=== PATIENT | female | born 1960 | race Caucasian/White ===

== ENCOUNTER → 2019-04-24 | Outpatient (CLI) | payer MEDICARE, SELFPAY ==
[2019-04-24 18:27] LABS: Amphetamine Urine VISTA NEGATIVE (<1000 ng/mL); Barbiturate Urine VISTA NEGATIVE (< 200 ng/mL); Benzodiazepine Urine VISTA NEGATIVE (< 200 ng/mL); Cocaine Urine VISTA NEGATIVE (< 300 ng/mL); Ecstacy Urine VISTA NEGATIVE (< 500 ng/mL); Methadone Urine VISTA NEGATIVE (< 300 ng/mL); PCP Urine VISTA NEGATIVE (< 25 ng/mL); THC Urine VISTA NEGATIVE (< 50 ng/mL); Vista UDS pH Range 5
== END | disposition home or self-care (01) ==
PROVIDERS: Family Provider Internal Medicine; PCP Internal Medicine; Referring Provider Anesthesiology Pain Medicine; Visit Provider Anesthesiology Pain Medicine
DX: F11.20 Opioid dependence, uncomplicated (principal)
CPT/HCPCS: 36415; 80307

== ENCOUNTER → 2020-01-09 | Outpatient (CLI) | payer MEDICARE, SELFPAY ==
--- NOTE | 2020-01-09 13:27 | MRI_ITS ---
STUDY: MRI LUMBAR SPINE WITHOUT CONTRAST REASON FOR EXAM: Female, 59 years old. back pain, bilat hip pain TECHNIQUE: Standardized fat and water weighted pulse sequences were obtained in the sagittal and axial planes. COMPARISON: 12/01/2016 FINDINGS: T12-L1: Normal endplates. Normal disc height, hydration and morphology. Normal bilateral facet joints. Normal central canal and bilateral lateral recesses. Normal bilateral intervertebral neural foramina. Normal lumbar lordosis. There is no substantial scoliosis. Normal conus medullaris that terminates at the L1/L2. L1-2: Normal endplates. Normal disc height, hydration and morphology. Normal bilateral facet joints. Normal central canal and bilateral lateral recesses. Normal bilateral intervertebral neural foramina. L2-3: Mild bilateral facet hypertrophy with fluid in the facet joints consistent with instability and mild ligament flavum hypertrophy. No change in the 2 mm retrolisthesis of L2 on L3 with a mild bilobed disc protrusion produces mild spinal stenosis with mild bilateral lateral recess stenosis and mild bilateral neural foraminal stenosis. L3-4: Mild bilateral facet hypertrophy with fluid in the facet joints consistent with instability and mild ligament flavum hypertrophy. No change in the 2 mm retrolisthesis of L3 on L4 with a mild broad disc protrusion which produces mild spinal stenosis with mild bilateral lateral recess stenosis and mild bilateral neural foraminal stenosis. Associated Modic type I endplate changes. L4-5: Moderate bilateral facet hypertrophy and ligamentum flavum hypertrophy. No change in the 2 mm of anterolisthesis of L4 and L5 with a moderate broad disc protrusion which produces moderate spinal stenosis with moderate bilateral lateral recess stenosis with abutment of the L5 nerve roots bilaterally and mild left neural foraminal stenosis and moderate right neural foraminal stenosis with abutment of the exiting right L4 nerve root laterally.. L5-S1: Moderate bilateral facet hypertrophy with fluid in the facet joints consistent with instability. Disc desiccation but no disc protrusion, spinal stenosis, or neural foraminal stenosis. Normal visualized sacral ala. Normal visualized paraspinous soft tissue structures. MRI/Spine Lumbar (Routine) IMPRESSION: No change from 12/01/2016. Electronically Signed: Zheng Jama MD at 15:42 EST Tel , Service support ,
== END | disposition home or self-care (01) ==
PROVIDERS: PCP Internal Medicine; Referring Provider Anesthesiology Pain Medicine; Visit Provider Anesthesiology Pain Medicine
DX: M54.9 Dorsalgia, unspecified (principal); M79.606 Pain in leg, unspecified
CPT/HCPCS: 72148

== ENCOUNTER → 2020-12-02 11:15 | Outpatient (CLI) | payer MEDICARE, SELFPAY ==
--- NOTE | 2020-12-02 11:21 | RAD_ITS ---
STUDY: X-RAY - CERVICAL SPINE REASON FOR EXAM: Female, 60 years old. pt c/o constant neck pain x 2 weeks, most pain near T7 and goes up neck, had an injection in 2011, pt states hands sometimes get cold with neck pain TECHNIQUE: 3 view(s) of the cervical spine were obtained. COMPARISON: None FINDINGS: Normal anterior atlantoaxial articulation. Normal odontoid process. Normal cervical lordosis. There is multi-level endplate spondylosis. There is multi-level degenerative disc disease with multilevel disc space narrowing. There is facet arthropathy. Possible facet ankylosis C3-4 level. The soft tissue structures are unremarkable. RAD/Cerv Spine 2 or 3 Views IMPRESSION: Multilevel degenerative disease C6. There is no acute displaced fracture or dislocation. Electronically Signed: Jennie Olsen MD at 2:59 EST , Service support ,
== END ==
PROVIDERS: PCP Internal Medicine; Referring Provider Anesthesiology Pain Medicine; Visit Provider Anesthesiology Pain Medicine
DX: M54.2 Cervicalgia (principal); M79.602 Pain in left arm
CPT/HCPCS: 72040

== ENCOUNTER → 2021-09-07 11:36 | Outpatient (CLI) | payer MEDICARE, SELFPAY ==
--- NOTE | 2021-09-07 11:40 | RAD_ITS ---
STUDY: X-RAY - PELVIS AND LEFT HIP REASON FOR EXAM: Female, 61 years old. HIP PAIN TECHNIQUE: 3 views of the pelvis and hip. COMPARISON: 11/03/2014. FINDINGS: No acute fracture, dislocation or osseous destruction. Mild joint space narrowing at the hips. Mild sacroiliac joint arthrosis. No significant soft tissue swelling. RAD/HIP, UNI W/ Pelvis 2-3 Views IMPRESSION: Left hip and pelvis intact with mild osteoarthrosis Electronically Signed: Francis Barr DO at 10:40 EDT Tel , Service support ,
== END ==
PROVIDERS: PCP Internal Medicine; Referring Provider Anesthesiology Pain Medicine; Visit Provider Anesthesiology Pain Medicine
DX: M25.552 Pain in left hip (principal)
CPT/HCPCS: 73502

== ENCOUNTER → 2022-04-21 | Outpatient (CLI) | payer MEDICARE, SELFPAY ==
--- NOTE | 2022-04-21 | IMM_PTH ---
PATIENT: YANCY DALEY LOC: [facility] U#:[id number] AGE/SX: 61/F ROOM: RE04/21/[address]: Dr. Akanksha Burks DO : 1960 BED: DIS: 04/21/2022 SPEC #: [id number] RECD: 04/26/22 13:52 STATUS: TIMO REQ #: [id number] ESTELLE: 04/21/22 00:[address]: Akanksha Burks DEPT: IMMUNOHISTOCHEMISTRY RECD BY: Lou Alston ENTERED: 04/26/22 13:54 SP TYPE: IMMUNO OTHR DR: Dr. Tyrell Vaughn MD [place]: [facility] [place] Procedures: SMA (add) CALPONIN-1 (add) CEA (add) CK20 (add) CK7 (add) CK8 (add) ELSI (add) MAMM (add) RI (add) Vimentin (add) Pankeratin (add) GATA3 (add) P40 (add) ER (initial) S-100 (add) PHYSICIAN & INSTITUTION [address] [address] SPECIMEN INFORMATION: Tissue Source: Condyloma Clinical Info: Condyloma Specimen Number: [id number] CPT code: 42076, 02042 x14 METHODOLOGY: Deparaffinized sections of prefer/formalin-fixed tissue or PAP/DQ stained slides are incubated with monoclonal/polyclonal antibodies/oligonucleotide probes. Localization is made via biotin free immunoperoxidase method. Appropriate controls are performed and reacted as expected. Results on target cell population are indicated in the following table: RESULTS: ANTIBODY / CLONE RESULT ER (6F11) positive RI (1E2) positive Mammaglobin (31A5) positive GATA3 (L50-823) positive AE1-3 (AE1/AE3/PCK26) positive CK7 (OV-TL12/30) positive CK8 (81uibkA22) positive CK20 (KS20.8) negative Vimentin (V9) negative Calponin-1 (SM276Z) positive Actin (1A4) positive P40 (BC28) positive CEA (11-7/TF-3HB-1) negative ELSI (E29) positive S-100 (4C4.9) negative These tests were developed and their performance characteristics determined by [facility]. They may not have been cleared or approved by the U.S. Food and Drug Administration. The FDA has determined that such clearance or approval is not necessary. The above immunohistochemical/dualISH markers are ordered and reviewed by the Pathologist. INTERPRETATION: Condyloma, biopsy: Consistent with hidradenoma papilliferum. AM:karan 04/28/2022
--- NOTE | 2022-04-21 11:00 | MISC_PTH ---
PATIENT: YANCY DALEY LOC: [facility] U#:[id number] AGE/SX: 61/F ROOM: RE04/21/[address]: Dr. Akanksha Burks DO : 1960 BED: DIS: 04/21/2022 SPEC #: [id number] RECD: 04/21/22 14:56 STATUS: TIMO REAldo #: [id number] ESTELLE: 04/21/22 11:[address]: Akanksha Burks DEPT: SURGICAL PATHOLOGY RECD BY: Esther Fuentes ENTERED: 04/22/22 09:09 SP TYPE: MISC DAVID DR: Dr. Tyrell Vaughn MD Tissues: TISSUE SURGICALLY REMOVED Procedures: Surgery Specimen Level IV HEADER OPERATION: Condyloma removal PRE-OP DIAGNOSIS: 078.11 TISSUE SUBMITTED: Condyloma MICROSCOPIC DIAGNOSIS Condyloma, biopsy: Consistent with hidradenoma papilliferum. AM/am 04/28/22 COMMENT Immunohistochemistry ([id number]) supports the above diagnosis. MICROSCOPIC DESCRIPTION Slides are reviewed. GROSS DESCRIPTION Received in fixative is one container labeled with the patient's name and designated condyloma biopsy. The specimen consists of a piece of marroquin-brown skin measuring 0.4 x 0.4 x 0.3 cm. The specimen is totally submitted in one cassette. / SJ:karan 04/22/2022 TC:5 [facility]: [id number]
== END | disposition home or self-care (01) ==
LOC: LABSPEC 13:13
PROVIDERS: PCP Internal Medicine; Visit Provider Student in an Organized Health Care Education/Training Program
DX: D28.0 Benign neoplasm of vulva (principal)
CPT/HCPCS: 88305; 88341; 88342

== ENCOUNTER → 2022-07-04 | Outpatient (CLI) | payer MEDICARE, SELFPAY ==
[2022-07-04 12:34] LABS: Amphetamine Urine VISTA NEGATIVE (<1000 ng/mL); Barbiturate Urine VISTA NEGATIVE (< 200 ng/mL); Benzodiazepine Urine VISTA NEGATIVE (< 200 ng/mL); Cocaine Urine VISTA NEGATIVE (< 300 ng/mL); Ecstacy Urine VISTA NEGATIVE (< 500 ng/mL); Methadone Urine VISTA NEGATIVE (< 300 ng/mL); PCP Urine VISTA NEGATIVE (< 25 ng/mL); THC Urine VISTA NEGATIVE (< 50 ng/mL); Vista UDS pH Range 6
== END | disposition home or self-care (01) ==
LOC: LAB 11:28
PROVIDERS: PCP Internal Medicine; Referring Provider Anesthesiology Pain Medicine; Visit Provider Anesthesiology Pain Medicine
DX: F11.20 Opioid dependence, uncomplicated (principal)
CPT/HCPCS: 80307

== ENCOUNTER → 2024-03-13 | Outpatient (CLI) | payer MEDICARE, SELFPAY ==
--- NOTE | 2024-03-13 08:13 | MRI_ITS ---
HISTORY: Meningioma removed 12/2023, headaches. TECHNIQUE: Multiplanar and multisequence MR images of the brain were obtained before and after the intravenous administration of 17 cc Paola scan. 659 images. COMPARISON: 01/03/2024, 01/02/2024. FINDINGS: BRAIN PARENCHYMA: Near complete resolution of right frontotemporoparietal vasogenic edema. Small peripheral wedge-shaped zone of restricted diffusion, heterogeneous T2 FLAIR signal, and mild enhancement in the right parietal temporal postoperative bed. Mild enhancement appears petechial on the thin section images. Mild adjacent cortical and subcortical edema. No acute intracranial hemorrhage identified with decreased susceptibility artifact related to postoperative hemorrhage. Mild right dural thickening and susceptibility artifact in the overlying scalp, compatible with chronic postoperative change. CSF SPACES: Cerebral ventricles, cortical sulci, and other extra-axial CSF spaces within normal limits in size for age. No significant midline shift or other mass effect. VASCULAR SYSTEM: Major intracranial flow voids are maintained. PARANASAL SINUSES AND MASTOID AIR CELLS: Small left maxillary sinus mucous retention cyst. ORBITS: Symmetric contents. MRI/Brain W/WO Contrast IMPRESSION: Near complete resolution of right cerebral vasogenic edema with interval resolution of midline shift. Small zone of restricted diffusion with mild enhancement in the right temporoparietal postoperative bed which may represent postoperative change, residual/recurrent tumor, or infarction. Recommend follow-up. Electronically Signed: Modesta Cm MD at 11:31 EDT ,
[2024-03-13 08:41] LABS: CREATININE FINGERSTICK 1.4 mg/dL (0.55-1.02)
== END | disposition home or self-care (01) ==
PROVIDERS: PCP Internal Medicine
DX: D32.9 Benign neoplasm of meninges, unspecified (principal)
CPT/HCPCS: 70553; A9575

== ENCOUNTER → 2024-04-23 | Outpatient (CLI) | payer MEDICARE, SELFPAY ==
--- NOTE | 2024-04-23 10:04 | VDLE_ITS ---
Reason For Study: Left leg DVT RIGHT LEFT CFV is compressible, spontaneous, phasic, GSV is normal. competent and demonstrates normal CFV is compressible, spontaneous, phasic, augmentation. competent, and demonstrates normal Procedure augmentation. This is a venous duplex using B-mode, color FV is compressible, spontaneous, phasic, flow and spectral Doppler. competent and demonstrates normal Exam performed in department. augmentation. A preliminary report was called and/or faxed POP V is compressible, spontaneous, phasic, to Dr. Vaughn. competent and demonstrates normal augmentation. T/P Trunk is compressible. PTV is compressible. LT PerV is compressible. VL/Venous Duplex US, Unilateral Interpretation Summary Deep veins of the left lower extremity are patent and compressible segmentally. There is no evidence of left lower extremity deep vein thrombosis. The left great saphenous vein blair ears patent and compressible segmentally. Ordering Physician: Tyrell Vaughn Referring Physician: Tyrell Vaughn Performed By: Alfreda Erickson RVT
== END | disposition home or self-care (01) ==
PROVIDERS: PCP Internal Medicine; Referring Provider Internal Medicine; Visit Provider Internal Medicine
DX: I82.432 Acute embolism and thrombosis of left popliteal vein (principal)
CPT/HCPCS: 93971

== ENCOUNTER → 2025-03-24 | Outpatient (CLI) | payer MEDICARE, SELFPAY ==
--- NOTE | 2025-03-24 10:35 | RAD_ITS ---
PROCEDURE: LUMBAR SPINE 2 OR 3 VIEWS 03/24/2025 REASON FOR EXAM: RADICULOPATHY IN THE LUMBAR REGION TECHNIQUE: 3 view(s) of the lumbar spine FINDINGS: Vertebrae: No acute fracture. Discs: Disc space narrowing and osteophyte formation consistent with degenerative disc disease. Alignment: 5 mm of anterolisthesis of L5 on S1. Other: Facet hypertrophy in the lower lumbar spine. RAD/Lumbar Spine 2 or 3 Views IMPRESSION: Degenerative disc disease with 5 mm of anterolisthesis of L5 on S1. Reading Location: [id number]
== END | disposition home or self-care (01) ==
LOC: RAD 10:28
PROVIDERS: PCP Internal Medicine; Referring Provider Anesthesiology Pain Medicine; Visit Provider Anesthesiology Pain Medicine
DX: M54.16 Radiculopathy, lumbar region (principal)
CPT/HCPCS: 72100

== ENCOUNTER → 2025-06-16 | Outpatient (CLI) | payer MEDICARE, SELFPAY ==
--- NOTE | 2025-06-16 09:50 | RAD_ITS ---
EXAM: XR Thoracic Spine, 2 Views CLINICAL INDICATION: RADICULOPATHY, THORACIC REGION TECHNIQUE: Frontal and lateral views of the thoracic spine. COMPARISON: No relevant prior studies available. FINDINGS: VERTEBRAE: Degenerative disc disease and facet arthropathy throughout the thoracic spine. No acute fracture. Normal alignment. DISC SPACES: See above. SOFT TISSUES: Unremarkable. RAD/Thoracic Spine 2 Views IMPRESSION: Degenerative changes thoracic spine as described. Reading Location: [facility]
--- OUTSIDE RECORDS SUMMARY | 2025-06-16 19:33 | XMS RPT_ITS | CCD ---
Author Organization [facility] Care Team Providers Care Employment Recruiter Name Role Phone LATOUF, BUTROS Primary Care Unavailable , NIDIA Referring Unavailable TAMMY OLVERA Attending Unavailable TAMMY OLVERA Admitting Unavailable Johana HUERTA, Geremias Primary Care Provider [phone] JOHANA HUERTA, DR ARCHULETA Primary Care Physician Maddy Rounding Nurse, Audi Unavailable Nidia Henderson S Unavailable Unavailable CEFERINO AHUJA Attending Adams VAUGHN MD, DR ARCHULETA Primary Care Unavailable CEFERINO AHUJA Attending Unavaillaron VAUGHN MD, DR ARCHULETA Primary Care Unavailable HOSPITALIST, JONG Consulting Unavailable KIERSTEN HUERTA, CHIQUITA Diaz Admitting Unavailable KIERSTEN HUERTA, CHIQUITA Diaz Attending Unavailable JOHANA HUERTA, DR ARCHULETA Primary Care Unavailable YARED HUERTA, ADRI Consulting Unavaillaron BECKER MD, CELESTE Mullins Consulting Unavailable JONNY PUGH DO Consulting Unavailable CEFERINO AHUJA Consulting Unavaillaron BERMAN MD, HECTOR Consulting Unavailable NAVJOT HUERTA, DR MARIANO Consulting Unavailable PAOLO HUERTA, MARI Consulting Unavailkerry ISLAS MD, AFRICA Weinberg Consulting Unavailable CEFERINO AHUJA Attending Unavaillaron VAUGHN MD, DR ARCHULETA Primary Care Unavailable JOSEFA NIDIA Attending Unavailable LATOUF, BUTROS Referring Unavailable LATOUF, BUTROS Primary Care Unavailable LATOUF, BUTROS Primary Care Unavailable LATOUF, BUTROS Primary Care Unavailable LATOUF, BUTROS Primary Care Unavailable SHYAM RIVEROANDA Attending Unavailable LATOUF, BUTROS Primary Care Unavailable Latouf, Butros Primary Care Unavailable Francis Lora Attending Unavailable Latouf, Butros Referring Unavailable Latouf, Butros Primary Care Unavailable Juancarlos Gamez Referring Unavailable Basalemily, Ayman Attending Unavailable Latouf, Butros Primary Care Unavailable Latouf, Butros Referring Unavailable Latouf, Geremias Attending Unavailable LATOUF, GEREMIAS HUERTA Primary Care Unavailable LATOUF, GEREMIAS HUERTA Consulting Unavailable LATOUF, GEREMIAS HUERTA Attending Unavailable LATOUF, GEREMIAS HUERTA Admitting Unavailable PROVIDER, UNKNOWN Consulting Unavailable PROVIDER, UNKNOWN Consulting Unavailable PROVIDER, UNKNOWN Consulting Unavailable NAM, ROSENDO K Referring Unavailable NAM, ROSEDNO K Consulting Unavailable EVER, SRIDHAR E Primary Care Unavailable EVER, SRIDHAR E Attending Unavailable EVER, SRIDHAR E Admitting Unavailable PROVIDER, UNKNOWN Consulting Unavailable LATOUF, GEREMIAS HUERTA Primary Care Unavailable LATOUF, GEREMIAS HUERTA Consulting Unavailable LATOUF, GEREMIAS HUERTA Attending Unavailable LATOUF, GEREMIAS HUERTA Admitting Unavailable PROVIDER, UNKNOWN Consulting Unavailable PROVIDER, UNKNOWN Consulting Unavailable PROVIDER, UNKNOWN Consulting Unavailable LATOUF, GEREMAIS HUERTA Admitting Unavailable LATOUF, GEREMIAS HUERTA Primary Care Unavailable LATOUF, GEREMIAS HUERTA Consulting Unavailable LATOUF, GEREMIAS HUERTA Attending Unavailable PROVIDER, UNKNOWN Consulting Unavailable PROVIDER, UNKNOWN Consulting Unavailable PROVIDER, UNKNOWN Consulting Unavailable LATOUF, GEREMIAS HUERTA Admitting Unavailable LATOUF, GEREMIAS HUERTA Primary Care Unavailable LATOUF, GEREMIAS HUERTA Consulting Unavailable LATOUF, GEREMIAS HUERTA Attending Unavailable PROVIDER, UNKNOWN Consulting Unavailable PROVIDER, UNKNOWN Consulting Unavailable PROVIDER, UNKNOWN Consulting Unavailable LATOUF, GEREMIAS HUERTA Primary Care Unavailable LATOUF, GEREMIAS HUERTA Attending Unavailable LATOUF, GEREMIAS HUERTA Consulting Unavailable LATOUF, GEREMIAS HUERTA Admitting Unavailable PROVIDER, UNKNOWN Consulting Unavailable PROVIDER, UNKNOWN Consulting Unavailable PROVIDER, UNKNOWN Consulting Unavailable MAULIK CAI MD Primary Care Unavailable MAULIK CAI MD Attending Unavailable MAULIK CAI MD Admitting Unavailable LATOUF, GEREMIAS HUERTA Primary Care Unavailable LATOUF, GEREMIAS HUERTA Consulting Unavailable LATOUF, GEREMIAS HUERTA Attending Unavailable LATOUF, GEREMIAS HUERTA Admitting Unavailable PROVIDER, UNKNOWN Consulting Unavailable PROVIDER, UNKNOWN Consulting Unavailable PROVIDER, UNKNOWN Consulting Unavailable Allergies Allergy Classification Reported Allergen(s) Allergy Type Date of Onset Reaction(s) Facility (3 sources) Albuterol; Translations: [ALBUTEROL SULFATE] Drug Allergy 08-30-20 Intolerance [facility] Other [place] Repository (7 sources) Codeine; Translations: [CODEINE] Drug Allergy 12-31-19 16 Other: See Comments [facility] Repository (3 sources) Hmg-Coa Reductase Inhibitors (Statins); Translations: [HEIPCHZ-EPU-BCP REDUCTASE INHIBITORS] Propensity to adverse reactions to drug (disorder) 08-16-20 23 Swelling [facility] Repository (7 sources) Hydroxychloroquine; Translations: [HYDROXYCHLOROQUINE] Drug Allergy 12-31-19 16 Rash [facility] Repository (7 sources) Metoprolol; Translations: [METOPROLOL] Drug Allergy 12-31-19 16 Cough [facility] Repository (8 sources) Minocycline; Translations: [MINOCYCLINE] Drug Allergy 12-31-19 16 GI Upset, Eruption of skin (disorder) [facility] Repository (3 sources) Sulfonamides (Antibiotic); Translations: [SULFA (SULFONAMIDE ANTIBIOTICS)] Propensity to adverse reactions to drug (disorder) 12-31-19 16 Rash [facility] Repository (8 sources) Tetracycline; Translations: [TETRACYCLINE] Drug Allergy 12-31-19 16 GI Upset [facility] Repository (3 sources) RED YEAST RICE; Translations: [RED YEAST RICE] Propensity to adverse reactions to drug (disorder) 08-16-20 23 Vomiting [facility] Repository (3 sources) TETANUS AND DIPHTHERIA TOXOIDS, ADSORBED, ADULT; Translations: [TETANUS AND DIPHTHERIA TOXOIDS, ADSORBED, ADULT] Propensity to adverse reactions to drug (disorder) 12-31-19 Other: See Comments [facility] Repository (4 sources) Lovastatin; Translations: [lovastatin] Drug Allergy muscle cramps [facility] (4 sources) Pravastatin; Translations: [pravastatin] Drug Allergy Pain (finding) [facility] (4 sources) rosuvastatin; Translations: [rosuvastatin] Drug Allergy pain [facility] (4 sources) Sulfonamide; Translations: [sulfa drugs] Drug allergy [facility] (4 sources) tetanus toxoid vaccine, inactivated; Translations: [tetanus toxoid] Drug Allergy [facility] (1 source) Codeine Drug Allergy [facility] Repository (1 source) Hydroxychloroquine Drug Allergy [facility] Repository (1 source) Lovastatin Drug Allergy [facility] Repository (1 source) Pravastatin Drug Allergy [facility] Repository (1 source) rosuvastatin Drug Allergy [facility] Repository (1 source) Sulfonamides (Antibiotic) Drug allergy (disorder) [facility] Repository (1 source) tetanus toxoid vaccine, inactivated Drug Allergy [facility] Repository (1 source) METOPROLOL SUCC ER Drug allergy (disorder) [facility] Repository (1 source) RED YEAST RICE + CO-Q10 Drug allergy (disorder) [facility] Repository Medications Current Medications Medication Drug Class(es) Dates Sig (Normalized) Sig (Original) acetaminophen 325 mg oral capsule (4 sources) Start: 01-08-2024 take 1 capsule by mouth every four hours as needed for pain Tylenol 325 mg oral capsule Dose : 650 mg =, Oral, q4h, PRN as needed for pain, 0 Refill(s) Start Date: 01/08/24 Status: Ordered amLODIPine 10 mg oral tablet (5 sources) Dihydropyridine Calcium Channel Bharati Start: 01-09-2021 Norvasc 10 mg oral tablet Dose : 10 mg = 1 tab(s), Oral, qDay, 0 Refill(s) Start Date: 01/09/21 Status: Ordered Comment on above: Take by mouth once d aily. 10mg daily apixaban 5 mg oral tablet (2 sources) Factor Xa Inhibitor Start: 02-13-2024 Eliquis Starter Pack for Treatment of DVT and PE 5 mg oral tablet TAKE DIRECTED ON PACKAGE Start Date: 02/13/24 Status: Ordered busPIRone hydrochloride 5 mg oral tablet (1 source) Start: 02-13-2024 take 1 tablet by mouth twice daily busPIRone 5 mg oral tablet TAKE 1 TABLET BY MOUTH TWICE DAILY Start Date: 02/13/24 Status: Ordered carvedilol 12.5 mg oral tablet (5 sources) alpha-Adrenergic Bharati, beta-Adrenergic Bharati Start: 01-12-2021 Coreg 12.5 mg oral tablet Dose : 12.5 mg = 1 tab(s), Oral, BIDM, # 180 tab(s), 3 Refill(s), Pharmacy: [facility]/pharmacy #[id number], 149.9, cm, 01/09/21 5:02:00 EST, Height, kg, 01/09/21 5:02:00 EST, Dosing Weight Start Date: 01/12/21 Status: Ordered Comment on above: Take 12.5 mg by mout h twice daily with meals. cephalexin 500 mg oral capsule (1 source) Cephalosporin Antibacterial Start: 04-09-2024 End: 04-19-2024 cephalexin 500 mg oral capsule Dose : 500 mg = 1 cap(s), Oral, QID, X 10 day(s), # 40 cap(s), 0 Refill(s), 04/19/24 10:19:00 AM EDT, Pharmacy: [id number], 144.8, cm, 04/09/24 10:02:00 EDT, Height, 86.7, kg, 04/09/24 10:02:00 EDT, Dosing Weight Start Date: 04/09/24 Stop Date: 04/19/24 Status: Ordered cyclobenzaprine hydrochloride 10 mg oral tablet (5 sources) Muscle Relaxant Start: 01-08-2024 cyclobenzaprine 10 mg oral tablet Dose : 10 mg = 1 tab(s), Oral, BID, PRN Muscle spasm, 0 Refill(s) Start Date: 01/08/24 Status: Ordered take 1 tablet by mouth once brian y cyclobenzaprine (FLEXERIL) 10 mg tablet Take 10 mg by mouth once daily. 0 Active Comment on above: Take 10 mg by mouth once daily. dexamethasone 1 mg oral tablet (4 sources) Corticosteroid Start: dexAMETHasone 1 mg oral tablet See Instructions, 2mg (2 tabs) PO TID x 2 days 2mg (2 tabs) PO BID x 2 days 1mg PO BID x 2 days 1mg PO daily x 2 days 1mg PO QOD x 2 doses Then stop., # 28 tab(s), 0 Refill(s), Pharmacy: [id number], 144.8, cm, 01/05/24 19:12:00 EST, Height, kg, 01/05/24 19:12:00 EST, Dosing Weight Start Date: 01/08/24 Status: Ordered 1 ml evolocumab 140 mg/ml auto-injector (5 sources) PCSK9 Inhibitor Start: 023 inject 140 mg by subcutaneous injection every other week Repathkerry SureClick 140 mg/mL subcutaneous solution See Instructions, INJECT 140 MG UNDER THE SKIN ONCE EVERY 2 WEEKS, # 6 mL, 3 Refill(s), [id number], 149.9, cm, 04/03/23 13:53:00 EDT, Height, kg, 04/03/23 13:53:00 EDT, Dosing Weight Start Date: 09/18/23 Status: Ordered Comment on above: ADMINISTER 1 ML UNDE R THE SKIN EVERY 2 WEEKS ezetimibe 10 mg oral tablet (4 sources) Dietary Cholesterol Absorption Inhibitor Start: Zetia 10 mg oral tablet Dose : 10 mg = 1 tab(s), Oral, qDay, # 90 tab(s), 3 Refill(s), Pharmacy: [facility], 149.9, cm, 10/06/22 13:17:00 EST, Height, kg, 10/06/22 13:17:00 EST, Dosing Weight Start Date: 02/01/23 Status: Ordered folic acid 1 mg oral tablet (5 sources) Start: folic acid 1 mg oral tablet Dose : 2 mg = 2 tab(s), Oral, qDay, 0 Refill(s) Start Date: 01/09/21 Status: Ordered Comment on above: Take 1 mg by mouth t wice daily. lactulose 667 mg/ml oral solution (5 sources) Osmotic Laxative Start: take 1 dose by mouth twice daily lactulose 10 g/15 mL oral syrup Dose : 10 gram(s) = 15 mL, Oral, BID, # 480 mL, 0 Refill(s) Start Date: 10/06/22 Status: Ordered take 20 g by mouth twice daily l actulose (DUPHALAC, CONSTULOSE) 10 g/15 mL soln Take 20 g by mouth twice daily. 0 Active Comment on above: Take 20 g by mouth t wice daily. levETIRAcetam 500 mg oral tablet (4 sources) Start: 01-08-2024 levETIRAcetam 500 mg oral tablet Dose : 500 mg = 1 tab(s), Oral, q12h, # 60 tab(s), 0 Refill(s), Pharmacy: [id number], 144.8, cm, 01/05/24 19:12:00 EST, Height, kg, 01/05/24 19:12:00 EST, Dosing Weight Start Date: 01/08/24 Status: Ordered lisinopril 20 mg oral tablet (5 sources) Angiotensin Converting Enzyme Inhibitor Start: 01-09-2021 lisinopril 20 mg oral tablet Dose : 20 mg = 1 tab(s), Oral, BID, 0 Refill(s) Start Date: 01/09/21 Status: Ordered Comment on above: Take 20 mg by mouth once daily. nitroglycerin 0.4 mg sublingual tablet (5 sources) Nitrate Vasodilator Start: 01-12-2021 Nitrostat 0.4 mg sublingual tablet Dose : 0.4 mg = 1 tab(s), Sublingual, q5min, PRN Chest pain, # 100 tab(s), 3 Refill(s), [id number], 149.9, cm, 01/09/21 5:02:00 EST, Height, kg, 01/09/21 5:02:00 EST, Dosing Weight Start Date: 01/12/21 Status: Ordered nitroglycerin mg blingual (NITROQUICK) 0.4 mg SL tablet Dissolve 0.4 mg under the tongue every 5 minutes as needed for chest pain. 0 Active Comment on above: Dissolve 0.4 mg unde r the tongue every 5 minutes as needed for chest pain. omeprazole 20 mg delayed release oral capsule (6 sources) Proton Pump Inhibitor Start: 04-11-2018 omeprazole 20 mg oral delayed release capsule Dose : 20 mg = 1 cap(s), Oral, qDayAC, 0 Refill(s) Start Date: 01/09/21 Status: Ordered take 1 capsule by mouth once aleks ly omeprazole (PRILOSEC) 20 mg capsule Take 20 mg by mouth once daily. 0 Active Comment on above: Take 20 mg by mouth once daily. Take 1 capsule by [facility] twice daily. POLYETHYLENE GLYCOL 3350 (4 sources) Osmotic Laxative Start: 01-08-2024 polyethylene glycol 3350 Oral, qDay, 0 Refill(s) Start Date: 01/08/24 Status: Ordered Completed/Discontinued Medications Medication Drug Class(es) Dates Sig (Normalized) Sig (Original) acetaminophen 325 mg / HYDROcodone bitartrate 5 mg oral tablet (1 source) Opioid Agonist take 1 tablet by mouth every twelve hours as needed HYDROcodone-acetam inophen (NORCO) 5-325 mg per tablet Take 1 tablet by mouth twice daily as needed. 0 Active Comment on above: Take 1 tablet by khurarm th twice daily as needed. ASCORBIC ACID/ZINC (ZINC WITH VITAMIN C ORAL) (1 source) ASCORBIC ACID/ZI NC (ZINC WITH VITAMIN C ORAL) Take by mouth once daily. 0 Active Comment on above: Take by mouth once d aily. aspirin 81 mg delayed release oral tablet (1 source) Platelet Aggregation Inhibitor, Nonsteroidal Anti-inflammatory Drug take 1 tablet by mouth once daily aspirin, enteric coated (ASPIRIN, ENTERIC COATED) 81 mg EC tablet Take 81 mg by mouth once daily. 0 Active Comment on above: Take 81 mg by mouth once daily. Budesonide / formoterol (1 source) Corticosteroid, beta2-Adrenergic Agonist budesonide-formote rol (SYMBICORT) 160-4.5 mcg/actuation inhaler Inhale 2 Puffs as instructed as needed. 0 Active Comment on above: Inhale 2 Puffs as in structed as needed. ciprofloxacin 500 mg oral tablet (1 source) Quinolone Antimicrobial take 1 tablet by mouth twice daily for urinary tract infection ciprofloxacin HCl (CIPRO) 500 mg tablet Take 500 mg by mouth twice daily. On hand if needed for cystitis/UTI 0 Active Comment on above: Take 500 mg by mouth twice daily. On hand if needed for cystitis/UTI diazePAM 5 mg oral tablet (4 sources) Benzodiazepine Start: 01-16-2024 diazePAM 5 mg oral tablet Dose : 5 mg = 1 tab(s), Oral, q6h, PRN as needed for anxiety, 0 Refill(s), 86.7 Start Date: 01/16/24 Status: Ordered Start: 01-08-2024 End: 01-13-2024 Valium 5 mg oral tablet Dose : 5 mg = 1 tab(s), Oral, TID, PRN Anxiety, X 5 day(s), # 15 tab(s), 0 Refill(s), 01/13/24 1:58:00 PM EST, Pharmacy: [facility], Anxiety, 144.8, cm, 01/05/24 19:12:00 EST, Height, 86.7, kg, 01/05/24 19:12:00 EST, Dosing Weight Start Date: 01/08/24 Stop Date: 01/13/24 Status: Ordered ezetimibe / Simvastatin (1 source) HMG-CoA Reductase Inhibitor, Dietary Cholesterol Absorption Inhibitor take 10 mg by mouth once daily EZETIMIBE-SIMVASTATIN ORAL Take 10 mg by mouth once daily. 0 Active Comment on above: Take 10 mg by mouth once daily. meloxicam 15 mg oral tablet (1 source) Nonsteroidal Anti-inflammatory Drug take 1 tablet by mouth once daily meloxicam (MOBIC) 15 mg tablet Take 15 mg by mouth once daily. 0 Active Comment on above: Take 15 mg by mouth once daily. methotrexate 2.5 mg oral tablet (1 source) Folate Analog Metabolic Inhibitor methotrexate 2.5 mg tablet Take by mouth one time only. Seven tabs once a week 0 Active Comment on above: Take by mouth one ti me only. Seven tabs once a week omega-3 DHA-EPA (FISH OIL) 1,200 (144-216) mg capsule (1 source) take 1 capsule by mouth once daily at breakfast omega-3 DHA-EPA (FISH OIL) 1,200 (144-216) mg capsule Take 1 capsule by mouth daily with breakfast. 0 Active Comment on above: Take 1 capsule by mo ut daily with breakfast. omega-3 fatty [id number]-neo-[id number] 300 mg cap (1 source) omega-3 fatty nitzj-ynl-lhe 300 mg cap Take by mouth once daily. 0 Active Comment on above: Take by mouth once d aily. phenazopyridine hydrochloride 200 mg oral tablet (1 source) take 1 tablet by mouth every eight hours as needed phenazopyridine (PYRIDIUM, GERIDIUM) 200 mg tablet Take 200 mg by mouth three times daily as needed. 0 Active Comment on above: Take 200 mg by mouth three times daily as needed. Polyethylene Glycols (1 source) POLYETHYLENE GLY COL 3350 (MIRALAX ORAL) Take by mouth as needed. 0 Active Comment on above: Take by mouth as nee ded. predniSONE 5 mg oral tablet (1 source) take 1 tablet by mouth once daily predniSONE (DELTASONE) 5 mg tablet Take 5 mg by mouth once daily. One tab for 3-5 days for polyarthropathy flare ups 0 Active Comment on above: Take 5 mg by mouth o nce daily. One tab for 3-5 days for polyarthropathy flare ups ticagrelor 60 mg oral tablet (1 source) take 1 tablet by mouth twice daily ticagrelor (BRILINTA) 60 mg tablet Take 60 mg by mouth twice daily. 0 Active Comment on above: Take 60 mg by mouth twice daily. Problems Active Problems Problem Classification Problem Date Documented Da te Episodic/Chronic Acute myocardial infarction (4 sources) Myocardial infarction 01-25-2021 Chronic Anxiety disorders (1 source) Anxiety disorder; Translations: [Anxiety disorder, unspecified] Chronic Coronary atherosclerosis and other heart disease (5 sources) Coronary atherosclerosis; Translations: [Atherosclerotic heart disease of [place] coronary artery without angina pectoris] Chronic Disorders of lipid metabolism (7 sources) Hyperlipidemia; Translations: [Hyperlipidemia, unspecified] Onset: 05-29-2024 Chronic Epilepsy; convulsions (1 source) Seizure; Translations: [Unspecified convulsions] Episodic Esophageal disorders (3 sources) Conner's esophagus; Translations: [Conner's esophagus without dysplasia] Onset: 09-28-2023 09-28-2023 Chronic Essential hypertension (9 sources) Essential hypertension; Translations: [Essential (primary) hypertension] Onset: 02-17-2025 Chronic Nutritional deficiencies (2 sources) Vitamin D deficiency, unspecified; Translations: [Vitamin D deficiency] Onset: 05-29-2024 Chronic Other aftercare (3 sources) 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; Translations: [Other fdc (current) drug therapy] Onset: 03-12-2024 Episodic Other and unspecified benign neoplasm (1 source) Tubular adenoma of colon; Translations: [Benign neoplasm of colon, unspecified] 09-28-2023 Episodic Other endocrine disorders (1 source) Hyperparathyroidism , unspecified; Translations: [Hyperparathyroidis m, unspecified] Onset: 02-27-2025 Chronic Other gastrointestinal disorders (1 source) Personal history of other diseases of the digestive system; Translations: [History of Conner's esophagus] Onset: 09-07-2023 Episodic Other gastrointestinal disorders (1 source) Constipation, unspecified; Translations: [Constipation, unspecified constipation type] Onset: 09-07-2023 Episodic Other gastrointestinal disorders (1 source) History of Conner's esophagus; Translations: [Personal history of other diseases of the digestive system] Onset: 09-07-2023 09-07-2023 Episodic Other gastrointestinal disorders (1 source) Constipation; Translations: [Constipation, unspecified] Onset: 09-07-2023 09-07-2023 Episodic Other liver diseases (1 source) Disease of liver; Translations: [Liver disease, unspecified] Chronic Other lower respiratory disease (4 sources) Dyspnea on exertion 04-07-2022 Episodic Other nervous system disorders (1 source) Disorder of brain; Translations: [Disorder of brain, unspecified] Chronic Other nervous system disorders (1 source) Cerebral edema; Translations: [Cerebral edema] Chronic Other nervous system disorders (2 sources) Disorder of brain, unspecified; Translations: [Disorder of brain, unspecified] Onset: 12-29-2023 Chronic Other non-epithelial cancer of skin (1 source) Basal cell carcinoma of lower extremity; Translations: [Basal cell carcinoma of skin of right lower limb, including hip] Episodic Other nutritional; endocrine; and metabolic disorders (2 sources) Hypercalcemia; Translations: [Hypercalcemia] Onset: 05-29-2024 Chronic Residual codes; unclassified (4 sources) Increased body mass index 01-25-2021 Episodic Rheumatoid arthritis and related disease (7 sources) Rheumatoid arthritis; Translations: [Rheumatoid arthritis, unspecified] Onset: 05-27-2024 Chronic Spondylosis; intervertebral disc disorders; other back problems (2 sources) Spinal stenosis of lumbar region; Translations: [Spinal stenosis, lumbar region without neurogenic claudication] Onset: 03-31-2025 Episodic Unclassified (2 sources) Blood clot (morphologic abnormality) 02-13-2024 Comment on above: left leg Past or Other Problems Problem Classification Problem Date Documented Da te Episodic/Chronic Diabetes mellitus without complication (2 sources) Hyperglycemia, unspecified; Translations: [Hyperglycemia] Onset: 05-29-2024 Episodic Nutritional deficiencies (2 sources) Deficiency of other specified B group vitamins; Translations: [Vitamin B12 deficiency (non anemic)] Onset: 05-29-2024 Episodic Other and unspecified benign neoplasm (1 source) Benign neoplasm of colon, unspecified; Translations: [Tubular adenoma of colon] Onset: 09-28-2023 Episodic Other gastrointestinal disorders (1 source) Heartburn; Translations: [Heartburn] Onset: 03-23-2018 Episodic Other gastrointestinal disorders (1 source) Heartburn; Translations: [Heartburn] Onset: 03-23-2018 03-23-2018 Episodic Other screening for suspected conditions (not mental disorders or infectious disease) (2 sources) Encounter for screening for malignant neoplasm of colon; Translations: [Patient encounter status] Onset: 03-23-2018 03-23-2018 Episodic Phlebitis; thrombophlebitis and thromboembolism (1 source) Acute embolism and thrombosis of left popliteal vein; Translations: [Acute embolism and thrombosis of left popliteal vein] Onset: 04-30-2024 Episodic Results Test Name Value Interpretation Reference Range Facility ED MED ADMINISTRATION DETAIL on 06-07-2025 ED MED ADMINISTRATION DETAIL [employer] [facility] Medication Administration Record [address] [place] [address] [id number] 06/03/2025 Patient: TAMMY GUPTA Sex: Female : 1960 Age: 64y MEASUREMENTS: Wt: 86.2 kg, Ht/Jeremias: 58.0 in, BMI: 39.71 ALLERGIES: Plaquenil, Sulfa (Sulfonamide Antibiotics), codeine, lovastatin, metoprolol, minocycline, pravastatin, red yeast rice, rosuvastatin, tetanus and diphtheria toxoids, tetracycline Medication Ordered Medication Administration Date/Time IV NS 0.9 % 1000 10:06/03 IV NS 0.9 % 1000 mL started in bag#1 1000 mL at Started mL at 500 mL/hr 500 mL/hr via Site# 1. - 10:13 Rick Uriarte R.N. 10:10 06/03/2025 (NOW x1) Rick Uriarte R.N. 13:06 06/03 Medication Discontinued: bag #1 completed. Total Stopped amount infused: 1000 mL. IV patency established. IV site checked: 13:06 06/03/2025 no pain, redness, or swelling. IV flushed thoroughly post-medication Mari Kiser R.N. administration. - 13:11 Mari Kiser R.N. Scanned HYDROmorphone 10:11 06/03 HYDROmorphone (Dilaudid) IVP 0.5 mg given via Given (Dilaudid) IVP 0.5 Site# 1. Allergies verified and confirmed 5 rights. IV patency 10:11 06/03/2025 mg (NOW x1, HIGH established. IV site checked: no pain, redness, or swelling. IV Rick Uriarte R.N. ALERT flushed thoroughly pre-medication administration. Information Scanned MEDICATION) reviewed with patient. Medication Wastage: 0.5 mg wasted. - 10:12 Rick Uriarte R.N. Zofran IVP 4 mg 10:10 06/03 Zofran IVP 4 mg given via Site# 1. Allergies verified Given (NOW x1) and confirmed 5 rights. IV patency established. IV site checked: no 10:10 06/03/2025 pain, redness, or swelling. IV flushed thoroughly pre-medication Rick Uriarte R.N. administration. Information reviewed with patient including reason Scanned for taking this medication. - 10:13 Rick Uriarte R.N. 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 Allergies verified and confirmed 5 rights. IV patency 13:17 06/03/2025 mg (NOW x1, HIGH established. IV site checked: no pain, redness, or swelling. IV Mari Kiser R.N. ALERT flushed thoroughly pre-medication administration. Information Scanned MEDICATION) reviewed with patient and spouse including reason for taking this medication, signs of allergic reaction, precautions and sedative warning. Verbalizes understanding. (left abdominal pain 5/10). Medication Wastage: 0.5 mg wasted. - 13:21 Mari Kiser R.N. 2 of 2 Normal [facility] ED NURSES CLINICAL NOTEon ED NURSES CLINICAL NOTE Nurse Narrative Nurse Clinical Narrative [address] [place] [address] [id number] 06/03/2025 09:40:00 Patient: TAMMY GUPTA Sex: Female : 1960 Age: 64y Disposition: Discharge to Home Disposition Decision Time: 14:13 06/03/2025 Departure Time: 14:21 06/03/2025 TRIAGE Arrived by private vehicle. Historian: (patient). Accompanied by family. Primary physician (Dr. oMnae). Triage time: 09:43 06/03/2025. Acuity: LEVEL 3. Chief Complaint: ABDOMINAL PAIN, NAUSEA and VOMITING. This started last night. The patient has had fever, nausea and vomiting. SEPSIS SCREEN: NEGATIVE. SIRS criteria negative: heart rate greater than 90. No possible sources of infection. -- 09:47 06/03/25 WINSTON Uriarte R.N. 09:48 06/03/25. BP: 177/104 MAP: 128. HR: 99. RR: 18. O2 saturation: 96% Temperature: 98 F. Pain level now 09/05. -- 09:48 06/03/25 WINSTON Uriarte R.N. Measurements: 09:47 06/03/25 Wt: 86.2 kg, Ht/Jeremias: 58.0 in, BMI: 39.71 -- 09:47 06/03/25 WINSTON Uriarte R.N. Medications: Repatha SureClick 140 mg/mL subcutaneous pen injector: 1 pen injector once every two weeks. -- 09:59 06/03/25 WINSTON Uriarte R.N. omeprazole 20 mg capsule,delayed release: 1 capsule once a day. -- 09:59 06/03/25 WINSTON Uriarte R.N. meloxicam 7.5 mg tablet: 1 tablet once a day as needed. -- 09:59 06/03/25 WINSTON Uriarte R.N. 1 of 5 Nurse Narrative ezetimibe 10 mg tablet: 1 tablet once a day. -- 09:59 06/03/25 WINSTON Uriarte R.N. cyclobenzaprine 10 mg tablet: 1 tablet once a day. -- 09:59 06/03/25 WINSTON Uriarte R.N. carvedilol 12.5 mg tablet: 1 tablet twice a day. -- 09:59 06/03/25 WINSTON Uriarte R.N. alprazolam 0.25 mg tablet: 1 tablet twice a day as needed. -- 09:59 06/03/25 WINSTON Uriarte R.N. lactulose 10 gram/15 mL oral solution: 15 ml twice a day as needed. -- 09:59 06/03/25 WINSTON Uriarte R.N. aspirin 81 mg tablet,delayed release: 1 tablet once a day. -- 09:59 06/03/25 WINSTON Uriarte R.N. methotrexate sodium 2.5 mg tablet: 6 tablet once a week. -- 09:06/03/25 WINSTON Uriarte R.N. lisinopril 20 mg tablet: 1 tablet twice a day. -- 09:06/03/25 WINSTON Uriarte R.N. amlodipine 10 mg tablet: 1 tablet once a day. -- 09:06/03/25 WINSTON Uriarte R.N. hydrocodone 5 mg-acetaminophen 325 mg tablet: TAKE 1 TABLET BY MOUTH TWICE A DAY NEEDED FOR 28 DAYS -- 09:06/03/25 WINSTON Uriarte R.N. folic acid 1 mg tablet: TAKE 2 TABLETS BY MOUTH ONCE DAILY -- 09:06/03/25 WINSTON Uriarte R.N. 09:43 06/03/25. Preferred Pharmacy: ([facility]). -- 09:47 06/03/25 WINSTON Uriarte R.N. Allergies: codeine -- 09:49 06/03/25 WINSTON Uriarte R.N. Sulfa (Sulfonamide Antibiotics) -- 09:49 06/03/25 WINSTON Uriarte R.N. metoprolol -- 09:49 06/03/25 WINSTON Uriarte R.N. tetracycline -- 09:49 06/03/25 WINSTON Uriarte R.N. minocycline -- 09:49 06/03/25 WINSTON Uriarte R.N. Plaquenil -- 09:49 06/03/25 WINSTON Uriarte R.N. tetanus and diphtheria toxoids -- 09:49 06/03/25 WINSTON Uriarte R.N. rosuvastatin -- 09:50 06/03/25 WINSTON Uriarte R.N. pravastatin -- 09:50 06/03/25 WINTSON Uriarte R.N. lovastatin -- 09:50 06/03/25 WINSTON Uriarte R.N. red yeast rice -- 09:50 06/03/25 WINSTON Uriarte R.N. Problems: Hypertension -- 09:44 06/03/25 WINSTON Uriarte R.N. Myocardial Infarction -- 09:44 06/03/25 WINSTON Uriarte R.N. melanoma -- 09:44 06/03/25 WINSTON Uriarte R.N. Cancer -- 09:44 06/03/25 WINSTON Uriarte R.N. Surgeries: 2 of 5 Nurse Narrative Hysterectomy -- 09:45 06/03/25 WINSTON Uriarte R.N. Placement of stent in coronary artery -- 09:45 06/03/25 WINSTON Uriarte R.N. brain tumor removal -- 09:45 06/03/25 WINSTON Uriarte R.N. History 09:43 06/03/25. SOCIAL HX: Former smoker, end date 2019. Occasional alcohol use. Drug use: marijuana. The patient has not traveled outside the [place] Infectious disease exposure: No infectious disease exposure. ABUSE ASSESSMENT: The patient answered yes to the question(s) Do you feel safe in your home? and no to the question(s) Are you afraid to go home?. SELF HARM ASSESSMENT: Self harm assessment was performed. The patient answered no to the question(s) Have you recently felt down, depressed, or hopeless? and Do you have thoughts of harming or killing yourself?. FALL RISK ASSESSMENT: Fall risk assessment completed. Risk factors identified include severe pain. -- 09:47 06/03/25 WINSTON Uriarte R.N. Interventions 09:43 06/03/25. Advanced care plan discussed with patient. Patient does not have advanced directive. (full code). -- 09:47 06/03/25 WINSTON Uriarte R.N. PHYSICAL ASSESSMENT 10:29 06/03/25. Ambulatory to room. GENERAL / NEURO / PSYCH: Alert. Oriented X 4. Appears in pain. HEENT: Mucous membranes are pink. RESPIRATORY: Respirations not labored. Breath sounds within normal limits. CVS: (more content not included)... Normal [facility] ED ORDER SHEET (CPOE ONLY)on 06-07-2025 ED ORDER SHEET (CPOE ONLY) Order Sheet Order Sheet [place] [address] [place] [address] [id number] 06/03/2025 Patient: TAMMY GUPTA Sex: Female : 1960 Age: 64y MEASUREMENTS: Wt: 86.2 kg, Ht/Jeremias: 58.0 in, BMI: 39.71 ALLERGIES: Plaquenil, Sulfa (Sulfonamide Antibiotics), codeine, lovastatin, metoprolol, minocycline, pravastatin, red yeast rice, rosuvastatin, tetanus and diphtheria toxoids, tetracycline MEDICATION/IV/DRIP/FLUID ORDERS Order Description Priority Entered Acknowledged Completed IV NS 0.9 %1000 mL at 500 09:59 06/03/2025 10:00 10:13 mL/hr (NOW x1) Sridhar Blandon, 06/03/2025 06/03/2025 Rick Nichols R.N. R.NTray HYDROmorphone (Dilaudid) 09:59 06/03/2025 10:00 10:12 IVP0.5 mg (NOW x1, HIGH Sridhar Blandon, 06/03/2025 06/03/2025 ALERT MEDICATION) Rick Nichols R.N. R.N. Reason for ordering with alerts: Benefits outweigh risks --09:59 06/03/2025 Sridhar Blandon D.O. Zofran IVP4 mg (NOW x1) 09:59 06/03/2025 10:00 10:13 Sridhar Blandon, 06/03/2025 06/03/2025 Rick Nichols R.N. R.NTray HYDROmorphone (Dilaudid) 13:14 06/03/2025 13:21 IVP0.5 mg (NOW x1, HIGH Sridhar Blandon, 06/03/2025 1 of 3 Order Sheet ALERT MEDICATION) Humaira Kiser R.N. Reason for ordering with alerts: Benefits outweigh risks --13:14 06/03/2025 Sridhar Blandon D.O. LAB ORDERS Order Description Priority Entered Acknowledged Collected Completed CBC w Diff Stat Stat 09:59 06/03/2025 10:00 06/03/2025 10:13 06/03/2025 Rick Mccormack R.N. Kobe Miller, R.N. D.O. CMP Stat Stat 09:59 06/03/2025 10:00 06/03/2025 10:13 06/03/2025 Rick Mccormack R.N. Kobe Miller, R.N. D.OTray Lipase Stat Stat 09:59 06/03/2025 10:00 06/03/2025 10:13 06/03/2025 Rick Mccormack R.N. Kobe Miller, R.N. D.O. Urinalysis Stat Stat 09:59 06/03/2025 10:00 06/03/2025 10:13 06/03/2025 Rick Mccormack R.N. Kobe Miller, R.N. D.O. DIAGNOSTIC STUDY ORDERS Order Description Priority Entered Acknowledged Completed CT ABD/PEL w Cont Stat Stat 11:56 06/03/2025 11:57 12:41 Sridhar Blandon 06/03/2025 06/03/2025 Mari Nichols R.N. R.N. Order Comments: 11:56 06/03/2025: Status: Not . Sridhar Blandon D.O. Reason for Study: Abdominal Pain 2 of 3 Order Sheet STAFF ORDERS Order Description Priority Entered Acknowledged Collected Completed IV Saline Lock 09:59 06/03/2025 10:00 06/03/2025 10:13 06/03/2025 Rick Mccormack R.N. Kobe Miller, R.N. D.O. [Electronically signed by Sridhar Blandon D.O. (06/07/2025 02:49 EDT)] 3 of 3 Normal [facility] ED PHYSICIAN CLINICAL REPORT on 06-07-2025 ED PHYSICIAN CLINICAL REPORT Narrative Physician Clinical Narrative [address] [address] [id number] 06/03/2025 09:40:00 Patient: TAMMY GUPTA Sex: Female : 1960 Age: 64y Disposition: Discharge to Home Disposition Decision Time: 14:13 06/03/2025 Departure Time: 14:21 06/03/2025 Measurements Wt: 86.2 kg, Ht/Jeremias: 58.0 in, BMI: 39.71 Initial Vital Sign Measured Time BP MAP HR RR O2Sat ETCO2 Temp Pain GCS RTS 09:48 06/03/2025 177/104 128 99 18 96% 98.0 F 10 Time Seen: 09:48 06/03/2025. Arrived- By private vehicle. Historian- patient. Independent historian- family. HISTORY OF PRESENT ILLNESS Chief Complaint: FLANK PAIN. It is described as pain, sharp and stabbing and it is described as located in the left lower quadrant. This started last night patient came in complaining of left flank pain. Started last night sometimes 10/10 she can palpate where it hurts and she presents to the emergency department denies any nausea vomiting diarrhea. She has had a hysterectomy. She has also had coronary artery disease hypertension she has had a meningioma she also had a DVT in the past she is not on anticoagulation. She has had 2 cardiac stents. Social she is a nonsmoker occasionally drinks alcohol. and is still present. REVIEW OF SYSTEMS NEUROLOGICAL: No headache. CONSTITUTIONAL: No fever or chills. : No difficulty with urination. GI: No constipation. Status: Not . 1 of 13 Narrative PAST HISTORY See nurses notes. Cancer Hypertension melanoma Myocardial Infarction Surgeries: brain tumor removal Hysterectomy Placement of stent in coronary artery Medications: alprazolam 0.25 mg tablet: 1 tablet twice a day as needed. amlodipine 10 mg tablet: 1 tablet once a day. aspirin 81 mg tablet,delayed release: 1 tablet once a day. carvedilol 12.5 mg tablet: 1 tablet twice a day. cyclobenzaprine 10 mg tablet: 1 tablet once a day. ezetimibe 10 mg tablet: 1 tablet once a day. folic acid 1 mg tablet: TAKE 2 TABLETS BY MOUTH ONCE DAILY hydrocodone 5 mg-acetaminophen 325 mg tablet: TAKE 1 TABLET BY MOUTH TWICE A DAY NEEDED FOR 28 DAYS lactulose 10 gram/15 mL oral solution: 15 ml twice a day as needed. lisinopril 20 mg tablet: 1 tablet twice a day. meloxicam 7.5 mg tablet: 1 tablet once a day as needed. methotrexate sodium 2.5 mg tablet: 6 tablet once a week. omeprazole 20 mg capsule,delayed release: 1 capsule once a day. Repatha SureClick 140 mg/mL subcutaneous pen injector: 1 pen injector once every two weeks. Allergies: codeine lovastatin metoprolol minocycline Plaquenil pravastatin 2 of 13 Narrative red yeast rice rosuvastatin Sulfa (Sulfonamide Antibiotics) tetanus and diphtheria toxoids tetracycline SOCIAL HISTORY Former smoker. Occasional alcohol use. Drug use: marijuana. ADDITIONAL NOTES The nursing notes have been reviewed. PHYSICAL EXAM Appearance: Alert. Oriented X3. No acute distress. Eyes: Pupils equal, round and reactive to light. Eyes normal inspection. ENT: Ears normal. Nose normal. Neck: Normal inspection. Neck supple. CVS: Normal heart rate and rhythm. Heart sounds normal. Respiratory: No respiratory distress. Breath sounds normal. Abdomen: Soft. Moderate tenderness in the left lower quadrant. Back: Normal inspection. Skin: Skin warm and dry. Normal skin color. Normal skin turgor. Extremities: Extremities exhibit normal ROM. No lower extremity edema. Neuro: Oriented X 3. No motor deficit. LABS, X-RAYS, AND EKG Laboratory Tests: CBC + DIFF Final ESTELLE: 06/03/2025 09:55:00 EDT MsgRcvd: 06/03/2025 10:22 EDT Lab Test Result Reference Status Received Comments 3 of 13 Narrative Lab Test Result Reference Status Received Comments 06/03/2025 10:22 CBC-COMPLETE CBC + DIFF Final EDT BLOOD COUNT 06/03/2025 10:22 WBC 7.3 x 10/UL 4.5 - 10.8 Final EDT 06/03/2025 10:22 RBC 5.19 x 10/UL 4.10 - 5.30 Final EDT 06/03/2025 10:22 HEMOGLOBIN 15.0 g/dl 12.0 - 16.0 Final EDT 06/03/2025 10:22 HEMATOCRIT 44.9 % 34.0 - 46.0 Final EDT 06/03/2025 10:22 MCV 87 fl 80 - 99 Final EDT 06/03/2025 10:22 MCH 29 pg 27 - 33 Final EDT 06/03/2025 10:22 MCHC 34 X10 3 32 - 36 Final EDT 06/03/2025 10:22 RDW/CV 14.7 % 12.0 - 15.6 Final EDT 06/03/2025 10:22 PLATELET 277 x10/UL 150 - 450 Final EDT 06/03/2025 10:22 AUTOMATED MPV 8.4 fl 6.6 - 10.5 Final EDT DIFFERENTIAL 06/03/2025 10:22 NEUT % 70.7 % 46.0 - 76.0 Final EDT 06/03/2025 10:22 LYMPH % 21.7 % 20.0 - 45.0 Final EDT 4 of 13 Narrative Lab Test Result Reference Status Received Comments 06/03/2025 10:22 MONOS % 5.4 % 0.0 - 10.0 Final EDT 06/03/2025 10:22 EO % 1.8 % 0.0 - 7.0 Final EDT 06/03/2025 10:22 BASO % 0.3 % 0.0 - 2.0 Final (more content not included)... Normal [facility] ED [facility] 06-07-2025 ED [place] [address] [place] [address] [id number] 06/03/2025 Patient: TAMMY GUPTA Sex: Female : 1960 Age: 64y Facility Professional Category Item Description Code Code Quantity Fee Total Drugs Normal Saline 692259 1 $0.00 $0.00 1000cc (957134) Nurse/E/M EMERGENCY 868501 1 $0.00 $0.00 DEPT VISIT HIGH SEVERITYFUNCJ (77036-49) Nurse/IV/IM/Infusions Hydration 388727 3 $0.00 $0.00 additional hour (77779) Nurse/IV/IM/Infusions IVP additional 920111 1 $0.00 $0.00 push (33897) Nurse/IV/IM/Infusions IVP initial (72266) 105602 1 $0.00 $0.00 Nurse/IV/IM/Infusions IVP same med 952537 1 $0.00 $0.00 (31 min apart) (24050) Grand $0.00 Total Providers 1 of 2 [facility] Sridhar Blandon D.O. Chief Complaint FLANK PAIN. Principal Diagnosis Acute left upper quadrant abdominal pain. (epiploic appendagitis). ICD-10 Codes R10.12: Left upper quadrant pain 2 of 2 Normal [facility] ED VISIT SUMMARYon ED VISIT SUMMARY Visit Overview Visit Overview [facility] [address] [place] [address] [id number] 06/03/2025 Patient: TAMMY GUPTA Sex: Female : 1960 Age: 64y 06/07/2025 02:49 AM EDT ED Arrival:09:40 06/03/2025 EDT Status:not Recent Travel:no Language:eng Adv Directive:No Isolation Status: Ethnicity:N Fall Risk:risk Infectious Disease Exposure:no Measurements:4'10 / 147.3 Self-Harm Status:risk Sepsis Screen:negative cm 190.0 lb / 86.2 kg Chief Complaint:ABDOMINAL PAIN, NAUSEA, VOMITING, and (Dr. Monae) ALLERGIES codeine lovastatin metoprolol minocycline Plaquenil pravastatin red yeast rice rosuvastatin Sulfa (Sulfonamide Antibiotics) 1 of 4 Visit Overview tetanus and diphtheria toxoids tetracycline HOME MEDICATIONS alprazolam 0.25 mg tablet: 1 tablet twice a day as needed. amlodipine 10 mg tablet: 1 tablet once a day. aspirin 81 mg tablet,delayed release: 1 tablet once a day. carvedilol 12.5 mg tablet: 1 tablet twice a day. cyclobenzaprine 10 mg tablet: 1 tablet once a day. ezetimibe 10 mg tablet: 1 tablet once a day. folic acid 1 mg tablet: TAKE 2 TABLETS BY MOUTH ONCE DAILY hydrocodone 5 mg-acetaminophen 325 mg tablet: TAKE 1 TABLET BY MOUTH TWICE A DAY NEEDED FOR 28 DAYS lactulose 10 gram/15 mL oral solution: 15 ml twice a day as needed. lisinopril 20 mg tablet: 1 tablet twice a day. meloxicam 7.5 mg tablet: 1 tablet once a day as needed. methotrexate sodium 2.5 mg tablet: 6 tablet once a week. omeprazole 20 mg capsule,delayed release: 1 capsule once a day. Repatha SureClick 140 mg/mL subcutaneous pen injector: 1 pen injector once every two weeks. PAST MEDICAL HISTORY / PROBLEMS Cancer Hypertension melanoma Myocardial Infarction See nurses notes PAST SURGICAL HISTORY brain tumor removal Hysterectomy Placement of stent in coronary artery SOCIAL HISTORY Smoking status: No Alcohol use: Yes 2 of 4 Visit Overview Drug use: Yes ED COURSE MEDICATIONS GIVEN IN EMERGENCY DEPARTMENT 10:10 06/03/25 IV NS 0.9 % 1000 mL 500 mL/hr 10:10 06/03/25 Zofran IVP 4 mg 10:11 06/03/25 HYDROmorphone (Dilaudid) IVP 0.5 mg 13:17 06/03/25 HYDROmorphone (Dilaudid) IVP 0.5 mg IV SITE INFORMATION INTAKE OUTPUT REASSESMENT (most recent) 10:29 06/03/25. Ambulatory to room. GENERAL / NEURO / PSYCH: Alert. Oriented X 4. Appears in pain. HEENT: Mucous membranes are pink. RESPIRATORY: Respirations not labored. Breath sounds within normal limits. CVS: Normal sinus rhythm noted. Capillary refill less than 2 seconds. GI / : The patient has had nausea. Abdominal tenderness in the left lower quadrant. Bowel sounds within normal limits. SKIN: Skin is warm and dry. VITAL SIGNS First Vitals Last Vitals Temp 09:48 06/03/25 98.0 F Temp 14:12 06/03/25 BP 09:48 06/03/25 177/104 BP 14:12 06/03/25 HR 09:48 06/03/25 99 HR 14:12 06/03/25 90 RR 09:48 06/03/25 18 RR 14:12 06/03/25 O2 Sat 09:48 06/03/25 96% O2 Sat 14:12 06/03/25 92% Pain 09:48 06/03/25 10 Pain 14:12 06/03/25 ETCO2 09:48 06/03/25 ETCO2 14:12 06/03/25 GCS 09:48 06/03/25 GCS 14:12 06/03/25 RTS 09:48 06/03/25 RTS 14:12 06/03/25 PROCEDURES NURSING INTERVENTIONS 3 of 4 Visit Overview LABS / STUDIES LABS / STUDIES ORDERED CBC w Diff CMP CT ABD/PEL w Cont Lipase Urinalysis CLINICAL IMPRESSION ACUTE LEFT UPPER QUADRANT ABDOMINAL PAIN 4 of 4 Normal [facility] ED VITALS FLOW SHEETon 06-07 ED VITALS FLOW SHEET Vitals Vital Sign Flow Sheet [facility] [address] [place] [address] [id number] 06/03/2025 [id number] Sex[facility] Female : 1960 Age: 64y Measurements Wt: 86.2 kg, Ht/Jeremias: 58.0 in, BMI: 39.71 Measured Time BP MAP HR RR O2Sat ETCO2 Temp Pain GCS RTS 14:12 06/03/2025 90 92% 14:07 06/03/2025 90 95% 14:02 06/03/2025 92 92% 13:57 06/03/2025 87 91% 13:52 06/03/2025 86 91% 13:47 06/03/2025 85 92% 13:42 06/03/2025 88 91% 13:37 06/03/2025 86 92% 13:35 06/03/2025 151/85 107 85 13:32 06/03/2025 87 91% 13:29 06/03/2025 183/115 136 87 13:27 06/03/2025 87 91% 13:22 06/03/2025 92 94% 13:17 06/03/2025 90 96% 13:13 06/03/2025 145/80 114 91 1 of 3 Vitals Measured Time BP MAP HR RR O2Sat ETCO2 Temp Pain GCS RTS 13:12 06/03/2025 95 94% 13:07 06/03/2025 88 93% 13:02 06/03/2025 90 96% 12:52 06/03/2025 86 98% 12:27 06/03/2025 157/98 122 80 12:27 06/03/2025 80 98% 12:22 06/03/2025 84 97% 12:17 06/03/2025 81 97% 12:12 06/03/2025 152/95 114 81 12:12 06/03/2025 79 94% 12:07 06/03/2025 82 97% 12:02 06/03/2025 85 96% 11:52 06/03/2025 81 94% 11:47 06/03/2025 79 92% 11:42 06/03/2025 144/84 95 79 11:42 06/03/2025 77 92% 11:37 06/03/2025 82 91% 11:32 06/03/2025 81 93% 11:27 06/03/2025 139/91 104 79 11:27 06/03/2025 78 94% 11:22 06/03/2025 78 93% 11:17 06/03/2025 79 93% 11:12 06/03/2025 132/81 109 77 11:12 06/03/2025 79 93% 11:07 06/03/2025 81 92% 2 of 3 Vitals Measured Time BP MAP HR RR O2Sat ETCO2 Temp Pain GCS RTS 11:02 06/03/2025 79 95% 10:57 06/03/2025 149/87 107 82 10:57 06/03/2025 82 92% 10:52 06/03/2025 83 95% 10:47 06/03/2025 82 92% 10:42 06/03/2025 134/81 104 82 10:42 06/03/2025 82 90% 10:37 06/03/2025 83 89% 10:32 06/03/2025 88 90% 09:48 06/03/2025 177/104 128 99 18 96% 98.0 F 10 3 of 3 Normal [facility] CBC + DIFFon 06-03-2025 Baso # 0.02 x10EE3/UL Normal 0.00 - 0.10 [facility] Comment on above: Performed By: #### 2 [id number] ####[facility],[address] [place] [address] Basophils/100 WBC (Bld) 0.3 % Normal 0.0 - 2.0 [facility] Comment on above: Performed By: #### 2 [id number] ####[facility],[address] [place] [address] CBC + DIFF Normal [facility] Comment on above: Result Comment: CBC- COMPLETE BLOOD COUNT Performed By: #### 2 [id number] ####[facility],[address] [place] [address] EO # 0.13 x10EE3/UL Normal 0.00 - 0.50 [facility] Comment on above: Performed By: #### 2 97236 ####[facility],[address] [place], [place] [id number] Eosinophils/100 WBC (Bld) 1.8 % Normal 0.0 - 7.0 [facility] Comment on above: Performed By: #### 2 96962 ####[facility],[address] [place] [address] Erythrocyte distribution width (RBC) [Ratio] 14.7 % Normal 12.0 - 15.6 [facility] Comment on above: Performed By: #### 2 00790 ####[facility],[address] [place] [address] Hematocrit (Bld) [Volume fraction] 44.9 % Normal 34.0 - 46.0 [facility] Comment on above: Performed By: #### 2 [id number] ####[facility],[address] [place] [address] Hemoglobin (Bld) [Mass/Vol] 15.0 g/dL Normal 12.0 - 16.0 [facility] Comment on above: Performed By: #### 2 55150 ####[facility],[address] [place], [place] [id number] Lymph # 1.59 x10EE3/UL Normal 0.80 - 2.80 [facility] Comment on above: Performed By: #### 2 50410 ####[facility],[address] [place], [place] [id number] Lymphocytes/100 WBC (Bld) 21.7 % Normal 20.0 - 45.0 [facility] Comment on above: Performed By: #### 2 76283 ####[facility],[address] [place], [place] [id number] MANUAL DIFF N/A Normal [facility] Comment on above: Performed By: #### 2 03414 ####[facility],[address] [place], [place] [id number] MCH (RBC) [Entitic mass] 29 pg Normal 27 - 33 [facility] Comment on above: Performed By: #### 2 46687 ####[place] [address] MCHC 34 X10 3 Normal 32 - 36 [facility] Comment on above: Performed By: #### 2 19727 ####[facility],[address] [place] [address] MCV (RBC) [Entitic vol] 87 fL Normal 80 - 99 [facility] Comment on above: Performed By: #### 2 77961 ####[place] [address] [place] # 0.40 x10EE3/UL Normal 0.20 - 1.00 [facility] Comment on above: Performed By: #### 2 70726 ####[place] [address] MONOS % 5.4 % Normal 0.0 - 10.0 [facility] Comment on above: Performed By: #### 2 86280 ####[place] [address] Morphology Allen (Bld) [Interp] N/A Normal [facility] Comment on above: Performed By: #### 2 51153 ####[place] [address] Neut # 5.17 x10EE3/UL Normal 1.50 - 7.10 [facility] Comment on above: Performed By: #### 2 50810 ####[place] [address] Neutrophils/100 WBC (Bld) 70.7 % Normal 46.0 - 76.0 [facility] Comment on above: Performed By: #### 2 78745 ####[place] [address] PLATELET 277 x10EE3/UL Normal 150 - 450 [facility] Comment on above: Performed By: #### 2 50987 ####[facility],[address] [place] [address] Platelet mean volume (Bld) [Entitic vol] 8.4 fL Normal 6.6 - 10.5 [facility] Comment on above: Result Comment: AUTO MATED DIFFERENTIAL Performed By: #### 2 54773 ####[facility],[address] [place] [address] RBC 5.19 x 10EE6/UL Normal 4.10 - 5.30 [facility] Comment on above: Performed By: #### 2 77141 ####[facility],[address] [place] [address] WBC 7.3 x 10EE3/UL Normal 4.5 - 10.8 [facility] Comment on above: Performed By: #### 2 80422 ####[facility],[address] [place] [address] 41181 CMP with eGFRon 06-03-2025 AGE 64 years Normal [facility] Comment on above: Performed By: #### 2 94354 ####[facility],[address] [place] [address] 81076 Albumin [Mass/Vol] 3.9 g/dL Normal 3.4 - 5.0 [facility] Comment on above: Performed By: #### 2 88301 ####[facility],[address] [place] [address] 01900 Albumin/Globulin [Mass ratio] 1.1 {ratio} Normal 0.9 - 1.6 [facility] Comment on above: Performed By: #### 2 87839 ####[facility],[address] [place] [address] 46077 ALK PHOS 162 U/L High 46 - 116 [facility] Comment on above: Performed By: #### 2 51048 ####[facility],[address] [place] [address] 48584 ALT [Catalytic activity/Vol] 34 U/L Normal 16 - 63 [facility] Comment on above: Performed By: #### 2 55322 ####[facility],[address] [place] [address] 30796 Anion gap [Moles/Vol] 12 mmol/L Normal 10 - 20 [facility] Comment on above: Performed By: #### 2 35101 ####[facility],[address] [place] [address] 13372 AST [Catalytic activity/Vol] 18 U/L Normal 13 - 39 [facility] Comment on above: Performed By: #### 2 82513 ####[facility],[address] [place] [address] 44649 B/C RATIO 20 ratio Normal 0 - 30 [facility] Comment on above: Performed By: #### 2 39376 ####[facility],[address] [place] [address] 35034 Bilirubin [Mass/Vol] 0.5 mg/dL Normal 0.2 - 1.0 [facility] Comment on above: Performed By: #### 2 51228 ####[facility],[address] [place] [address] 32380 Calcium [Mass/Vol] 9.6 mg/dL Normal 8.5 - 10.1 [facility] Comment on above: Performed By: #### 2 69917 ####[facility],[address] [place] [address] 55332 Chloride [Moles/Vol] 103 mmol/L Normal 98 - 107 [facility] Comment on above: Performed By: #### 2 99662 ####[facility],[address] [place] [address] 31208 CMP with eGFR Normal [facility] Comment on above: Result Comment: COMP REHENSIVE METABOLIC PANEL Performed By: #### 2 81391 ####[facility],[address] [place], [place] [id number] CO2 [Moles/Vol] 27.4 mmol/L Normal 21.0 - 32.0 [facility] Comment on above: Performed By: #### 2 08291 ####[facility],[address] [place], [place] [address] Creatinine [Mass/Vol] 0.75 mg/dL Normal 0.55 - 1.02 [facility] Comment on above: Performed By: #### 2 22205 ####[facility],[address] [place] [address] GFR/1.73 sq M.predicted among non-blacks MDRD (S/P/Bld) [Vol rate/Area] mL/min/{1.73_m2} Normal 60 - 999 [facility] Comment on above: Performed By: #### 2 79636 ####[facility],[address] [place] [address] Result Comment: ACCO RDING TO THE NATIONAL KIDNEY DISEASE EDUCATION PROGRAM(NKDE), A NORMAL eGFR IS A VALUE GREATER THAN OR EQUAL TO 60 ML/MIN/1.73 SQ METERS. CHRONIC KIDNEY DISEASE: <60mL/MIN/1.73 SQ METERS KIDNEY FAILURE: <15mL/MIN/1.73 SQ METERS THIS TEST SHOULD ONLY BE USED FOR PATIENTS 18 YEARS OF AGE AND OLDER. Globulin (S) [Mass/Vol] 3.7 g/dL Normal 1.5 - 3.8 [facility] Comment on above: Performed By: #### 2 61835 ####[facility],[address] [place] [address] 87970 Glucose [Mass/Vol] 109 mg/dL High 74 - 106 [facility] Comment on above: Performed By: #### 2 88969 ####[facility],[address] [place] [address] 81873 Potassium [Moles/Vol] 3.9 mmol/L Normal 3.5 - 5.1 [facility] Comment on above: Performed By: #### 2 21630 ####[facility],[address] [place] [address] 71379 Protein [Mass/Vol] 7.6 g/dL Normal 6.4 - 8.2 [facility] Comment on above: Performed By: #### 2 75768 ####[facility],[address] [place] [address] 25704 Sodium [Moles/Vol] 138 mmol/L Normal 136 - 145 [facility] Comment on above: Performed By: #### 2 08634 ####[facility],[address] [place] [address] 88725 Urea nitrogen [Mass/Vol] 15 mg/dL Normal 7 - 18 [facility] Comment on above: Performed By: #### 2 87140 ####[facility],[address] [place] [address] ABDOMEN/PELVIS [facility] 2024 CT ABDOMEN/PELVIS [place] [address] Patient: TAMMY GUPTA Phone#: : 1960 Age: 64 Gender: F Pt. Type: ER Account: [id number] Location: [facility] Ordering: SRIDHAR BLANDON Exam Date: 06/03/2025/12:35 Family Phys: ROSENDO CAMARILLO Charge Code: [id number] Physician: [place] Order #: [id number] Dose#: 27.20 PROCEDURE: CT ABDOMEN/PELVIS WITH CONTRAST COMPARISON: None. INDICATIONS: Left Side Abdomen and Flank Pain. TECHNIQUE: After obtaining the patient's consent, CT images were created with non-ionic intravenous contrast material. All CT scans at this facility use dose modulation, iterative reconstruction, and/or weight based dosing when appropriate to reduce radiation dose to as low as reasonably achievable. IV CONTRAST: Omnipaque 350,80ml TOTAL DOSE: 27.20 CTDIvol(mGy) FINDINGS: LIVER: Normal. No enlargement, atrophy, abnormal density, or significant focal lesion. BILIARY: Normal. No visible dilatation or calcification. PANCREAS: Normal. No lesion, fluid collection, ductal dilatation, or atrophy. SPLEEN: Normal. No enlargement or focal lesion. KIDNEYS: 12 millimeter left renal cortical cyst is present. No mass, obstruction, or calcification. ADRENALS: Normal. No mass or enlargement. AORTA/VASCULAR: Normal. No aneurysm or dissection. RETROPERITONEUM: Normal. No mass or adenopathy. BOWEL/MESENTERY: Moderate stool retention. There is an oblong focus diminished attenuation with surrounding fat stranding in the lateral left mid abdomen consistent with epiploic appendagitis. Involved focus is 3.9 x 2.8 x 1.2 centimeters. There is underfilling versus mucosal thickening of the descending colon. Sigmoid diverticula are present. ABDOMINAL WALL: Normal. No mass or hernia. URINARY BLADDER: Normal. No visible focal wall thickening, lesion, or calculus. PELVIC NODES: Normal. No adenopathy. PELVIC ORGANS: Normal. No visible mass. Pelvic organs appropriate for patient age. Continued Report - Page 2 of 2 Patient: TAMMY GUPTA Phone#: : 1960 Age: 64 Gender: F Pt. Type: ER Account: [id number] Location: 052 Ordering: SRIDHAR BLANDON Exam Date: 06/03/2025/12:35 Family Phys: ROSENDO CAMARILLO Charge Code: 890695 Physician: [place] Order #: [id number] Dose#: 27.20 BONES: Normal. No bony lesion or fracture. LUNG BASES: Coronary artery calcification is present. OTHER: Negative. CONCLUSION: 1. Findings consistent with epiploic appendagitis at the lateral left mid abdomen. 2. Diverticulosis. Dictated by: Josie Betancur MD on 06/03/2025 at 13:57 Approved by: Josie Betancur MD on 06/03/2025 at 14:00 Normal [facility] LIPASEon 06-03-2025 Lipase [Catalytic activity/Vol] 35.0 U/L Normal 15.0 - 78.0 [facility] Comment on above: Result Comment: *PLE ASE NOTE THAT RANGES FOR LIPASE HAVE CHANGED OF 11/24/23 DUE TO AN ASSAY UPDATE BY THE INTERNET MARKETER.THE NEW ASSAY RANGE IS 6-250 U/L, WITH A REFERENCE RANGE OF 16-77 U/L. Performed By: #### 2 47595 ####[facility],[address] [place] [address] 60495 URINALYSISon 06-03-2025 Amorphous NONE Normal [facility] Comment on above: Performed By: #### 2 24256 ####[facility],[address] [place] [address] 51453 Bacteria NONE Normal [facility] Comment on above: Performed By: #### 2 12464 ####[facility],[address] [place] [address] 10338 Bilirubin Ql (U) Negative Normal NORMAL: NEGATIVE [facility] Comment on above: Performed By: #### 2 85726 ####[facility],[address] [place], [place] [address] Casts NONE Normal [facility] Comment on above: Performed By: #### 2 49732 ####[facility],[address] [place], [place] [address] Clarity (U) CLEAR Normal NORMAL: CLEAR [facility] Comment on above: Performed By: #### 2 88921 ####[facility],[address] [place], [place] [address] Color (U) p.yel Normal NORMAL: YELLOW [facility] Comment on above: Performed By: #### 2 47174 ####[facility],[address] [place] [address] 01985 Crystals LM Nom (Urine sed) NONE Normal [facility] Comment on above: Performed By: #### 2 11136 ####[facility],[address] [place] [address] 96080 Epi Cells OCC Normal [facility] Comment on above: Performed By: #### 2 01605 ####[facility],[address] [place] [address] 10514 Glucose Ql (U) NORM Normal NORMAL: NORMAL [facility] Comment on above: Performed By: #### 2 65695 ####[facility],[address] [place] [address] 40716 Hemoglobin Ql (U) 10 Abnormal NORMAL: NEGATIVE [facility] Comment on above: Performed By: #### 2 57191 ####[facility],[address] [place] [address] 55587 Ketone Negative Normal NORMAL: NEGATIVE [facility] Comment on above: Performed By: #### 2 54525 ####[facility],[address] [place] [address] 61478 Leukocytes Negative Normal NORMAL: NEGATIVE [facility] Comment on above: Performed By: #### 2 70922 ####[facility],[address] [place] [address] 14694 Mucous NONE Normal [facility] Comment on above: Performed By: #### 2 36668 ####[facility],[address] [place] [address] 04066 Nitrite Ql (U) Negative Normal NORMAL: NEGATIVE [facility] Comment on above: Performed By: #### 2 29388 ####[facility],[address] [place] [address] 05365 pH (U) 6.5 [pH] Normal NORMAL: 5.0-8.0 [facility] Comment on above: Performed By: #### 2 55740 ####[facility],[address] [place] [address] 06103 Protein Ql (U) Negative Normal NORMAL: NEGATIVE [facility] Comment on above: Performed By: #### 2 82267 ####[facility],[address] [place] [address] 13798 Rbc NONE Normal 0-3/hpf [facility] Comment on above: Performed By: #### 2 62480 ####[facility],[address] [place] [address] 45633 Sp [place] 1.015 Normal NORMAL: 1.010-1.03 0 [facility] Comment on above: Performed By: #### 2 76134 ####[facility],[address] [place] [address] Specimen Type R Normal [facility] Comment on above: Performed By: #### 2 95841 ####[facility],[address] [place], [place] [address] Urinalysis dipstick W Reflex Microscopic panel (U) SEE BELOW Normal [facility] Comment on above: Result Comment: MICR OSCOPIC Performed By: #### 2 16814 ####[facility],[address] [place], [place] [address] Urobilinog NORM Normal NORMAL: NORMAL [facility] Comment on above: Performed By: #### 2 95439 ####[facility],[address] [place], [place] [address] Wbc NONE Normal 0-5/hpf [facility] Comment on above: Performed By: #### 2 91243 ####[facility],[address] [place] [address] Yeast NONE Normal [facility] Comment on above: Performed By: #### 2 16130 ####[facility],[address] [place], [place] [address] 3D MAMM BILAT SCREENon 05-01 3D MAMM BILAT SCREEN [place] [address] Patient: TAMMY GUPTA Phone#: : 1960 Age: 64 Gender: F Pt. Type: Out Account: [id number] Location: [facility] Ordering: GEREMIAS VAUGHN Exam Date: 05/01/2025/13:36 Family Phys: Charge Code: [id number] Physician: [place] Order #: [id number] Dose#: PROCEDURE: BILATERAL SCREENING BREAST TOMOSYNTHESIS MAMMOGRAM WITH CAD COMPARISON: [facility], 3D BILAT SCREEN, 08/11/2021, 11:11. [facility], , 3D BILAT SCREEN, 02/07/2023, 12:56. INDICATIONS: Screening mammogram BREAST COMPOSITION: The breasts are almost entirely fatty FINDINGS: DIAGNOSTIC CATEGORY 1--NEGATIVE: RIGHT BREAST: No significant suspicious finding. No significant change has occurred. LEFT BREAST: No significant suspicious finding. No significant change has occurred. RECOMMENDATIONS: ROUTINE MAMMOGRAM AND CLINICAL EVALUATION IN 12 MONTHS. PLEASE NOTE: A NORMAL MAMMOGRAM DOES NOT EXCLUDE THE POSSIBILITY OF BREAST CANCER. A CLINICALLY SUSPICIOUS PALPABLE LUMP SHOULD BE BIOPSIED. THIS FACILITY UTILIZES A REMINDER SYSTEM TO ENSURE THAT ALL PATIENTS RECEIVE REMINDER LETTERS FOR APPOINTMENTS. THIS INCLUDES REMINDERS FOR ROUTINE MAMMOGRAMS, DIAGNOSITC MAMMOGRAMS, OR OTHER BREAST IMAGING INTERVENTIONS WHEN APPROPRIATE. THIS PATIENT WILL BE PLACED IN THE APPROPRIATE REMINDER SYSTEM. Dictated by: Darlene Mendez MD on 05/01/2025 at 18:15 Approved by: Darlene Mendez MD on 05/01/2025 at 18:24 Normal [facility] Lumbar Spine 2 or 3 Viewson 03-24-2025 Lumbar Spine 2 or 3 Views [facility] [address] [place] [address] [id number] Lumbar Spine 2 or 3 Views MR#: [id number] Acct: [id number] Name: TAMMY GUPTA Rep #: [id number] : 1960 F 64 From: Zheng Jama MD PCP: Dr. Geremias Vaughn MD Status: REG CLI Study: Lumbar Spine 2 or 3 Views Date of Exam: Exam# [id number] Ordering Dr: Juancarlos Gamez MD PROCEDURE: LUMBAR SPINE 2 OR 3 VIEWS 03/24/2025 REASON FOR EXAM: RADICULOPATHY IN THE LUMBAR REGION TECHNIQUE: 3 view(s) of the lumbar spine FINDINGS: Vertebrae: No acute fracture. Discs: Disc space narrowing and osteophyte formation consistent with degenerative disc disease. Alignment: 5 mm of anterolisthesis of L5 on S1. Other: Facet hypertrophy in the lower lumbar spine. RAD/Lumbar Spine 2 or 3 Views IMPRESSION: Degenerative disc disease with 5 mm of anterolisthesis of L5 on S1. Reading Location: [id number] CC: Dr. Juancarlos Gamez MD; Dr. Geremias Vaughn MD Pathology Supervisor: Signed Normal [facility] CV VENOUS LEG LTon CV VENOUS LEG LT [place] [address] Patient: TAMMY GUPTA Phone#: : 1960 Age: 64 Gender: F Pt. Type: Out Account: [id number] Location: 052 Ordering: GEREMIAS VAUGHN Exam Date: 07/30/2024/13:25 Family Phys: Charge Code: [id number] Physician: [place] Order #: [id number] Dose#: PROCEDURE: VENOUS DOPPLER LT LEG COMPARISON: [facility], , VENOUS DOPPLER LT LEG, 01/26/2024, 8:56. INDICATIONS: LEG PAIN TECHNIQUE: Color duplex Doppler ultrasound evaluation analysis was performed in the usual manner. CLASSIFICATION AND TREATMENT DIRECTOR: ANKUSH SAGE RVT RCS RISK FACTORS FOR VENOUS DISEASE: Previous DVT or SVT EXAMINATION: RIGHT +Present -Reduced o Absent LEFT SPONT PHASIC AUG REFLUX COMP SPONT PHASIC AUG REFLUX COM + + + o + CFV + + + o + SFJ + FV (prox) + + + o + FV (mid) + FV (dist) + POP V + + + o + T/P TRUNK + + + o + PTV + + + o + PERONEAL V + + + o + GSV + GASTROC SOLEAL V CLASSIFICATION AND TREATMENT DIRECTOR'S NOTES: FINDINGS: THROMBI: None visible. Interval resolution of the thrombus previously identified in the left popliteal, TP trunk, posterior tibial and peroneal veins Continued Report - Page 2 of 2 Patient: TAMMY GUPTA Phone#: : 1960 Age: 64 Gender: F Pt. Type: Out Account: [id number] Location: 052 Ordering: GEREMIAS VAUGHN Exam Date: 07/30/2024/13:25 Family Phys: Charge Code: [id number] Physician: [place] Order #: [id number] Dose#: COMPRESSIBILITY: Normal. OTHER: Negative. CONCLUSION: 1. No evidence of deep vein thrombus in the left lower extremity Dictated by: Darlene Mendez MD on 07/30/2024 at 16:04 Approved by: Darlene Mendez MD on 07/30/2024 at 16:07 Normal [facility] 25(OH)D3 SerPl-mCncon 2023 25-hydroxyvitamin D3 [Mass/Vol] 38.5 ng/mL Normal 31.0-80.0 [facility] Comment on above: Order Comment: Joann mejia Type: BLOOD SPECIMEN Ordering Facility: [facility] Address: [address] [place] [address] Performed By: #### 1 989-3 #### [facility] CLIA [id number] [address] [place] [address] [place] CBC W Auto Differential pane l (Bld)on 05-29-2024 Basophils (Bld) [#/Vol] 10*3/uL Normal <0.11 [facility] Comment on above: Order Comment: Jaonn mejia Type: BLOOD SPECIMEN Ordering Facility: [facility] Address: [address] [place] [address] Performed By: #### 5 7021-8 #### [facility] CLIA [id number] [address] [place] [address] [place] Basophils/100 WBC (Bld) 0.4 % Normal [facility] Comment on above: Order Comment: Joann mejia Type: BLOOD SPECIMEN Ordering Facility: [facility] Address: [address] [place] [address] Performed By: #### 5 7021-8 #### [facility] CLIA [id number] [address] [place] [address] [place] Differential cell count method Nom (Bld) Auto Normal [facility] Comment on above: Order Comment: Joann mejia Type: BLOOD SPECIMEN Ordering Facility: [facility] Address: [address] [place] [address] Performed By: #### 5 7021-8 #### [facility] CLIA [id number] [address] [place] [address] [place] Eosinophils (Bld) [#/Vol] 0.15 10*3/uL Normal <0.46 [facility] Comment on above: Order Comment: Speci men Type: BLOOD SPECIMEN Ordering Facility: [facility] Address: [address] [place] [address] Performed By: #### 5 7021-8 #### [facility] CLIA [id number] [address] [place] [address] [place] Eosinophils/100 WBC (Bld) 3.0 % Normal [facility] Comment on above: Order Comment: Speci men Type: BLOOD SPECIMEN Ordering Facility: [facility] Address: [address] [place] [address] Performed By: #### 5 7021-8 #### [facility] CLIA [id number] [address] [place] [address] [place] Erythrocyte distribution width (RBC) [Ratio] 16.9 % High 11.5-15.0 [facility] Comment on above: Order Comment: Speci men Type: BLOOD SPECIMEN Ordering Facility: [facility] Address: [address] [place] [address] Performed By: #### 5 7021-8 #### [facility] CLIA [id number] [address] [place] [address] [place] Hematocrit (Bld) [Volume fraction] 43.1 % Normal 36.0-46.0 [facility] Comment on above: Order Comment: Speci men Type: BLOOD SPECIMEN Ordering Facility: [facility] Address: [address] [place] [address] Performed By: #### 5 7021-8 #### [facility] CLIA [id number] [address] [place] [address] [place] Hemoglobin (Bld) [Mass/Vol] 14.1 g/dL Normal 11.5-15.5 [facility] Comment on above: Order Comment: Speci men Type: BLOOD SPECIMEN Ordering Facility: [facility] Address: [address] [place] [address] Performed By: #### 5 7021-8 #### [facility] CLIA [id number] [address] [place] [address] [place] Immature granulocytes (Bld) [#/Vol] 10*3/uL Normal <0.10 [facility] Comment on above: Order Comment: Speci men Type: BLOOD SPECIMEN Ordering Facility: [facility] Address: [address] [place] [address] Performed By: #### 5 7021-8 #### [facility] CLIA [id number] [address] [place] [address] [place] Immature granulocytes/100 WBC (Bld) 0.4 % Normal [facility] Comment on above: Order Comment: Speci men Type: BLOOD SPECIMEN Ordering Facility: [facility] Address: [address] [place] [address] Performed By: #### 5 7021-8 #### [facility] CLIA [id number] [address] [place] [address] [place] Lymphocytes (Bld) [#/Vol] 2.01 10*3/uL Normal 1.00-4.00 [facility] Comment on above: Order Comment: Speci men Type: BLOOD SPECIMEN Ordering Facility: [facility] Address: [address] [place] [address] Performed By: #### 5 7021-8 #### [facility] CLIA [id number] [address] [place] [address] [place] Lymphocytes/100 WBC (Bld) 40.3 % Normal [facility] Comment on above: Order Comment: Speci men Type: BLOOD SPECIMEN Ordering Facility: [facility] Address: [address] [place] [address] Performed By: #### 5 7021-8 #### [facility] CLIA [id number] [address] [place] MCH (RBC) [Entitic mass] 27.9 pg Normal 26.0-34.0 [facility] Comment on above: Order Comment: Speci men Type: BLOOD SPECIMEN Ordering Facility: [facility] Address: [address] [place] [address] Performed By: #### 5 7021-8 #### [facility] CLIA [id number] [address] [place] [address] [place] MCHC (RBC) [Mass/Vol] 32.7 g/dL Normal 30.5-36.0 [facility] Comment on above: Order Comment: Speci men Type: BLOOD SPECIMEN Ordering Facility: [facility] Address: [address] [place] [address] Performed By: #### 5 7021-8 #### [facility] CLIA [id number] [address] [place] [address] [place] MCV (RBC) [Entitic vol] 85.3 fL Normal 80.0-100.0 [facility] Comment on above: Order Comment: Speci men Type: BLOOD SPECIMEN Ordering Facility: [facility] Address: [address] [place] [address] Performed By: #### 5 7021-8 #### [facility] CLIA [id number] [address] [place] [address] [place] Monocytes (Bld) [#/Vol] 0.33 10*3/uL Normal <0.87 [facility] [facility] Comment on above: Order Comment: Speci men Type: BLOOD SPECIMEN Ordering Facility: [facility] Address: [address] [place] [address] Performed By: #### 5 7021-8 #### [facility] CLIA [id number] [address] [place] [address] [place] Monocytes/100 WBC (Bld) 6.6 % [facility] Comment on above: Order Comment: Speci men Type: BLOOD SPECIMEN Ordering Facility: [facility] Address: [address] [place] [address] Performed By: #### 5 7021-8 #### [facility] CLIA [id number] [address] [place] [address] [place] Neutrophils (Bld) [#/Vol] 2.46 10*3/uL Normal 1.45-7.50 [facility] Comment on above: Order Comment: Speci men Type: BLOOD SPECIMEN Ordering Facility: [facility] Address: [address] [place] [address] Performed By: #### 5 7021-8 #### [facility] CLIA [id number] [address] [place] [address] [place] Neutrophils/100 WBC (Bld) 49.3 % [facility] Comment on above: Order Comment: Speci men Type: BLOOD SPECIMEN Ordering Facility: [facility] Address: [address] [place] [address] Performed By: #### 5 7021-8 #### [facility] CLIA [id number] [address] [place] [address] [place] Nucleated RBC (Bld) [#/Vol] 10*3/uL Normal <0.01 [facility] Comment on above: Order Comment: Speci men Type: BLOOD SPECIMEN Ordering Facility: [facility] Address: [address] [place] [address] Performed By: #### 5 7021-8 #### [facility] CLIA [id number] [address] [place] [address] [place] Nucleated RBC/100 WBC (Bld) [Ratio] 0.0 /100 WBC [facility] Comment on above: Order Comment: Speci men Type: BLOOD SPECIMEN Ordering Facility: [facility] Address: [address] [place] [address] Performed By: #### 5 7021-8 #### [facility] CLIA [id number] [address] [place] [address] [place] Platelet mean volume (Bld) [Entitic vol] 10.4 fL Normal 9.0-12.7 [facility] Comment on above: Order Comment: Speci men Type: BLOOD SPECIMEN Ordering Facility: [facility] Address: [address] [place] [address] Performed By: #### 5 7021-8 #### [facility] CLIA [id number] [address] [place] [address] [place] Platelets (Bld) [#/Vol] 271 10*3/uL Normal 150-400 [facility] Comment on above: Order Comment: Speci men Type: BLOOD SPECIMEN Ordering Facility: [facility] Address: [address] [place] [address] Performed By: #### 5 7021-8 #### [facility] CLIA [id number] [address] [place] [address] [place] RBC (Bld) [#/Vol] 5.05 10*6/uL Normal 3.90-5.20 [facility] Comment on above: Order Comment: Speci men Type: BLOOD SPECIMEN Ordering Facility: [facility] Address: [address] [place] [address] Performed By: #### 5 7021-8 #### [facility] CLIA [id number] [address] [place] [address] [place] WBC (Bld) [#/Vol] 4.99 10*3/uL Normal 3.70-11.00 [facility] Comment on above: Order Comment: Speci men Type: BLOOD SPECIMEN Ordering Facility: [facility] Address: [address] [place] [address] Performed By: #### 5 7021-8 #### [facility] CLIA [id number] [address] [place], [place] [address] [place] Comprehensive metabolic 2000 panelon 05-29-2024 Albumin [Mass/Vol] 4.4 g/dL Normal 3.9-4.9 [facility] Comment on above: Order Comment: Speci men Type: BLOOD SPECIMEN Ordering Facility: [facility] Address: [address] [place] [address] Performed By: #### 5 7021-8 #### [facility] CLIA [id number] [address] [place] [address] [place] ALP [Catalytic activity/Vol] 143 U/L High 34-123 [facility] Comment on above: Order Comment: Speci men Type: BLOOD SPECIMEN Ordering Facility: [facility] Address: [address] [place] [address] Performed By: #### 5 7021-8 #### [facility] CLIA [id number] [address] [place] [address] [place] ALT [Catalytic activity/Vol] 24 U/L Normal 7-38 [facility] Comment on above: Order Comment: Speci men Type: BLOOD SPECIMEN Ordering Facility: [facility] Address: [address] [place] [address] Performed By: #### 5 7021-8 #### [facility] CLIA [id number] [address] [place] [address] [place] Anion gap [Moles/Vol] 14 mmol/L Normal 8-15 [facility] Comment on above: Order Comment: Speci men Type: BLOOD SPECIMEN Ordering Facility: [facility] Address: [address] [place] [address] Performed By: #### 5 7021-8 #### [facility] CLIA [id number] [address] [place] [id number] [place] AST [Catalytic activity/Vol] 23 U/L Normal 13-35 [facility] Comment on above: Order Comment: Speci men Type: BLOOD SPECIMEN Ordering Facility: [facility] Address: [address] [place] [address] Performed By: #### 5 7021-8 #### [facility] CLIA [id number] [address] [place] [address] [place] Bilirubin [Mass/Vol] 0.3 mg/dL Normal 0.2-1.3 [facility] Comment on above: Order Comment: Speci men Type: BLOOD SPECIMEN Ordering Facility: [facility] Address: [address] [place] [address] Performed By: #### 5 7021-8 #### [facility] CLIA [id number] [address] [place] [address] [place] Calcium [Mass/Vol] 10.3 mg/dL High 8.5-10.2 [facility] Comment on above: Order Comment: Speci men Type: BLOOD SPECIMEN Ordering Facility: [facility] Address: [address] [place] [address] Performed By: #### 5 7021-8 #### [facility] CLIA [id number] [address] [place] [address] [place] Chloride [Moles/Vol] 104 mmol/L Normal 98-107 [facility] Comment on above: Order Comment: Speci men Type: BLOOD SPECIMEN Ordering Facility: [facility] Address: [address] [place] [address] Performed By: #### 5 7021-8 #### [facility] CLIA [id number] [address] [place] [address] [place] CO2 [Moles/Vol] 21 mmol/L Low 22-30 [facility] Comment on above: Order Comment: Speci men Type: BLOOD SPECIMEN Ordering Facility: [facility] Address: [address] [place] [address] Performed By: #### 5 7021-8 #### [facility] CLIA [id number] [address] [place] [address] [place] Creatinine [Mass/Vol] 0.83 mg/dL Normal 0.58-0.96 [facility] Comment on above: Order Comment: Speci men Type: BLOOD SPECIMEN Ordering Facility: [facility] Address: [address] [place] [address] Performed By: #### 5 7021-8 #### [facility] CLIA [id number] [address] [place] [address] [place] Creatinine and Glomerular filtration rate.predicted panel (S/P/Bld) 79 mL/min/1.73m??? Normal >=60 [facility] Comment on above: Order Comment: Joann mejia Type: BLOOD SPECIMEN Ordering Facility: [facility] Address: [address] [place] [address] Result Comment: Nataliia mated Glomerular Filtration Rate (eGFR) is calculated using the 2020 CKD-EPI creatinine equation. This equation utilizes serum creatinine, sex, and age as parameters. The creatinine assay has traceable calibration to isotope dilution-mass spectrometry. Refer to KDIGO guidelines for clinical interpretation. In patients with unstable renal function, e.g. those with acute kidney injury, the eGFR may not accurately reflect actual GFR. Performed By: #### 5 7021-8 #### [facility] CLIA [id number] [address] [place] [address] [place] Glucose [Mass/Vol] 104 mg/dL High 74-99 [facility] Comment on above: Order Comment: Joann mejia Type: BLOOD SPECIMEN Ordering Facility: [facility] Address: [address] [place] [address] Result Comment: The [place] Diabetes Association (ADA) provides guidance for cutoff values for fasting glucose and random glucose. The ADA defines fasting as no caloric intake for at least 8 hours. Fasting plasma glucose results between 100 to 125 mg/dL indicate increased risk for diabetes (prediabetes). Fasting plasma glucose results greater than or equal to 126 mg/dL meet the criteria for diagnosis of diabetes. In the absence of unequivocal hyperglycemia, results should be confirmed by repeat testing. In a patient with classic symptoms of hyperglycemia or hyperglycemic crisis, random plasma glucose results greater than or equal to 200 mg/dL meet the criteria for diagnosis of diabetes. Reference: Standards of Medical Care in Diabetes 2016, [place] Diabetes Association. Diabetes Care. 2016.39(Suppl 1). Performed By: #### 5 7021-8 #### [facility] CLIA [id number] [address] [place] [address] [place] Potassium [Moles/Vol] 4.5 mmol/L Normal 3.7-5.1 [facility] Comment on above: Order Comment: Speci men Type: BLOOD SPECIMEN Ordering Facility: [facility] Address: [address] [place], [place] [address] Performed By: #### 5 7021-8 #### [facility] CLIA [id number] [address] [place] [address] [place] Protein [Mass/Vol] 6.9 g/dL Normal 6.3-8.0 [facility] Comment on above: Order Comment: Speci men Type: BLOOD SPECIMEN Ordering Facility: [facility] Address: [address] [place] [address] Performed By: #### 5 7021-8 #### [facility] CLIA [id number] [address] [place] [address] [place] Sodium [Moles/Vol] 139 mmol/L Normal 136-144 [facility] Comment on above: Order Comment: Speci men Type: BLOOD SPECIMEN Ordering Facility: [facility] Address: [address] [place], [place] [address] Performed By: #### 5 7021-8 #### [facility] CLIA [id number] [address] [place] [address] [place] Urea nitrogen [Mass/Vol] 13 mg/dL Normal 7-21 [facility] Comment on above: Order Comment: Speci men Type: BLOOD SPECIMEN Ordering Facility: [facility] Address: [address] [place] [address] Performed By: #### 5 7021-8 #### [facility] CLIA [id number] [address] [place], [place] [address] [place] [facility] Folate [Mass/Vol] ng/mL Normal >4.7 [facility] Comment on above: Order Comment: Joann mejia Type: BLOOD SPECIMEN Ordering Facility: [facility] Address: [address] [place] [address] Result Comment: A re sult of > 20 ng/mL is not necessarily indicative of a pathologic or treatable condition: it reflects a limitation of the test methodology. Assay reference range: 4.8 to 24.2 ng/mL. Suitable for detection of folate deficiency. Reference: Folate III (Folate III) [package insert V 1.0 Swedish]. [facility], [place], [place]: September 2015. Performed By: #### 5 7021-8 #### [facility] CLIA [id number] [address] [place] [address] [place] HbA1c (Bld)on 05-29-2024 Average glucose Estimated from glycated hemoglobin (Bld) [Mass/Vol] 123 mg/dL [facility] Comment on above: Order Comment: Joann mejia Type: BLOOD SPECIMEN Ordering Facility: [facility] Address: [address] [place] [address] Result Comment: eAG: (Estimated average glucose) is a calculated value from HgbA1c and is sales representative graphic art of the average blood glucose level in the last 2-3 month period. Performed By: #### 5 5454-3 #### [facility] CLIA [id number] [address] [place] [address] [place] HbA1c (Bld) [Mass fraction] 5.9 % High 4.3-5.6 [facility] Comment on above: Order Comment: Joann mejia Type: BLOOD SPECIMEN Ordering Facility: [facility] Address: [address] [place] [address] Result Comment: Amer [place] Diabetes Association guidelines indicate that patients with HgbA1c in the range 5.7-6.4% are at increased risk for development of diabetes, and intervention by lifestyle modification may be beneficial. HgbA1c greater or equal to 6.5% is considered diagnostic of diabetes. Performed By: #### 5 5454-3 #### [facility] CLIA [id number] [address] [place] [address] [place] Lipid 1996 panelon 4 Cholesterol [Mass/Vol] 116 mg/dL Normal <200 [facility] Comment on above: Order Comment: Joann mejia Type: BLOOD SPECIMEN Ordering Facility: [facility] Address: [address] [place] [address] Result Comment: <200 mg/dL, Desirable 200-239 mg/dL, Borderline high >239 mg/dL, High Performed By: #### 5 7021-8 #### [facility] CLIA [id number] [address] [place] [address] [place] Cholesterol in HDL [Mass/Vol] 51 mg/dL Normal >39 [facility] Comment on above: Order Comment: Joann mejia Type: BLOOD SPECIMEN Ordering Facility: [facility] Address: [address] [place] [address] Result Comment: 40-5 9 mg/dL, Acceptable >59 mg/dL, High: Negative risk factor for coronary heart disease <40 mg/dL, Low: Positive risk factor for coronary heart disease Performed By: #### 5 7021-8 #### [facility] CLIA [id number] [address] [place] [address] [place] Cholesterol in LDL [Mass/Vol] 34 mg/dL Normal <100 [facility] Comment on above: Order Comment: Joann mejia Type: BLOOD SPECIMEN Ordering Facility: [facility] Address: [address] [place] [address] Result Comment: <100 mg/dL, Optimal 100-129 mg/dL, Near optimal/above optimal 130-159 mg/dL, Borderline high 160-189 mg/dL, High >189 mg/dL, Very high Secondary prevention optimal LDL Cholesterol levels are recommended to be < 70 mg/dL Performed By: #### 5 7021-8 #### [facility] CLIA [id number] [address] [place] [address] [place] Cholesterol in LDL/Cholesterol in HDL [Mass ratio] 0.67 {ratio} Normal <2.54 [facility] Comment on above: Order Comment: Joann mejia Type: BLOOD SPECIMEN Ordering Facility: [facility] Address: [address] [place] [address] Result Comment: Robin cardenas: 1. National Cholesterol Education Program ATP III Guideline At-A-Glance Quick Desk Reference: National Heart, Lung, and Blood [place]. National Institutes of Health. 2001: NIH Publication No. 01-3305. 2. An International Atherosclerosis Society position paper: global recommendations for the management of dyslipidemia: executive summary, Atherosclerosis. 2014: 232(2):410-413. Performed By: #### 5 7021-8 #### [facility] CLIA [id number] [address] [place] [address] [place] Cholesterol in VLDL [Mass/Vol] 31 mg/dL High <30 [facility] Comment on above: Order Comment: Joann mejia Type: BLOOD SPECIMEN Ordering Facility: [facility] Address: [address] [place] [address] Performed By: #### 5 7021-8 #### [facility] CLIA [id number] [address] [place] [address] [place] Cholesterol non HDL [Mass/Vol] 65 mg/dL Normal <130 [facility] Comment on above: Order Comment: Joann mjeia Type: BLOOD SPECIMEN Ordering Facility: [facility] Address: [address] [place] [address] Result Comment: <130 mg/dL, Optimal 130-159 mg/dL, Near optimal/above optimal 160-189 mg/dL, Borderline high 190-219 mg/dL, High >219 mg/dL, Very high Secondary prevention optimal non HDL Cholesterol levels are recommended to be <100 mg/dL Performed By: #### 5 7021-8 #### [facility] CLIA [id number] [address] [place] [address] [place] Cholesterol.total/C holesterol in HDL [Mass ratio] 2.27 {ratio} Normal <5.10 [facility] Comment on above: Order Comment: Joann mejia Type: BLOOD SPECIMEN Ordering Facility: [facility] Address: [address] [place] [address] Performed By: #### 5 7021-8 #### [facility] CLIA [id number] [address] [place] [address] [place] FASTING TIME 12 hrs [facility] Comment on above: Order Comment: Speci men Type: BLOOD SPECIMEN Ordering Facility: [facility] Address: [address] [place] [address] Performed By: #### 5 7021-8 #### [facility] CLIA [id number] [address] [place] [address] [place] Triglyceride [Mass/Vol] 153 mg/dL High <150 [facility] Comment on above: Order Comment: Speci men Type: BLOOD SPECIMEN Ordering Facility: [facility] Address: [address] [place] [address] Result Comment: <150 mg/dL, Normal 150-199 mg/dL, Borderline high 200-499 mg/dL, High >499 mg/dL, Very high Performed By: #### 5 7021-8 #### [facility] CLIA [id number] [address] [place] [address] [place] PTH-Intact SerPl-mCncon 07-0 Parathyrin.intact [Mass/Vol] 66 pg/mL High 15-65 [facility] Comment on above: Order Comment: Daniai men Type: BLOOD SPECIMEN Ordering Facility: [facility] Address: [address] [place] [address] Performed By: #### 5 7021-8 #### [facility] IA [id number] [address] [place] [address] [place] TSH SerPl-aCncon 05-29-2024 TSH Qn 2.690 m[IU]/L Normal 0.270-4.20 0 [facility] Comment on above: Order Comment: Daniai men Type: BLOOD SPECIMEN Ordering Facility: [facility] Address: [address] [place] [address] Performed By: #### 5 7021-8 #### [facility] CLIA [id number] [address] [place] [address] [place] Vit B12 [facility] 024 Cobalamin (Vitamin B12) [Mass/Vol] 523 pg/mL Normal 232-1245 [facility] Comment on above: Order Comment: Speci men Type: BLOOD SPECIMEN Ordering Facility: [facility] Address: [address] [place] [address] Performed By: #### 5 7021-8 #### [facility] CLIA [id number] [address] [place] [address] [place] CBC W Auto Differential pane l (Bld)on 05-27-2024 Basophils (Bld) [#/Vol] 10*3/uL Normal <0.11 [facility] Comment on above: Order Comment: Speci men Type: BLOOD SPECIMEN Ordering Facility: [facility] Address: [address] [place] [address] Performed By: #### 5 7021-8 #### [facility] CLIA [id number] [address] [place] [address] [place] Basophils/100 WBC (Bld) 0.4 % [facility] Comment on above: Order Comment: Speci men Type: BLOOD SPECIMEN Ordering Facility: [facility] Address: [address] [place] [address] Performed By: #### 5 7021-8 #### [facility] CLIA [id number] [address] [place] [address] [place] Differential cell count method Nom (Bld) Auto [facility] Comment on above: Order Comment: Speci men Type: BLOOD SPECIMEN Ordering Facility: [facility] Address: [address] [place] [address] Performed By: #### 5 7021-8 #### [facility] CLIA [id number] [address] [place] [address] [place] Eosinophils (Bld) [#/Vol] 0.10 10*3/uL Normal <0.46 [facility] Comment on above: Order Comment: Speci men Type: BLOOD SPECIMEN Ordering Facility: [facility] Address: [address] [place] [address] Performed By: #### 5 7021-8 #### [facility] CLIA [id number] [address] [place] [address] [place] Eosinophils/100 WBC (Bld) 2.2 % [facility] Comment on above: Order Comment: Speci men Type: BLOOD SPECIMEN Ordering Facility: [facility] Address: [address] [place] [address] Performed By: #### 5 7021-8 #### [facility] CLIA [id number] [address] [place] [address] [place] Erythrocyte distribution width (RBC) [Ratio] 17.1 % High 11.5-15.0 [facility] Comment on above: Order Comment: Speci men Type: BLOOD SPECIMEN Ordering Facility: [facility] Address: [address] [place] [address] Performed By: #### 5 7021-8 #### [facility] CLIA [id number] [address] [place] [address] [place] Hematocrit (Bld) [Volume fraction] 43.9 % Normal 36.0-46.0 [facility] Comment on above: Order Comment: Speci men Type: BLOOD SPECIMEN Ordering Facility: [facility] Address: [address] [place] [address] Performed By: #### 5 7021-8 #### [facility] CLIA [id number] [address] [place] [address] [place] Hemoglobin (Bld) [Mass/Vol] 13.8 g/dL Normal 11.5-15.5 [facility] Comment on above: Order Comment: Speci men Type: BLOOD SPECIMEN Ordering Facility: [facility] Address: [address] [place] [address] Performed By: #### 5 7021-8 #### [facility] CLIA [id number] [address] [place] [address] [place] Immature granulocytes (Bld) [#/Vol] 10*3/uL Normal <0.10 [facility] Comment on above: Order Comment: Speci men Type: BLOOD SPECIMEN Ordering Facility: [facility] Address: [address] [place] [address] Performed By: #### 5 7021-8 #### [facility] CLIA [id number] [address] [place] [address] [place] Immature granulocytes/100 WBC (Bld) 0.2 % [facility] Comment on above: Order Comment: Speci men Type: BLOOD SPECIMEN Ordering Facility: [facility] Address: [address] [place] [address] Performed By: #### 5 7021-8 #### [facility] CLIA [id number] [address] [place] [address] [place] Lymphocytes (Bld) [#/Vol] 1.81 10*3/uL Normal 1.00-4.00 [facility] Comment on above: Order Comment: Speci men Type: BLOOD SPECIMEN Ordering Facility: [facility] Address: [address] [place] [address] Performed By: #### 5 7021-8 #### [facility] CLIA [id number] [address] [place] [address] [place] Lymphocytes/100 WBC (Bld) 39.6 % [facility] Comment on above: Order Comment: Speci men Type: BLOOD SPECIMEN Ordering Facility: [facility] Address: [address] [place] [address] Performed By: #### 5 7021-8 #### [facility] CLIA [id number] [address] [place] [address] [place] MCH (RBC) [Entitic mass] 27.0 pg Normal 26.0-34.0 [facility] Comment on above: Order Comment: Speci men Type: BLOOD SPECIMEN Ordering Facility: [facility] Address: [address] [place] [address] Performed By: #### 5 7021-8 #### [facility] CLIA [id number] [address] [place] [address] [place] MCHC (RBC) [Mass/Vol] 31.4 g/dL Normal 30.5-36.0 [facility] Comment on above: Order Comment: Speci men Type: BLOOD SPECIMEN Ordering Facility: [facility] Address: [address] [place] [address] Performed By: #### 5 7021-8 #### [facility] CLIA [id number] [address] [place] [address] [place] [place] MCV (RBC) [Entitic vol] 85.7 fL Normal 80.0-100.0 [facility] Comment on above: Order Comment: Speci men Type: BLOOD SPECIMEN Ordering Facility: [facility] Address: [address] [place] [address] Performed By: #### 5 7021-8 #### [facility] CLIA [id number] [address] [place] [address] [place] Monocytes (Bld) [#/Vol] 0.27 10*3/uL Normal <0.87 [facility] Comment on above: Order Comment: Speci men Type: BLOOD SPECIMEN Ordering Facility: [facility] Address: [address] [place] [address] Performed By: #### 5 7021-8 #### [facility] CLIA [id number] [address] [place] [address] [place] Monocytes/100 WBC (Bld) 5.9 % [facility] Comment on above: Order Comment: Speci men Type: BLOOD SPECIMEN Ordering Facility: [facility] Address: [address] [place] [address] Performed By: #### 5 7021-8 #### [facility] CLIA [id number] [address] [place] [address] [place] Neutrophils (Bld) [#/Vol] 2.36 10*3/uL Normal 1.45-7.50 [facility] Comment on above: Order Comment: Speci men Type: BLOOD SPECIMEN Ordering Facility: [facility] Address: [address] [place] [address] Performed By: #### 5 7021-8 #### [facility] CLIA [id number] [address] [place] [address] [place] Neutrophils/100 WBC (Bld) 51.7 % [facility] Comment on above: Order Comment: Speci men Type: BLOOD SPECIMEN Ordering Facility: [facility] Address: [address] [place] [address] Performed By: #### 5 7021-8 #### [facility] CLIA [id number] [address] [place] [address] [place] Nucleated RBC (Bld) [#/Vol] 10*3/uL Normal <0.01 [facility] Comment on above: Order Comment: Speci men Type: BLOOD SPECIMEN Ordering Facility: [facility] Address: [address] [place] [address] Performed By: #### 5 7021-8 #### [facility] CLIA [id number] [address] [place] [address] [place] Nucleated RBC/100 WBC (Bld) [Ratio] 0.0 /100 WBC [facility] Comment on above: Order Comment: Speci men Type: BLOOD SPECIMEN Ordering Facility: [facility] Address: [address] [place] [address] Performed By: #### 5 7021-8 #### [facility] CLIA [id number] [address] [place] [address] [place] Platelet mean volume (Bld) [Entitic vol] 10.3 fL Normal 9.0-12.7 [facility] Comment on above: Order Comment: Speci men Type: BLOOD SPECIMEN Ordering Facility: [facility] Address: [address] [place] [address] Performed By: #### 5 7021-8 #### [facility] CLIA [id number] [address] [place] [address] [place] Platelets (Bld) [#/Vol] 266 10*3/uL Normal 150-400 [facility] Comment on above: Order Comment: Speci men Type: BLOOD SPECIMEN Ordering Facility: [facility] Address: [address] [place] [address] Performed By: #### 5 7021-8 #### [facility] CLIA [id number] [address] [place] [address] [place] RBC (Bld) [#/Vol] 5.12 10*6/uL Normal 3.90-5.20 [facility] Comment on above: Order Comment: Speci men Type: BLOOD SPECIMEN Ordering Facility: [facility] Address: [address] [place] [address] Performed By: #### 5 7021-8 #### [facility] CLIA [id number] [address] [place], [place] [address] [place] WBC (Bld) [#/Vol] 4.57 10*3/uL Normal 3.70-11.00 [facility] Comment on above: Order Comment: Speci men Type: BLOOD SPECIMEN Ordering Facility: [facility] Address: [address] [place] [address] Performed By: #### 5 7021-8 #### [facility] CLIA [id number] [address] [place] [address] [place] Venous Duplex US, Unilateral on 04-23-2024 Venous Duplex US, Unilateral [facility] [address] [place] [address] Venous Duplex US, Unilateral 04/23/24 1016 MR#: [id number] Acct: [id number] Name: TAMMY GUPTA Rep #: [id number] : 1960 63 From: Francis Lora MD Attending Dr: Dr. Geremias Vaughn MD Status: REG CLI Ordering Dr: Geremias Vaughn MD Date: 04/23/24 Location: CVS Sex: F C Admitted: Reason For Study: Left leg DVT RIGHT LEFT CFV is compressible, spontaneous, phasic, GSV is normal. competent and demonstrates normal CFV is compressible, spontaneous, phasic, augmentation. competent, and demonstrates normal Procedure augmentation. This is a venous duplex using B-mode, color FV is compressible, spontaneous, phasic, flow and spectral Doppler. competent and demonstrates normal Exam performed in department. augmentation. A preliminary report was called and/or faxed POP V is compressible, spontaneous, phasic, to Dr. Vaughn. competent and demonstrates normal augmentation. T/P Trunk is compressible. PTV is compressible. LT PerV is compressible. VL/Venous Duplex US, Unilateral Interpretation Summary Deep veins of the left lower extremity are patent and compressible segmentally. There is no evidence of left lower extremity deep vein thrombosis. The left great saphenous vein appears patent and compressible segmentally. Ordering Physician: Geremias Vaughn Referring Physician: Geremias Vaughn Performed By: Alfreda Erickson RVT 04/23/241911 Date Francis Lora MD CC: Dr. Geremias Vaughn MD Date Dictated: 04/23/24 1016 Date Transcribed: 04/23/241911 Pathology Supervisor: Signed Normal [facility] Basophil percentageon 2023 Creatinine [Mass/Vol] 1.4 mg/dL 0.55-1.02 [facility] Laboratory - Chemistry and C hemistry - challengeon 03-13-2024 GFR/1.73 sq M.predicted among non-blacks MDRD (S/P/Bld) [Vol rate/Area] 41.0000 mL/min/{1.73_m2} >60 [facility] CBC W Auto Differential pane l (Bld)on 03-12-2024 Basophils (Bld) [#/Vol] 0.05 10*3/uL Normal <0.11 [facility] Comment on above: Order Comment: Joann mejia Type: BLOOD SPECIMEN Ordering Facility: [facility] Address: [address] [place] [address] Performed By: #### 5 7021-8 #### [facility] CLIA [id number] [address] [place] [address] [place] Basophils/100 WBC (Bld) 1.0 % [facility] Comment on above: Order Comment: Joann mejia Type: BLOOD SPECIMEN Ordering Facility: [facility] Address: [address] [place] [address] Performed By: #### 5 7021-8 #### [facility] CLIA [id number] [address] [place] [address] [place] Differential cell count method Nom (Bld) Auto Normal [facility] Comment on above: Order Comment: Daniai men Type: BLOOD SPECIMEN Ordering Facility: [facility] Address: [address] [place] [address] Performed By: #### 5 7021-8 #### [facility] CLIA [id number] [address] [place] [address] [place] Eosinophils (Bld) [#/Vol] 0.31 10*3/uL Normal <0.46 [facility] Comment on above: Order Comment: Speci men Type: BLOOD SPECIMEN Ordering Facility: [facility] Address: [address] [place] [address] Performed By: #### 5 7021-8 #### [facility] CLIA [id number] [address] [place] [address] [place] Eosinophils/100 WBC (Bld) 6.5 % [facility] Comment on above: Order Comment: Speci men Type: BLOOD SPECIMEN Ordering Facility: [facility] Address: [address] [place] [address] Performed By: #### 5 7021-8 #### [facility] CLIA [id number] [address] [place] [address] [place] Erythrocyte distribution width (RBC) [Ratio] 14.3 % Normal 11.5-15.0 [facility] Comment on above: Order Comment: Speci men Type: BLOOD SPECIMEN Ordering Facility: [facility] Address: [address] [place] [address] Performed By: #### 5 7021-8 #### [facility] CLIA [id number] [address] [place] [address] [place] Hematocrit (Bld) [Volume fraction] 43.2 % Normal 36.0-46.0 [facility] Comment on above: Order Comment: Speci men Type: BLOOD SPECIMEN Ordering Facility: [facility] Address: [address] [place] [address] Performed By: #### 5 7021-8 #### [facility] CLIA [id number] [address] [place] [address] [place] Hemoglobin (Bld) [Mass/Vol] 13.4 g/dL Normal 11.5-15.5 [facility] Comment on above: Order Comment: Speci men Type: BLOOD SPECIMEN Ordering Facility: [facility] Address: [address] [place] [address] Performed By: #### 5 7021-8 #### [facility] CLIA [id number] [address] [place] [address] [place] Immature granulocytes (Bld) [#/Vol] 10*3/uL Normal <0.10 [facility] Comment on above: Order Comment: Speci men Type: BLOOD SPECIMEN Ordering Facility: [facility] Address: [address] [place] [address] Performed By: #### 5 7021-8 #### [facility] CLIA [id number] [address] [place] [address] [place] Immature granulocytes/100 WBC (Bld) 0.2 % [facility] Comment on above: Order Comment: Speci men Type: BLOOD SPECIMEN Ordering Facility: [facility] Address: [address] [place] [address] Performed By: #### 5 7021-8 #### [facility] CLIA [id number] [address] [place] [address] [place] Lymphocytes (Bld) [#/Vol] 1.97 10*3/uL Normal 1.00-4.00 [facility] Comment on above: Order Comment: Speci men Type: BLOOD SPECIMEN Ordering Facility: [facility] Address: [address] [place] [address] Performed By: #### 5 7021-8 #### [facility] CLIA [id number] [address] [place] [address] [place] Lymphocytes/100 WBC (Bld) 41.1 % [facility] Comment on above: Order Comment: Speci men Type: BLOOD SPECIMEN Ordering Facility: [facility] Address: [address] [place] [address] Performed By: #### 5 7021-8 #### [facility] CLIA [id number] [address] [place] [address] [place] MCH (RBC) [Entitic mass] 27.5 pg Normal 26.0-34.0 [facility] Comment on above: Order Comment: Speci men Type: BLOOD SPECIMEN Ordering Facility: [facility] Address: [address] [place] [address] Performed By: #### 5 7021-8 #### [facility] CLIA [id number] [address] [place] [address] [place] MCHC (RBC) [Mass/Vol] 31.0 g/dL Normal 30.5-36.0 [facility] Comment on above: Order Comment: Speci men Type: BLOOD SPECIMEN Ordering Facility: [facility] Address: [address] [place] [address] Performed By: #### 5 7021-8 #### [facility] CLIA [id number] [address] [place] [address] [place] MCV (RBC) [Entitic vol] 88.5 fL Normal 80.0-100.0 [facility] Comment on above: Order Comment: Speci men Type: BLOOD SPECIMEN Ordering Facility: [facility] Address: [address] [place] [address] Performed By: #### 5 7021-8 #### [facility] CLIA [id number] [address] [place] [address] [place] Monocytes (Bld) [#/Vol] 0.44 10*3/uL Normal <0.87 [facility] Comment on above: Order Comment: Speci men Type: BLOOD SPECIMEN Ordering Facility: [facility] Address: [address] [place] [address] Performed By: #### 5 7021-8 #### [facility] CLIA [id number] [address] [place] [address] [place] Monocytes/100 WBC (Bld) 9.2 % [facility] Comment on above: Order Comment: Speci men Type: BLOOD SPECIMEN Ordering Facility: [facility] Address: [address] [place] [address] Performed By: #### 5 7021-8 #### [facility] CLIA [id number] [address] [place] [address] [place] Neutrophils (Bld) [#/Vol] 2.01 10*3/uL Normal 1.45-7.50 [facility] Comment on above: Order Comment: Speci men Type: BLOOD SPECIMEN Ordering Facility: [facility] Address: [address] [place] [address] Performed By: #### 5 7021-8 #### [facility] CLIA [id number] [address] [place] [address] [place] Neutrophils/100 WBC (Bld) 42.0 % [facility] Comment on above: Order Comment: Speci men Type: BLOOD SPECIMEN Ordering Facility: [facility] Address: [address] [place] [address] Performed By: #### 5 7021-8 #### [facility] CLIA [id number] [address] [place] [address] [place] Nucleated RBC (Bld) [#/Vol] 10*3/uL Normal <0.01 [facility] Comment on above: Order Comment: Speci men Type: BLOOD SPECIMEN Ordering Facility: [facility] Address: [address] [place] [address] Performed By: #### 5 7021-8 #### [facility] CLIA [id number] [address] [place] [address] [place] Nucleated RBC/100 WBC (Bld) [Ratio] 0.0 /100 WBC [facility] Comment on above: Order Comment: Speci men Type: BLOOD SPECIMEN Ordering Facility: [facility] Address: [address] [place] [address] Performed By: #### 5 7021-8 #### [facility] CLIA [id number] [address] [place] [address] [place] Platelet mean volume (Bld) [Entitic vol] 10.6 fL Normal 9.0-12.7 [facility] Comment on above: Order Comment: Speci men Type: BLOOD SPECIMEN Ordering Facility: [facility] Address: [address] [place] [address] Performed By: #### 5 7021-8 #### [facility] CLIA [id number] [address] [place] [address] [place] Platelets (Bld) [#/Vol] 303 10*3/uL Normal 150-400 [facility] Comment on above: Order Comment: Speci men Type: BLOOD SPECIMEN Ordering Facility: [facility] Address: [address] [place] [address] Performed By: #### 5 7021-8 #### [facility] CLIA [id number] [address] [place] [address] [place] RBC (Bld) [#/Vol] 4.88 10*6/uL Normal 3.90-5.20 [facility] Comment on above: Order Comment: Speci men Type: BLOOD SPECIMEN Ordering Facility: [facility] Address: [address] [place] [address] Performed By: #### 5 7021-8 #### [facility] CLIA [id number] [address] [place] [address] [place] WBC (Bld) [#/Vol] 4.79 10*3/uL Normal 3.70-11.00 [facility] Comment on above: Order Comment: Speci men Type: BLOOD SPECIMEN Ordering Facility: [facility] Address: [address] [place] [address] Performed By: #### 5 7021-8 #### [facility] CLIA [id number] [address] [place], [place] [address] [place] [facility] [place] Comprehensive metabolic 2000 panelon 03-12-2024 Albumin [Mass/Vol] 4.2 g/dL Normal 3.9-4.9 [facility] Comment on above: Order Comment: Speci men Type: BLOOD SPECIMEN Ordering Facility: [facility] Address: [address] [place] [address] Performed By: #### 2 4323-8 #### [facility] CLIA [id number] [address] [place] [address] [place] ALP [Catalytic activity/Vol] 126 U/L High 34-123 [facility] Comment on above: Order Comment: Speci men Type: BLOOD SPECIMEN Ordering Facility: [facility] Address: [address] [place] [address] Performed By: #### 2 4323-8 #### [facility] CLIA [id number] [address] [place] [address] [place] ALT [Catalytic activity/Vol] 25 U/L Normal 7-38 [facility] Comment on above: Order Comment: Speci men Type: BLOOD SPECIMEN Ordering Facility: [facility] Address: [address] [place] [address] Performed By: #### 2 4323-8 #### [facility] CLIA [id number] [address] [place] [address] [place] Anion gap [Moles/Vol] 13 mmol/L Normal 9-18 [facility] Comment on above: Order Comment: Speci men Type: BLOOD SPECIMEN Ordering Facility: [facility] Address: [address] [place] [address] Performed By: #### 2 4323-8 #### [facility] CLIA [id number] [address] [place] [address] [place] AST [Catalytic activity/Vol] 26 U/L Normal 13-35 [facility] Comment on above: Order Comment: Speci men Type: BLOOD SPECIMEN Ordering Facility: [facility] Address: [address] [place] [address] Performed By: #### 2 4323-8 #### [facility] CLIA [id number] [address] [place] [address] [place] Bilirubin [Mass/Vol] 0.4 mg/dL Normal 0.2-1.3 [facility] Comment on above: Order Comment: Speci men Type: BLOOD SPECIMEN Ordering Facility: [facility] Address: [address] [place] [address] Performed By: #### 2 4323-8 #### [facility] CLIA [id number] [address] [place] [address] [place] Calcium [Mass/Vol] 10.1 mg/dL Normal 8.5-10.2 [facility] Comment on above: Order Comment: Speci men Type: BLOOD SPECIMEN Ordering Facility: [facility] Address: [address] [place] [address] Performed By: #### 2 4323-8 #### [facility] CLIA [id number] [address] [place] [address] [place] Chloride [Moles/Vol] 104 mmol/L Normal 97-105 [facility] Comment on above: Order Comment: Speci men Type: BLOOD SPECIMEN Ordering Facility: [facility] Address: [address] [place] [address] Performed By: #### 2 4323-8 #### [facility] CLIA [id number] [address] [place] [address] [place] CO2 [Moles/Vol] 22 mmol/L Normal 22-30 [facility] Comment on above: Order Comment: Speci men Type: BLOOD SPECIMEN Ordering Facility: [facility] Address: [address] [place] [address] Performed By: #### 2 4323-8 #### [facility] CLIA [id number] [address] [place] [address] [place] Creatinine [Mass/Vol] 0.82 mg/dL Normal 0.58-0.96 [facility] Comment on above: Order Comment: Speci men Type: BLOOD SPECIMEN Ordering Facility: [facility] Address: [address] [place] [address] Performed By: #### 2 4323-8 #### [facility] CLIA [id number] [address] [place] [address] [place] Creatinine and Glomerular filtration rate.predicted panel (S/P/Bld) 80 mL/min/1.73m??? Normal >=60 [facility] Comment on above: Order Comment: Joann mejia Type: BLOOD SPECIMEN Ordering Facility: [facility] Address: [address] [place] [address] Result Comment: Nataliia mated Glomerular Filtration Rate (eGFR) is calculated using the 2020 CKD-EPI creatinine equation. This equation utilizes serum creatinine, sex, and age as parameters. The creatinine assay has traceable calibration to isotope dilution-mass spectrometry. Refer to KDIGO guidelines for clinical interpretation. In patients with unstable renal function, e.g. those with acute kidney injury, the eGFR may not accurately reflect actual GFR. Performed By: #### 2 4323-8 #### [facility] CLIA [id number] [facility] [place] [address] [place] Glucose [Mass/Vol] 80 mg/dL Normal 74-99 [facility] Comment on above: Order Comment: Joann mejia Type: BLOOD SPECIMEN Ordering Facility: [facility] Address: [address] [place] [address] Result Comment: The [place] [employer] (ADA) provides guidance for cutoff values for fasting glucose and random glucose. The ADA defines fasting as no caloric intake for at least 8 hours. Fasting plasma glucose results between 100 to 125 mg/dL indicate increased risk for diabetes (prediabetes). Fasting plasma glucose results greater than or equal to 126 mg/dL meet the criteria for diagnosis of diabetes. In the absence of unequivocal hyperglycemia, results should be confirmed by repeat testing. In a patient with classic symptoms of hyperglycemia or hyperglycemic crisis, random plasma glucose results greater than or equal to 200 mg/dL meet the criteria for diagnosis of diabetes. Reference: Standards of Medical Care in Diabetes 2016, [place] [employer]. Diabetes Care. 2016.39(Suppl 1). Performed By: #### 2 4323-8 #### [facility] CLIA [id number] [address] [place] [id number] [place] Potassium [Moles/Vol] 4.6 mmol/L Normal 3.7-5.1 [facility] Comment on above: Order Comment: Speci men Type: BLOOD SPECIMEN Ordering Facility: [facility] Address: [address] [place] [address] Performed By: #### 2 4323-8 #### [facility] CLIA [id number] [address] [place] [address] [place] Protein [Mass/Vol] 7.1 g/dL Normal 6.3-8.0 [facility] Comment on above: Order Comment: Speci men Type: BLOOD SPECIMEN Ordering Facility: [facility] Address: [address] [place] [address] Performed By: #### 2 4323-8 #### [facility] CLIA [id number] [address] [place] [address] [place] Sodium [Moles/Vol] 139 mmol/L Normal 136-144 [facility] Comment on above: Order Comment: Speci men Type: BLOOD SPECIMEN Ordering Facility: [facility] Address: [address] [place] [address] Performed By: #### 2 4323-8 #### [facility] CLIA [id number] [address] [place] [address] [place] Urea nitrogen [Mass/Vol] 16 mg/dL Normal 7-21 [facility] Comment on above: Order Comment: Speci men Type: BLOOD SPECIMEN Ordering Facility: [facility] Address: [address] [place] [address] Performed By: #### 2 4323-8 #### [facility] CLIA [id number] [address] [place] [address] [place] Final Surgical Pathology Rep [facility] 01-11-2024 Final Surgical Pathology Report . 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 Focally, slight nuclear enlargement and prominent nucleoli are present. There is no evidence of sheeting type growth pattern, necrosis or high cellularity. Mitotic count is less than 1 per 10 high-power iglesias. In the sections examined, there is no evidence of brain invasion. Immunostains were performed. ELSI shows patchy positivity. The lesion is negative for GFAP, SOX10, S100 and keratin AE1/AE3. CD34 highlights tumor vasculature. Ki-67 shows a very low proliferation index. Overall, the features support WHO grade 1 meningioma. Intradepartmental consultation: Dr. Jose, who concurs. CLINICAL INFORMATION: BRAIN TUMOR Procedure: RIGHT CRANIOTOMY FOR RESECTION OF TUMOR Preoperative diagnosis: BRAIN TUMOR Postoperative diagnosis: BRAIN TUMOR SPECIMEN: A RIGHT FRONTAL MASS GROSS DESCRIPTION: All parts labelled with patient name and [id number] Received in formalin labelled right frontal mass Is a unoriented 13 g right frontal mass measuring 3 x 2.6 x 3 cm. A portion of the mass is adherent to a white cauterized portion of dura overall measuring 4.2 x 3.8 by less than 0.1 to 0.2 cm. Blue ink is applied to the adherent portion of dura at the base of the mass. The outer surface of the mass is inked black. Cassette summary: A1 -A9-entire right frontal mass in sequential order, A10 -remaining dura strips TS-10 MONICA Mason Dictated by JEFF FELICIANO MICROSCOPIC DESCRIPTION: The microscopic examination is performed, except in the case of Gross Only. Electronically Signed by Pathology Report verified by [facility] TOY CERVANTES Sign out Date: 01/11/2024 11:24 Performing Lab: [facility], [address] [place] [address] Pathology Dept Disclaimer If ancillary studies were utilized, the following Laboratory Developed Test (LDT) disclaimer will apply: Pathology Reports Accession: Collected Date/Time: Received Date/Time: Pathologist: [id number] 01/03/2024 12:21 EST 01/04/2024 08:13 TOY ARNDT MD Disclaimer Under CLIA requirements, [facility] is qualified to perform high complexity testing. For all ancillary stains, positive and negative controls stain appropriately. Performance characteristics of immunohistochemical and chromogenic in-situ hybridization tests have been determined by [facility]. These tests are used for clinical purposes, They should not be regarded as investigational or for research. Normal [facility] [place] .Auto Diffon 01-08-2024 Basophil, Absolute 0.0 10 3/mcL Normal 0.0-0.3 [facility] [place] Comment on above: Performed By: #### C BC, ADIFF, PRO, FIB, ANEU #### [address] [address] Basophils/100 WBC (Bld) 0.1 % Normal 0.0-2.5 [facility] [place] Comment on above: Performed By: #### C BC, ADIFF, PRO, FIB, ANEU #### [address] [address] Eosinophil, Absolute 0.0 10 3/mcL Normal 0.0-0.7 [facility] [place] Comment on above: Performed By: #### C BC, ADIFF, PRO, FIB, ANEU #### [address] [address] Eosinophils/100 WBC (Bld) 0.1 % Normal 0.0-6.0 [facility] [place] Comment on above: Performed By: #### C BC, ADIFF, PRO, FIB, ANEU #### [address] [address] Lymphocyte, Absolute 0.8 10 3/mcL Low 0.9-4.3 [facility] [place] Comment on above: Performed By: #### C BC, ADIFF, PRO, FIB, ANEU #### [address] [address] Lymphocytes/100 WBC (Bld) 8.6 % Low 20.0-40.0 [facility] [place] Comment on above: Performed By: #### C BC, ADIFF, PRO, FIB, ANEU #### [address] [address] Monocyte, Absolute 0.4 10 3/mcL Normal 0.1-1.4 [facility] [place] Comment on above: Performed By: #### C BC, ADIFF, PRO, FIB, ANEU #### [address] [address] Monocytes/100 WBC (Bld) 4.3 % Normal 2.0-13.0 [facility] [place] Comment on above: Performed By: #### C BC, ADIFF, PRO, FIB, ANEU #### [address] [address] Neutrophils/100 WBC (Bld) 86.9 % High 50.0-75.0 [facility] [place] Comment on above: Performed By: #### C BC, ADIFF, PRO, FIB, ANEU #### [address] [address] .GFRon 01-08-2024 GFR >60 Normal [facility] [place] Comment on above: Result Comment: GFR Population mean for , Non- Americans Ages 20-29 = 116 mL/min/1.73 sq.m. Ages 30-39 = 107 mL/min/1.73 sq.m. Ages 40-49 = 99 mL/min/1.73 sq.m. Ages 50-59 = 93 mL/min/1.73 sq.m. Ages 60-69 = 85 mL/min/1.73 sq.m. Ages 70+ = 75 mL/min/1.73 sq.m. Chronic Kidney Disease: Less than 60 mL/min/1.73 square meters End Stage Renal Disease: Less than 15 mL/min/1.73 square meters Performed By: #### C BC, ADIFF, PRO, FIB, ANEU #### [address] [address] GFR Non- >60 Normal [facility] [place] Comment on above: Result Comment: GFR Population mean for , Non- Americans Ages 20-29 = 116 mL/min/1.73 sq.m. Ages 30-39 = 107 mL/min/1.73 sq.m. Ages 40-49 = 99 mL/min/1.73 sq.m. Ages 50-59 = 93 mL/min/1.73 sq.m. Ages 60-69 = 85 mL/min/1.73 sq.m. Ages 70+ = 75 mL/min/1.73 sq.m. Chronic Kidney Disease: Less than 60 mL/min/1.73 square meters End Stage Renal Disease: Less than 15 mL/min/1.73 square meters Performed By: #### C BC, ADIFF, PRO, FIB, ANEU #### [address] [address] .NEUABSon 01-08-2024 Neutrophil, Absolute 8.0 10 3/mcL Normal 2.3-8.1 [facility] [place] Comment on above: Performed By: #### C BC, ADIFF, PRO, FIB, ANEU #### [address] [address] BMPon 01-08-2024 BUN/Creatinine Ratio 36.6 ratio High 10.0-22.0 [facility] [place] Comment on above: Performed By: #### C BC, ADIFF, PRO, FIB, ANEU #### [address] [address] Calcium [Mass/Vol] 9.4 mg/dL Normal 8.7-10.4 [facility] [place] Comment on above: Performed By: #### C BC, ADIFF, PRO, FIB, ANEU #### [address] [address] Chloride [Moles/Vol] 106 mmol/L Normal 98-110 [facility] [place] Comment on above: Performed By: #### C BC, ADIFF, PRO, FIB, ANEU #### [address] [address] CO2 [Moles/Vol] 26 mmol/L Normal 22-32 [facility] [place] Comment on above: Performed By: #### C BC, ADIFF, PRO, FIB, ANEU #### [address] [address] Creatinine [Mass/Vol] 0.71 mg/dL Normal 0.50-1.20 [facility] [place] Comment on above: Performed By: #### C BC, ADIFF, PRO, FIB, ANEU #### [place] [id number] Electrolyte Balance 8.0 mEq/L Normal 4.0-15.0 [facility] ([place] Comment on above: Performed By: #### C BC, ADIFF, PRO, FIB, ANEU #### [place] [phone] Glucose [Mass/Vol] 118 mg/dL High 82-115 [facility] [place] Comment on above: Performed By: #### C BC, ADIFF, PRO, FIB, ANEU #### [place] [phone] Potassium [Moles/Vol] 4.5 mmol/L Normal 3.5-5.0 [facility] [place] Comment on above: Result Comment: Spec imen slightly hemolyzed. Performed By: #### C BC, ADIFF, PRO, FIB, ANEU #### [place] [address] Sodium [Moles/Vol] 140 mmol/L Normal 136-145 [facility] [place] Comment on above: Performed By: #### C BC, ADIFF, PRO, FIB, ANEU #### [place] [address] Urea nitrogen [Mass/Vol] 26.0 mg/dL High 8.0-22.0 [facility] [place] Comment on above: Performed By: #### C BC, ADIFF, PRO, FIB, ANEU #### [place] [id number] CBCon 01-08-2024 Erythrocyte distribution width (RBC) [Ratio] 15.5 % Normal 11.5-15.5 [facility] [place] Comment on above: Performed By: #### C BC, ADIFF, PRO, FIB, ANEU #### [place] [phone] Hematocrit (Bld) [Volume fraction] 40.5 % Normal 34.0-46.0 [facility] [place] Comment on above: Performed By: #### C BC, ADIFF, PRO, FIB, ANEU #### [place] [address] Hgb 13.3 G/dL Normal 12.0-16.0 [facility] [place] Comment on above: Performed By: #### C BC, ADIFF, PRO, FIB, ANEU #### [place] [address] MCH (RBC) [Entitic mass] 29.8 pg Normal 27.0-33.0 [facility] [place] Comment on above: Performed By: #### C BC, ADIFF, PRO, FIB, ANEU #### [place] [address] MCHC 32.8 G/dL Normal 32.0-36.0 [facility] [place] Comment on above: Performed By: #### C BC, ADIFF, PRO, FIB, ANEU #### [place] [address] MCV (RBC) [Entitic vol] 90.7 fL Normal 80.0-99.0 [facility] [place] Comment on above: Performed By: #### C BC, ADIFF, PRO, FIB, ANEU #### [place] [address] Platelet 199 10 3/mcL Normal 150-450 [facility] [place] Comment on above: Performed By: #### C BC, ADIFF, PRO, FIB, ANEU #### [place] [address] Platelet mean volume (Bld) [Entitic vol] 8.4 fL Normal 6.6-10.5 [facility] [place] Comment on above: Performed By: #### C BC, ADIFF, PRO, FIB, ANEU #### [place] [address] RBC 4.46 10 6/mcL Normal 4.10-5.30 [facility] [place] Comment on above: Performed By: #### C BC, ADIFF, PRO, FIB, ANEU #### [place] [address] WBC 9.1 10 3/mcL Normal 4.5-10.8 [facility] [place] Comment on above: Performed By: #### C BC, ADIFF, PRO, FIB, ANEU #### [facility] [address] [place] [id number] LABORATORYOrdered By: SYSTEM SYSTEM on 01-08-2024 Basophils (Bld) [#/Vol] 0.0 103/mcL Normal 0.0 - 0.3 10^3/mcL Workflow SS Basophils/100 WBC (Bld) 0.1 % Normal 0.0 - 2.5 % AH Workflow SS Calcium [Mass/Vol] 9.4 mg/dL Normal 8.7 - 10. 4 mg/dL ADM SS Chloride [Moles/Vol] 106 mmol/L Normal 98 - 110 mEq/L ADM SS CO2 [Moles/Vol] 26 mmol/L Normal 22 - 32 mEq/L ADM SS Creatinine [Mass/Vol] 0.71 mg/dL Normal 0.50 - 1.20 mg/dL ADM SS Electrolyte Balance 8.0 mEq/L Normal 4.0 - 15 .0 mEq/L ADM SS Eosinophils (Bld) [#/Vol] 0.0 103/mcL Normal 0.0 - 0.7 10^3/mcL AH Workflow SS Eosinophils/100 WBC (Bld) 0.1 % Normal 0.0 - 6.0 % AH Workflow SS Erythrocyte distribution width (RBC) [Ratio] 15.5 % Normal 11.5 - 15.5 % AH Workflow SS GFR/1.73 sq M.predicted among blacks MDRD (S/P/Bld) [Vol rate/Area] ml/min/1.73sqm Invalid Interpretation Code Chemistry S Comment on above: Interpretive Data: GFR Population mean for , Non- Americans Ages 20-29 = 116 mL/min/1.73 sq.m. Ages 30-39 = 107 mL/min/1.73 sq.m. Ages 40-49 = 99 mL/min/1.73 sq.m. Ages 50-59 = 93 mL/min/1.73 sq.m. Ages 60-69 = 85 mL/min/1.73 sq.m. Ages 70+ = 75 mL/min/1.73 sq.m. Chronic Kidney Disease: Less than 60 mL/min/1.73 square meters End Stage Renal Disease: Less than 15 mL/min/1.73 square meters GFR/1.73 sq M.predicted among non-blacks MDRD (S/P/Bld) [Vol rate/Area] ml/min/1.73sqm Invalid Interpretation Code Chemistry S Comment on above: Interpretive Data: GFR Population mean for , Non- Americans Ages 20-29 = 116 mL/min/1.73 sq.m. Ages 30-39 = 107 mL/min/1.73 sq.m. Ages 40-49 = 99 mL/min/1.73 sq.m. Ages 50-59 = 93 mL/min/1.73 sq.m. Ages 60-69 = 85 mL/min/1.73 sq.m. Ages 70+ = 75 mL/min/1.73 sq.m. Chronic Kidney Disease: Less than 60 mL/min/1.73 square meters End Stage Renal Disease: Less than 15 mL/min/1.73 square meters Glucose [Mass/Vol] 118 mg/dL High 82 - 115 mg/dL ADM SS Hematocrit (Bld) [Volume fraction] 40.5 % Normal 34.0 - 46.0 % AH Workflow SS Hemoglobin (Bld) [Mass/Vol] 13.3 G/dL Normal 12.0 - 16.0 G/dL AH Workflow SS Lymphocytes (Bld) [#/Vol] 0.8 103/mcL Low 0.9 - 4.3 10^3/mcL AH Workflow SS Lymphocytes/100 WBC (Bld) 8.6 % Low 20.0 - 40.0 % AH Workflow SS Magnesium [Mass/Vol] 2.3 mg/dL Normal 1.6 - 2.4 mg/dL ADM SS MCH (RBC) [Entitic mass] 29.8 pg Normal 27.0 - 33.0 pg AH Workflow SS MCHC 32.8 G/dL Normal 32.0 - 36.0 G/dL AH Workflow SS MCV (RBC) [Entitic vol] 90.7 fL Normal 80.0 - 99.0 fL Workflow SS Monocytes (Bld) [#/Vol] 0.4 103/mcL Normal 0.1 - 1.4 10^3/mcL Workflow SS Monocytes/100 WBC (Bld) 4.3 % Normal 2.0 - 13.0 % AH Workflow SS Neutrophils (Bld) [#/Vol] 8.0 103/mcL Normal 2.3 - 8.1 10^3/mcL AH Workflow SS Neutrophils/100 WBC (Bld) 86.9 % High 50.0 - 75.0 % AH Workflow SS Platelet mean volume (Bld) [Entitic vol] 8.4 fL Normal 6.6 - 10.5 fL AH Workflow SS Platelets (Bld) [#/Vol] 199 103/mcL Normal 150 - 450 10^3/mcL AH Workflow SS Potassium [Moles/Vol] 4.5 mmol/L Normal 3.5 - 5.0 mEq/L AH ADM SS Comment on above: Result Comment: Spec imen slightly hemolyzed. RBC (Bld) [#/Vol] 4.46 106/mcL Normal 4.10 - 5.30 10^6/mcL AH Workflow SS Sodium [Moles/Vol] 140 mmol/L Normal 136 - 145 mEq/L ADM SS Urea nitrogen [Mass/Vol] 26.0 mg/dL High 8.0 - 22.0 mg/dL ADM SS Urea nitrogen/Creatinine [Mass ratio] 36.6 ratio High 10.0 - 22.0 ratio ADM SS WBC (Bld) [#/Vol] 9.1 103/mcL Normal 4.5 - 10.8 10^3/mcL Workflow SS MGon 01-08-2024 Magnesium [Mass/Vol] 2.3 mg/dL Normal 1.6-2.4 [facility] [place] Comment on above: Performed By: #### C BC, ADIFF, PRO, FIB, ANEU #### [place] [address] MRI LIVERon 01-08-2024 MRI LIVER ORIGINAL EXAMINATION: MRI OF THE ABDOMEN LIMITED WITH CONTRAST, 01/05/2024 6:54 pm TECHNIQUE: Multiplanar multisequence MRI of the abdomen limited was performed with the administration of intravenous contrast. COMPARISON: Prior CT abdomen pelvis dated 01/01/2024. HISTORY: ORDERING SYSTEM PROVIDED HISTORY: Reason for Exam: evaluate liver lesion hx melanoma FINDINGS: Limited evaluation of the lung bases demonstrates no pleural or pericardial effusion. On chemical shift images there is no evidence of abnormal signal dropout. There is no evidence of restricted diffusion on diffusion-weighted images. The liver is nonenlarged. There is redemonstration of a lesion within the left hepatic lobe measuring 2.0 x 1.1 cm. This lesion demonstrates faint T2 hyperintensity and demonstrates delayed peripheral enhancement with incomplete filling most consistent with a hemangioma. No intrahepatic or extrahepatic biliary ductal dilatation is seen. The gallbladder is normal in appearance. The bilateral adrenal glands, spleen, and pancreas are normal in appearance. The kidneys enhance symmetrically bilaterally. There is a benign 1.0 cm left renal cyst noted. There is no hydronephrosis. The visualized gastrointestinal tract is nonobstructed. No free intra-fluid is seen. No pathologically enlarged lymphadenopathy is appreciated. The bony structures demonstrate degenerative change. No acute fracture or aggressive osseous lesion is appreciated. IMPRESSION: Left hepatic lobe lesion measuring 2.0 x 1.1 cm is most consistent with a hemangioma. Given incomplete enhancement on this exam consider ultrasound in 6-12 months to demonstrate stability out of an abundance of caution. Interpreted by: Ebony Guzman MD Preliminary Report By: Ebony Guzman MD Electronically signed By Ebony Guzman MD Dictated Date: 01/08/2024 8:48:25 AM Prelim Date: 01/08/2024 8:54:59 AM Sign Date: 01/08/2024 8:54:59 AM Ordering Provider: MODESTO Cason [facility] [place] .Auto Diffon 01-06-2024 Basophil, Absolute 0.0 10 3/mcL Normal 0.0-0.3 [facility] [place] Comment on above: Performed By: #### C KENJI CLOUDIFF, PRO, FIB, ANEU #### [address] [address] Basophils/100 WBC (Bld) 0.3 % Normal 0.0-2.5 [facility] [place] Comment on above: Performed By: #### C BC ADIFF, PRO, FIB, ANEU #### [address] [address] Eosinophil, Absolute 0.0 10 3/mcL Normal 0.0-0.7 [facility] [place] Comment on above: Performed By: #### C BC ADIFF, PRO, FIB, ANEU #### [address] [address] Eosinophils/100 WBC (Bld) 0.1 % Normal 0.0-6.0 [facility] [place] Comment on above: Performed By: #### C BC, ADIFF, PRO, FIB, ANEU #### [address] [address] Lymphocyte, Absolute 1.0 10 3/mcL Normal 0.9-4.3 [facility] [place] Comment on above: Performed By: #### C BC, ADIFF, PRO, FIB, ANEU #### [address] [address] Lymphocytes/100 WBC (Bld) 9.2 % Low 20.0-40.0 [facility] ([place]) Comment on above: Performed By: #### C BC, ADIFF, PRO, FIB, ANEU #### [address] [address] Monocyte, Absolute 0.3 10 3/mcL Normal 0.1-1.4 [facility] ([place]) Comment on above: Performed By: #### C BC, ADIFF, PRO, FIB, ANEU #### [address] [address] Monocytes/100 WBC (Bld) 3.1 % Normal 2.0-13.0 [facility] ([place] Comment on above: Performed By: #### C BC, ADIFF, PRO, FIB, ANEU #### [address] [address] Neutrophils/100 WBC (Bld) 87.3 % High 50.0-75.0 [facility] ([place] Comment on above: Performed By: #### C BC, ADIFF, PRO, FIB, ANEU #### [address] [address] .GFRon 01-06-2024 GFR >60 Normal [facility] ([place] Comment on above: Result Comment: GFR Population mean for , Non- Americans Ages 20-29 = 116 mL/min/1.73 sq.m. Ages 30-39 = 107 mL/min/1.73 sq.m. Ages 40-49 = 99 mL/min/1.73 sq.m. Ages 50-59 = 93 mL/min/1.73 sq.m. Ages 60-69 = 85 mL/min/1.73 sq.m. Ages 70+ = 75 mL/min/1.73 sq.m. Chronic Kidney Disease: Less than 60 mL/min/1.73 square meters End Stage Renal Disease: Less than 15 mL/min/1.73 square meters Performed By: #### C BC, ADIFF, PRO, FIB, ANEU #### [address] [address] GFR Non- >60 Normal [facility] [place] Comment on above: Result Comment: GFR Population mean for , Non- Americans Ages 20-29 = 116 mL/min/1.73 sq.m. Ages 30-39 = 107 mL/min/1.73 sq.m. Ages 40-49 = 99 mL/min/1.73 sq.m. Ages 50-59 = 93 mL/min/1.73 sq.m. Ages 60-69 = 85 mL/min/1.73 sq.m. Ages 70+ = 75 mL/min/1.73 sq.m. Chronic Kidney Disease: Less than 60 mL/min/1.73 square meters End Stage Renal Disease: Less than 15 mL/min/1.73 square meters Performed By: #### C BC, ADIFF, PRO, FIB, ANEU #### [address] [address] .NEUABSon 01-06-2024 Neutrophil, Absolute 9.1 10 3/mcL High 2.3-8.1 [facility] [place] Comment on above: Performed By: #### C BC, ADIFF, PRO, FIB, ANEU #### [address] [address] BMPon 01-06-2024 BUN/Creatinine Ratio 34.5 ratio High 10.0-22.0 [facility] [place] Comment on above: Performed By: #### C BC, ADIFF, PRO, FIB, ANEU #### [address] [address] Calcium [Mass/Vol] 9.2 mg/dL Normal 8.7-10.4 [facility] [place] Comment on above: Performed By: #### C BC, ADIFF, PRO, FIB, ANEU #### [address] [address] Chloride [Moles/Vol] 107 mmol/L Normal 98-110 [facility] [place] Comment on above: Performed By: #### C BC, ADIFF, PRO, FIB, ANEU #### [address] [address] CO2 [Moles/Vol] 22 mmol/L Normal 22-32 [facility] [place] Comment on above: Performed By: #### C BC, ADIFF, PRO, FIB, ANEU #### [address] [address] Creatinine [Mass/Vol] 0.58 mg/dL Normal 0.50-1.20 [facility] [place] Comment on above: Performed By: #### C BC, ADIFF, PRO, FIB, ANEU #### [address] [address] Electrolyte Balance 10.0 mEq/L Normal 4.0-15.0 [facility] ([place] Comment on above: Performed By: #### C BC, ADIFF, PRO, FIB, ANEU #### [address] [address] Glucose [Mass/Vol] 130 mg/dL High 82-115 [facility] [place] Comment on above: Performed By: #### C BC, ADIFF, PRO, FIB, ANEU #### [address] [address] Potassium [Moles/Vol] 4.8 mmol/L Normal 3.5-5.0 [facility] [place] Comment on above: Performed By: #### C BC, ADIFF, PRO, FIB, ANEU #### [address] [address] Sodium [Moles/Vol] 139 mmol/L Normal 136-145 [facility] [place] Comment on above: Performed By: #### C BC, ADIFF, PRO, FIB, ANEU #### [place] [address] Urea nitrogen [Mass/Vol] 20.0 mg/dL Normal 8.0-22.0 [facility] [place] Comment on above: Performed By: #### C BC, ADIFF, PRO, FIB, ANEU #### [place] [address] CBCon 01-06-2024 Erythrocyte distribution width (RBC) [Ratio] 15.0 % Normal 11.5-15.5 [facility] [place] Comment on above: Performed By: #### C BC, ADIFF, PRO, FIB, ANEU #### [place] [address] Hematocrit (Bld) [Volume fraction] 43.5 % Normal 34.0-46.0 [facility] [place] Comment on above: Performed By: #### C BC, ADIFF, PRO, FIB, ANEU #### [place] [address] Hgb 14.5 G/dL Normal 12.0-16.0 [facility] [place] Comment on above: Performed By: #### C BC, ADIFF, PRO, FIB, ANEU #### [place] [address] MCH (RBC) [Entitic mass] 30.0 pg Normal 27.0-33.0 [facility] [place] Comment on above: Performed By: #### C BC, ADIFF, PRO, FIB, ANEU #### [place] [address] MCHC 33.2 G/dL Normal 32.0-36.0 [facility] [place] Comment on above: Performed By: #### C BC, ADIFF, PRO, FIB, ANEU #### [place] [address] MCV (RBC) [Entitic vol] 90.3 fL Normal 80.0-99.0 [facility] [place] Comment on above: Performed By: #### C BC, ADIFF, PRO, FIB, ANEU #### [place] [id number] [place] [address] Platelet 189 10 3/mcL Normal 150-450 [facility] [place] Comment on above: Performed By: #### C BC, ADIFF, PRO, FIB, ANEU #### [facility] [address] [place] [address] Platelet mean volume (Bld) [Entitic vol] 8.2 fL Normal 6.6-10.5 [facility] [place] Comment on above: Performed By: #### C BC, ADIFF, PRO, FIB, ANEU #### [address] [address] RBC 4.82 10 6/mcL Normal 4.10-5.30 [facility] [place] Comment on above: Performed By: #### C BC, ADIFF, PRO, FIB, ANEU #### [address] [address] WBC 10.4 10 3/mcL Normal 4.5-10.8 [facility] [place] Comment on above: Performed By: #### C BC, ADIFF, PRO, FIB, ANEU #### [address] [address] LABORATORYOrdered By: Toño Warren on 01-06-2024 Blood Glucose Testing Reason Routine (01/06/24 4:46 PM) [facility] Work Phone: Glucose [Mass/Vol] 86 mg/dL Normal 82 - 115 mg/dL [facility] Work Phone: LABORATORYOrdered By: Marifer Davies on 01-06-2024 Blood Glucose Testing Reason Routine (01/06/24 11:34 AM) [facility] Work Phone: Glucose [Mass/Vol] 101 mg/dL Normal 82 - 115 mg/dL [facility] Work Phone: LABORATORYOrdered By: Nick Chino on 01-06-2024 Blood Glucose Testing Reason Routine (01/06/24 7:53 AM) [facility] Work Phone: Glucose [Mass/Vol] 121 mg/dL High 82 - 115 mg/dL [facility] Work Phone: LABORATORYOrdered By: SYSTEM SYSTEM on 01-06-2024 Basophils (Bld) [#/Vol] 0.0 103/mcL Normal 0.0 - 0.3 10^3/mcL AH Workflow SS Basophils/100 WBC (Bld) 0.3 % Normal 0.0 - 2.5 % AH Workflow SS Calcium [Mass/Vol] 9.2 mg/dL Normal 8.7 - 10. 4 mg/dL AH ADM SS Chloride [Moles/Vol] 107 mmol/L Normal 98 - 110 mEq/L ADM SS CO2 [Moles/Vol] 22 mmol/L Normal 22 - 32 mEq/L AH ADM SS Creatinine [Mass/Vol] 0.58 mg/dL Normal 0.50 - 1.20 mg/dL AH ADM SS Electrolyte Balance 10.0 mEq/L Normal 4.0 - 15 .0 mEq/L AH ADM SS Eosinophils (Bld) [#/Vol] 0.0 103/mcL Normal 0.0 - 0.7 10^3/mcL AH Workflow SS Eosinophils/100 WBC (Bld) 0.1 % Normal 0.0 - 6.0 % AH Workflow SS Erythrocyte distribution width (RBC) [Ratio] 15.0 % Normal 11.5 - 15.5 % AH Workflow SS GFR/1.73 sq M.predicted among blacks MDRD (S/P/Bld) [Vol rate/Area] ml/min/1.73sqm Invalid Interpretation Code AH ADM SS Comment on above: Interpretive Data: GFR Population mean for , Non- Americans Ages 20-29 = 116 mL/min/1.73 sq.m. Ages 30-39 = 107 mL/min/1.73 sq.m. Ages 40-49 = 99 mL/min/1.73 sq.m. Ages 50-59 = 93 mL/min/1.73 sq.m. Ages 60-69 = 85 mL/min/1.73 sq.m. Ages 70+ = 75 mL/min/1.73 sq.m. Chronic Kidney Disease: Less than 60 mL/min/1.73 square meters End Stage Renal Disease: Less than 15 mL/min/1.73 square meters GFR/1.73 sq M.predicted among non-blacks MDRD (S/P/Bld) [Vol rate/Area] ml/min/1.73sqm Invalid Interpretation Code AH ADM SS Comment on above: Interpretive Data: GFR Population mean for , Non- Americans Ages 20-29 = 116 mL/min/1.73 sq.m. Ages 30-39 = 107 mL/min/1.73 sq.m. Ages 40-49 = 99 mL/min/1.73 sq.m. Ages 50-59 = 93 mL/min/1.73 sq.m. Ages 60-69 = 85 mL/min/1.73 sq.m. Ages 70+ = 75 mL/min/1.73 sq.m. Chronic Kidney Disease: Less than 60 mL/min/1.73 square meters End Stage Renal Disease: Less than 15 mL/min/1.73 square meters Glucose [Mass/Vol] 130 mg/dL High 82 - 115 mg/dL ADM SS Hematocrit (Bld) [Volume fraction] 43.5 % Normal 34.0 - 46.0 % AH Workflow SS Hemoglobin (Bld) [Mass/Vol] 14.5 G/dL Normal 12.0 - 16.0 G/dL AH Workflow SS Lymphocytes (Bld) [#/Vol] 1.0 103/mcL Normal 0.9 - 4.3 10^3/mcL AH Workflow SS Lymphocytes/100 WBC (Bld) 9.2 % Low 20.0 - 40.0 % AH Workflow SS MCH (RBC) [Entitic mass] 30.0 pg Normal 27.0 - 33.0 pg AH Workflow SS MCHC 33.2 G/dL Normal 32.0 - 36.0 G/dL AH Workflow SS MCV (RBC) [Entitic vol] 90.3 fL Normal 80.0 - 99.0 fL AH Workflow SS Monocytes (Bld) [#/Vol] 0.3 103/mcL Normal 0.1 - 1.4 10^3/mcL AH Workflow SS Monocytes/100 WBC (Bld) 3.1 % Normal 2.0 - 13.0 % AH Workflow SS Neutrophils (Bld) [#/Vol] 9.1 103/mcL High 2.3 - 8.1 10^3/mcL AH Workflow SS Neutrophils/100 WBC (Bld) 87.3 % High 50.0 - 75.0 % AH Workflow SS Platelet mean volume (Bld) [Entitic vol] 8.2 fL Normal 6.6 - 10.5 fL AH Workflow SS Platelets (Bld) [#/Vol] 189 103/mcL Normal 150 - 450 10^3/mcL AH Workflow SS Potassium [Moles/Vol] 4.8 mmol/L Normal 3.5 - 5.0 mEq/L ADM SS RBC (Bld) [#/Vol] 4.82 106/mcL Normal 4.10 - 5.30 10^6/mcL AH Workflow SS Sodium [Moles/Vol] 139 mmol/L Normal 136 - 145 mEq/L ADM SS Urea nitrogen [Mass/Vol] 20.0 mg/dL Normal 8.0 - 22.0 mg/dL ADM SS Urea nitrogen/Creatinine [Mass ratio] 34.5 ratio High 10.0 - 22.0 ratio AH ADM SS WBC (Bld) [#/Vol] 10.4 103/mcL Normal 4.5 - 10.8 10^3/mcL Workflow SS .Auto Diffon 01-05-2024 Basophil, Absolute 0.0 10 3/mcL Normal 0.0-0.3 [facility] ([place]) Comment on above: Performed By: #### C BC, ADIFF, PRO, FIB, ANEU #### [address] [address] Basophils/100 WBC (Bld) 0.0 % Normal 0.0-2.5 [facility] ([place]) Comment on above: Performed By: #### C BC, ADIFF, PRO, FIB, ANEU #### [address] [address] Eosinophil, Absolute 0.0 10 3/mcL Normal 0.0-0.7 [facility] ([place]) Comment on above: Performed By: #### C BC, ADIFF, PRO, FIB, ANEU #### [address] [address] Eosinophils/100 WBC (Bld) 0.0 % Normal 0.0-6.0 [facility] ([place]) Comment on above: Performed By: #### C BC, ADIFF, PRO, FIB, ANEU #### [address] [address] Lymphocyte, Absolute 0.6 10 3/mcL Low 0.9-4.3 [facility] ([place] Comment on above: Performed By: #### C BC, ADIFF, PRO, FIB, ANEU #### [address] [address] Lymphocytes/100 WBC (Bld) 7.9 % Low 20.0-40.0 [facility] ([place]) Comment on above: Performed By: #### C BC, ADIFF, PRO, FIB, ANEU #### [address] [address] Monocyte, Absolute 0.3 10 3/mcL Normal 0.1-1.4 [facility] ([place] Comment on above: Performed By: #### C BC, ADIFF, PRO, FIB, ANEU #### [address] [address] Monocytes/100 WBC (Bld) 3.4 % Normal 2.0-13.0 [facility] ([place] Comment on above: Performed By: #### C BC, ADIFF, PRO, FIB, ANEU #### [address] [address] Neutrophils/100 WBC (Bld) 88.7 % High 50.0-75.0 [facility] ([place] Comment on above: Performed By: #### C BC, ADIFF, PRO, FIB, ANEU #### [address] [address] .GFRon 01-05-2024 GFR >60 Normal [facility] ([place] Comment on above: Result Comment: GFR Population mean for , Non- Americans Ages 20-29 = 116 mL/min/1.73 sq.m. Ages 30-39 = 107 mL/min/1.73 sq.m. Ages 40-49 = 99 mL/min/1.73 sq.m. Ages 50-59 = 93 mL/min/1.73 sq.m. Ages 60-69 = 85 mL/min/1.73 sq.m. Ages 70+ = 75 mL/min/1.73 sq.m. Chronic Kidney Disease: Less than 60 mL/min/1.73 square meters End Stage Renal Disease: Less than 15 mL/min/1.73 square meters Performed By: #### C BC, ADIFF, PRO, FIB, ANEU #### [address] [address] GFR Non- >60 Normal [facility] ([place] Comment on above: Result Comment: GFR Population mean for , Non- Americans Ages 20-29 = 116 mL/min/1.73 sq.m. Ages 30-39 = 107 mL/min/1.73 sq.m. Ages 40-49 = 99 mL/min/1.73 sq.m. Ages 50-59 = 93 mL/min/1.73 sq.m. Ages 60-69 = 85 mL/min/1.73 sq.m. Ages 70+ = 75 mL/min/1.73 sq.m. Chronic Kidney Disease: Less than 60 mL/min/1.73 square meters End Stage Renal Disease: Less than 15 mL/min/1.73 square meters Performed By: #### C BC, ADIFF, PRO, FIB, ANEU #### [address] [address] .NEUABSon 01-05-2024 Neutrophil, Absolute 7.1 10 3/mcL Normal 2.3-8.1 [facility] ([place] Comment on above: Performed By: #### C BC, ADIFF, PRO, FIB, ANEU #### [address] [address] BMPon 01-05-2024 Calcium [Mass/Vol] 8.5 mg/dL Low 8.7-10.4 [facility] ([place] Comment on above: Performed By: #### C BC, ADIFF, PRO, FIB, ANEU #### [address] [address] BUN/Creatinine Ratio 32.8 ratio High 10.0-22.0 [facility] ([place] Comment on above: Performed By: #### C BC, ADIFF, PRO, FIB, ANEU #### [place] [address] Chloride [Moles/Vol] 109 mmol/L Normal 98-110 [facility] ([place] Comment on above: Performed By: #### C BC, ADIFF, PRO, FIB, ANEU #### [address] [address] CO2 [Moles/Vol] 25 mmol/L Normal 22-32 [facility] ([place] Comment on above: Performed By: #### C BC, ADIFF, PRO, FIB, ANEU #### [place] [id number] Creatinine [Mass/Vol] 0.58 mg/dL Normal 0.50-1.20 [facility] ([place] Comment on above: Performed By: #### C BC, ADIFF, PRO, FIB, ANEU #### [place] [address] Electrolyte Balance 8.0 mEq/L Normal 4.0-15.0 [facility] ([place]) Comment on above: Performed By: #### C BC, ADIFF, PRO, FIB, ANEU #### [place] [address] Glucose [Mass/Vol] 127 mg/dL High 82-115 [facility] ([place] Comment on above: Performed By: #### C BC, ADIFF, PRO, FIB, ANEU #### [place] [id number] Potassium [Moles/Vol] 4.3 mmol/L Normal 3.5-5.0 [facility] ([place] Comment on above: Result Comment: Spec imen slightly hemolyzed. Performed By: #### C BC, ADIFF, PRO, FIB, ANEU #### [place] [id number] Sodium [Moles/Vol] 142 mmol/L Normal 136-145 [facility] ([place] Comment on above: Performed By: #### C BC, ADIFF, PRO, FIB, ANEU #### [place] [phone] Urea nitrogen [Mass/Vol] 19.0 mg/dL Normal 8.0-22.0 [facility] ([place] Comment on above: Performed By: #### C BC, ADIFF, PRO, FIB, ANEU #### [place] [address] CBCon 01-05-2024 Erythrocyte distribution width (RBC) [Ratio] 15.1 % Normal 11.5-15.5 [facility] ([place] Comment on above: Performed By: #### C BC, ADIFF, PRO, FIB, ANEU #### [place] [address] Hematocrit (Bld) [Volume fraction] 39.8 % Normal 34.0-46.0 [facility] ([place] Comment on above: Performed By: #### C BC, ADIFF, PRO, FIB, ANEU #### [place] [address] Hgb 13.2 G/dL Normal 12.0-16.0 [facility] ([place] Comment on above: Performed By: #### C BC, ADIFF, PRO, FIB, ANEU #### [place] [address] MCH (RBC) [Entitic mass] 29.7 pg Normal 27.0-33.0 [facility] ([place] Comment on above: Performed By: #### C BC, ADIFF, PRO, FIB, ANEU #### [place] [address] MCHC 33.3 G/dL Normal 32.0-36.0 [facility] ([place] Comment on above: Performed By: #### C BC, ADIFF, PRO, FIB, ANEU #### [place] [address] MCV (RBC) [Entitic vol] 89.3 fL Normal 80.0-99.0 [facility] ([place] Comment on above: Performed By: #### C BC, ADIFF, PRO, FIB, ANEU #### [place] [address] Platelet 195 10 3/mcL Normal 150-450 [facility] ([place] Comment on above: Performed By: #### C BC, ADIFF, PRO, FIB, ANEU #### [facility] [address] [place], [place] [address] Platelet mean volume (Bld) [Entitic vol] 8.2 fL Normal 6.6-10.5 [facility] ([place] Comment on above: Performed By: #### C BC, ADIFF, PRO, FIB, ANEU #### [place] [address] RBC 4.45 10 6/mcL Normal 4.10-5.30 [facility] ([place] Comment on above: Performed By: #### C BC, ADIFF, PRO, FIB, ANEU #### [place] [id number] WBC 8.1 10 3/mcL Normal 4.5-10.8 [facility] ([place] Comment on above: Performed By: #### C BC, ADIFF, PRO, FIB, ANEU #### [place] [phone] LABORATORYOrdered By: SYSTEM SYSTEM on 01-05-2024 Basophils (Bld) [#/Vol] 0.0 103/mcL Normal 0.0 - 0.3 10^3/mcL Workflow SS Basophils/100 WBC (Bld) 0.0 % Normal 0.0 - 2.5 % AH Workflow SS Calcium [Mass/Vol] 8.5 mg/dL Low 8.7 - 10. 4 mg/dL ADM SS Chloride [Moles/Vol] 109 mmol/L Normal 98 - 110 mEq/L ADM SS CO2 [Moles/Vol] 25 mmol/L Normal 22 - 32 mEq/L ADM SS Creatinine [Mass/Vol] 0.58 mg/dL Normal 0.50 - 1.20 mg/dL ADM SS Electrolyte Balance 8.0 mEq/L Normal 4.0 - 15 .0 mEq/L ADM SS Eosinophils (Bld) [#/Vol] 0.0 103/mcL Normal 0.0 - 0.7 10^3/mcL AH Workflow SS Eosinophils/100 WBC (Bld) 0.0 % Normal 0.0 - 6.0 % AH Workflow SS Erythrocyte distribution width (RBC) [Ratio] 15.1 % Normal 11.5 - 15.5 % AH Workflow SS GFR/1.73 sq M.predicted among blacks MDRD (S/P/Bld) [Vol rate/Area] ml/min/1.73sqm Invalid Interpretation Code [facility] Comment on above: Interpretive Data: GFR Population mean for , Non- Americans Ages 20-29 = 116 mL/min/1.73 sq.m. Ages 30-39 = 107 mL/min/1.73 sq.m. Ages 40-49 = 99 mL/min/1.73 sq.m. Ages 50-59 = 93 mL/min/1.73 sq.m. Ages 60-69 = 85 mL/min/1.73 sq.m. Ages 70+ = 75 mL/min/1.73 sq.m. Chronic Kidney Disease: Less than 60 mL/min/1.73 square meters End Stage Renal Disease: Less than 15 mL/min/1.73 square meters GFR/1.73 sq M.predicted among non-blacks MDRD (S/P/Bld) [Vol rate/Area] ml/min/1.73sqm Invalid Interpretation Code [facility] Comment on above: Interpretive Data: GFR Population mean for , Non- Americans Ages 20-29 = 116 mL/min/1.73 sq.m. Ages 30-39 = 107 mL/min/1.73 sq.m. Ages 40-49 = 99 mL/min/1.73 sq.m. Ages 50-59 = 93 mL/min/1.73 sq.m. Ages 60-69 = 85 mL/min/1.73 sq.m. Ages 70+ = 75 mL/min/1.73 sq.m. Chronic Kidney Disease: Less than 60 mL/min/1.73 square meters End Stage Renal Disease: Less than 15 mL/min/1.73 square meters Glucose [Mass/Vol] 127 mg/dL High 82 - 115 mg/dL ADM SS Hematocrit (Bld) [Volume fraction] 39.8 % Normal 34.0 - 46.0 % Workflow SS Hemoglobin (Bld) [Mass/Vol] 13.2 G/dL Normal 12.0 - 16.0 G/dL AH Workflow SS Lymphocytes (Bld) [#/Vol] 0.6 103/mcL Low 0.9 - 4.3 10^3/mcL Workflow SS Lymphocytes/100 WBC (Bld) 7.9 % Low 20.0 - 40.0 % Workflow SS MCH (RBC) [Entitic mass] 29.7 pg Normal 27.0 - 33.0 pg AH Workflow SS MCHC 33.3 G/dL Normal 32.0 - 36.0 G/dL AH Workflow SS MCV (RBC) [Entitic vol] 89.3 fL Normal 80.0 - 99.0 fL AH Workflow SS Monocytes (Bld) [#/Vol] 0.3 103/mcL Normal 0.1 - 1.4 10^3/mcL AH Workflow SS Monocytes/100 WBC (Bld) 3.4 % Normal 2.0 - 13.0 % AH Workflow SS Neutrophils (Bld) [#/Vol] 7.1 103/mcL Normal 2.3 - 8.1 10^3/mcL AH Workflow SS Neutrophils/100 WBC (Bld) 88.7 % High 50.0 - 75.0 % AH Workflow SS Platelet mean volume (Bld) [Entitic vol] 8.2 fL Normal 6.6 - 10.5 fL AH Workflow SS Platelets (Bld) [#/Vol] 195 103/mcL Normal 150 - 450 10^3/mcL AH Workflow SS Potassium [Moles/Vol] 4.3 mmol/L Normal 3.5 - 5.0 mEq/L AH ADM SS Comment on above: Result Comment: Spec imen slightly hemolyzed. RBC (Bld) [#/Vol] 4.45 106/mcL Normal 4.10 - 5.30 10^6/mcL AH Workflow SS Sodium [Moles/Vol] 142 mmol/L Normal 136 - 145 mEq/L AH ADM SS Urea nitrogen [Mass/Vol] 19.0 mg/dL Normal 8.0 - 22.0 mg/dL AH ADM SS Urea nitrogen/Creatinine [Mass ratio] 32.8 ratio High 10.0 - 22.0 ratio AH ADM SS WBC (Bld) [#/Vol] 8.1 103/mcL Normal 4.5 - 10.8 10^3/mcL AH Workflow SS .Auto Diffon 01-04-2024 Basophil, Absolute 0.0 10 3/mcL Normal 0.0-0.3 [facility] ([place]) Comment on above: Performed By: #### C BC, ADIFF, PRO, FIB, ANEU #### [address] [address] Basophils/100 WBC (Bld) 0.2 % Normal 0.0-2.5 [facility] ([place] Comment on above: Performed By: #### C BC, ADIFF, PRO, FIB, ANEU #### [address] [address] Eosinophil, Absolute 0.0 10 3/mcL Normal 0.0-0.7 [facility] ([place] Comment on above: Performed By: #### C BC, ADIFF, PRO, FIB, ANEU #### [address] [address] Eosinophils/100 WBC (Bld) 0.0 % Normal 0.0-6.0 [facility] ([place] Comment on above: Performed By: #### C BC, ADIFF, PRO, FIB, ANEU #### [address] [address] Lymphocyte, Absolute 0.8 10 3/mcL Low 0.9-4.3 [facility] ([place] Comment on above: Performed By: #### C BC, ADIFF, PRO, FIB, ANEU #### [address] [address] Lymphocytes/100 WBC (Bld) 7.6 % Low 20.0-40.0 [facility] ([place] Comment on above: Performed By: #### C BC, ADIFF, PRO, FIB, ANEU #### [address] [address] Monocyte, Absolute 0.5 10 3/mcL Normal 0.1-1.4 [facility] ([place] Comment on above: Performed By: #### C BC, ADIFF, PRO, FIB, ANEU #### [address] [address] Monocytes/100 WBC (Bld) 4.2 % Normal 2.0-13.0 [facility] ([place] Comment on above: Performed By: #### C BC, ADIFF, PRO, FIB, ANEU #### [address] [address] Neutrophils/100 WBC (Bld) 88.0 % High 50.0-75.0 [facility] ([place] Comment on above: Performed By: #### C BC, ADIFF, PRO, FIB, ANEU #### [address] [address] .GFRon 01-04-2024 GFR >60 Normal [facility] ([place] Comment on above: Result Comment: GFR Population mean for , Non- Americans Ages 20-29 = 116 mL/min/1.73 sq.m. Ages 30-39 = 107 mL/min/1.73 sq.m. Ages 40-49 = 99 mL/min/1.73 sq.m. Ages 50-59 = 93 mL/min/1.73 sq.m. Ages 60-69 = 85 mL/min/1.73 sq.m. Ages 70+ = 75 mL/min/1.73 sq.m. Chronic Kidney Disease: Less than 60 mL/min/1.73 square meters End Stage Renal Disease: Less than 15 mL/min/1.73 square meters Performed By: #### C BC, ADIFF, PRO, FIB, ANEU #### [place] [address] GFR Non- >60 Normal [facility] ([place] Comment on above: Result Comment: GFR Population mean for , Non- Americans Ages 20-29 = 116 mL/min/1.73 sq.m. Ages 30-39 = 107 mL/min/1.73 sq.m. Ages 40-49 = 99 mL/min/1.73 sq.m. Ages 50-59 = 93 mL/min/1.73 sq.m. Ages 60-69 = 85 mL/min/1.73 sq.m. Ages 70+ = 75 mL/min/1.73 sq.m. Chronic Kidney Disease: Less than 60 mL/min/1.73 square meters End Stage Renal Disease: Less than 15 mL/min/1.73 square meters Performed By: #### C BC, ADIFF, PRO, FIB, ANEU #### [place] [address] .NEUABSon 01-04-2024 Neutrophil, Absolute 9.3 10 3/mcL High 2.3-8.1 [facility] ([place] Comment on above: Performed By: #### C BC, ADIFF, PRO, FIB, ANEU #### [address] [address] BMPon 01-04-2024 BUN/Creatinine Ratio 24.1 ratio High 10.0-22.0 [facility] ([place] Comment on above: Performed By: #### C BC, ADIFF, PRO, FIB, ANEU #### [place] [id number] Calcium [Mass/Vol] 9.0 mg/dL Normal 8.7-10.4 [facility] ([place] Comment on above: Performed By: #### C BC, ADIFF, PRO, FIB, ANEU #### [place] [address] Chloride [Moles/Vol] 110 mmol/L Normal 98-110 [facility] ([place] Comment on above: Performed By: #### C BC, ADIFF, PRO, FIB, ANEU #### [place] [address] CO2 [Moles/Vol] 21 mmol/L Low 22-32 [facility] ([place] Comment on above: Performed By: #### C BC, ADIFF, PRO, FIB, ANEU #### [place] [address] Creatinine [Mass/Vol] 0.58 mg/dL Normal 0.50-1.20 [facility] ([place] Comment on above: Performed By: #### C BC, ADIFF, PRO, FIB, ANEU #### [place] [address] Electrolyte Balance 7.0 mEq/L Normal 4.0-15.0 [facility] ([place]) Comment on above: Performed By: #### C BC, ADIFF, PRO, FIB, ANEU #### [place] [address] Glucose [Mass/Vol] 117 mg/dL High 82-115 [facility] ([place] Comment on above: Performed By: #### C BC, ADIFF, PRO, FIB, ANEU #### [facility] [address] [place], [place] [address] Potassium [Moles/Vol] 4.3 mmol/L Normal 3.5-5.0 [facility] ([place] Comment on above: Result Comment: Spec imen slightly hemolyzed. Results may be falsely elevated.-Specimen hemolyzed. Results may be falsely elevated. Performed By: #### C BC, ADIFF, PRO, FIB, ANEU #### [address] [address] Sodium [Moles/Vol] 138 mmol/L Normal 136-145 [facility] ([place] Comment on above: Performed By: #### C BC, ADIFF, PRO, FIB, ANEU #### [place] [id number] Urea nitrogen [Mass/Vol] 14.0 mg/dL Normal 8.0-22.0 [facility] ([place] Comment on above: Result Comment: Spec imen hemolyzed. Results may be falsely elevated. Performed By: #### C BC, ADIFF, PRO, FIB, ANEU #### [address] [address] CBCon 01-04-2024 Erythrocyte distribution width (RBC) [Ratio] 15.5 % Normal 11.5-15.5 [facility] ([place] Comment on above: Performed By: #### C BC, ADIFF, PRO, FIB, ANEU #### [address] [address] Hematocrit (Bld) [Volume fraction] 41.8 % Normal 34.0-46.0 [facility] ([place] Comment on above: Performed By: #### C BC, ADIFF, PRO, FIB, ANEU #### [address] [address] Hgb 13.7 G/dL Normal 12.0-16.0 [facility] ([place] Comment on above: Performed By: #### C BC, ADIFF, PRO, FIB, ANEU #### [address] [address] MCH (RBC) [Entitic mass] 29.5 pg Normal 27.0-33.0 [facility] ([place] Comment on above: Performed By: #### C BC, ADIFF, PRO, FIB, ANEU #### [place] [address] MCHC 32.8 G/dL Normal 32.0-36.0 [facility] ([place] Comment on above: Performed By: #### C BC, ADIFF, PRO, FIB, ANEU #### [place] [address] MCV (RBC) [Entitic vol] 90.0 fL Normal 80.0-99.0 [facility] ([place] Comment on above: Performed By: #### C BC, ADIFF, PRO, FIB, ANEU #### [place] [address] Platelet 233 10 3/mcL Normal 150-450 [facility] ([place] Comment on above: Performed By: #### C BC, ADIFF, PRO, FIB, ANEU #### [place] [address] Platelet mean volume (Bld) [Entitic vol] 8.5 fL Normal 6.6-10.5 [facility] ([place] Comment on above: Performed By: #### C BC, ADIFF, PRO, FIB, ANEU #### [place] [address] RBC 4.64 10 6/mcL Normal 4.10-5.30 [facility] ([place] Comment on above: Performed By: #### C BC, ADIFF, PRO, FIB, ANEU #### [place] [address] WBC 10.6 10 3/mcL Normal 4.5-10.8 [facility] ([place] Comment on above: Performed By: #### C BC, ADIFF, PRO, FIB, ANEU #### [place] [address] LABORATORYOrdered By: SYSTEM SYSTEM on 01-04-2024 Magnesium [Mass/Vol] 2.4 mg/dL Normal 1.6 - 2.4 mg/dL AH ADM SS Phosphate [Mass/Vol] 4.1 mg/dL Normal 2.4 - 5.1 mg/dL AH ADM SS Comment on above: Interpretive Data: * *Note - New Reference Range in effect 20 MGon 01-04-2024 Magnesium [Mass/Vol] 2.4 mg/dL Normal 1.6-2.4 [facility] ([place] Comment on above: Performed By: #### C BC, ADIFF, PRO, FIB, ANEU #### [facility] [address] [place] [address] MRI BRAIN W/ + W/O CONTRASTo n 01-04-2024 MRI BRAIN W/ + W/O CONTRAST ORIGINAL EXAMINATION: MRI OF THE BRAIN WITHOUT AND WITH CONTRAST 01/03/2024 9:08 pm TECHNIQUE: Multiplanar multisequence MRI of the head/brain was performed without and with the administration of intravenous contrast. COMPARISON: MRI of the brain on 01/02/2024. 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 No residual mass is detected. Small postoperative pneumocephalus near site of tumor resection and also anteriorly on the right is noted. No significant hemorrhage is present. There is no extra-axial fluid collection. There is no acute infarct. Vasogenic edema of the right cerebral hemisphere is similar to preoperative examination. This creates mild mass effect on the right lateral ventricle. 2-3 mm subfalcine shift of midline structures from right to left is unchanged. ORBITS: The visualized portion of the orbits demonstrate no acute abnormality. SINUSES: The visualized paranasal sinuses and mastoid air cells demonstrate no acute abnormality. BONES/SOFT TISSUES: Right craniotomy findings and mild soft tissue swelling in right side of the scalp is present. IMPRESSION: Interval resection of the dural based mass in the right frontoparietal region. Stable vasogenic edema in the right cerebral hemisphere. Stable 2-3 mm subfalcine shift of midline structures from right to left. Interpreted by: Rudi Moss MD Preliminary Report By: Rudi Moss MD Electronically signed By Rudi Moss MD Dictated Date: 01/04/2024 2:53:10 AM Prelim Date: 01/04/2024 3:01:03 AM Sign Date: 01/04/2024 3:01:03 AM Ordering Provider: DAMIAN JACKSON Normal [facility] ([place] PHOSon 01-04-2024 Phosphate [Mass/Vol] 4.1 mg/dL Normal 2.4-5.1 [facility] ([place] Comment on above: Result Comment: No te - New Reference Range in effect 20 Performed By: #### C BC, ADIFF, PRO, FIB, ANEU #### [address] [address] .Auto Diffon 01-03-2024 Basophil, Absolute 0.0 10 3/mcL Normal 0.0-0.3 [facility] ([place]) Comment on above: Performed By: #### C BC, ADIFF, PRO, FIB, ANEU #### [address] [address] Basophils/100 WBC (Bld) 0.1 % Normal 0.0-2.5 [facility] ([place] Comment on above: Performed By: #### C BC, ADIFF, PRO, FIB, ANEU #### [address] [address] Eosinophil, Absolute 0.0 10 3/mcL Normal 0.0-0.7 [facility] ([place] Comment on above: Performed By: #### C BC, ADIFF, PRO, FIB, ANEU #### [address] [address] Eosinophils/100 WBC (Bld) 0.0 % Normal 0.0-6.0 [facility] ([place] Comment on above: Performed By: #### C BC, ADIFF, PRO, FIB, ANEU #### [address] [address] Lymphocyte, Absolute 1.3 10 3/mcL Normal 0.9-4.3 [facility] ([place] Comment on above: Performed By: #### C BC, ADIFF, PRO, FIB, ANEU #### [address] [address] Lymphocytes/100 WBC (Bld) 11.2 % Low 20.0-40.0 [facility] ([place] Comment on above: Performed By: #### C BC, ADIFF, PRO, FIB, ANEU #### [address] [address] Monocyte, Absolute 0.4 10 3/mcL Normal 0.1-1.4 [facility] ([place] Comment on above: Performed By: #### C BC, ADIFF, PRO, FIB, ANEU #### [address] [address] Monocytes/100 WBC (Bld) 3.2 % Normal 2.0-13.0 [facility] ([place] Comment on above: Performed By: #### C BC, ADIFF, PRO, FIB, ANEU #### [address] [address] Neutrophils/100 WBC (Bld) 85.5 % High 50.0-75.0 [facility] ([place] Comment on above: Performed By: #### C BC, ADIFF, PRO, FIB, ANEU #### [address] [address] .GFRon 01-03-2024 GFR Non- >60 Normal [facility] ([place] Comment on above: Result Comment: GFR Population mean for , Non- Americans Ages 20-29 = 116 mL/min/1.73 sq.m. Ages 30-39 = 107 mL/min/1.73 sq.m. Ages 40-49 = 99 mL/min/1.73 sq.m. Ages 50-59 = 93 mL/min/1.73 sq.m. Ages 60-69 = 85 mL/min/1.73 sq.m. Ages 70+ = 75 mL/min/1.73 sq.m. Chronic Kidney Disease: Less than 60 mL/min/1.73 square meters End Stage Renal Disease: Less than 15 mL/min/1.73 square meters Performed By: #### C BC, ADIFF, PRO, FIB, ANEU #### [address] [address] GFR >60 Normal [facility] ([place] Comment on above: Result Comment: GFR Population mean for , Non- Americans Ages 20-29 = 116 mL/min/1.73 sq.m. Ages 30-39 = 107 mL/min/1.73 sq.m. Ages 40-49 = 99 mL/min/1.73 sq.m. Ages 50-59 = 93 mL/min/1.73 sq.m. Ages 60-69 = 85 mL/min/1.73 sq.m. Ages 70+ = 75 mL/min/1.73 sq.m. Chronic Kidney Disease: Less than 60 mL/min/1.73 square meters End Stage Renal Disease: Less than 15 mL/min/1.73 square meters Performed By: #### C BC, ADIFF, PRO, FIB, ANEU #### [address] [address] .NEUABSon 01-03-2024 Neutrophil, Absolute 10.2 10 3/mcL High 2.3-8.1 [facility] ([place] Comment on above: Performed By: #### C BC, ADIFF, PRO, FIB, ANEU #### [place] [address] BGon 01-03-2024 Barometric Pressure 714 mmHg Normal [facility] ([place]) Comment on above: Performed By: #### C BC, ADIFF, PRO, FIB, ANEU #### [place] [address] Base excess Calc (Bld) [Moles/Vol] -2.5000 mmol/L Normal [facility] ([place] Comment on above: Performed By: #### C BC, ADIFF, PRO, FIB, ANEU #### [place] [address] CO2 [Moles/Vol] 23.0 mmol/L Normal 22.0-30.0 [facility] ([place] Comment on above: Performed By: #### C BC, ADIFF, PRO, FIB, ANEU #### [place] [address] HCO3 (Bld) [Moles/Vol] 21.9 mmol/L Normal 21.0-29.0 [facility] ([place] Comment on above: Performed By: #### C BC, ADIFF, PRO, FIB, ANEU #### [address] [address] Oxygen (Bld) [Partial pressure] 105.3 mm[Hg] Normal 74.0-108.0 [facility] ([place] Comment on above: Performed By: #### C BC, ADIFF, PRO, FIB, ANEU #### [address] [address] Oxygen saturation in Blood 98.1 % High 92.0-96.0 [facility] ([place] Comment on above: Performed By: #### C BC, ADIFF, PRO, FIB, ANEU #### [address] [address] pCO2 36.9 mmHg Normal 32.0-46.0 [facility] ([place] Comment on above: Performed By: #### C BC, ADIFF, PRO, FIB, ANEU #### [address] [address] pH (Bld) 7.391 [pH] Normal 7.380-7.46 0 [facility] ([place] Comment on above: Performed By: #### C BC, ADIFF, PRO, FIB, ANEU #### [address] [address] Barometric Pressure 715 mmHg Normal [facility] ([place] Comment on above: Performed By: #### B G, HCTOR, GLUOR, CAOR, KOR, HGBOR, BGOH, NAOR #### [address] [address] Base excess Calc (Bld) [Moles/Vol] -1.2000 mmol/L Normal [facility] ([place] Comment on above: Performed By: #### B G, HCTOR, GLUOR, CAOR, KOR, HGBOR, BGOH, NAOR #### [address] [address] [address] CO2 [Moles/Vol] 23.9 mmol/L Normal 22.0-30.0 [facility] ([place] Comment on above: Performed By: #### B G, HCTOR, GLUOR, CAOR, KOR, HGBOR, BGOH, NAOR #### [address] [address] HCO3 (Bld) [Moles/Vol] 22.8 mmol/L Normal 21.0-29.0 [facility] [place] Comment on above: Performed By: #### B G, HCTOR, GLUOR, CAOR, KOR, HGBOR, BGOH, NAOR #### [address] [address] Oxygen (Bld) [Partial pressure] 141.0 mm[Hg] High 74.0-108.0 [facility] [place] Comment on above: Performed By: #### B G, HCTOR, GLUOR, CAOR, KOR, HGBOR, BGOH, NAOR #### [place] [address] Oxygen saturation in Blood 98.9 % High 92.0-96.0 [facility] [place] Comment on above: Performed By: #### B G, HCTOR, GLUOR, CAOR, KOR, HGBOR, BGOH, NAOR #### [place] [id number] pCO2 35.8 mmHg Normal 32.0-46.0 [facility] [place] Comment on above: Performed By: #### B G, HCTOR, GLUOR, CAOR, KOR, HGBOR, BGOH, NAOR #### [place] [id number] pH (Bld) 7.422 [pH] Normal 7.380-7.46 0 [facility] [place] Comment on above: Performed By: #### B G, HCTOR, GLUOR, CAOR, KOR, HGBOR, BGOH, NAOR #### [address] [address] BGOHon 01-03-2024 Patient Location OPEN HEART Normal [facility] [place] Comment on above: Performed By: #### C BC, ADIFF, PRO, FIB, ANEU #### [address] [address] BMPon 01-03-2024 BUN/Creatinine Ratio 23.1 ratio High 10.0-22.0 [facility] [place] Comment on above: Performed By: #### C BC, ADIFF, PRO, FIB, ANEU #### [place] [address] Calcium [Mass/Vol] 8.9 mg/dL Normal 8.7-10.4 [facility] ([place] Comment on above: Performed By: #### C BC, ADIFF, PRO, FIB, ANEU #### [place] [id number] Chloride [Moles/Vol] 109 mmol/L Normal 98-110 [facility] [place] Comment on above: Performed By: #### C BC, ADIFF, PRO, FIB, ANEU #### [place] [address] CO2 [Moles/Vol] 23 mmol/L Normal 22-32 [facility] [place] Comment on above: Performed By: #### C BC, ADIFF, PRO, FIB, ANEU #### [place] [address] Creatinine [Mass/Vol] 0.65 mg/dL Normal 0.50-1.20 [facility] [place] Comment on above: Performed By: #### C BC, ADIFF, PRO, FIB, ANEU #### [place] [address] Electrolyte Balance 7.0 mEq/L Normal 4.0-15.0 [facility] ([place]) Comment on above: Performed By: #### C BC, ADIFF, PRO, FIB, ANEU #### [place] [address] Glucose [Mass/Vol] 172 mg/dL High 82-115 [facility] [place] Comment on above: Performed By: #### C BC, ADIFF, PRO, FIB, ANEU #### [place] [id number] Potassium [Moles/Vol] 4.1 mmol/L Normal 3.5-5.0 [facility] [place] Comment on above: Result Comment: Spec imen slightly hemolyzed. Performed By: #### C BC, ADIFF, PRO, FIB, ANEU #### [facility] [address] [place], [place] [address] Sodium [Moles/Vol] 139 mmol/L Normal 136-145 [facility] [place] Comment on above: Performed By: #### C BC, ADIFF, PRO, FIB, ANEU #### [place] [address] Urea nitrogen [Mass/Vol] 15.0 mg/dL Normal 8.0-22.0 [facility] [place] Comment on above: Performed By: #### C BC, ADIFF, PRO, FIB, ANEU #### [place] [address] CAIONon 01-03-2024 Calcium Ionized 1.16 mmol/L Normal 1.12-1.32 [facility] [place] Comment on above: Performed By: #### C BC, ADIFF, PRO, FIB, ANEU #### [place] [address] CAORon 01-03-2024 Calcium Ionized OR 1.15 mmol/L Normal 1.12-1.32 [facility] ([place] Comment on above: Performed By: #### B G, HCTOR, GLUOR, CAOR, KOR, HGBOR, BGOH, NAOR #### [place] [address] CBCon 01-03-2024 Erythrocyte distribution width (RBC) [Ratio] 15.8 % High 11.5-15.5 [facility] [place] Comment on above: Performed By: #### C BC, ADIFF, PRO, FIB, ANEU #### [place] [address] Hematocrit (Bld) [Volume fraction] 42.0 % Normal 34.0-46.0 [facility] [place] Comment on above: Performed By: #### C BC, ADIFF, PRO, FIB, ANEU #### [place] [address] Hgb 13.8 G/dL Normal 12.0-16.0 [facility] [place] Comment on above: Performed By: #### C BC, ADIFF, PRO, FIB, ANEU #### [place] [address] MCH (RBC) [Entitic mass] 29.6 pg Normal 27.0-33.0 [facility] [place] Comment on above: Performed By: #### C BC, ADIFF, PRO, FIB, ANEU #### [place] [address] MCHC 33.0 G/dL Normal 32.0-36.0 [facility] [place] Comment on above: Performed By: #### C BC, ADIFF, PRO, FIB, ANEU #### [place] [address] MCV (RBC) [Entitic vol] 89.9 fL Normal 80.0-99.0 [facility] [place] Comment on above: Performed By: #### C BC, ADIFF, PRO, FIB, ANEU #### [place] [address] Platelet 294 10 3/mcL Normal 150-450 [facility] [place] Comment on above: Performed By: #### C BC, ADIFF, PRO, FIB, ANEU #### [place] [address] Platelet mean volume (Bld) [Entitic vol] 7.9 fL Normal 6.6-10.5 [facility] [place] Comment on above: Performed By: #### C BC, ADIFF, PRO, FIB, ANEU #### [place] [address] RBC 4.67 10 6/mcL Normal 4.10-5.30 [facility] [place] Comment on above: Performed By: #### C BC, ADIFF, PRO, FIB, ANEU #### [place] [address] WBC 11.9 10 3/mcL High 4.5-10.8 [facility] [place] Comment on above: Performed By: #### C BC, ADIFF, PRO, FIB, ANEU #### [place] [address] CKon 01-03-2024 CK [Catalytic activity/Vol] 96 U/L Normal 7-185 [facility] [place] Comment on above: Result Comment: Spec imen slightly hemolyzed. Performed By: #### C BC, ADIFF, PRO, FIB, ANEU #### [facility] [address] [place], [place] [id number] CT HEAD OR BRAIN W/O CONTRAS Ton 01-03-2024 CT HEAD OR BRAIN W/O CONTRAST ORIGINAL EXAMINATION: CT OF THE HEAD WITHOUT CONTRAST 01/03/2024 3:51 pm TECHNIQUE: CT of the head was performed without the administration of intravenous contrast. Automated exposure control, iterative reconstruction, and/or weight based adjustment of the mA/kV was utilized to reduce the radiation dose to as low as reasonably achievable. COMPARISON: MRI brain 01/02/2024 HISTORY: ORDERING SYSTEM PROVIDED HISTORY: Reason for Exam: per nurse f/u post sx craniotomy left sided weakness s/p crani FINDINGS: There is a right craniotomy with overlying surgical pierre and soft tissue swelling. A linear density projects in the soft tissues along the external aspect of the craniotomy flap. Pneumocephalus is present, presumably postoperative. There is subcortical hypodensity involving the right mcdaniel radiata and centrum semiovale corresponding to the areas of FLAIR hyperintensity on prior MRI, most likely representing edema. There is continued mass effect upon the right lateral ventricle and minimal [id number] midline shift, similar in appearance to the prior. There is sulcal effacement on the right which was also present previously. There is probably trace extra-axial hemorrhage on the right which could be postoperative. Atherosclerotic calcifications are present in the cavernous carotid arteries. Mucous retention cysts or polyps are seen in the left maxillary sinus. There is opacification of a right ethmoid air cell. Mastoid air cells appear clear. IMPRESSION: 1. Status post right craniotomy with pneumocephalus and trace extra-axial hemorrhage which could be postoperative. Continued mass effect upon the right lateral ventricle and minimal [id number] midline shift, similar in appearance to the prior. 2. Hypodensity in the right mcdaniel radiata and centrum semiovale corresponding to the areas of FLAIR hyperintensity on prior MRI, most likely representing edema. 3. Monitoring line or drain projecting in the superficial soft tissues overlying the craniotomy site. Interpreted by: Richard Canales MD Preliminary Report By: Richard Canales MD Electronically signed By Richard Canales MD Dictated Date: 01/03/2024 3:55:40 PM Prelim Date: 01/03/2024 4:05:04 PM Sign Date: 01/03/2024 4:05:04 PM Ordering Provider: DAMIAN Cason [facility] [place] GLUORon 01-03-2024 Glucose [Mass/Vol] 132 mg/dL High 82-115 [facility] [place] Comment on above: Performed By: #### C BC, ADIFF, PRO, FIB, ANEU #### [place] [address] HCTORon 01-03-2024 Hematocrit (Bld) [Volume fraction] 37.0 % Normal 37.0-47.0 [facility] [place] Comment on above: Performed By: #### B G, HCTOR, GLUOR, CAOR, KOR, HGBOR, BGOH, NAOR #### [place] [address] HGBORon 01-03-2024 Hemoglobin OR 12.5 G/dL Normal 12.0-16.0 [facility] [place] Comment on above: Performed By: #### B G, HCTOR, GLUOR, CAOR, KOR, HGBOR, BGOH, NAOR #### [place] [address] KORon 01-03-2024 Potassium [Moles/Vol] 3.5 mmol/L Normal 3.5-5.0 [facility]ly [facility]) Comment on above: Performed By: #### C BC, ADIFF, PRO, FIB, ANEU #### [place] [address] LABORATORYOrdered By: Aleksandar Oquendo on 01-03-2024 Blood Glucose Interventions Notify physician (01/03/24 11:56 PM) [facility] Work Phone: LABORATORYOrdered By: Nancy Espinoza on 01-03-2024 Calcium.ionized (Bld) [Mass/Vol] 1.16 mmol/L Normal 1.12 - 1.32 mmol/L AH Auto Chem SS Barometric Pressure 714 mm[Hg] Invalid Interpretation Code Auto Chem SS Base excess Calc (Bld) [Moles/Vol] -2.5000 mmol/L Invalid Interpretation Code Auto Chem SS CO2 (Bld) [Partial pressure] 36.9 mm[Hg] Normal 32.0 - 46.0 mm Hg AH Auto Chem SS CO2 [Moles/Vol] 23.0 mmol/L Normal 22.0 - 30.0 mmol/L AH Auto Chem SS HCO3 (Bld) [Moles/Vol] 21.9 mmol/L Normal 21.0 - 29.0 mmol/L AH Auto Chem SS Oxygen (Bld) [Partial pressure] 105.3 mm[Hg] Normal 74.0 - 108.0 mm Hg AH Auto Chem SS pH (Bld) 7.391 [pH] Normal 7.380 - 7.460 Auto Chem SS LABORATORYOrdered By: SYSTEM SYSTEM on 01-03-2024 CK [Catalytic activity/Vol] 96 U/L Normal 7 - 185 U/L ADM SS Comment on above: Result Comment: Spec imen slightly hemolyzed. Magnesium [Mass/Vol] 2.6 mg/dL High 1.6 - 2.4 mg/dL ADM SS Phosphate [Mass/Vol] 4.0 mg/dL Normal 2.4 - 5.1 mg/dL ADM SS Comment on above: Interpretive Data: * *Note - New Reference Range in effect 20 Troponin I.cardiac DL <= 0.01 ng/mL [Mass/Vol] ng/L Normal 0.00 - 34.00 ng/L ADM SS LABORATORYOrdered By: Berta Aaron on 01-03-2024 Barometric Pressure 715 mm[Hg] Invalid Interpretation Code Auto Chem SS Base excess Calc (Bld) [Moles/Vol] -1.2000 mmol/L Invalid Interpretation Code Auto Chem SS Calcium.ionized (Bld) [Mass/Vol] 1.15 mmol/L Normal 1.12 - 1.32 mmol/L AH Auto Chem SS CO2 (Bld) [Partial pressure] 35.8 mm[Hg] Normal 32.0 - 46.0 mm Hg Auto Chem SS CO2 [Moles/Vol] 23.9 mmol/L Normal 22.0 - 30.0 mmol/L Auto Chem SS Glucose [Mass/Vol] 132 mg/dL High 82 - 115 mg/dL AH Auto Chem SS HCO3 (Bld) [Moles/Vol] 22.8 mmol/L Normal 21.0 - 29.0 mmol/L AH Auto Chem SS Hematocrit (Bld) [Volume fraction] 37.0 % Normal 37.0 - 47.0 % AH Auto Chem SS Hemoglobin (Bld) [Mass/Vol] 12.5 G/dL Normal 12.0 - 16.0 G/dL AH Auto Chem SS Oxygen (Bld) [Partial pressure] 141.0 mm[Hg] High 74.0 - 108.0 mm Hg Auto Chem SS Patient Location OPEN HEART (01/03/24 9:25 AM) Normal Auto Chem SS pH (Bld) 7.422 [pH] Normal 7.380 - 7.460 AH Auto Chem SS Potassium [Moles/Vol] 3.5 mmol/L Normal 3.5 - 5.0 mEq/L AH Auto Chem SS Sodium [Moles/Vol] 139 mmol/L Normal 136 - 145 mEq/L Auto Chem SS LABORATORYOrdered By: Kimberly Brady on 01-03-2024 Magnesium [Mass/Vol] 2.0 mg/dL Normal 1.6 - 2.4 mg/dL ADM SS MGon 01-03-2024 Magnesium [Mass/Vol] 2.6 mg/dL High 1.6-2.4 [facility] [place] Comment on above: Performed By: #### C JERMAIN CLOUD PRO, FIB, ANEU #### [address] [address] MGORon 01-03-2024 Magnesium [Mass/Vol] 2.0 mg/dL Normal 1.6-2.4 [facility] [place] Comment on above: Performed By: #### C JERMAIN CLOUD PRO, FIB, ANEU #### [address] [address] MRI BRAIN W/ + W/O CONTRASTo n 01-03-2024 MRI BRAIN W/ + W/O CONTRAST ORIGINAL EXAMINATION: MRI OF THE BRAIN WITHOUT AND WITH CONTRAST 01/02/2024 7:40 pm TECHNIQUE: Multiplanar multisequence MRI of the head/brain was performed without and with the administration of intravenous contrast. COMPARISON: MR brain 12/29/2023. HISTORY: ORDERING SYSTEM PROVIDED HISTORY: Reason for Exam: Intraoperative Navigation. Recently diagnosed 3 cm intracranial mass. FINDINGS: The study is performed for intraoperative navigation. Only localizer sequence, thin section axial T2 weighted images and multiplanar postcontrast images including thin section sequences were acquired. Again seen is the large avidly enhancing extra-axial dural-based mass overlying the lateral aspect of the frontal parietal junction. It is stable in size since the prior examination measuring 3.1 x 2.9 x 3.0 cm (craniocaudal by transverse by AP dimension). Enhancing dural tails are again noted. There is local mass effect and surrounding confluent T2 signal compatible with vasogenic edema. There is effacement of right lateral ventricle and stable 3 mm leftward midline shift. No hydrocephalus. Basilar cisterns patent. No additional abnormal enhancement throughout. Mild sinus inflammatory disease. IMPRESSION: Redemonstration of 3.1 cm enhancing extra-axial mass overlying the right frontoparietal junction with mass effect, surrounding vasogenic edema, effacement of the right lateral ventricle and minimal leftward midline shift. Findings are stable since the examination performed 12/29/2023. Images for surgical planning. Interpreted by: Toan Shirley Preliminary Report By: Toan Shirley Electronically signed By Toan Shirley Dictated Date: 01/03/2024 7:47:08 AM Prelim Date: 01/03/2024 7:52:50 AM Sign Date: 01/03/2024 7:52:50 AM Ordering Provider: CEFERINO AHUJA Normal [facility] [place] NAORon 01-03-2024 Sodium [Moles/Vol] 139 mmol/L Normal 136-145 [facility] [place]) Comment on above: Performed By: #### C BC, ADIFF, PRO, FIB, ANEU #### [place] [address] PHOSon 01-03-2024 Phosphate [Mass/Vol] 4.0 mg/dL Normal 2.4-5.1 [facility] [place] Comment on above: Result Comment: No te - New Reference Range in effect 20 Performed By: #### C BC, ADIFF, PRO, FIB, ANEU #### [place] [address] TROPHSon 01-03-2024 Troponin I High Sensitivity <2.50 Normal 0.00-34.00 [facility] [place] Comment on above: Performed By: #### C BC, ADIFF, PRO, FIB, ANEU #### [place] [address] AFPSon 01-02-2024 AFP, Tumor Marker <2.2 Normal 0.0-8.5 [facility] ([place]) Comment on above: Result Comment: Angie ent results determined by assays using different manufacturers for methods may not be comparable. Performed By: #### C BC, ADIFF, PRO, FIB, ANEU #### [place] [address] CA19on 01-02-2024 CA 19-9 1.6 U/mL Normal 0.0-35.0 [facility] [place] Comment on above: Result Comment: Angie ent results determined by assays using different manufacturers for methods may not be comparable. Performed By: #### C BC, ADIFF, PRO, FIB, ANEU #### [place] [address] CEAon 01-02-2024 CEA 0.5 ng/mL Normal 0.0-3.0 [facility] [place] Comment on above: Result Comment: Angie ent results determined by assays using different manufacturers for methods may not be comparable. Performed By: #### C BC, ADIFF, PRO, FIB, ANEU #### [place] [address] [address] ABDOMEN/PELVIS W/CONTRAST on 01-02-2024 CT ABDOMEN/PELVIS W/CONTRAST ORIGINAL EXAMINATION: CT OF THE ABDOMEN AND PELVIS WITH CONTRAST; CT OF THE CHEST WITH CONTRAST 01/01/2024 8:10 pm TECHNIQUE: CT of the abdomen and pelvis was performed with the administration of intravenous contrast. Multiplanar reformatted images are provided for review. Automated exposure control, iterative reconstruction, and/or weight based adjustment of the mA/kV was utilized to reduce the radiation dose to as low as reasonably achievable.; CT of the chest was performed with the administration of intravenous contrast. Multiplanar reformatted images are provided for review. Automated exposure control, iterative reconstruction, and/or weight based adjustment of the mA/kV was utilized to reduce the radiation dose to as low as reasonably achievable. COMPARISON: None. HISTORY: ORDERING SYSTEM PROVIDED HISTORY: Reason for Exam: Brain mass, hx melanoma FINDINGS: Mediastinum: There is no mediastinal mass or lymph node enlargement. The heart size is normal. There is atherosclerotic coronary artery calcification and/or coronary stent present. No pericardial fluid is present. Thoracic aorta is nonaneurysmal. Lungs: There is no lung infiltrate. No mass or lung nodule is detected. There is no pleural fluid or pleural thickening. Abdominal organs: The liver is normal in size. In the left lobe of the liver there is an ill-defined hypodensity that measures 2.0 x 1.5 x 1.1 cm in diameter. No other hepatic lesion is present. There is no biliary ductal dilatation. The pancreas, spleen, adrenal glands, and kidneys show no sign of acute abnormality. Subcentimeter left renal cyst appears benign. GI/Bowel: There is no intestinal obstruction or inflammation. Diverticulosis of the colon is present without signs of diverticulitis. There is no abdominal mass or lymph node enlargement present. Pelvis: Urinary bladder is normal in size and appearance. Uterus has been removed. There is no pelvic mass, lymph node enlargement, or abnormal fluid collection. Peritoneum/Retroperitoneum: Abdominal aorta is moderately atherosclerotic and nonaneurysmal. There is no retroperitoneal lymph node enlargement. Bones/Soft Tissues: Degenerative disc disease is greatest at the L3-L4 level. There is no spinal fracture or subluxation. No acute or aggressive osseous lesion is detected. No soft tissue mass or lymphadenopathy is detected in the chest or abdominal wall. IMPRESSION: No acute cardiopulmonary abnormality. Indeterminate 2 cm hypodensity in left lobe of liver. Differential consideration includes metastasis, benign or malignant neoplasm of liver, or possibly a focal fatty infiltration of the liver. Further evaluation with MRI with and without IV contrast is recommended. Diverticulosis of the colon without signs of diverticulitis. Coronary artery calcification and/or stone stent. Interpreted by: Rudi Moss MD Preliminary Report By: Rudi Moss MD Electronically signed By Rudi Moss MD Dictated Date: 01/02/2024 12:28:13 AM Prelim Date: 01/02/2024 12:38:46 AM Sign Date: 01/02/2024 12:38:46 AM Ordering Provider: PARDEEP Cason [facility] [place] THORAX W/ CONTRASTon 02-0 CT THORAX W/ CONTRAST ORIGINAL EXAMINATION: CT OF THE ABDOMEN AND PELVIS WITH CONTRAST; CT OF THE CHEST WITH CONTRAST 01/01/2024 8:10 pm TECHNIQUE: CT of the abdomen and pelvis was performed with the administration of intravenous contrast. Multiplanar reformatted images are provided for review. Automated exposure control, iterative reconstruction, and/or weight based adjustment of the mA/kV was utilized to reduce the radiation dose to as low as reasonably achievable.; CT of the chest was performed with the administration of intravenous contrast. Multiplanar reformatted images are provided for review. Automated exposure control, iterative reconstruction, and/or weight based adjustment of the mA/kV was utilized to reduce the radiation dose to as low as reasonably achievable. COMPARISON: None. HISTORY: ORDERING SYSTEM PROVIDED HISTORY: Reason for Exam: Brain mass, hx melanoma FINDINGS: Mediastinum: There is no mediastinal mass or lymph node enlargement. The heart size is normal. There is atherosclerotic coronary artery calcification and/or coronary stent present. No pericardial fluid is present. Thoracic aorta is nonaneurysmal. Lungs: There is no lung infiltrate. No mass or lung nodule is detected. There is no pleural fluid or pleural thickening. Abdominal organs: The liver is normal in size. In the left lobe of the liver there is an ill-defined hypodensity that measures 2.0 x 1.5 x 1.1 cm in diameter. No other hepatic lesion is present. There is no biliary ductal dilatation. The pancreas, spleen, adrenal glands, and kidneys show no sign of acute abnormality. Subcentimeter left renal cyst appears benign. GI/Bowel: There is no intestinal obstruction or inflammation. Diverticulosis of the colon is present without signs of diverticulitis. There is no abdominal mass or lymph node enlargement present. Pelvis: Urinary bladder is normal in size and appearance. Uterus has been removed. There is no pelvic mass, lymph node enlargement, or abnormal fluid collection. Peritoneum/Retroperitoneum: Abdominal aorta is moderately atherosclerotic and nonaneurysmal. There is no retroperitoneal lymph node enlargement. Bones/Soft Tissues: Degenerative disc disease is greatest at the L3-L4 level. There is no spinal fracture or subluxation. No acute or aggressive osseous lesion is detected. No soft tissue mass or lymphadenopathy is detected in the chest or abdominal wall. IMPRESSION: No acute cardiopulmonary abnormality. Indeterminate 2 cm hypodensity in left lobe of liver. Differential consideration includes metastasis, benign or malignant neoplasm of liver, or possibly a focal fatty infiltration of the liver. Further evaluation with MRI with and without IV contrast is recommended. Diverticulosis of the colon without signs of diverticulitis. Coronary artery calcification and/or stone stent. Interpreted by: Rudi Moss MD Preliminary Report By: Rudi Moss MD Electronically signed By Rudi Moss MD Dictated Date: 01/02/2024 12:28:13 AM Prelim Date: 01/02/2024 12:38:46 AM Sign Date: 01/02/2024 12:38:46 AM Ordering Provider: PARDEEP URIARTE [facility]) LABORATORYOrdered By: SYSTEM SYSTEM on 01-02-2024 AFP [Mass/Vol] ng/mL Normal 0.0 - 8.5 ng/mL [facility] Comment on above: Interpretive Data: P atient results determined by assays using different manufacturers for methods may not be comparable. Cancer Ag 19-9 Qn 1.6 [arb'U]/mL Normal 0.0 - 35 .0 U/mL ADM Comment on above: Interpretive Data: P atient results determined by assays using different manufacturers for methods may not be comparable. Carcinoembryonic Ag [Mass/Vol] 0.5 ng/mL Normal 0.0 - 3.0 ng/mL [facility] Comment on above: Interpretive Data: P atient results determined by assays using different manufacturers for methods may not be comparable. .Auto Diffon 01-01-2024 Basophil, Absolute 0.0 10 3/mcL Normal 0.0-0.3 [facility] ([place]) Comment on above: Performed By: #### C BC, ADIFF, PRO, FIB, ANEU #### [address] [address] Basophils/100 WBC (Bld) 0.3 % Normal 0.0-2.5 [facility]) Comment on above: Performed By: #### C BC, ADIFF, PRO, FIB, ANEU #### [address] [address] Eosinophil, Absolute 0.0 10 3/mcL Normal 0.0-0.7 [facility] ([place] Comment on above: Performed By: #### C BC, ADIFF, PRO, FIB, ANEU #### [address] [address] Eosinophils/100 WBC (Bld) 0.0 % Normal 0.0-6.0 [facility] ([place]) Comment on above: Performed By: #### C BC, ADIFF, PRO, FIB, ANEU #### [address] [address] Lymphocyte, Absolute 1.0 10 3/mcL Normal 0.9-4.3 [facility] ([place]) Comment on above: Performed By: #### C BC, ADIFF, PRO, FIB, ANEU #### [address] [address] Lymphocytes/100 WBC (Bld) 9.1 % Low 20.0-40.0 [facility] ([place]) Comment on above: Performed By: #### C BC, ADIFF, PRO, FIB, ANEU #### [address] [address] Monocyte, Absolute 0.2 10 3/mcL Normal 0.1-1.4 [facility] ([place]) Comment on above: Performed By: #### C BC, ADIFF, PRO, FIB, ANEU #### [address] [address] Monocytes/100 WBC (Bld) 2.0 % Normal 2.0-13.0 [facility] ([place]) Comment on above: Performed By: #### C BC, ADIFF, PRO, FIB, ANEU #### [address] [address] Neutrophils/100 WBC (Bld) 88.6 % High 50.0-75.0 [facility] ([place]) Comment on above: Performed By: #### C BC, ADIFF, PRO, FIB, ANEU #### [address] [address] .NEUABSon 01-01-2024 Neutrophil, Absolute 9.8 10 3/mcL High 2.3-8.1 [facility] [place] Comment on above: Performed By: #### C BC, ADIFF, PRO, FIB, ANEU #### [place] [address] APTTon 01-01-2024 aPTT Coag (Bld) [Time] 25.3 s Normal 25.0-35.0 [facility] [place] Comment on above: Result Comment: For Heparin anticoagulation therapy, the recommended therapeutic range is: 54-77 seconds (APTT Correlation with Anti-Xa therapeutic range of 0.3-0.7 units/ml). PLEASE REFERENCE THE PHARMACY PROTOCOL FOR DOSING. Performed By: #### C BC, ADIFF, PRO, FIB, ANEU #### [place] [address] Heparin dose (APTT) Unknown Normal [facility] ([place]) Comment on above: Performed By: #### C BC, ADIFF, PRO, FIB, ANEU #### [place] [address] CBCon 01-01-2024 Erythrocyte distribution width (RBC) [Ratio] 15.4 % Normal 11.5-15.5 [facility] ([place]) Comment on above: Performed By: #### C BC, ADIFF, PRO, FIB, ANEU #### [place] [address] Hematocrit (Bld) [Volume fraction] 43.9 % Normal 34.0-46.0 [facility] ([place] Comment on above: Performed By: #### C BC, ADIFF, PRO, FIB, ANEU #### [place] [id number] Hgb 14.2 G/dL Normal 12.0-16.0 [facility] ([place] Comment on above: Performed By: #### C BC, ADIFF, PRO, FIB, ANEU #### [place] [address] MCH (RBC) [Entitic mass] 29.5 pg Normal 27.0-33.0 [facility] [place] Comment on above: Performed By: #### C BC, ADIFF, PRO, FIB, ANEU #### [place] [address] MCHC 32.4 G/dL Normal 32.0-36.0 [facility] [place] Comment on above: Performed By: #### C BC, ADIFF, PRO, FIB, ANEU #### [place] [address] MCV (RBC) [Entitic vol] 91.3 fL Normal 80.0-99.0 [facility] ([place] Comment on above: Performed By: #### C BC, ADIFF, PRO, FIB, ANEU #### [place] [address] Platelet 292 10 3/mcL Normal 150-450 [facility] ([place] Comment on above: Performed By: #### C BC, ADIFF, PRO, FIB, ANEU #### [place] [address] Platelet mean volume (Bld) [Entitic vol] 8.5 fL Normal 6.6-10.5 [facility] [place] Comment on above: Performed By: #### C BC, ADIFF, PRO, FIB, ANEU #### [place] [address] RBC 4.80 10 6/mcL Normal 4.10-5.30 [facility] ([place] Comment on above: Performed By: #### C BC, ADIFF, PRO, FIB, ANEU #### [place] [address] WBC 11.0 10 3/mcL High 4.5-10.8 [facility] ([place] Comment on above: Performed By: #### C BC, ADIFF, PRO, FIB, ANEU #### [place] [address] FIBon 01-01-2024 Fibrinogen 408 mg/dL Normal 250-560 [facility] ([place] Comment on above: Performed By: #### C BC, ADIFF, PRO, FIB, ANEU #### [place] [address] LABORATORYOrdered By: Jeremie Murphy on 01-01-2024 aPTT Coag (Bld) [Time] 25.3 s Normal 25.0 - 35.0 seconds [facility] Comment on above: Interpretive Data: F or Heparin anticoagulation therapy, the recommended therapeutic range is: 54-77 seconds (APTT Correlation with Anti-Xa therapeutic range of 0.3-0.7 units/ml). PLEASE REFERENCE THE PHARMACY PROTOCOL FOR DOSING. Fibrinogen 408 mg/dL Normal 250 - 560 mg/dL [facility] Heparin dose (APTT) Unknown (01/01/24 6:39 PM) Normal Coagulation S PT Coag (PPP) [Time] 10.5 s Normal 9.0 - 14.2 seconds [facility] Comment on above: Interpretive Data: E ffective 06/10/08, Protime results may be affected by some antibiotics (i.e. Ciprofloxacin, Azithromycin, Bactrim) which may potentiate the action of oral anticoagulants, with further increases in Protime/INR. PT International Ratio 0.9 ratio Invalid Interpretation Code [facility] Comment on above: Interpretive Data: Chasidy jacobsen [employer] (CHEST, 1991, 102:312S-25S) recommended therapeutic range for oral anticoagulant therapy is: LOW RISK: Prophylaxis of venous thrombosis INR: 2.0-3.0 Treatment of pulmonary embolism 2.0-3.0 Prevention of systemic embolism 2.0-3.0 HIGH RISK: Mechanical prosthetic valves 2.5-3.5 PROon 01-01-2024 INR Coag (PPP) [Relative time] 0.9 {INR} Normal [facility] ([place] Comment on above: Result Comment: [employer] (CHEST, 1991, 102:312S-25S) recommended therapeutic range for oral anticoagulant therapy is: LOW RISK: Prophylaxis of venous thrombosis INR: 2.0-3.0 Treatment of pulmonary embolism 2.0-3.0 Prevention of systemic embolism 2.0-3.0 HIGH RISK: Mechanical prosthetic valves 2.5-3.5 Performed By: #### C BC, ADIFF, PRO, FIB, ANEU #### [facility] [address] [place] [id number] PT Coag (PPP) [Time] 10.5 s Normal 9.0-14.2 [facility] ([place] Comment on above: Result Comment: Effe ctive 06/10/08, Protime results may be affected by some antibiotics (i.e. Ciprofloxacin, Azithromycin, Bactrim) which may potentiate the action of oral anticoagulants, with further increases in Protime/INR. Performed By: #### C BC, ADIFF, PRO, FIB, ANEU #### [place] [address] MRI BRAIN W/ + W/O CONTRASTo n 12-30-2023 MRI BRAIN W/ + W/O CONTRAST ORIGINAL EXAMINATION: MRI OF THE BRAIN WITHOUT AND WITH CONTRAST 12/29/2023 10:42 pm TECHNIQUE: Multiplanar multisequence MRI of the head/brain was performed without and with the administration of intravenous contrast. COMPARISON: None currently available.. HISTORY: ORDERING SYSTEM PROVIDED HISTORY: Reason for Exam: Right frontal edema-eval for brain mass FINDINGS: There is a large avidly enhancing extra-axial dural-based mass overlying the lateral aspect of the right frontal parietal junction. This measures 3.1 x 2.9 x 3.0 cm open (craniocaudal by transverse by AP dimension). This demonstrates thick enhancing dural tails. The lesion demonstrates T1 isointensity and minimally heterogeneous T2 hyperintensity. It has a slightly lobulated contour or. It demonstrates considerable mass effect on the subjacent brain parenchyma. There is a large nearly 8 cm region of confluent T2 prolongation underlying this compatible with vasogenic edema. There is effacement of the right lateral ventricle and 3 mm leftward midline shift. No hydrocephalus. Basilar cisterns patent. No acute infarct or hemorrhage. No additional abnormal parenchymal signal or enhancement. Mild sinus inflammatory disease. Mastoids clear. IMPRESSION: 3 cm avidly enhancing extra-axial dural-based mass overlying the lateral right frontal parietal junction. Meningioma is most likely. Definitive diagnosis would require tissue sampling. The lesion results in considerable underlying mass effect resulting in vasogenic edema, effacement of the right lateral ventricle and 3 mm leftward midline shift. Neurosurgical consultation is recommended. Interpreted by: Toan Shirley Preliminary Report By: Toan Shirley Electronically signed By Toan Shirley Dictated Date: 12/30/2023 7:02:07 PM Prelim Date: 12/30/2023 7:10:44 PM Sign Date: 12/30/2023 7:10:44 PM Ordering Provider: DAMIAN JACKSON Normal [facility] [place] .GFRon 12-29-2023 GFR Non- >60 Normal [facility] ([place] Comment on above: Result Comment: GFR Population mean for , Non- Americans Ages 20-29 = 116 mL/min/1.73 sq.m. Ages 30-39 = 107 mL/min/1.73 sq.m. Ages 40-49 = 99 mL/min/1.73 sq.m. Ages 50-59 = 93 mL/min/1.73 sq.m. Ages 60-69 = 85 mL/min/1.73 sq.m. Ages 70+ = 75 mL/min/1.73 sq.m. Chronic Kidney Disease: Less than 60 mL/min/1.73 square meters End Stage Renal Disease: Less than 15 mL/min/1.73 square meters Performed By: #### C BC, ADIFF, PRO, FIB, ANEU #### [place] [address] GFR >60 Normal [facility] ([place] Comment on above: Result Comment: GFR Population mean for , Non- Americans Ages 20-29 = 116 mL/min/1.73 sq.m. Ages 30-39 = 107 mL/min/1.73 sq.m. Ages 40-49 = 99 mL/min/1.73 sq.m. Ages 50-59 = 93 mL/min/1.73 sq.m. Ages 60-69 = 85 mL/min/1.73 sq.m. Ages 70+ = 75 mL/min/1.73 sq.m. Chronic Kidney Disease: Less than 60 mL/min/1.73 square meters End Stage Renal Disease: Less than 15 mL/min/1.73 square meters Performed By: #### C BC, ADIFF, PRO, FIB, ANEU #### [place] [id number] CMPon 12-29-2023 Albumin Level 3.8 G/dL Normal 3.2-4.8 [facility] ([place] Comment on above: Performed By: #### C BC, ADIFF, PRO, FIB, ANEU #### [place] [address] Albumin/Globulin [Mass ratio] 1.3 {ratio} Normal 0.9-1.6 [facility] ([place] Comment on above: Performed By: #### C BC, ADIFF, PRO, FIB, ANEU #### [place] [address] ALP [Catalytic activity/Vol] 120 U/L Normal 38-126 [facility] [place] Comment on above: Performed By: #### C BC, ADIFF, PRO, FIB, ANEU #### [place] [address] ALT [Catalytic activity/Vol] 23 U/L Normal 10-49 [facility] [place] Comment on above: Performed By: #### C BC, ADIFF, PRO, FIB, ANEU #### [place] [address] AST [Catalytic activity/Vol] 19 U/L Normal 8-34 [facility] [place] Comment on above: Performed By: #### C BC, ADIFF, PRO, FIB, ANEU #### [place] [address] Bili Total 0.30 mg/dL Normal 0.20-1.20 [facility] ([place] Comment on above: Result Comment: Use of this assay is not recommended for patients undergoing treatment with eltrombopag due to the potential for falsely elevated results. Performed By: #### C BC, ADIFF, PRO, FIB, ANEU #### [place] [address] BUN/Creatinine Ratio 23.4 ratio High 10.0-22.0 [facility] [place] Comment on above: Performed By: #### C BC, ADIFF, PRO, FIB, ANEU #### [place] [address] Calcium [Mass/Vol] 9.8 mg/dL Normal 8.7-10.4 [facility] ([place]) Comment on above: Performed By: #### C BC, ADIFF, PRO, FIB, ANEU #### [facility] [address] [place], [place] [address] Chloride [Moles/Vol] 114 mmol/L High 98-110 [facility] ([place] Comment on above: Performed By: #### C BC, ADIFF, PRO, FIB, ANEU #### [address] [address] CO2 [Moles/Vol] 20 mmol/L Low 22-32 [facility] ([place] Comment on above: Performed By: #### C BC, ADIFF, PRO, FIB, ANEU #### [address] [address] Creatinine [Mass/Vol] 0.64 mg/dL Normal 0.50-1.20 [facility] ([place] Comment on above: Performed By: #### C BC, ADIFF, PRO, FIB, ANEU #### [address] [address] Electrolyte Balance 6.0 mEq/L Normal 4.0-15.0 [facility] ([place]) Comment on above: Performed By: #### C BC, ADIFF, PRO, FIB, ANEU #### [address] [address] Globulin 2.9 G/dL Normal 1.5-3.8 [facility] ([place] Comment on above: Performed By: #### C BC, ADIFF, PRO, FIB, ANEU #### [address] [address] Glucose [Mass/Vol] 163 mg/dL High 82-115 [facility] ([place] Comment on above: Performed By: #### C BC, ADIFF, PRO, FIB, ANEU #### [address] [address] Potassium [Moles/Vol] 3.7 mmol/L Normal 3.5-5.0 [facility] ([place] Comment on above: Performed By: #### C BC, ADIFF, PRO, FIB, ANEU #### [address] [address] Sodium [Moles/Vol] 140 mmol/L Normal 136-145 [facility] ([place] Comment on above: Performed By: #### C BC, ADIFF, PRO, FIB, ANEU #### [address] [address] Total Protein 6.7 G/dL Normal 5.7-8.2 [facility] ([place] Comment on above: Result Comment: No te - New Reference Range in effect 20 Performed By: #### C BC, ADIFF, PRO, FIB, ANEU #### [address] [address] Urea nitrogen [Mass/Vol] 15.0 mg/dL Normal 8.0-22.0 [facility] ([place] Comment on above: Performed By: #### C BC, ADIFF, PRO, FIB, ANEU #### [address] [address] LABORATORYOrdered By: SYSTEM SYSTEM on 12-29-2023 Albumin BCP dye [Mass/Vol] 3.8 G/dL Normal 3.2 - 4.8 G/dL ADM SS Albumin/Globulin [Mass ratio] 1.3 {ratio} Normal 0.9 - 1.6 ratio AH ADM SS ALP [Catalytic activity/Vol] 120 U/L Normal 38 - 126 U/L AH ADM SS ALT No additional P-5'-P [Catalytic activity/Vol] 23 U/L Normal 10 - 49 U/L AH ADM SS AST [Catalytic activity/Vol] 19 U/L Normal 8 - 34 U/L AH ADM SS Bilirubin [Mass/Vol] 0.30 mg/dL Normal 0.20 - 1.20 mg/dL AH ADM SS Comment on above: Interpretive Data: U se of this assay is not recommended for patients undergoing treatment with eltrombopag due to the potential for falsely elevated results. Globulin 2.9 G/dL Normal 1.5 - 3.8 G/dL AH ADM SS Protein [Mass/Vol] 6.7 G/dL Normal 5.7 - 8.2 G/dL AH ADM SS Comment on above: Interpretive Data: * *Note - New Reference Range in effect 20 CNOVon 09-28-2023 CNOV Office Visit (GENS ) TAMMY GUPTA ([id number]) 1960 F Date Time Provider Department 09/28/23 10:00 AM NIDIA RIVERO During your visit today, we recorded the following information about you: Temperature Pulse Blood pressure Weight 97.5 degrees 91/minute 132/80 85.4 kg Nidia Rivero PA-C 10/08/2023 12:34 PM Signed FOLLOW UP VISIT - ENDOSCOPY NAME: Tammy Gupta CLINIC NO.: [id number] DATE OF SERVICE: 09/28/2023 : 1960 REFERRING PHYSICIAN: Geremias Vaughn MD Tammy is a patient I am following for Conner's esophagus as well as a history of lymphocytic colitis and chronic constipation. Dr. Olvera performed upper and lower endoscopy on 09/07/23. The patient was found to have no concerning findings on EGD. Colonoscopy showed a small polyp in the right colon which was removed. Pathology demonstrated: FINAL DIAGNOSIS A. Gastroesophageal junction, biopsy: - Fragments of squamous and gastric type glandular mucosa with mild chronic inflammation. See comment. B. Ascending colon, biopsy: - Tubular adenoma. Diagnosis Comment There is no evidence of intestinal metaplasia in the gastroesophageal junction biopsy. The patient notes no complaints since the procedure. VITALS: Blood pressure 132/80, pulse 91, temperature 36.4 ?C (97.5 ?F), weight 85.4 kg (188 lb 3.2 oz), SpO2 97 %. General: patient is alert, cooperative, pleasant and in no acute distress On examination, the abdomen is benign. Assessment IMPRESSION: Conner's esophagus without dysplasia, adenomatous colon polyp PLAN: The operative findings and pathology report were reviewed with the patient, and the patient has had the opportunity to ask questions and have questions answered. If the patient notes any problems or changes in bowel function, the patient should contact me immediately. Otherwise I recommend follow up upper and lower endoscopy in 5 years Patient verbalized understanding of all above and agreed with the plan Diagnoses: (D12.6) Tubular adenoma of colon (primary encounter diagnosis) I spent a total of 24 minutes on the date of the service which included preparing to see the patient, [id number] patient care, completing clinical documentation, obtaining and/or reviewing separately obtained history, counseling and educating the patient/family/caregiver, independently interpreting results (not separately reported), and communicating results to the patient/family/caregiver. 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 INSTRUCTIONS FOLLOWING A POLYP FOUND AT COLONOSCOPY You were found to have an adenomatous colon polyp. I recommend you undergo repeat endoscopy in 5 years. If you note bleeding, change in bowel habits, or other suspicious colon related symptoms before that time, those symptoms should be evaluated as necessary. If you have any difficulties or concerns, you should contact our office immediately. If you note any additional difficulties, questions, or concerns, you should contact our office immediately @ [phone] and ask to be transferred to the General Surgery department. Allergies As of Date: 09/28/2023 Noted Allergy Reaction ALBUTEROL SULFATE 08/30/2023 5 - Intolerance CODEINE 12/31/2015 14 - Other: See Comments Comments: Passes out METOPROLOL 12/31/2015 3 - Cough MINOCYCLINE 12/31/2015 8 - GI Upset PLAQUENIL (HYDROXYCHLOROQUINE) 12/31/2015 2 - Rash Comments: blisters RED YEAST RICE 08/16/2023 11 - Vomiting [id number] REDUCTASE INHIBIT*08/16/2023 7 - Swelling Comments: Rouvstatin AND pravastatin, lovastatin SULFA (SULFONAMIDE ANTIBIOTICS) 12/31/2015 2 - Rash TETANUS AND DIPHTHERIA TOXOIDS, A*12/31/2015 14 - Other: See Comments Comments: Swelling of arm TETRACYCLINE 12/31/2015 8 - GI Upset Date Reviewed: 09/28/2023 Reviewed by: Nidia Rivero PA-C - Fully Assessed Reason for Visit: Follow Up [171] Cmt: Review EGD and colonoscopy results. Primary Visit Diagnosis:Tubular adenoma of colon [D12.6] Other Visit Diagnosis:Conner's esophagus without dysplasia [K22.70] Prescriptions as of 10/08/2023 - REPATHA SURECLICK 140 mg/mL pen injector ADMINISTER 1 ML UNDER THE SKIN EVERY 2 WEEKS - carvedilol (COREG) 12.5 mg tablet Take 12.5 mg by mouth twice daily with meals. - EZETIMIBE-SIMVASTATIN ORAL Take 10 mg by mouth once daily. - ticagrelor (BRILINTA) 60 mg tablet Take 60 mg by mouth twice daily. - aspirin, enteric coated (ASPIRIN, ENTERIC COATED) 81 mg EC tablet Take 81 mg by mouth once daily. - nitroglycerin subl (more content not included)... [facility] ANES POSTPROC EVALon 023 ANES POSTPROC EVAL HNO ID: [id number] Author: Abby Valladares MD Service: Anesthesiology Author Type: Physician Type: Anesthesia Postprocedure Evaluation Filed: 09/07/2023 9:48 AM Note Text: POST ANESTHESIA EVALUATION NOTE : 1960 Procedure Summary Date: 09/07/23 Room / Location: SURGERY Anesthesia Start: 907 Anesthesia Stop: Procedures: EGD DIAGNOSTIC COLONOSCOPY DIAGNOSTIC Diagnosis: History of Conner's esophagus Constipation, unspecified constipation type History of Conner's esophagus Constipation, unspecified constipation type Scheduled Providers: Tammy Olvera MD; Abby Valladares MD; Alek Mckinley RN Responsible Provider: Abby Valladares MD Anesthesia Type: MAC ASA Status: 3 Anesthesia Type: MAC Last Vitals Vitals Value Taken Time BP 103/40 09/07/23946 Temp 97 09/07/23946 Pulse 78 09/07/23946 Resp 14 09/07/23946 SpO2 97% 09/07/23946 Post Anesthesia Patient Status Patient Evaluation: bedside. Anticipated Disposition: phase 2 then home. Neurological Status: aware and responsive. Pulmonary Status: breathing comfortably on room air Airway Control: returned to baseline unsupported. Cardiovascular Status: stable. Pain Management: clinically adequate Postoperative Hydration: acceptable. Intraoperative Events: no significant anesthesia events Post Operative Nausea/Vomiting Status: no significant post operative nausea or vomiting Recommendation: continue current plan of care. Anesthesia Observations No Documentation SIGNATURE: Abby Valladares MD PATIENT NAME: Tammy Gupta DATE: September 07, 2023 TIME: 9:47 AM CSN: [id number] Normal [facility] ANES PRE-OPon 09-07-2023 ANES PRE-OP HNO ID: [id number] Author: Abby Valladares MD Service: Anesthesiology Author Type: Physician Type: Anesthesia Preprocedure Evaluation Filed: 09/07/2023 8:58 AM Note Text: ANESTHESIOLOGY DAY OF SURGERY NOTE : 1960 Procedure Information Date/Time: 09/07/23 0900 Scheduled providers: Tammy Olvera MD; Abby Valladares MD; Alek Mckinley RN Procedures: EGD DIAGNOSTIC COLONOSCOPY DIAGNOSTIC Location: LD SURGERY Estimated body mass index is 38 kg/m? as calculated from the following: Height as of 08/16/23: 147.3 cm (4' 10). Weight as of 08/16/23: 82.5 kg (181 lb 12.8 oz). Most recent hematocrit and potassium results: Potassium 4.7 05/02/2022 Relevant Problems No relevant active problems I - PHYSICAL EVALUATION AIRWAY Patient intubated: No. Tracheostomy tube not present Mallampati: III. TM distance: >3 FB. Neck ROM: full ROM without neurological symptoms. Mouth opening: adequate. Short neck: yes. Thick neck: yes Spencer present: no Microretrognathia/Micronagth ia/Recessed Chin: No DENTAL Dental findings: missing tooth/teeth. Additional comments: Missing lower molars left and right. Additional exam findings: yes. CARDIOVASCULAR Normal cardiovascular observations. PULMONARY Normal pulmonary observations. II - ANESTHESIA PLAN ASA Score: 3 Anesthetic Plan: MAC The patient is not a current smoker. (quit 2020 43 padck year history) NPO Status: adequate Beta Bharati Monitoring Plan Monitoring plan: standard ASA. Post Procedure Analgesic Plan Postoperative analgesic plan: parenteral or oral opioids. Informed Consent Anesthetic risks, benefits, alternatives, personnel and consent discussed: yes. Patient / Responsible Democrat agrees to proceed: yes Patient / Surrogate agrees to blood products: Yes DNR status not reviewed with patient and/or family prior to surgery. Significant changes in the patient condition since the History and Physical, not otherwise documented in primary service progress note: no. Potential Anesthesia issues that may suggest increased risk of complications or contraindication to planned procedure: none. Pt. With hx. S/p SD and CAD s/p 2 stents and and currently no symptoms and no further testling Vitals Value Taken Time BP 114/65 09/07/23821 Pulse Resp 17 09/07/23821 Temp 36.2 ?C (97.2 ?F) 09/07/23821 SpO2 100 % 09/07/23821 Facility-Administered Medications as of 09/07/2023 Medication Dose Route Frequency - lactated ringers iv infusion 75 mL/hr INTRAVENOUS CONTINUOUS - lidocaine (PF) 10 mg/mL (1 %) 1-2 mg injection (XYLOCAINE) 0.1-0.2 mL INTRADERMAL PRN Outpatient Medications as of 09/07/2023 Medication Sig - AMLODIPINE BESYLATE (AMLODIPINE ORAL) Take by mouth once daily. 10mg daily - ASCORBIC ACID/ZINC (ZINC WITH VITAMIN C ORAL) Take by mouth once daily. - aspirin, enteric coated (ASPIRIN, ENTERIC COATED) 81 mg EC tablet Take 81 mg by mouth once daily. - budesonide-formoterol (SYMBICORT) 160-4.5 mcg/actuation inhaler Inhale 2 Puffs as instructed as needed. - carvedilol (COREG) 12.5 mg tablet Take 12.5 mg by mouth twice daily with meals. - ciprofloxacin HCl (CIPRO) 500 mg tablet Take 500 mg by mouth twice daily. On hand if needed for cystitis/UTI - cyclobenzaprine (FLEXERIL) 10 mg tablet Take 10 mg by mouth once daily. - EZETIMIBE-SIMVASTATIN ORAL Take 10 mg by mouth once daily. - folic acid 1 mg tablet Take 1 mg by mouth twice daily. - HYDROcodone-acetaminophen (NORCO) 5-325 mg per tablet Take 1 tablet by mouth twice daily as needed. - lactulose (DUPHALAC, CONSTULOSE) 10 g/15 mL soln Take 20 g by mouth twice daily. - lisinopril (ZESTRIL, PRINIVIL) 20 mg tablet Take 20 mg by mouth once daily. - meloxicam (MOBIC) 15 mg tablet Take 15 mg by mouth once daily. - methotrexate 2.5 mg tablet Take by mouth one time only. Seven tabs once a week - nitroglycerin sublingual (NITROQUICK) 0.4 mg SL tablet Dissolve 0.4 mg under the tongue every 5 minutes as needed for chest pain. - omega-3 DHA-EPA (FISH OIL) 1,200 (144-216) mg capsule Take 1 capsule by mouth daily with breakfast. - omega-3 fatty [id number] 300 mg cap Take by mouth once daily. - omeprazole (PRILOSEC) 20 mg capsule Take 20 mg by mouth once daily. - omeprazole (PRILOSEC) 20 mg capsule Take 1 capsule by mouth twice daily. - phenazopyridine (PYRIDIUM, GERIDIUM) 200 mg tablet Take 200 mg by mouth three times daily as needed. - POLYETHYLENE GLYCOL 3350 (MIRALAX ORAL) Take by mouth as needed. - predniSONE (DELTASONE) 5 mg tablet Take 5 mg by mouth once daily. 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 I have interviewed and examined the patient. I have reviewed the medical record and/or the pre-anesthesia evaluation, per (more content not included)... Normal [facility] BRIEF OP NOTon 09-07-2023 BRIEF OP NOT HNO ID: [id number] Author: Tammy Olvera MD Service: General Surgery Author Type: Physician Type: Brief Op Note Filed: 09/07/2023 9:44 AM Note Text: BRIEF OPERATIVE NOTE SURGERY DATE: 09/07/2023 Incision/Procedure Start Time: 9:15 cecal intubation time: 9:28 Incision Close/Procedure End Time: 9:37 Surgeon(s)/Proceduralist(s) and Visual And Stock Associate(s): dioni Procedures: EGD with bipsies of GE junction Colonoscopy with right colon polyp polypectomy Anesthesia: MAC Findings: right colon polyp < 1 cm sessile, hemorrhoids external and internal, minimally irregular GE junction, small hiatal hernia Estimated Blood Loss: minimal Specimens: right colon polyp, GE junction biopsies Complications: None Closure Technique: na Preop Diagnosis: history of Conner's, screening for colon cancer/constipation, last colonoscopy 2018 Postop Diagnosis: history of Conner's, hemorrhoids SIGNATURE: Tammy Olvera MD PATIENT NAME: Tammy Gupta DATE: September 07, 2023 TIME: 9:41 AM Acct: [id number] [facility] HISTORY PHYSICALon HISTORY PHYSICAL HNO ID: [id number] Author: Tammy Olvera MD Service: General Surgery Author Type: Physician Type: HANDP Filed: 09/07/2023 8:48 AM Note Text: HISTORY AND PHYSICAL Tammy Gupta 1960 REFERRING PHYSICIAN: Geremias Vaughn MD CHIEF COMPLAINT: Consult (Barretts esophagus/ lymphocytic colitis) HPI: The patient is a 63 year old female referred for endoscopy. Tammy notes chronic constipation. Patient denies any weight changes, blood in stools, or black tarry stools. Denies family history of colon issues. The patient NOTES a history of Conner's esophagus and is overdue for surveillance colonoscopy. Notes intermittent upper abdominal discomfort, worse with acidic foods. Tammy has undergone prior endoscopy, most recently in [address] Olvera in [place]. Findings included Conner's esophagus on upper endoscopy, and increased intraepithelial lymphocytes on random colon biopsies. Patient denies problems with sedation in the past. She is interested in trying a different bowel prep. PAST MEDICAL HISTORY PAST MEDICAL HISTORY Diagnosis Date Abnormal blood chemistry Allergic rhinitis Anxiety Conner's esophagus BCC (basal cell carcinoma) Rt eye Esophageal reflux Essential hypertension, benign Family history of diabetes mellitus Family history of high cholesterol Hemorrhoids Hypercalcemia Hyperlipidemia Impaired fasting glucose Interstitial cystitis Lumbar spinal stenosis Lymphocytic colitis Melanoma of thigh (HCC) left Polyarthritis of multiple sites Polycythemia Skin lesion of breast Uterine fibroid UTI (urinary tract infection) PAST SURGICAL HISTORY PAST SURGICAL HISTORY Procedure Laterality Date COLONOSCOPY FLX DX W/COLLJ SPEC WHEN PFRMD 04/03/2018 Colonoscopy ESOPHAGOGASTRODUODENOSCOPY TRANSORAL DIAGNOSTIC 04/03/2018 EGD HYSTERECTOMY HX abdominal/partial still has ovaries surgery done for fibroids LAPAROSCOPY DIAGNOSTIC CURRENT MEDICATIONS Current Outpatient Medications Medication Sig omeprazole (PRILOSEC) 20 mg capsule Take 1 capsule by mouth twice daily. lisinopril (ZESTRIL, PRINIVIL) 20 mg tablet Take 20 mg by mouth once daily. AMLODIPINE BESYLATE (AMLODIPINE ORAL) Take by mouth once daily. 10mg daily omeprazole (PRILOSEC) 20 mg capsule Take 20 mg by mouth once daily. budesonide-formoterol (SYMBICORT) 160-4.5 mcg/actuation inhaler Inhale 2 Puffs as instructed as needed. ciprofloxacin HCl (CIPRO) 500 mg tablet Take 500 mg by mouth twice daily. On hand if needed for cystitis/UTI phenazopyridine (PYRIDIUM, GERIDIUM) 200 mg tablet Take 200 mg by mouth three times daily as needed. meloxicam (MOBIC) 15 mg tablet Take 15 mg by mouth once daily. methotrexate 2.5 mg tablet Take by mouth one time only. Seven tabs once a week folic acid 1 mg tablet Take 1 mg by mouth twice daily. predniSONE (DELTASONE) 5 mg tablet Take 5 mg by mouth once daily. One tab for 3-5 days for polyarthropathy flare ups HYDROcodone-acetaminophen (NORCO) 5-325 mg per tablet Take 1 tablet by mouth twice daily as needed. cyclobenzaprine (FLEXERIL) 10 mg tablet Take 10 mg by mouth once daily. POLYETHYLENE GLYCOL 3350 (MIRALAX ORAL) Take by mouth as needed. ASCORBIC ACID/ZINC (ZINC WITH VITAMIN C ORAL) Take by mouth once daily. omega-3 fatty kwjmb-sdy-yjc 300 mg cap Take by mouth once daily. No current facility-administered medications for this visit. ALLERGIES: Codeine; Metoprolol; Minocycline; Plaquenil [Hydroxychloroquine]; Sulfa (Sulfonamide Antibiotics); Tetanus And Diphtheria Toxoids, Adsorbed, Adult; and Tetracycline PERSONAL HISTORY: SOCIAL HISTORY Social History Tobacco Use Smoking status: Every Day Packs/day: 2 Types: Cigarettes Smokeless tobacco: Never Tobacco comments: Smokes 1/2 pack per day. Smoked since age of 12 Substance Use Topics Alcohol use: No Drug use: No FAMILY HISTORY: FAMILY HISTORY FAMILY HISTORY Problem Relation Age of Onset Diabetes Mother Alcohol/Drug Father REVIEW OF SYMPTOMS: The review of systems data was entered by the nurse and reviewed by ca Nursing Notes: Silvia Rubalcava LPN 08/16/2023 11:01 AM Signed REVIEW OF SYSTEMS: General: The patient denies fatigue, denies weight loss, denies weight gain, NOTES feeling hot, and denies feelings of cold. Eyes: The patient denies glaucoma, NOTES eye injury/surgery, wears glasses or contacts. Ear/Nose/Throat: The patient NOTES allergies, NOTES hayfever, denies ear infections, and denies bloody noses. Cardiovascular: The patient denies chest pain, denies heart disease, NOTES high blood pressure,NOTES cardiac stent, NOTES prior heart attack, denies irregular heart beat, NOTES high cholesterol, denies poor circulation, denies heart failure, other cardiac issues, denies claudication, denies cold feet, denies peripheral arterial stent. Respiratory: The patient denies tuberculosis, denies pneumonia, denies frequent cough, denies pulmonary e (more content not included)... [facility] NURSING PROGon 09-07-2023 NURSING PROG HNO ID: [id number] Author: Alix Garcia, CAROL Service: Nursing Author Type: Registered Nurse Type: Nursing Progress Note Filed: 09/07/2023 10:24 AM Note Text: Patient abdomen softly distended with no complaints of discomfort throughout stay in post-op. No nausea or vomiting. Discharge instructions given and reviewed with patient and . Patient and verbalize understanding of instructions given. [facility] OPERATIVE NOon 09-07-2023 OPERATIVE NO HNO ID: [id number] Author: Tammy Olvera MD Service: General Surgery Author Type: Physician Type: Operative Report Filed: 09/07/2023 8:01 PM Note Text: [facility] - Operative Report - TAMMY Reyes : 1960 AGE: 63. SEX: F PATIENT TYPE: O [facility]: [facility] LOCATION: [facility] ATTENDING PHYSICIAN: Tammy Olvera MD CSN NUMBER: [id number] DATE OF SURGERY/PROCEDURE: 09/07/2023 INCISION/PROCEDURE START TIME: 9:15 AM INCISION CLOSE/PROCEDURE END TIME: 9:37 AM PREOPERATIVE DIAGNOSIS: History of Conner's, constipation. POSTOPERATIVE DIAGNOSIS: History of Conner's, right colon polyp and hemorrhoids. SURGEON: Tammy Olvera MD ENGINEER FISHING VESSEL: No Additional Staff SURGERY/PROCEDURE: Esophagogastroduodenoscopy with biopsies and colonoscopy with right colon polypectomy. ANESTHESIA: Monitored anesthesia care. INDICATIONS: Tammy Gupta is a 63-year-old female, who presents with constipation and she presents for evaluation of colonoscopy. She also has a history of Conner's and therefore presents for esophagogastroduodenoscopy. Her last colonoscopy was in 2018. The patient has been counseled for upper and lower endoscopy. She has been counseled of the risks of procedure including, but not limited to infection, bleeding, perforation of GI tract, inability to complete the procedure, etc. The patient understands and agrees to proceed. DESCRIPTION OF PROCEDURE: After informed consent was given, the patient was brought to the endoscopy suite. Appropriate time-out protocol was followed. The patient was given IV anesthesia by the anesthesia provider. The patient was placed in left lateral decubitus position. Bite block was placed. The upper endoscope was lubricated, carefully inserted in the patient's mouth, and advanced to the esophagus. It was then advanced into the stomach, past the pylorus, and then into the first and second portion of the duodenum. No masses, polyps, or lesions were noted in the duodenum. The endoscope was retracted back into the stomach. No masses, polyps, or lesions were noted in the stomach. The endoscope was retracted back into the esophagus. Mucosal biopsies of the GE junction were taken using cold grasper forceps. The remainder of the esophagus appeared normal. The endoscope was removed intact. Next procedure performed was the colonoscopy. The colonoscope was lubricated and carefully inserted in the patient's anus and advanced to the rectum. It was then advanced into the sigmoid colon, then the left colon, past splenic flexure into transverse colon, past hepatic flexure down to the right colon to the cecum. Cecum was identified by confluence of teniae coli, identification of ileocecal valve, appendiceal orifice, and external palpation. The colon cleansing preparation was adequate. At this level, the colonoscope was slowly retracted back and entire colonic mucosal surface was examined. There was a small less than 1 cm right colon polyp which was sessile, which was completely removed using cold grasper forceps. No active bleeding was noted after this was done. There was no evidence of any masses, polyps, lesions in the transverse colon. There was no evidence of any masses, polyps, or lesions noted in the left colon. There was no evidence of any masses, polyps, or lesions noted in the sigmoid colon. There was no evidence of any masses or polyps in the rectum. Retroflexed view in the rectum revealed hemorrhoidal changes, but no active inflammation or bleeding. The endoscope was removed intact. Digital examination of the anal canal revealed no palpable masses. The patient did have external hemorrhoids. The patient tolerated procedures well. She was brought to recovery room in stable condition. ESTIMATED BLOOD LOSS: Minimal. SPECIMENS: Right colon polyp and GE junction mucosal biopsies. COMPLICATIONS: None. Tammy Olvera MD [id number] /[id number] [facility] SURGICAL PATHOLOGYon 023 CASE REPORT [facility] Comment on above: Order Comment: Speci men Type: TISSUE SPECIMEN Ordering Facility: [facility] Address: [address] [place] [address] Result Comment: Surg ica Pathology Report Case: [id number] Authorizing Provider: Tammy Olvera MD Collected: 09/07/2023 09:19 AM Ordering Location: SURGERY Received: 09/08/2023 10:38 AM Pathologist: Francis Kelly MD Specimens: A) - ESOPHAGOGASTRIC JUNCTION BIOPSY B) - ASCENDING COLON POLYP Performed By: #### S #### [facility] CLIA [id number] [address] [place] [address] CLINICAL HISTORY [facility] Comment on above: Order Comment: Speci men Type: TISSUE SPECIMEN Ordering Facility: [facility] Address: [address] [place] [address] Result Comment: Hist ory of Conner's esophagus Constipation Performed By: #### S #### [facility] CLIA [id number] [address] [place] [address] DIAGNOSIS COMMENT There is no evidence of intestinal metaplasia in the gastroesophageal junction biopsy. [facility] Comment on above: Order Comment: Speci men Type: TISSUE SPECIMEN Ordering Facility: [facility] Address: [address] [place] [address] Performed By: #### S #### [facility] CLIA [id number] [address] [place] [address] FINAL DIAGNOSIS [facility] Comment on above: Order Comment: Speci men Type: TISSUE SPECIMEN Ordering Facility: [facility] Address: [address] [place] [address] Result Comment: A. G astroesophageal junction, biopsy: - Fragments of squamous and gastric type glandular mucosa with mild chronic inflammation. See comment. B. Ascending colon, biopsy: - Tubular adenoma. Performed By: #### S #### [facility] CLIA [id number] [address] [place] [address] FINAL PERFORMING LAB [facility] Comment on above: Order Comment: Speci men Type: TISSUE SPECIMEN Ordering Facility: [facility] Address: [address] [place] [address] Result Comment: Diag nostic interpretation performed at [facility], [address] [place] [address] CLIA# [id number] [employer] Specialist: Francis Kelly M.D. Performed By: #### S #### [facility] CLIA [id number] [address] [place] [address] GROSS DESCRIPTION [facility] Comment on above: Order Comment: Speci men Type: TISSUE SPECIMEN Ordering Facility: [facility] Address: [address] [place] [address] Result Comment: A. E SOPHAGOGASTRIC JUNCTION BIOPSY Received in formalin labeled esophagogastric junction biopsy are multiple pieces of marroquin, soft tissue aggregating to 0.4 x 0.2 x 0.2 cm. Totally submitted in one cassette. B. ASCENDING COLON POLYP Received in formalin labeled ascending colon polyp are two pieces of marroquin, soft tissue aggregating to 0.7 x 0.2 x 0.2 cm. Totally submitted in one cassette. Gross examination performed at [facility], [address] [place] [address] CLIA#[id number] [facility] September 08, 2023 2:05 PM Performed By: #### S #### [facility] CLIA [id number] [address] [place] [address] NURSING PROGon 09-01-2023 NURSING PROG HNO ID: [id number] Author: Alek Mckinley, RN Service: ? Author Type: Registered Nurse Type: Nursing Progress Note Filed: 09/01/2023 4:13 PM Note Text: Summary: Pre-op Anesthesia Approval Okay to proceed with procedure per Abby Valladares MD. I have reviewed pt's chart via phone call with Dr. Valladares. [facility] NURSING PROGon 08-30-2023 NURSING PROG HNO ID: [id number] Author: April Irving, CAROL Service: ? Author Type: Registered Nurse Type: Nursing Progress Note Filed: 08/30/2023 3:05 PM Note Text: Pre-Procedure Checklist Tammy Gupta [phone] (home) 1960 63 year old There is no height or weight on file to calculate BMI. Allergies: Albuterol Sulfate Intolerance Codeine Other: See Comments Comment:Passes out Metoprolol Cough Minocycline GI Upset Plaquenil [Hydroxyc* Rash Comment:blisters Red Yeast Rice Vomiting Gudsban-Lcs-Klz Red* Swelling Comment:Rouvstatin AND pravastatin, lovastatin Sulfa (Sulfonamide * Rash Tetanus And Diphthe* Other: See Comments Comment:Swelling of arm Tetracycline GI Upset Procedure: EGD/Colonoscopy Date of Procedure: 09-07-2023 Smoke: No Alcohol: No Street Drugs: No Diabetic: No Insulin: No Problems with Anesthesia (Self or Family?) No Railways Assistant: Dr. Adri Fierro Saw salesperson hosiery in the last 6 months? Yes- per patient, most recent visit went well. Recent EKG/Cardiac Testing: No Chest pain in the last 6 months (<6 months cardiac clearance needed): No History of: Heart Attack/Stroke/Blood Clot?: Heart attack December 2020- 2 stents placed ( LDA, RCA) Shortness of Breath: No Asthma: No Inhalers: No Any Outstanding Consults?: No If yes, list: none Additional Notes: Had recent elevated serum calcium. She was advised to discontinue her calcium tablets and have calcium rechecked at the beginning of the year. Per patient, she was advised to not hold Brilinta prior to procedure per Nidia Rivero. [facility] CNOVon 08-16-2023 CNOV Office Visit (GENSWS ) TAMMY GUPTA ([id number]) 1960 F Date Time Provider Department 08/16/23 11:00 AM NIDIA RIVERO During your visit today, we recorded the following information about you: Temperature Pulse Blood pressure Weight 98.5 degrees 92/minute 124/80 82.5 kg Height 1.473 m Nidia Rivero PA-C 08/16/2023 3:49 PM Signed HISTORY AND PHYSICAL Tammy Alonso 1960 REFERRING PHYSICIAN: Geremias Vaughn MD CHIEF COMPLAINT: Consult (Barretts esophagus/ lymphocytic colitis) HPI: The patient is a 63 year old female referred for endoscopy. Tammy notes chronic constipation. Patient denies any weight changes, blood in stools, or black tarry stools. Denies family history of colon issues. The patient NOTES a history of Conner's esophagus and is overdue for surveillance colonoscopy. Notes intermittent upper abdominal discomfort, worse with acidic foods. Tammy has undergone prior endoscopy, most recently in [address] Olvera in [place]. Findings included Conner's esophagus on upper endoscopy, and increased intraepithelial lymphocytes on random colon biopsies. Patient denies problems with sedation in the past. She is interested in trying a different bowel prep. PAST MEDICAL HISTORY Diagnosis Date Abnormal blood chemistry Allergic rhinitis Anxiety Conner's esophagus BCC (basal cell carcinoma) Rt eye Esophageal reflux Essential hypertension, benign Family history of diabetes mellitus Family history of high cholesterol Hemorrhoids Hypercalcemia Hyperlipidemia Impaired fasting glucose Interstitial cystitis Lumbar spinal stenosis Lymphocytic colitis Melanoma of thigh (HCC) left Polyarthritis of multiple sites Polycythemia Skin lesion of breast Uterine fibroid UTI (urinary tract infection) PAST SURGICAL HISTORY Procedure Laterality Date COLONOSCOPY FLX DX W/COLLJ SPEC WHEN PFRMD 04/03/2018 Colonoscopy ESOPHAGOGASTRODUODENOSCOPY TRANSORAL DIAGNOSTIC 04/03/2018 EGD HYSTERECTOMY HX abdominal/partial still has ovaries surgery done for fibroids LAPAROSCOPY DIAGNOSTIC Current Outpatient Medications Medication Sig omeprazole (PRILOSEC) 20 mg capsule Take 1 capsule by mouth twice daily. lisinopril (ZESTRIL, PRINIVIL) 20 mg tablet Take 20 mg by mouth once daily. AMLODIPINE BESYLATE (AMLODIPINE ORAL) Take by mouth once daily. 10mg daily omeprazole (PRILOSEC) 20 mg capsule Take 20 mg by mouth once daily. budesonide-formoterol (SYMBICORT) 160-4.5 mcg/actuation inhaler Inhale 2 Puffs as instructed as needed. ciprofloxacin HCl (CIPRO) 500 mg tablet Take 500 mg by mouth twice daily. On hand if needed for cystitis/UTI phenazopyridine (PYRIDIUM, GERIDIUM) 200 mg tablet Take 200 mg by mouth three times daily as needed. meloxicam (MOBIC) 15 mg tablet Take 15 mg by mouth once daily. methotrexate 2.5 mg tablet Take by mouth one time only. Seven tabs once a week folic acid 1 mg tablet Take 1 mg by mouth twice daily. predniSONE (DELTASONE) 5 mg tablet Take 5 mg by mouth once daily. One tab for 3-5 days for polyarthropathy flare ups HYDROcodone-acetaminophen (NORCO) 5-325 mg per tablet Take 1 tablet by mouth twice daily as needed. cyclobenzaprine (FLEXERIL) 10 mg tablet Take 10 mg by mouth once daily. POLYETHYLENE GLYCOL 3350 (MIRALAX ORAL) Take by mouth as needed. ASCORBIC ACID/ZINC (ZINC WITH VITAMIN C ORAL) Take by mouth once daily. omega-3 fatty aumai-lac-dvk 300 mg cap Take by mouth once daily. No current facility-administered medications for this visit. ALLERGIES: Codeine; Metoprolol; Minocycline; Plaquenil [Hydroxychloroquine]; Sulfa (Sulfonamide Antibiotics); Tetanus And Diphtheria Toxoids, Adsorbed, Adult; and Tetracycline PERSONAL HISTORY: Social History Tobacco Use Smoking status: Every Day Packs/day: 2 Types: Cigarettes Smokeless tobacco: Never Tobacco comments: Smokes 1/2 pack per day. Smoked since age of 12 Substance Use Topics Alcohol use: No Drug use: No FAMILY HISTORY: FAMILY HISTORY Problem Relation Age of Onset Diabetes Mother Alcohol/Drug Father REVIEW OF SYMPTOMS: The review of systems data was entered by the nurse and reviewed by ca Nursing Notes: Silvia Rubalcava LPN 08/16/2023 11:01 AM Signed REVIEW OF SYSTEMS: General: The patient denies fatigue, denies weight loss, denies weight gain, NOTES feeling hot, and denies feelings of cold. Eyes: The patient denies glaucoma, NOTES eye injury/surgery, wears glasses or contacts. Ear/Nose/Throat: The patient NOTES allergies, NOTES hayfever, denies ear infections, and denies bloody noses. Cardiovascular: The patient denies chest pain, denies heart disease, NOTES high blood pressure,NOTES cardiac stent, NOTES prior heart attack, denies irregular heart beat, NOTES high cholesterol, denies poor circulation, denies heart failure, other cardiac issues, denies timothy (more content not included)... [facility] Calcium.ionized [Moles/Vol]o n 08-09-2023 Calcium.ionized (Bld) [Mass/Vol] 1.36 mmol/L High 1.08-1.30 [facility] Comment on above: Order Comment: Joann mejia Type: BLOOD SPECIMEN Ordering Facility: [facility] Address: [facility] [place] [address] Performed By: #### 1 [id number] #### [facility] CLIA [id number] [address] [place] [address] [place] Calcium.ionized adjusted to pH 7.4 (Bld) [Moles/Vol] 1.31 mmol/L High 1.08-1.30 [facility] Comment on above: Order Comment: Joann mejia Type: BLOOD SPECIMEN Ordering Facility: [facility] Address: [address] [place] [address] Performed By: #### 1 [id number] #### [facility] CLIA [id number] [address] [place] [address] [place] [facility] - Drug toxicology on 07-04-2022 Amphetamines Ql (U) Negative <1000 ng/mL [facility] Work Phone: [phone] Benzodiazepines Ql (U) Negative < 200 ng/mL [facility] Work Phone: [phone] Cannabinoids Screen Ql (U) Negative < 50 ng/mL [facility] Work Phone: [phone] Cocaine Ql (U) Negative < 300 ng/mL [facility] Work Phone: [phone] Opiates Ql (U) Negative < 300 ng/mL [facility] Work Phone: [phone] No Panel Informationon 07-04 MDMA (Ecstasy) Screen Negative < 500 ng/mL [facility] Work Phone: [phone] Miscellaneous Test See comment [facility] Work Phone: Comment on above: [phone] 6+OXYCODONE-B UND (ng/mL) DRUG RESULT SCREEN CUTOFF____ Amphetamines,Urine Negative ng/mL 1000 Amphetamine test includes Amphetamine and Methamphetamine.Barbiturates Negative ng/mL 200Benzodiazepines Negative ng/mL 200Cannabinoid Negative ng/mL 20Cocaine (Metab) Negative ng/mL 300Opiates Negative ng/mL 300 Opiates test includes Codeine, Morphine, Hydromorphone, Hydrocodone. Oxycodone/Oxymorphone,Urine Negative ng/mL 300 Test includes Oxydodone and Oxymorphone. ___ TESTING PERFORMED AT [facility]. ORIGINAL REPORT ON FILE IN LAB CONTAINS ADDITIONAL TEST SITE INFORMATION. ___ Urine Barbiturates Screen Negative < 200 ng/mL [facility] Work Phone: Urine Drug Screen Comment [facility] Work Phone: Comment on above: CONFIRMATORY TESTING FOR ALL POSITIVE URINE DRUG SCREENRESULTS WILL ONLY BE SENT OUT UPON PHYSICIAN ORDER. VISTA Urine Drug Screen methods provide only preliminaryanalytical test results. A more specific alternate chemicalmethod must be used in order to obtain a confirmedanalytical result. Gas chromatography/mass spectrometery(GC/MS) is the preferred confirmatory method. Clinicalconsideration and professional judgement should be appliedto any drug of abuse test result, particularly whenpreliminary positive results are used. URINE TCA TESTING MUST BE ORDERED SEPARATELY. USE TESTMNEMONIC: [facility] Urine Methadone Screen Negative < 300 ng/mL [facility] Work Phone: Urine phencyclidine (PCP) de tectionon 07-04-2022 Phencyclidine Ql (U) Negative < 25 ng/mL [facility] Work Phone: Vital Signs Date Time Vital Sign Value Performing Clinician Faci lity 01-08-2024 10:22-0500 Blood Pressure Location CHIQUITA BURCH MD [facility] 01-08-2024 10:22-0500 Blood Pressure Method CHIQUITA BURCH MD [facility] 01-08-2024 10:22-0500 Body temperature 98.06 [degF] CHIQUITA BURCH MD [facility] 01-08-2024 10:22-0500 Diastolic Blood Pressure Non-Invasive 81 mm[Hg] CHIQUITA BURCH MD [facility] 01-08-2024 10:22-0500 Heart rate 72 /min CHIQUITA BURCH MD [facility] 01-08-2024 10:22-0500 Mean blood pressure 97 mm[Hg] CHIQUITA BURCH MD [address] [place] [address] 01-08-2024 10:22-0500 Reason For Taking VItal Signs CHIQUITA BURCH MD [address] [place] [address] 01-08-2024 10:22-0500 Respiratory rate 16 /min CHIQUITA BURCH MD [address] [place] [address] 01-08-2024 10:22-0500 Systolic Blood Pressure Non-Invasive 127 mm[Hg] CHIQUITA BURCH MD [address] [place] [address] 01-08-2024 06:46-0500 Blood Pressure Location CHIQUITA BURCH MD [address] [place] [address] 01-08-2024 06:46-0500 Blood Pressure Method CHIQUITA BURCH MD [address] [place] [address] 01-08-2024 06:46-0500 Body temperature 98.06 [degF] CHIQUITA BURCH MD [address] [place] [address] 01-08-2024 06:46-0500 Diastolic Blood Pressure Non-Invasive 86 mm[Hg] CHIQUITA BURCH MD [address] [place] [address] 01-08-2024 06:46-0500 Heart rate 74 /min CHIQUITA BURCH MD [address] [place] [address] 01-08-2024 06:46-0500 Reason For Taking VItal Signs CHIQUITA BURCH MD [address] [place] [address] 01-08-2024 06:46-0500 Respiratory rate 17 /min CHIQUITA BURCH MD [address] [place] [address] 01-08-2024 06:46-0500 Systolic Blood Pressure Non-Invasive 150 mm[Hg] CHIQUITA BURCH MD [address] [place] [address] 01-08-2024 02:35-0500 Blood Pressure Location CHIQUITA BURCH MD [address] [place] [address] 01-08-2024 02:35-0500 Blood Pressure Method CHIQUITA BURCH MD [address] [place] [address] 01-08-2024 02:35-0500 Body temperature 97.88 [degF] CHIQUITA BURCH MD [address] [place] [address] 01-08-2024 02:35-0500 Diastolic Blood Pressure Non-Invasive 84 mm[Hg] CHIQUITA BURCH MD [address] [place] [address] 01-08-2024 02:35-0500 Heart rate 78 /min CHIQUITA BURCH MD [address] [place] [address] 01-08-2024 02:35-0500 Reason For Taking VItal Signs CHIQUITA BURCH MD [address] [place] [address] 01-08-2024 02:35-0500 Respiratory rate 16 /min CHIQUITA BURCH MD [address] [place] [address] 01-08-2024 02:35-0500 Systolic Blood Pressure Non-Invasive 125 mm[Hg] CHIQUITA BURCH MD [address] [place] [address] 01-07-2024 14:38-0500 Blood Pressure Cuff Size CHIQUITA BURCH MD [address] [place] [address] 01-06-2024 18:45-0500 Blood Pressure Cuff Size CHIQUITA BURCH MD [address] [place] [address] 01-06-2024 16:01-0500 Blood Pressure Cuff Size CHIQUITA BURCH MD [address] [place] [address] 01-06-2024 10:50-0500 Mean blood pressure 102 mm[Hg] CHIQUITA BURCH MD [address] [place] [address] 01-06-2024 06:25-0500 Mean blood pressure 101 mm[Hg] CHIQUITA BURCH MD [address] [place] [address] 01-05-2024 19:12-0500 Body height 144.8 cm CHIQUITA BURCH MD [address] [place] [address] 01-05-2024 19:12-0500 Body weight 86.7 kg CHIQUITA BURCH MD [address] [place] [address] 01-05-2024 19:12-0500 Body weight 41.35 kg/m2 CHIQUITA BURCH MD [address] [place] [address] 01-05-2024 16:00-0500 Heart rate 66 /min CHIQUITA BURCH MD [address] [place] [address] 01-05-2024 12:00-0500 Heart rate 81 /min CHIQUITA BURCH MD [address] [place] [address] 01-05-2024 09:46-0500 Heart rate 105 /min CHIQUITA BURCH MD [address] [place] [address] 01-05-2024 06:03-0500 Diastolic blood pressure 64 mm[Hg] CHIQUITA BURCH MD [address] [place] [address] 01-05-2024 06:03-0500 Mean blood pressure 87 mm[Hg] CHIQUITA BURCH MD [address] [place] [address] 01-05-2024 06:03-0500 Systolic blood pressure 123 mm[Hg] CHIQUITA BURCH MD [address] [place] [address] 01-05-2024 03:44-0500 Diastolic blood pressure 81 mm[Hg] CHIQUITA BURCH MD [address] [place] [address] 01-05-2024 03:44-0500 Mean blood pressure 103 mm[Hg] CHIQUITA BURCH MD [address] [place] [address] 01-05-2024 03:44-0500 Systolic blood pressure 130 mm[Hg] CHIQUITA BURCH MD [address] [place] [address] 01-05-2024 02:21-0500 Diastolic blood pressure 67 mm[Hg] CHIQUITA BURCH MD [address] [place] [address] 01-05-2024 02:21-0500 Mean blood pressure 90 mm[Hg] CHIQUITA BURCH MD [address] [place] [address] 01-05-2024 02:21-0500 Systolic blood pressure 124 mm[Hg] CHIQUITA BURCH MD [address] [place] [address] 01-03-2024 17:07-0500 Body height 144.8 cm CHIQUITA BURCH MD [address] [place] [address] 01-03-2024 17:07-0500 Body weight 86.7 kg CHIQUITA BURCH MD [address] [place] [address] 01-03-2024 17:07-0500 Body weight 41.35 kg/m2 CHIQUITA BURCH MD [address] [place] [address] 01-03-2024 14:56-0500 SaO2% (BldA) [Mass fraction] 98.1 % CHIQUITA BURCH MD [facility] 01-03-2024 14:05-0500 Respiratory Rate - Anes 17 br/min CHIQUITA BURCH MD [address] [place] [address] 01-03-2024 14:00-0500 Respiratory Rate - Anes 19 br/min CHIQUITA BURCH MD [address] [place] [address] 01-03-2024 13:55-0500 Respiratory Rate - Anes 25 br/min CHIQUITA BURCH MD [address] [place] [address] 01-03-2024 13:45-0500 Body temperature 95.54 [degF] CHIQUITA BURCH MD [address] [place] [address] 01-03-2024 13:20-0500 Body temperature 95.36 [degF] CHIQUITA BURCH MD [address] [place] [address] 01-03-2024 13:10-0500 Body temperature 95.36 [degF] CHIQUITA BURCH MD [address] [place] [address] 01-03-2024 09:25-0500 SaO2% (BldA) [Mass fraction] 98.9 % CHIQUITA BURCH MD [facility] 01-02-2024 23:11-0500 Heart rate 66 /min CHIQUITA BURCH MD [address] [place] [address] 01-02-2024 19:32-0500 Body temperature 97.34 [degF] CHIQUITA BURCH MD [facility] 01-01-2024 23:08-0500 Heart rate 76 /min CHIQUITA BURCH MD [facility] 01-01-2024 15:28-0500 Body temperature 97.52 [degF] CHIQUITA BURCH MD [facility] 12-31-2023 22:52-0500 Heart rate 76 /min CHIQUITA BURCH MD [facility] 09-28-2023 09:50-0400 Body temperature 97.5 [degF] Nidia Josefa PA-C Work Phone: [facility] 09-28-2023 09:50-0400 Body weight 85.37 kg Nidia La Verne PA-C Work Phone: [facility] 09-28-2023 09:50-0400 Diastolic blood pressure 80 mm[Hg] Nidia Josefa PA-C Work Phone: [facility] 09-28-2023 09:50-0400 Heart rate 91 /min Nidia La Verne PA-C Work Phone: [facility] 09-28-2023 09:50-0400 SaO2% (BldA) [Mass fraction] 97 % Nidia La Verne PA-C Work Phone: [facility] 09-28-2023 09:50-0400 Systolic blood pressure 132 mm[Hg] Nidia Josefa PA-C Work Phone: [facility] Encounters Encounter Date Encounter Type Care Provider Facility Start: 06-03-2025 End: 06-03-2025 Emergency department patient visit ROSENDO CAMARILLO [facility] Start: 05-01-2025 End: 05-01-2025 ambulatory GEREMIAS VAUGHN [facility] Start: 03-24-2025 End: 03-24-2025 ambulatory Geremias Vaughn Facility:[facility] Start: 02-27-2025 ambulatory GEREMIAS VAUGHN [facility] Start: 02-21-2025 End: 02-21-2025 [facility] Start: 02-17-2025 End: 02-17-2025 [facility] Start: 08-27-2024 End: 08-27-2024 ambulatory MAULIK CAI [facility] Start: 07-30-2024 End: 07-30-2024 [facility] Start: 05-29-2024 End: 05-29-2024 ambulatory BUTROS LATOUF Facility:[facility] Start: 05-27-2024 End: 05-27-2024 ambulatory BUTROS LATOUF Facility:[facility] Start: 04-23-2024 ambulatory Butros Latouf Facility: [facility] Start: 04-23-2024 End: 04-23-2024 ambulatory Butros Latouf Facility:[facility] Start: 04-09-2024 End: 04-10-2024 ambulatory CEFERINO AHUJA Facility:A Start: 04-09-2024 End: 04-09-2024 Patient encounter procedure CEFERINO AHUJA MD [facility] Start: 03-13-2024 End: 03-13-2024 ambulatory [facility] Work Phone: Start: 03-13-2024 End: 03-13-2024 Patient encounter procedure [facility] Work Phone: Start: 03-12-2024 End: 03-12-2024 ambulatory BUTROS LATOUF Facility:[facility] Start: 02-13-2024 End: 02-14-2024 ambulatory CEFERINO AHUJA Facility:A Start: 02-13-2024 End: 02-13-2024 Patient encounter procedure CEFERINO AHUJA MD [facility] Start: 01-16-2024 End: 01-17-2024 ambulatory CEFERINO AHUJA Facility:A Start: 01-16-2024 End: 01-16-2024 Patient encounter procedure CEFERINO AHUJA MD [facility] Start: 12-29-2023 End: 01-08-2024 Evaluation and management of inpatient [facility] Facility:A Start: 12-29-2023 End: 01-08-2024 Evaluation and management of inpatient CHIQUITA BURCH MD [facility] Start: 09-28-2023 End: 09-28-2023 Patient encounter procedure Nidia Rivero PA-C Work Phone: General Surgery Comment on above: Tubular adenoma of c olon (Primary Dx); Conner's esophagus without dysplasia Start: 09-28-2023 End: 09-28-2023 ambulatory NIDIA RIVERO Facility:[facility] Start: 09-07-2023 End: 09-07-2023 ambulatory BUTROS LATOUF Facility:[facility] Start: 08-16-2023 End: 08-16-2023 ambulatory NIDIA RIVERO Facility:[facility] Start: 07-04-2022 End: 07-04-2022 Patient encounter procedure [facility] Start: 04-21-2022 End: 04-21-2022 Patient encounter procedure [facility], Specimen Procedures Date Procedure Procedure Detail Performing Clinician Start: 06-03-2025 Urinalysis BUTROS LAT OUF Comment on above: Result Comment: URIN ALYSIS Performed By: #### [id number] ####[facility],[address] [place] [address] Start: 03-13-2024 MRI of brain with contrast Start: 01-03-2024 Craniotomy CEFERINO SILVA MD Comment on above: craniotomy with rese ction of tumor Start: 11-27-2019 Arterial stent (phys ical object) CHIQUITA BURCH MD Start: 04-03-2018 Colonoscopy Nidia Liana chua PA-C Work Phone: Start: 11-27-2017 Malignant melanoma, no ICD-O subtype (morphologic abnormality) CHIQUITA BURCH MD Comment on above: left leg Start: 11-27-2014 Basal cell carcinoma (morphologic abnormality) CHIQUITA BURCH MD Comment on above: right eye Start: 11-27-2005 Osteophyte of bone (disorder) CHIQUITA BURCH MD Start: 11-27-1999 Degeneration of intervertebral disc (disorder) CHIQUITA BURCH MD Plan of Treatment Date Care Activity Detail Author Start: 05-02-2025 Diabetes Screening Diabetes Screenin g [facility] Start: 11-12-2023 Covid-19 Vaccine () Covid-19 Vaccine () [facility] Start: 04-03-2023 Colonoscopy Colonoscopy [facility] Start: 04-03-2023 Colorectal Cancer Screening Colorectal Cancer Screening [facility] Start: 11-27-2022 Depression Assessment Depression Ass essment [facility] Start: 2020 RSV Vaccine (1 - 1-d ose 60+ series) RSV Vaccine (1 - 1-dose 60+ series) [facility] Start: 2005 Cologuard (FIT-DNA) Cologuard (FIT-D NA) [facility] Start: [address] Colonography [facility] Start: 2005 Fecal Occult Blood Fecal Occult Bloo d [facility] Start: 2005 Lipid 1996 panel - S wilda or Plasma Lipid Screening [facility] Start: 2005 Sigmoidoscopy Sigmoidoscopy [facility] Start: 2000 Mammography Mammogram Screening [facility] Start: 1990 HPV Testing HPV Testing [facility] Start: 1981 Pap Testing Pap Testing [facility] Start: 1979 Shingrix Vaccine (1 of 2) Shingrix V accine (1 of 2) [facility] Start: 1979 Urine microalbumin profile DTa P,Tdap,Td Vaccine (1 - Tdap) [facility] Start: 1978 Hepatitis C Screening Hepatitis C Sc abilio [facility] Start: 1978 HIV Screening HIV Screening [facility] Start: 1966 Pneumococcal vaccination Pneum ococcal Vaccine (1 - PCV) [facility] Immunizations Immunization Date Immunization Notes Care Provider Fa cility 11-27-2019 influenza virus vacc ine, unspecified formulation CHIQUITA BURCH MD [facility] Payers Date Payer Category Payer Medicare [id number] 2024 Medicare [id number] 2024 Self-pay [id number] 2023 Medicare [id number] 2022 Medicare HUMANA MEDICARE HUMANA GOLD PLUS [id number] 2022-[facility] [phone] [place] [id number] O [id number] 2015 Medicare [id number] 1960 Unknown [id number] 1960 Unknown [id number] 1960 Unknown [id number] 1960 Unknown [id number] 1960 Unknown [id number] 1960 Unknown [id number] 1960 Unknown [id number] 1960 Unknown [id number] 1960 Unknown [id number] 1960 Unknown [id number] 1960 Unknown [id number] 1960 Unknown [id number] Unknown [id number] Unknown [id number] Unknown [id number] Social History Date Type Detail Facility Tobacco smoking stat [facility] Unknown if ever smoked [facility] Work Phone: Start: 1960 Sex Assigned At Female A [facility] Start: 01-25-2021 End: 08-16-2023 Tobacco smoking status NHIS Ex-smoker [facility] End: 08-27-2021 History of tobacco use Current smoker [facility] End: 08-27-2021 History of tobacco use Cigarette Smoker [facility] Start: 08-16-2023 End: 09-28-2023 Cigarettes smoked current (pack per day) - Reported 2 [facility] Start: 08-16-2023 Tobacco use and exposure Smokeless tobacco non-user [facility] Start: 09-28-2023 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 Smoked since age of 12 [facility] Start: 1960 Sex Assigned At Not on file C [facility] Medical Equipment Procedure Code Equipment Code Equipment Origin al Text Equipment Identifier Dates Craniotomy Stereotactic Unknown 01/03/24 Unknown Unknown FDA Start: 01-03-2024 Craniotomy Stereotactic Unknown 01/03/24 Unknown Unknown FDA Start: 01-03-2024 Craniotomy Stereotactic Unknown 01/03/24 Unknown Unknown FDA Start: 01-03-2024 Craniotomy Stereotactic Unknown 01/03/24 Unknown Unknown FDA Start: 01-03-2024 Craniotomy Stereotactic Unknown 01/03/24 Unknown Unknown FDA Start: 01-03-2024 Craniotomy Stereotactic Unknown 01/03/24 Unknown Unknown FDA Start: 01-03-2024 Craniotomy Stereotactic Unknown 01/03/24 Unknown Unknown FDA Start: 01-03-2024 Craniotomy Stereotactic Unknown 01/03/24 Unknown Unknown FDA Start: 01-03-2024 Craniotomy Stereotactic Unknown 01/03/24 Unknown Unknown FDA Start: 01-03-2024 Craniotomy Stereotactic Unknown 01/03/24 Unknown Unknown FDA Start: 01-03-2024 Craniotomy Stereotactic Unknown 01/03/24 Unknown Unknown FDA Start: 01-03-2024 Craniotomy Stereotactic Unknown 01/03/24 Unknown Unknown FDA Start: 01-03-2024 Craniotomy Stereotactic Unknown 01/03/24 Unknown Unknown FDA Start: 01-03-2024 Craniotomy Stereotactic Unknown 01/03/24 Unknown Unknown FDA Start: 01-03-2024 Craniotomy Stereotactic Unknown 01/03/24 Unknown Unknown FDA Start: 01-03-2024 Craniotomy Stereotactic Unknown 01/03/24 Unknown Unknown FDA Start: 01-03-2024 Functional Status Date Assessment Result Facility 01-08-2024 Functional Status Room check performed [facility] 01-08-2024 Functional Status [facility] 01-08-2024 Functional Status Ambulation in [facility] 01-08-2024 Functional Status Valid Hoberg Slip N/A [facility] 01-07-2024 Functional Status [facility] 01-07-2024 Functional Status [facility] 01-06-2024 Functional Status bilateral knee high rem nash/off [facility] 01-06-2024 Functional Status [facility] 01-06-2024 Functional Status [facility] 01-06-2024 Functional Status 4 [facility] 01-06-2024 Functional Status [facility] 01-05-2024 Functional Status bariatric bed [facility] 01-05-2024 Functional Status [facility] 01-05-2024 Functional Status Done [facility] 01-05-2024 Functional Status [facility] 01-05-2024 Functional Status [facility] 01-05-2024 Functional Status [facility] 01-04-2024 Functional Status [facility] 01-04-2024 Functional Status Skin Care Prev entative Intervention(s) heel(s)s elevated [facility] 01-04-2024 [facility] Status [facility] 01-03-2024 [facility] 01-03[facility] Functional Status Patient Identi fied Identification band, Verbal [facility] 01-02-2024 Functional Status [facility] 01-01-2024 Functional Status Multilevel home [facility] 12-31-2023 Functional Status [facility] 12-31-2023 Functional Status [facility] 12-31-2023 Functional Status [facility] 12-30-2023 [facility] Status [facility] Mental Status Date Assessment Result Facility 01-08-2024 Mental Status Orientation Oriented x 4 [facility] 01-08-2024 [facility] 01-07-[facility] Mental Status Oriented x 4 [facility] 01-06-2024 Mental Status [facility] Clinical Notes 04-05-2023 to 01-08-2024 Note Date & Type Note Facility 01-08-2024 Hospital Discharge instructions Patient Education 01/08/2024 14:32:31 Managing Anxiety, Adult Managing Anxiety, Adult After being diagnosed with an anxiety disorder, you may be relieved to know why you have felt or behaved a certain way. You may also feel overwhelmed about the treatment ahead and what it will mean for your life. With care and support, you can manage this condition and recover from it. How to manage lifestyle changes Managing stress and anxiety Stress is your body's reaction to life changes and events, both good and bad. Most stress will last just a few hours, but stress can be ongoing and can lead to more than just stress. Although stress can play a major role in anxiety, it is not the same as anxiety. Stress is usually caused by something external, such as a deadline, test, or competition. Stress normally passes after the triggering event has ended. Anxiety is caused by something internal, such as imagining a terrible outcome or worrying that something will go wrong that will devastate you. Anxiety often does not go away even after the triggering event is over, and it can become long-term (chronic) worry. It is important to understand the differences between stress and anxiety and to manage your stress effectively so that it does not lead to an anxious response. Talk with your health care provider or a counselor to learn more about reducing anxiety and stress. He or she may suggest tension reduction techniques, such as: Music therapy. This can include creating or listening to music that you enjoy and that inspires you. Mindfulness-based meditation. This involves being aware of your normal breaths while not trying to control your breathing. It can be done while sitting or walking. Centering prayer. This involves focusing on a word, phrase, or sacred image that means something to you and brings you peace. Deep breathing. To do this, expand your stomach and inhale slowly through your nose. Hold your breath for 3 5 seconds. Then exhale slowly, letting your stomach muscles relax. Self-talk. This involves identifying thought patterns that lead to anxiety reactions and changing those patterns. Muscle relaxation. This involves tensing muscles and then relaxing them. Choose a tension reduction technique that suits your lifestyle and personality. These techniques take time and practice. Set aside 5 15 minutes a day to do them. Therapists can offer counseling and training in these techniques. The training to help with anxiety may be covered by some insurance plans. Other things you can do to manage stress and anxiety include: Keeping a stress/anxiety diary. This can help you learn what triggers your reaction and then learn ways to manage your response. Thinking about how you react to certain situations. You may not be able to control everything, but you can control your response. Making time for activities that help you relax and not feeling guilty about spending your time in this way. Visual imagery and yoga can help you stay calm and relax. Medicines Medicines can help ease symptoms. Medicines for anxiety include: Anti-anxiety drugs. Antidepressants. Medicines are often used as a primary treatment for anxiety disorder. Medicines will be prescribed by a health care provider. When used together, medicines, psychotherapy, and tension reduction techniques may be the most effective treatment. Relationships Relationships can play a big part in helping you recover. Try to spend more time connecting with trusted friends and family members. Consider going to couples counseling, taking family education classes, or going to family therapy. Therapy can help you and others better understand your condition. How to recognize changes in your anxiety Everyone responds differently to treatment for anxiety. Recovery from anxiety happens when symptoms decrease and stop interfering with your daily activities at home or work. This may mean that you will start to: Have better concentration and focus. Worry will interfere less in your daily thinking. Sleep better. Be less irritable. Have more energy. Have improved memory. It is important to recognize when your condition is getting worse. Contact your health care provider if your symptoms interfere with home or work and you feel like your condition is not improving. Follow these instructions at home: Activity Exercise. Most adults should do the following: ?Exercise for at least 150 minutes each week. The exercise should increase your heart rate and make you sweat (moderate-intensity exercise). ?Strengthening exercises at least twice a week. Get the right amount and quality of sleep. Most adults need 7 9 hours of sleep each night. Lifestyle Eat a healthy diet that includes plenty of vegetables, fruits, whole grains, low-fat dairy products, and lean protein. Do not eat a lot of foods that are high in solid fats, added sugars, or salt. Make choices that simplify your life. Do not use any products that contain nicotine or tobacco, such as cigarettes, e-cigarettes, and chewing tobacco. If you need help quitting, ask your health care provider. Avoid caffeine, alcohol, and certain jxhg-ify-dnptysb cold medicines. These may make you feel worse. Ask your pharmacist which medicines to avoid. General instructions Take qszn-xhm-epbcneb and prescription medicines only as told by your health care provider. Keep all follow-up visits as told by your health care provider. This is important. Where to find support You can get help and support from these sources: Self-help groups. Online and community organizations. A trusted spiritual leader. Couples counseling. Family education classes. Family therapy. Where to find more information You may find that joining a support group helps you deal with your anxiety. The following sources can help you locate counselors or support groups near you: Mental Health [place]: www.mentalhealth[place].net Anxiety and Depression Association of [place] (ADAA): www.adaa.org National [place] [employer]ness (AURA): [email or web address] Contact a health care provider if you: Have a hard time staying focused or finishing daily tasks. Spend many hours a day feeling worried about everyday life. Become exhausted by worry. Start to have headaches, feel tense, or have nausea. Urinate more than normal. Have diarrhea. Get help right away if you have: A racing heart and shortness of breath. Thoughts of hurting yourself or others. If you ever feel like you may hurt yourself or others, or have thoughts about taking your own life, get help right away. You can go to your nearest emergency department or call: Your local emergency services (911 in the [place] A suicide crisis helpline, such as the National Suicide Prevention Lifeline at . This is open 24 hours a day. Summary Taking steps to learn and use tension reduction techniques can help calm you and help prevent triggering an anxiety reaction. When used together, medicines, psychotherapy, and tension reduction techniques may be the most effective treatment. Family, friends, and partners can play a big part in helping you recover from an anxiety disorder. This information is not intended to replace advice given to you by your health care provider. Make sure you discuss any questions you have with your health care provider. Document Released: 11/07/2017 Document Revised: 04/14/2020 Document Reviewed: 04/14/2020 [employer] Patient Education 2020 [email or web address] Follow Up Care 12/29/2023 13:19:41 With:CEFERINO AHUJA MD, Neurosurgery Address: [address] [place] [phone] When:01/16/2024 10:00:00 With:GEREMIAS VAUGHN MD, Internal Medicine Address: [address] [place] [address] [address] [place] [address]- When:1-2 days Comments:Please call the office to schedule a follow-up appointment [facility] 01-08-2024 Oncology Progress note Date of Service 01/08/2024 Chief Complaint Brain and liver lesion Subjective Today patient is resting in bed, family at bedside. No new complaints, patient eager for discharge Lab Results Test Name Test Result Date/TimeWBC 9.1 10^3/mcL 01/08/2024 03:52 EST Hgb 13.3 G/dL 01/08/2024 03:52 EST Platelet 199 10^3/mcL 01/08/2024 03:52 EST Objective Vitals and Measurements T: 36.7 C (Oral) TMIN: 36.4 C (Oral) TMAX: 36.9 C (Oral) HR: 72 RR: 16 BP: 127/81 SpO2: 96% 14 system review is negative except as charted in the HPI Intake and Output 7AM Yesterday to 7AM Today Intake and Output (Last 24 hours) Intake Oral Intake 2240.00 Output Stool Count 1.00 Urine Count 9.00 Emesis Count 0.00 Total Summary Total Intake 2240.00 Total Output 0.00 Fluid Balance 2240.00 Physical Exam General Appearance: no acute distress Neurological: A&Ox3 follows commands Psychiatric: appropriate mood and affect Weight Dosing Weight: 86.7 kg (01/05/24) Dosing Weight: 86.7 kg (01/03/24) Medications Medications (25) Active Scheduled: (9) amLODIPine 10 mg tablet 10 mg 1 tab(s), Oral, qDay carvedilol 12.5 mg tablet 12.5 mg 1 tab(s), Oral, BIDM dexamethasone 2 mg tablet 2 mg 1 tab(s), Oral, TID ezetimibe 10 mg tablet 10 mg 1 tab(s), Oral, qDay lactulose 20 g/30 mL UD cup 10 gram(s) 15 mL, Oral, BID levETIRAcetam 500 mg tablet 500 mg 1 tab(s), Oral, q12h lisinopril 20 mg tablet 20 mg 1 tab(s), Oral, BID pantoprazole 40 mg EC tablet 40 mg 1 tab(s), Oral, qDayAC polyethylene glycol 3350 - UD packet 17 gram(s) 15 mL, Oral, qDay Continuous: (1) NS (0.9% nacl) 1,000 mL 1,000 mL, Intravenous, 50 mL/hr PRN: (15) acetaminophen 325 mg Tablet 650 mg 2 tab(s), Oral, q4h acetaminophen-HYDROcodone 325-5 mg tablet 1 tab(s), Oral, q4h Al hydrox/Mg hydrox/simethicone 200-200-20 mg/5 mL Susp UD 30 mL, Oral, q2h cyclobenzaprine 10 mg Tablet 10 mg 1 tab(s), Oral, BID dextrose 50% Solution Disp syringe 50 mL 25 g 50 mL, IV Push, AsDirected dextrose 50% Solution Disp syringe 50 mL 12.5 gram(s) 25 mL, IV Push, AsDirected diazepam 5 mg tablet 5 mg 1 tab(s), Oral, QID docusate sodium 100 mg Capsule 100 mg 1 cap(s), Oral, BID hydralazine 20 mg/mL (1mL) vial 10 mg 0.5 mL, IV Push, q2h insulin regular human recombinant 100 units/mL (3 mL) Soln sliding scale insulin, Subcutaneous, q4h magnesium hydroxide 8% Suspension 30 mL UD 30 mL, Oral, qHS melatonin 5 mg tablet 5 mg 1 tab(s), Oral, qHS ondansetron 2 mg/ 1 mL 2 mL INJ 4 mg 2 mL, IV Push, q4h polyethylene glycol 3350 - UD packet 17 gram(s) 15 mL, Oral, qDay prochlorperazine 10 mg/2 mL vial 10 mg 2 mL, IV Push, q6hr Lab Results 01/08 03:52 WBC: 9.1 Hgb: 13.3 Hct: 40.5 Platelet: 199 Neutrophil %: 86.9 H Glucose Level: 118 H Sodium Level: 140 Potassium Level: 4.5 BUN: 26.0 H Creatinine Lvl (s): 0.71 Imaging Results and Diagnostics (01/05/2024 18:54 EST MRI Liver) IMPRESSION: Left hepatic lobe lesion measuring 2.0 x 1.1 cm is most consistent with a hemangioma. Given incomplete enhancement on this exam consider ultrasound in 6-12 months to demonstrate stability out of an abundance of caution. [1] EKG No qualifying data available. Assessment/Plan Anxiety Brain mass, MRI brain showed 3 cm right frontal lobe mass, neurosurgery following, patient on Decadron and Keppra, underwent craniotomy with resection of mass on 01/03, pathology pending Liver lesion, CT abdomen/pelvis showed 2 cm hypodensity in the left lobe of the liver, MRI was done and showed left hepatic lobe lesion measuring 2 x 1.1 cm consistent with hemangioma, recommended ultrasound in 6 to 12 months, AFP, CA 19-9 and CEA wnl Patient can follow-up in the cancer center with Dr. Black in 1 to 2 weeks to go over pathology from craniotomy Case discussed with Dr. Elizabeth Time Spent 25 minutes spent on patient encounter [1] MRI Liver; EBONY GUZMAN MD 01/05/2024 18:54 EST Digitally Signed by MANDI RODRIGUEZ on 01/08/2024 04:34 PM [facility] 01-08-2024 Discharge summary Date of Service 01/08/2024 Discharge Diagnosis Disorder of brain, unspecified (G93.9 - ICD-10-CM) Cerebral edema (G93.6 - ICD-10-CM) Essential (primary) hypertension (I10 - ICD-10-CM) Hyperlipidemia, unspecified (E78.5 - ICD-10-CM) Spinal stenosis, lumbar region without neurogenic claudication (M48.061 - ICD-10-CM) Atherosclerotic heart disease of [place] coronary artery without angina pectoris (I25.10 - ICD-10-CM) Basal cell carcinoma of skin of right lower limb, including hip (C44.712 - ICD-10-CM) Rheumatoid arthritis, unspecified (M06.9 - ICD-10-CM) Unspecified convulsions (R56.9 - ICD-10-CM) Conner's esophagus without dysplasia (K22.70 - ICD-10-CM) Anxiety (F41.9 - ICD-10-CM) Ordered: Valium 5 mg oral tablet; Dose : 5 mg = 1 tab(s), Oral, TID, PRN Anxiety, X 5 day(s), # 15 tab(s), 0 Refill(s), 01/13/24 13:58:00 EST, Pharmacy: [id number], Anxiety, 144.8, cm, 01/05/24 19:12:00 EST, Height, 86.7, kg, 01/05/24 19:12:00 EST, Dosing Weight Right frontal lobe brain mass with surrounding vasogenic edema S/P craniotomy for resection of right frontal lobe mass. Additional Orders: Ordered: Discharge,01/08/24 14:30:00 EST, Discharged to: Home Ordered: Tylenol 325 mg oral capsule,Dose : 650 mg =, Oral, q4h, PRN as needed for pain, 0 Refill(s) Ordered: cyclobenzaprine 10 mg oral tablet,Dose : 10 mg = 1 tab(s), Oral, BID, PRN Muscle spasm, 0 Refill(s) Ordered: dexAMETHasone 1 mg oral tablet,See Instructions, 2mg (2 tabs) PO TID x 2 days 2mg (2 tabs) PO BID x 2 [id number] PO BID x 2 [id number] PO daily x 2 [id number] PO QOD x 2 dosesThen stop., # 28 tab(s), 0 Refill(s), Pharmacy: [facility], 144.8, cm, 01/05/24 19:12:00 EST, H... Ordered: levETIRAcetam 500 mg oral tablet,Dose : 500 mg = 1 tab(s), Oral, q12h, # 60 tab(s), 0 Refill(s), Pharmacy: [facility], 144.8, cm, 01/05/24 19:12:00 EST, Height, kg, 01/05/24 19:12:00 EST, Dosing Weight Ordered: polyethylene glycol 3350,Oral, qDay, 0 Refill(s) End of Orders Hospital Course This is a 63-year-old female who presented to the emergency department at [facility] after she had an episode of slurred speech and facial droop. She stated it was her second episode she has had in the last couple of weeks. She states the episodes lasted for about an hour. Her family noticed a left facial droop and then she had difficulty speaking. She states she noticed the facial droop in the mirror. She also states she has had headaches for the last couple of weeks, which she normally does not have. In addition, she states she has been off balance at times. She denies any decreased appetite or weight loss. She denies vision changes. She had a CT of the head at [facility] which demonstrated right frontal lobe edema. Due to these findings, she was transferred to [facility] for evaluation by neurosurgery. MRI of the brain was obtained, which demonstrated a 3 cm enhancing extra axial dural based mass overlying the lateral right frontal parietal junction. The mass caused mass effect and vasogenic edema with 3 mm of leftward midline shift. She was loaded with dexamethasone 10mg x 1 dose and then started on dexamethasone 4 mg every 6 hours and Keppra [address] chest/abd/pelvis demonstrated 2 cm left lobe liver mass. MRI liver was obtained and demonstrated hemangioma. On 01/03/24 underwent craniotomy for resection of a right frontal mass. She was little slow to wake up postoperatively, so a stat CT was obtained postop. CT demonstrated no acute hemorrhage, and expected postop changes. Post-op MRI obtained-Dr. Ahuja has reviewed-demonstrates the expected post-op changes. She has done well post-operatively. Transferred to [facility]. PT/OT recommended [facility] for additional therapy. Subgaleal drain removed on 01/05/24. On exam this morning, she is sitting up in the chair, dressed, and states she feels ready to be discharged home. She has no acute deficits noted. She is able to move all 4 extremities without difficulty. No lateralizing weakness is noted. She follows commands. She has had a very slight left facial droop since admission. This is no worse. Her speech is clear. She has been up and ambulating with supervision. Her head dressing is dry and intact. Her incision was evaluated, and is well-approximated with no erythema or drainage noted. She is been voiding without difficulty. She is tolerating a diet with no nausea or vomiting. She was started on a steroid taper postoperatively, and will continue on the taper for 9 more days. It was discussed in detail with her, the directions regarding the steroid taper, as well as continuing the Keppra until cleared by Dr. Ahuja to stop. He was also discussed thoroughly, the incision care instructions. She was instructed to cleanse her head and incision using the pads of her fingers and baby shampoo daily. Her dressing is also to be changed at least daily. Was discussed that should be changed more often if she is sweating, or if there is any drainage noted. She is instructed to notify the office if she has any redness, drainage, or if she develops a fever. Overall, she is doing very well and feels ready for discharge. She has good family support to assist her at home. Her discharge instructions and restrictions are provided for her as well as her follow-up appointment. Allergies Metoprolol Succinate ER Plaquenil Tetanus Toxoid codeine sulfate lovastatin (muscle cramps) minocycline (Rash) pravastatin (Pain) rosuvastatin (pain) sulfa drug tetracycline Procedures RIGHT CRANIOTOMY FOR RESECTION OF TUMOR Consults Consult to Physician - Ordered -- 12/29/23 16:37:00 EST, JONG AGUIAR (For Consultation Assignment Only NO other Orders), Routine, med management Consult to Physician - Ordered -- 01/01/24 16:09:00 YARED BHARDWAJ CLAUDINE MD, Routine, Cardiac clearance for OR, Needs brain mass resection (OR tentatively 01/02/24) Consult to Physician - Ordered -- 01/02/24 9:37:00 STEFANIA BHARDWAJ AULTMAN (For Consultation Assignment Only NO other Orders), Routine, Liver mass Consult to Physician - Ordered -- 01/02/24 10:53:00 BENTON, MARI CHEN MD, Routine, brain mass and liver lesion. hx melanoma Consult to Physician - Ordered -- 01/06/24 11:48:00 STEFANIA BHARDWAJ AULTMAN (For Consultation Assignment Only NO other Orders), Routine, Re-consult- Follow medically on stepdown unit; liver mass. Clearance for discharge Consult to Physician - Ordered -- 01/07/24 18:15:00 PAOLO BHARDWAJ ADARSH MD, Routine, liver lesion Imaging Results and Diagnostics MRI Liver Result Date: January 05, 2024 Verified By: EBONY GUZMAN MD CLINICAL STATEMENT: IMPRESSION: Left hepatic lobe lesion measuring 2.0 x 1.1 cm is most consistent with ahemangioma. Given incomplete enhancement on this exam consider ultrasound in6-12 months to demonstrate stability out of an abundance of caution. MRI Brain w/ + w/o Contrast Result Date: January 03, 2024 Verified By: RUDI MOSS MD CLINICAL STATEMENT: IMPRESSION: Interval resection of the dural based mass in the right frontoparietal region. Stable vasogenic edema in the right cerebral hemisphere. Stable 2-3 mm subfalcine shift of midline structures from right to left. CT Head or Brain w/o Contrast Result Date: January 03, 2024 Verified By: RICHARD CANALES MD CLINICAL STATEMENT: IMPRESSION: 1. Status post right craniotomy with pneumocephalus and trace extra-axialhemorrhage which could be postoperative. Continued mass effect upon the rightlateral ventricle and minimal [id number] midline shift, similar inappearance to the prior.2. Hypodensity in the right mcdaniel radiata and centrum semiovalecorresponding to the areas of FLAIR hyperintensity on prior MRI, most likelyrepresenting edema.3. Monitoring line or drain projecting in the superficial soft tissuesoverlying the craniotomy site. MRI Brain w/ + w/o Contrast Result Date: January 02, 2024 Verified By: Contributor_system [employer] CLINICAL STATEMENT: IMPRESSION: Redemonstration of 3.1 cm enhancing extra-axial mass overlying the rightfrontoparietal junction with mass effect, surrounding vasogenic edema,effacement of the right lateral ventricle and minimal leftward midline shift.Findings are stable since the examination performed 12/29/2023. Images forsurgical planning. CT Thorax w/ Contrast Result Date: January 01, 2024 Verified By: RUDI MOSS MD CLINICAL STATEMENT: IMPRESSION: No acute cardiopulmonary abnormality. Indeterminate 2 cm hypodensity in left lobe of liver. Differentialconsideration includes metastasis, benign or malignant neoplasm of liver, orpossibly a focal fatty infiltration of the liver. Further evaluation withMRI with and without IV contrast is recommended. Diverticulosis of the colon without signs of diverticulitis. Coronary artery calcification and/or stone stent. CT Abdomen/Pelvis w/Contrast Result Date: January 01, 2024 Verified By: RUDI MOSS MD CLINICAL STATEMENT: IMPRESSION: No acute cardiopulmonary abnormality. Indeterminate 2 cm hypodensity in left lobe of liver. Differentialconsideration includes metastasis, benign or malignant neoplasm of liver, orpossibly a focal fatty infiltration of the liver. Further evaluation withMRI with and without IV contrast is recommended. Diverticulosis of the colon without signs of diverticulitis. Coronary artery calcification and/or stone stent. MRI Brain w/ + w/o Contrast Result Date: December 29, 2023 Verified By: Contributor_JERSON kyle CLINICAL STATEMENT: IMPRESSION: 3 cm avidly enhancing extra-axial dural-based mass overlying the lateralright frontal parietal junction. Meningioma is most likely. Definitivediagnosis would require tissue sampling. The lesion results in considerableunderlying mass effect resulting in vasogenic edema, effacement of the rightlateral ventricle and 3 mm leftward midline shift. Neurosurgicalconsultation is recommended. Objective Vitals and Measurements T: 36.7 C (Oral) TMIN: 36.4 C (Oral) TMAX: 36.9 C (Oral) HR: 72 RR: 16 BP: 127/81 SpO2: 96% Weight Dosing Weight: 86.7 kg (01/05/24) Dosing Weight: 86.7 kg (01/03/24) Code Status Code Status - Ordered -- 12/29/23 16:38:00 EST, Full Code, Constant Order Admission Date 12/29/2023 Discharge Date 01/08/2024 Patient Instructions No aspirin, aspirin products, NSAIDS. Shampoo hair at least daily, including incision. Use baby shampoo or Aveeno; gently cleanse incision with finger pads, then apply clean gauze headwrap. Change gauze dressing over incision daily. Must remain covered until further instruction is given at post-op visit. Avoid any strenuous activity; nothing more strenuous than making a sandwich. No heavy house or yard work. No driving until seen by Dr. Ahuja's at follow up visit. Please call Dr. Ahuja's office with any questions or concerns prior to scheduled visit. If your surgical incision sites become red, swollen, painful, open and/or there is drainage around site or if you develop a fever/chills- Contact neurosurgery office immediately. Medications New Prescription acetaminophen (Tylenol 325 mg oral capsule)650 Milligram by mouth every 4 hours as needed as needed for pain. cyclobenzaprine (cyclobenzaprine 10 mg oral tablet)1 tab(s) by mouth two (2) times a day as needed Muscle spasm. dexAMETHasone (dexAMETHasone 1 mg oral tablet)2mg (2 tabs) PO TID x 2 days 2mg (2 tabs) PO BID x 2 days 1mg PO BID x 2 days 1mg PO daily x 2 days 1mg PO QOD x 2 doses Then stop.. Refills: 0. diazePAM (Valium 5 mg oral tablet)1 tab(s) by mouth three (3) times a day as needed Anxiety for 5 Days. Refills: 0. levETIRAcetam (levETIRAcetam 500 mg oral tablet)1 tab(s) by mouth every 12 hours. Refills: 0. polyethylene glycol 3350by mouth once a day. Changed evolocumab (Repatha SureClick 140 mg/mL subcutaneous solution)INJECT 140 MG UNDER THE SKIN ONCE EVERY 2 WEEKS. Refills: 3. Unchanged amLODIPine (Norvasc 10 mg oral tablet)1 tab(s) by mouth once a day. carvedilol (Coreg 12.5 mg oral tablet)1 tab(s) by mouth twice daily with meals. Refills: 3. ezetimibe (Zetia 10 mg oral tablet)1 tab(s) by mouth once a day. Refills: 3. folic acid (folic acid 1 mg oral tablet)2 tab(s) by mouth once a day. lactulose (lactulose 10 g/15 mL oral syrup)15 Milliliter by mouth two (2) times a day. lisinopril (lisinopril 20 mg oral tablet)1 tab(s) by mouth two (2) times a day. nitroGLYcerin (Nitrostat 0.4 mg sublingual tablet)1 tab(s) under the tongue every 5 minutes as needed Chest pain. Refills: 3. omeprazole (omeprazole 20 mg oral delayed release capsule)1 cap by mouth once a day before a meal. Discontinued aspirin (Ecotrin Adult Low Strength 81 mg oral delayed release tablet)1 tab(s) by mouth once a day with a meal. Refills: 3. methotrexate (methotrexate 2.5 mg oral tablet)6 tab(s) by mouth every Monday. Follow Up Follow Up with CEFERINO AHUJA MD, Neurosurgery When 01/16/2024 10:00 AM EST Where: [address] [phone] [phone] Follow Up with GEREMIAS VAUGHN MD, Internal Medicine When Within 1-2 days Why: Please call the office to schedule a follow-up appointment Where: [address] [facility] [address] [place], [place] [id number]- Follow Up Appointments See above Follow Up Labs/Studies Discharge Labs No Follow-up Labs Discharge Studies No Follow-up Studies Discharge Diet Resume home diet Discharge Activity No qualifying data available. Condition on Discharge Stable Readmission Risk/Palliative Score No qualifying data available. Discharge Disposition Home Information Provided To Patient Time Spent 15 min Digitally Signed by DAMIAN JACKSON on 01/08/2024 03:34 PM Digitally Signed by CEFERINO AHUJA MD on 01/08/2024 04:36 PM [facility] 01-08-2024 Note Discharge Instructions Thank you for allowing [facility] to assist you with your healthcare needs. The following is important discharge information regarding your hospital visit. Your Care Team GEREMIAS VAUGHN MD Your Diagnosis Anxiety What to do next Instructions From Your Doctor No aspirin, aspirin products, NSAIDS. Shampoo hair at least daily, including incision. Use baby shampoo or Aveeno; gently cleanse incision with finger pads, then apply clean gauze headwrap. Change gauze dressing over incision daily. Must remain covered until further instruction is given at post-op visit. Avoid any strenuous activity; nothing more strenuous than making a sandwich. No heavy house or yard work. No driving until seen by Dr. Ahuja's at follow up visit. Please call Dr. Ahuja's office with any questions or concerns prior to scheduled visit. If your surgical incision sites become red, swollen, painful, open and/or there is drainage around site or if you develop a fever/chills- Contact neurosurgery office immediately. Scheduled Follow-Up Appointments Appointment Type When With Where Contact InformationNS Post Op 01/16/2024 10:00 AM EST CEFERINO AHUJA MD Neurosurgery [address] [phone] Follow Up Appointments Follow Up with CEFERINO AHUJA MD, Neurosurgery When 01/16/2024 10:00 AM EST Where: [address] [phone] [phone] Follow Up with GEREMIAS VAUGHN MD, Internal Medicine When Within 1-2 days Why: Please call the office to schedule a follow-up appointment Where: [address] [place] [address]- The Following Activity and Diet Have Been Ordered for You No qualifying data available. No qualifying data available. The Following Equipment Has Been Ordered for You No qualifying data available. The Following Treatments Have Been Ordered for You Discharge Labs No qualifying data available. Discharge Radiology No qualifying data available. Other Therapies No qualifying data available. Post Acute Orders No qualifying data available. Someone Will Contact You Regarding These Home Health Referrals No home referrals have been ordered for you. No one will call you. Allergies Metoprolol Succinate ER Plaquenil Tetanus Toxoid codeine sulfate lovastatin (muscle cramps) minocycline (Rash) pravastatin (Pain) rosuvastatin (pain) sulfa drug tetracycline Medications Please ask your primary doctor or pharmacist before taking any other medication not listed, including over the counter drugs, herbal medications, vitamins and or supplements as they may interact with your home medications. What How Much When Why Instructions Last Dose New acetaminophen (Tylenol 325 mg oral capsule) 650 Milligram by mouth Every 4 hours as needed for as needed for pain New cyclobenzaprine (cyclobenzaprine 10 mg oral tablet) 1 tab(s) by mouth Two (2) times a day as needed for Muscle spasm New dexAMETHasone (dexAMETHasone 1 mg oral tablet) See instructions 2mg (2 tabs) PO TID x 2 days 2mg (2 tabs) PO BID x 2 days 1mg PO BID x 2 days 1mg PO daily x 2 days 1mg PO QOD x 2 doses Then stop. Pickup at [facility] New diazePAM (Valium 5 mg oral tablet) 1 tab(s) by mouth Three (3) times a day as needed for Anxiety Anxiety Duration: [address] [facility] New levETIRAcetam (levETIRAcetam 500 mg oral tablet) 1 tab(s) by mouth Every [address] [facility] New polyethylene glycol 3350 by mouth Once a day Changed evolocumab (Repatha SureClick 140 mg/ mL subcutaneous solution) See instructions INJECT 140 MG UNDER THE SKIN ONCE EVERY 2 WEEKS Unchanged amLODIPine (Norvasc 10 mg oral tablet) 1 tab(s) by mouth Once a day Unchanged carvedilol (Coreg 12.5 mg oral tablet) 1 tab(s) by mouth Twice daily with meals Unchanged ezetimibe (Zetia 10 mg oral tablet) 1 tab(s) by mouth Once a day Unchanged folic acid (folic acid 1 mg oral tablet) 2 tab(s) by mouth Once a day Unchanged lactulose (lactulose 10 g/ 15 mL oral syrup) 15 Milliliter by mouth Two (2) times a day Unchanged lisinopril (lisinopril 20 mg oral tablet) 1 tab(s) by mouth Two (2) times a day Unchanged nitroGLYcerin (Nitrostat 0.4 mg sublingual tablet) 1 tab(s) under the tongue Every 5 minutes as needed for Chest pain Unchanged omeprazole (omeprazole 20 mg oral delayed release capsule) 1 cap by mouth Once a day before a meal Pharmacy Information [facility]: [address] [place], [place] [id number] [phone] What How Much When Comments Stop Taking aspirin (Ecotrin Adult Low Strength 81 mg oral delayed release tablet) 1 tab(s) by mouth Once a day with a meal Stop Taking methotrexate (methotrexate 2.5 mg oral tablet) 6 tab(s) by mouth Every Monday Please take this list to your next doctor s visit. Bring all medications you take, including over the counter medications, herbals and other supplements with you to your doctor s visit. Patients and families are reminded to discard old lists and to update any records with all medication providers or retail pharmacies. Education Materials Managing Anxiety, Adult After being diagnosed with an anxiety disorder, you may be relieved to know why you have felt or behaved a certain way. You may also feel overwhelmed about the treatment ahead and what it will mean for your life. With care and support, you can manage this condition and recover from it. How to manage lifestyle changes Managing stress and anxiety Stress is your body's reaction to life changes and events, both good and bad. Most stress will last just a few hours, but stress can be ongoing and can lead to more than just stress. Although stress can play a major role in anxiety, it is not the same as anxiety. Stress is usually caused by something external, such as a deadline, test, or competition. Stress normally passes after the triggering event has ended. Anxiety is caused by something internal, such as imagining a terrible outcome or worrying that something will go wrong that will devastate you. Anxiety often does not go away even after the triggering event is over, and it can become long-term (chronic) worry. It is important to understand the differences between stress and anxiety and to manage your stress effectively so that it does not lead to an anxious response. Talk with your health care provider or a counselor to learn more about reducing anxiety and stress. He or she may suggest tension reduction techniques, such as: Music therapy. This can include creating or listening to music that you enjoy and that inspires you. Mindfulness-based meditation. This involves being aware of your normal breaths while not trying to control your breathing. It can be done while sitting or walking. Centering prayer. This involves focusing on a word, phrase, or sacred image that means something to you and brings you peace. Deep breathing. To do this, expand your stomach and inhale slowly through your nose. Hold your breath for 3 5 seconds. Then exhale slowly, letting your stomach muscles relax. Self-talk. This involves identifying thought patterns that lead to anxiety reactions and changing those patterns. Muscle relaxation. This involves tensing muscles and then relaxing them. Choose a tension reduction technique that suits your lifestyle and personality. These techniques take time and practice. Set aside 5 15 minutes a day to do them. Therapists can offer counseling and training in these techniques. The training to help with anxiety may be covered by some insurance plans. Other things you can do to manage stress and anxiety include: Keeping a stress/anxiety diary. This can help you learn what triggers your reaction and then learn ways to manage your response. Thinking about how you react to certain situations. You may not be able to control everything, but you can control your response. Making time for activities that help you relax and not feeling guilty about spending your time in this way. Visual imagery and yoga can help you stay calm and relax. Medicines Medicines can help ease symptoms. Medicines for anxiety include: Anti-anxiety drugs. Antidepressants. Medicines are often used as a primary treatment for anxiety disorder. Medicines will be prescribed by a health care provider. When used together, medicines, psychotherapy, and tension reduction techniques may be the most effective treatment. Relationships Relationships can play a big part in helping you recover. Try to spend more time connecting with trusted friends and family members. Consider going to couples counseling, taking family education classes, or going to family therapy. Therapy can help you and others better understand your condition. How to recognize changes in your anxiety Everyone responds differently to treatment for anxiety. Recovery from anxiety happens when symptoms decrease and stop interfering with your daily activities at home or work. This may mean that you will start to: Have better concentration and focus. Worry will interfere less in your daily thinking. Sleep better. Be less irritable. Have more energy. Have improved memory. It is important to recognize when your condition is getting worse. Contact your health care provider if your symptoms interfere with home or work and you feel like your condition is not improving. Follow these instructions at home: Activity Exercise. Most adults should do the following: ? Exercise for at least 150 minutes each week. The exercise should increase your heart rate and make you sweat (moderate-intensity exercise). ? Strengthening exercises at least twice a week. Get the right amount and quality of sleep. Most adults need 7 9 hours of sleep each night. Lifestyle Eat a healthy diet that includes plenty of vegetables, fruits, whole grains, low-fat dairy products, and lean protein. Do not eat a lot of foods that are high in solid fats, added sugars, or salt. Make choices that simplify your life. Do not use any products that contain nicotine or tobacco, such as cigarettes, e-cigarettes, and chewing tobacco. If you need help quitting, ask your health care provider. Avoid caffeine, alcohol, and certain nkit-qws-qvxtgox cold medicines. These may make you feel worse. Ask your pharmacist which medicines to avoid. General instructions Take uthi-bqx-puvjjks and prescription medicines only as told by your health care provider. Keep all follow-up visits as told by your health care provider. This is important. Where to find support You can get help and support from these sources: Self-help groups. Online and community organizations. A trusted spiritual leader. Couples counseling. Family education classes. Family therapy. Where to find more information You may find that joining a support group helps you deal with your anxiety. The following sources can help you locate counselors or support groups near you: Mental Health [place]: www.mentalhealthamerica.net Anxiety and Depression Association of [place] (ADAA): www.adaa.org National [place] on Mental Illness (AURA): www.aura.org Contact a health care provider if you: Have a hard time staying focused or finishing daily tasks. Spend many hours a day feeling worried about everyday life. Become exhausted by worry. Start to have headaches, feel tense, or have nausea. Urinate more than normal. Have diarrhea. Get help right away if you have: A racing heart and shortness of breath. Thoughts of hurting yourself or others. If you ever feel like you may hurt yourself or others, or have thoughts about taking your own life, get help right away. You can go to your nearest emergency department or call: Your local emergency services (911 in the [place] A suicide crisis helpline, such as the National Suicide Prevention Lifeline at . This is open 24 hours a day. Summary Taking steps to learn and use tension reduction techniques can help calm you and help prevent triggering an anxiety reaction. When used together, medicines, psychotherapy, and tension reduction techniques may be the most effective treatment. Family, friends, and partners can play a big part in helping you recover from an anxiety disorder. This information is not intended to replace advice given to you by your health care provider. Make sure you discuss any questions you have with your health care provider. Document Released: 11/07/2017 Document Revised: 04/14/2020 Document Reviewed: 04/14/2020 [email or web address] Patient Education 2020 [employer] Additional Information VACCINATE! IT SAVES LIVES! Members of the community who have not yet received the COVID-19 vaccine and would like to receive it can visit one of [facility] vaccine clinics. There are many vaccine clinic locations within the [facility]. For locations and available times, please visit [email or web address] It is important to note that some COVID mobile vaccine clinics are held outdoors and may be canceled in rainy or stormy conditions. To learn more about pediatric vaccinations (ages 5-11), we invite you to visit the [employer] [facility] webpage. [email or web address]/pages/[email or web address] 948-Xtqgb-Prkxnqynnwg-Frequently-Asked -Questions.html To learn more about the COVID-19 vaccine, we invite you to visit the CDC website for a list of frequently asked questions.https://www.cdc.gov/coronavi ashvin/2019-ncov/vaccines/faq.html [facility] [employer] Patient Portal Access Instructions: Stay connected with your healthcare team and access your personal medical information anytime with the [employer] Patient Portal. Please follow the directions below to create your [employer] account: 1.Access the email account you provided upon registration to the hospital/physician office.2.Look for an invitation email from [facility].3.Open the email and access the invitation link: Accept Invitation to [facility].4.Fill in the required iglesias to create your account. To access your account, visit [email or web address]. Click the blue button labeled Access Patient Portal and then log in with the username and password that you created in the steps above. You will be able to view your test results, lab results, a summary of your visits, upcoming appointments and more. There is also a convenient messaging option where you can send secure messages to your provider. In addition, you will have the ability to download any documents or summaries to your computer and/or send the information securely to a physician. Remember that your healthcare information is confidential, so carefully consider who you will allow to register on the [employer] Patient Portal for access to your information. You can also access the [facility] [employer] Patient Portal on the [employer] blair. Simply click on Patient Portal and then log into your account. If you would like to receive a full copy of your medical records, please contact the [facility] Medical Records Department by calling [phone], Monday through Monday between 8 a.m. and 4:30 p.m. HOW TO SAFELY DISPOSE OF PRESCRIPTION MEDICATIONS Please use one of the following methods to safely dispose of your unused medications. 1.Use a drug disposal kit: the drug disposal pouch allows you to safely discard your old and unused drugs. Ask your nurse to give you one when you are discharged.2.Visit a local take-back location: Many local pharmacies and police departments have programs that collect old and unwanted prescription drugs. Call your local pharmacy or go to http://[email or web address].EZbuildingEHS/0I5Ec7v to find one close to you.3.Make use of household items: Use cat litter or old coffee grounds to dispose medications if other options are not available. Mix your drugs with these household products, seal them in an airtight container and throw it into the garbage. Call [facility]: [phone] to be sure your drugs can be disposed of in this way. Some medicines may require a different approach.4.Never flush your medications down the toilet. IF YOU HAVE BEEN PRESCRIBED AN OPIOID FOR PAIN If you have been prescribed an opioid (such as hydrocodone, oxycodone or morphine), it is critical to understand the possible side effects and risks of opioid pain medications. Even when taken as directed, opioids can have several side effects including: Tolerance, meaning you might need to take more of a medication for the same pain relief. Nausea, vomiting and/or constipation. Sleepiness, dizziness, dry mouth, confusion, depression or itching. Physical dependence, meaning you have withdrawal symptoms when a medication is stopped, can develop within a few days. KNOW YOUR RESPONSIBILITIES It is important to know exactly how much and how often to take the opioid pain medications you are prescribed. Never take opioids in higher amounts or more often than prescribed. Do not combine opioids with alcohol or other drugs that cause drowsiness, such as benzodiazepines, also known as benzos, including diazepam and alprazolam, muscle relaxants or sleep aids. Never sell or share prescription opioids. This is illegal. Store opioids in a secure place and out of reach of others (including children, family, friends and visitors). The last page of this document has been signed and retained as a CHART COPY. Signatures Patient Education Materials Managing Anxiety, Adult Medication Leaflets My discharge plan and instructions have been reviewed and explained to me and IALONSO LINDA D understand my current condition and have read and understand these discharge instructions. I have received a written copy of the plan/instructions. If I have questions, I am aware that I should contact my doctor. 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 Patient currently denies chest pain, dyspnea, nausea, vomiting, diarrhea, headache and dizziness. Plan of care was discussed with patient, niece/POA at bedside and nursing staff. Objective Vitals and Measurements T: 36.7 C (Oral) TMIN: 36.4 C (Oral) TMAX: 36.9 C (Oral) HR: 74 RR: 17 BP: 150/86 SpO2: 94% Intake and Output 7AM Yesterday to 7AM Today Intake and Output (Last 24 hours) Intake Oral Intake 2640.00 Output Stool Count 1.00 Urine Count 9.00 Emesis Count 0.00 Total Summary Total Intake 2640.00 Total Output 0.00 Fluid Balance 2640.00 Physical Exam General: Alert, NAD, head dressing C/D/I heart: RRR, S1/S2. No murmurs. Lungs: CTA B/L, unlabored Abdomen: Soft, nontender, nondistended, + bowel sounds Extremities: +2 pitting edema, +2 dorsalis pedis pulses bilaterally. Weight Dosing Weight: 86.7 kg (01/05/24) Dosing Weight: 86.7 kg (01/03/24) Medications Medications (25) Active Scheduled: (9) amLODIPine 10 mg tablet 10 mg 1 tab(s), Oral, qDay carvedilol 12.5 mg tablet 12.5 mg 1 tab(s), Oral, BIDM dexamethasone 2 mg tablet 2 mg 1 tab(s), Oral, TID ezetimibe 10 mg tablet 10 mg 1 tab(s), Oral, qDay lactulose 20 g/30 mL UD cup 10 gram(s) 15 mL, Oral, BID levETIRAcetam 500 mg tablet 500 mg 1 tab(s), Oral, q12h lisinopril 20 mg tablet 20 mg 1 tab(s), Oral, BID pantoprazole 40 mg EC tablet 40 mg 1 tab(s), Oral, qDayAC polyethylene glycol 3350 - UD packet 17 gram(s) 15 mL, Oral, qDay Continuous: (1) NS (0.9% nacl) 1,000 mL 1,000 mL, Intravenous, 50 mL/hr PRN: (15) acetaminophen 325 mg Tablet 650 mg 2 tab(s), Oral, q4h acetaminophen-HYDROcodone 325-5 mg tablet 1 tab(s), Oral, q4h Al hydrox/Mg hydrox/simethicone 200-200-20 mg/5 mL Susp UD 30 mL, Oral, q2h cyclobenzaprine 10 mg Tablet 10 mg 1 tab(s), Oral, BID dextrose 50% Solution Disp syringe 50 mL 25 g 50 mL, IV Push, AsDirected dextrose 50% Solution Disp syringe 50 mL 12.5 gram(s) 25 mL, IV Push, AsDirected diazepam 5 mg tablet 5 mg 1 tab(s), Oral, QID docusate sodium 100 mg Capsule 100 mg 1 cap(s), Oral, BID hydralazine 20 mg/mL (1mL) vial 10 mg 0.5 mL, IV Push, q2h insulin regular human recombinant 100 units/mL (3 mL) Soln sliding scale insulin, Subcutaneous, q4h magnesium hydroxide 8% Suspension 30 mL UD 30 mL, Oral, qHS melatonin 5 mg tablet 5 mg 1 tab(s), Oral, qHS ondansetron 2 mg/ 1 mL 2 mL INJ 4 mg 2 mL, IV Push, q4h polyethylene glycol 3350 - UD packet 17 gram(s) 15 mL, Oral, qDay prochlorperazine 10 mg/2 mL vial 10 mg 2 mL, IV Push, q6hr Lab Results 01/08 03:52 WBC: 9.1 Hgb: 13.3 Hct: 40.5 Platelet: 199 Neutrophil %: 86.9 H Glucose Level: 118 H Sodium Level: 140 Potassium Level: 4.5 BUN: 26.0 H Creatinine Lvl (s): 0.71 Imaging Results and Diagnostics MRI Liver Result Date: January 05, 2024 Verified By: EBONY GUZMAN MD CLINICAL STATEMENT: IMPRESSION: Left hepatic lobe lesion measuring 2.0 x 1.1 cm is most consistent with ahemangioma. Given incomplete enhancement on this exam consider ultrasound in6-12 months to demonstrate stability out of an abundance of caution. MRI Brain w/ + w/o Contrast Result Date: January 03, 2024 Verified By: RUDI MOSS MD CLINICAL STATEMENT: IMPRESSION: Interval resection of the dural based mass in the right frontoparietal region. Stable vasogenic edema in the right cerebral hemisphere. Stable 2-3 mm subfalcine shift of midline structures from right to left. CT Head or Brain w/o Contrast Result Date: January 03, 2024 Verified By: RICHARD CANALES MD CLINICAL STATEMENT: IMPRESSION: 1. Status post right craniotomy with pneumocephalus and trace extra- axialhemorrhage which could be postoperative. Continued mass effect upon the rightlateral ventricle and minimal ejbsa-ov-olbo midline shift, similar inappearance to the prior.2. Hypodensity in the right mcdaniel radiata and centrum semiovalecorresponding to the areas of FLAIR hyperintensity on prior MRI, most likelyrepresenting edema.3. Monitoring line or drain projecting in the superficial soft tissuesoverlying the craniotomy site. MRI Brain w/ + w/o Contrast Result Date: January 02, 2024 Verified By: Eugene_JERSON kyle CLINICAL STATEMENT: IMPRESSION: Redemonstration of 3.1 cm enhancing extra-axial mass overlying the rightfrontoparietal junction with mass effect, surrounding vasogenic edema,effacement of the right lateral ventricle andminimal leftward midline shift.Findings are stable since the examination performed 12/29/2023. Images forsurgical planning. CT Thorax w/ Contrast Result Date: January 01, 2024 Verified By: RUDI MOSS MD CLINICAL STATEMENT: IMPRESSION: No acute cardiopulmonary abnormality. Indeterminate 2 cm hypodensity in left lobe of liver. Differentialconsideration includes metastasis, benign or malignant neoplasm of liver, orpossibly a focal fatty infiltration of the liver. Further evaluation withMRI with and without IV contrast is recommended. Diverticulosis of the colon without signs of diverticulitis. Coronary artery calcification and/or stone stent. CT Abdomen/Pelvis w/Contrast Result Date: January 01, 2024 Verified By: RUDI MOSS MD CLINICAL STATEMENT: IMPRESSION: No acute cardiopulmonary abnormality. Indeterminate 2 cm hypodensity in left lobe of liver. Differentialconsideration includes metastasis, benign or malignant neoplasm of liver, orpossibly a focal fatty infiltration of the liver. Further evaluation withMRI with and without IV contrast is recommended. Diverticulosis of the colon without signs of diverticulitis. Coronary artery calcification and/or stone stent. MRI Brain w/ + w/o Contrast Result Date: December 29, 2023 Verified By: Contributor_system YardsaleEmily CLINICAL STATEMENT: IMPRESSION: 3 cm avidly enhancing extra-axial dural-based mass overlying the lateralright frontal parietal junction. Meningioma is most likely. Definitivediagnosis would require tissue sampling. The lesion results in considerableunderlying mass effect resulting in vasogenic edema, effacement of therightlateral ventricle and 3 mm leftward midline shift. Neurosurgicalconsultation is recommended. EKG No qualifying data available. Assessment/Plan Right frontal lobe brain mass s/p stereotactic craniotomy and resection of tumor with duraplasty Left liver lobe mass Hypertension Hyperlipidemia Constipation Anxiety Lumbar spinal stenosis History of basal cell cancer History of melanoma Constipation Sciatica Coronary artery disease Plan: -For right frontal lobe brain mass patient is on Keppra and Decadron, mass has been resected with stereotactic craniotomy with duraplasty, awaiting final pathology report. -Left liver lobe hypodensity, MRI of liver has been done showing 2 x 1.2 left liver lesion likely hemangioma recommending ultrasound in 6 to 12 months. After discussing this with neurosurgery last evening we consulted hematology to see if any further imaging or workup is needed. -Continue lisinopril, Coreg and amlodipine for hypertension, as needed hydralazine has been orderedfor systolic more than 140, keep systolic less than 140 mmHg. -Continue ezetimibe for hyperlipidemia -Patient on aggressive bowel regimen for constipation including MiraLAX scheduled and as needed docusate, milk of magnesia and MiraLAX for constipation. Constipation resolved. -Continue as needed diazepam for anxiety. -With lower extremity edema awaiting lower extremity ultrasounds. -Likely discharge if lower extremity ultrasound is negative and patient is cleared by hematology. Will defer to primary service. DVT prophylaxis: SCDs. Thank you for allowing us to participate in the care of this patient. Please call with additional questions or concerns. Digitally Signed by JONNY SPICER DO on 01/08/2024 10:05 AM [phone] Date of Service 01/07/2024 Chief Complaint Liver mass, clearance for discharge Subjective Patient is currently complaining of posterior headache. Otherwise 14 point review of systems is negative. Plan of care was discussed with patient, neurosurgery nurse practitioner and nursing staff. Objective Vitals and Measurements T: 36.5 C (Oral) TMIN: 36.5 C (Oral) TMAX: 36.8 C (Oral) HR: 67 RR: 16 BP: 138/76 SpO2: 94% Intake and Output 7AM Yesterday to 7AM Today Intake and Output (Last 24 hours) Intake Oral Intake 1900.00 Administration Information 0.00 Supplement Intake 60.00 Output Stool Count 2.00 Urine Count 6.00 Emesis Count 0.00 Total Summary Total Intake 1960.00 Total Output 0.00 Fluid Balance 1960.00 Physical Exam General: Alert, appears mildly uncomfortable, head dressing C/D/I heart: RRR, S1/S2. No murmurs. Lungs: CTA B/L, unlabored Abdomen: Soft, nontender, nondistended, + bowel sounds Extremities: +2 pitting edema, +2 dorsalis pedis pulses bilaterally. Weight Dosing Weight: 86.7 kg (01/05/24) Dosing Weight: 86.7 kg (01/03/24) Medications Medications (26) Active Scheduled: (10) amLODIPine 10 mg tablet 10 mg 1 tab(s), Oral, qDay carvedilol 12.5 mg tablet 12.5 mg 1 tab(s), Oral, BIDM dexamethasone 2 mg tablet 2 mg 1 tab(s), Oral, TID dexamethasone 4 mg/1 mL solution 4 mg 1 mL, IV Push, TID ezetimibe 10 mg tablet 10 mg 1 tab(s), Oral, qDay lactulose 20 g/30 mL UD cup 10 gram(s) 15 mL, Oral, BID levETIRAcetam 500 mg tablet 500 mg 1 tab(s), Oral, q12h lisinopril 20 mg tablet 20 mg 1 tab(s), Oral, BID pantoprazole 40 mg EC tablet 40 mg 1 tab(s), Oral, qDayAC polyethylene glycol 3350 - UD packet 17 gram(s) 15 mL, Oral, qDay Continuous: (1) NS (0.9% nacl) 1,000 mL 1,000 mL, Intravenous, 50 mL/hr PRN: (15) acetaminophen 325 mg Tablet 650 mg 2 tab(s), Oral, q4h acetaminophen-HYDROcodone 325-5 mg tablet 1 tab(s), Oral, q4h Al hydrox/Mg hydrox/simethicone 200-200-20 mg/5 mL Susp UD 30 mL, Oral, q2h cyclobenzaprine 10 mg Tablet 10 mg 1 tab(s), Oral, BID dextrose 50% Solution Disp syringe 50 mL 25 g 50 mL, IV Push, AsDirected dextrose 50% Solution Disp syringe 50 mL 12.5 gram(s) 25 mL, IV Push, AsDirected diazepam 5 mg tablet 5 mg 1 tab(s), Oral, QID docusate sodium 100 mg Capsule 100 mg 1 cap(s), Oral, BID hydralazine 20 mg/mL (1mL) vial 10 mg 0.5 mL, IV Push, q2h insulin regular human recombinant 100 units/mL (3 mL) Soln sliding scale insulin, Subcutaneous, q4h magnesium hydroxide 8% Suspension 30 mL UD 30 mL, Oral, qHS melatonin 5 mg tablet 5 mg 1 tab(s), Oral, qHS ondansetron 2 mg/ 1 mL 2 mL INJ 4 mg 2 mL, IV Push, q4h polyethylene glycol 3350 - UD packet 17 gram(s) 15 mL, Oral, qDay prochlorperazine 10 mg/2 mL vial 10 mg 2 mL, IV Push, q6hr Lab Results No 36 Hour Lab Data EKG No qualifying data available. Assessment/Plan Right frontal lobe brain mass s/p stereotactic craniotomy and resection of tumor with duraplasty Left liver lobe mass Hypertension Hyperlipidemia Constipation Anxiety Lumbar spinal stenosis History of basal cell cancer History of melanoma Constipation Sciatica Coronary artery disease Plan: -For right frontal lobe brain mass patient is on Keppra and Decadron, mass has been resected with stereotactic craniotomy with duraplasty, awaiting final pathology report. -Left liver lobe hypodensity, MRI of liver has been done and verbal report was taken concerning for2 x 1.2 left liver lesion likely hemangioma though awaiting official report. After discussing this with neurosurgery we will reconsult hematology to see if any further imaging or workup is needed. -Continue lisinopril, Coreg and amlodipine for hypertension, as needed hydralazine has been orderedfor systolic more than 140, keep systolic less than 140 mmHg. -Continue ezetimibe for hyperlipidemia -Patient on aggressive bowel regimen for constipation including MiraLAX scheduled and as needed docusate, milk of magnesia and MiraLAX for constipation. Constipation resolved. -Continue as needed diazepam for anxiety -With lower extremity edema check lower extremity ultrasounds. -Order a.m. CBC, BMP and magnesium level. DVT prophylaxis: SCDs. Disposition: Likely discharge within the next 24 hours if lower extremity ultrasound is negative and patient is cleared by hematology. Will defer to primary service. Digitally Signed by JONNY SPICER DO on 01/07/2024 06:23 PM [id number] Neurological surgery Progress note Date of Service 01/07/2024 Patient reviewed and assessed with Dr. Burch Neurosurgical CC: Right frontal brain mass s/p craniotomy for resection, POD #4 This is a 63-year-old female who presented to ED after an episode of slurred speech and facial droop. Patient reportedly had another episode several weeks prior. Family noticed a left-sided facialdroop and that patient had difficulty speaking. In addition, had had headaches for the last couple of weeks and felt off balance at times. Noncontrasted head CT at [facility] demonstrated right frontal lobe edema. Due to these findings, patient was transferred to [facility] for further neurosurgical evaluation. MRI of the brain demonstrated a 3 cm enhancing extra-axial dural based mass overlying the lateral right frontal parietal junction. The mass caused mass effect and vasogenic edema with 3 mm of leftward midline shift. Patient was started on dexamethasone and Keppra. CT chest, abdomen/pelvis completed and demonstrated a 2 cm left lobe liver mass. Hospitalist are following along and did order an MRI of the liver. This was completed on 01/05/2024, however is not readby the radiologist. Patient underwent craniotomy for resection of right frontal lobe mass by Dr. Ahuja on 01/03/2024. Patient was slow to wake up postoperatively and therefore a stat head CT was obtained which demonstrated no acute hemorrhage and only expected postop changes. Postop MRI was completed and reviewed by Dr. Dziurzynski on POD #0. Patient transferred out of ICU to neurosurgical stepdown unit on 01/06/2024. This morning, patient is seen sitting up in the chair at the bedside. She is bright and attentive on exam. Fully alert and oriented x 4. Her speech is clear and fluent. Following simple commands. Sheis moving all extremities spontaneously, only slightly weaker with left hand grasp. Sensation intact to light touch throughout. Provides only slight intermittent headaches, slowly improving postoperatively. Denies any nausea orvomiting. Initially provides to me that she has been constipated, however nursing provides to me that she later this morning did have a large bowel movement. Surgical incision remains flat, well-approximated with pierre intact. No erythema, open areas, or drainage noted. Gauze head covering is clean, dry, and intact. Objective Vitals and Measurements T: 36.7 C (Oral) TMIN: 36.5 C (Oral) TMAX: 36.8 C (Oral) HR: 73 RR: 16 BP: 143/84 SpO2: 96% Intake and Output 7AM Yesterday to 7AM Today Intake and Output (Last 24 hours) Intake Administration Information 0.00 Oral Intake 1900.00 Supplement Intake 60.00 Output Stool Count 2.00 Urine Count 6.00 Emesis Count 0.00 Total Summary Total Intake 1960.00 Total Output 0.00 Fluid Balance 1960.00 Physical Exam See HPI. In addition, respirations are easy and unlabored, lungs are clear throughout. Patient is saturating well on room air. Regular heart rate and rhythm, S1-S2. Abdomen is soft, nondistended. Nontender with palpation. Positive bowel sounds in all 4 quadrants. BM today. Voiding without difficulty. Weight Dosing Weight: 86.7 kg (01/05/24) Dosing Weight: 86.7 kg (01/03/24) Medications Medications (25) Active Scheduled: (9) amLODIPine 10 mg tablet 10 mg 1 tab(s), Oral, qDay carvedilol 12.5 mg tablet 12.5 mg 1 tab(s), Oral, BIDM dexamethasone 4 mg/1 mL solution 4 mg 1 mL, IV Push, TID ezetimibe 10 mg tablet 10 mg 1 tab(s), Oral, qDay lactulose 20 g/30 mL UD cup 10 gram(s) 15 mL, Oral, BID levETIRAcetam 500 mg tablet 500 mg 1 tab(s), Oral, q12h lisinopril 20 mg tablet 20 mg 1 tab(s), Oral, BID pantoprazole 40 mg EC tablet 40 mg 1 tab(s), Oral, qDayAC polyethylene glycol 3350 - UD packet 17 gram(s) 15 mL, Oral, qDay Continuous: (1) NS (0.9% nacl) 1,000 mL 1,000 mL, Intravenous, 50 mL/hr PRN: (15) acetaminophen 325 mg Tablet 650 mg 2 tab(s), Oral, q4h acetaminophen-HYDROcodone 325-5 mg tablet 1 tab(s), Oral, q4h Al hydrox/Mg hydrox/simethicone 200-200-20 mg/5 mL Susp UD 30 mL, Oral, q2h cyclobenzaprine 10 mg Tablet 10 mg 1 tab(s), Oral, BID dextrose 50% Solution Disp syringe 50 mL 25 g 50 mL, IV Push, AsDirected dextrose 50% Solution Disp syringe 50 mL 12.5 gram(s) 25 mL, IV Push, AsDirected diazepam 5 mg tablet 5 mg 1 tab(s), Oral, QID docusate sodium 100 mg Capsule 100 mg 1 cap(s), Oral, BID hydralazine 20 mg/mL (1mL) vial 10 mg 0.5 mL, IV Push, q2h insulin regular human recombinant 100 units/mL (3 mL) Soln sliding scale insulin, Subcutaneous, q4h magnesium hydroxide 8% Suspension 30 mL UD 30 mL, Oral, qHS melatonin 5 mg tablet 5 mg 1 tab(s), Oral, qHS ondansetron 2 mg/ 1 mL 2 mL INJ 4 mg 2 mL, IV Push, q4h polyethylene glycol 3350 - UD packet 17 gram(s) 15 mL, Oral, qDay prochlorperazine 10 mg/2 mL vial 10 mg 2 mL, IV Push, q6hr Lab Results 01/06 05:21 WBC: 10.4 Hgb: 14.5 Hct: 43.5 Platelet: 189 Neutrophil %: 87.3 H Glucose Level: 130 H Sodium Level: 139 Potassium Level: 4.8 BUN: 20.0 Creatinine Lvl (s): 0.58 Assessment/Plan Right frontal lobe brain mass with surrounding vasogenic edema s/p craniotomy for resection of right frontal lobe mass, POD #4 Patient has done well postoperatively. Notes improvement in her headaches today. Denies any continued nausea. Neuroexam remains stable. Postop MRI completed and reviewed by Dr. Ahuja. Expected postoperative changes. Intraoperative surgical pathology is still pending. Patient continues on 500 mg Keppra twice daily. No documented or witnessed seizure behavior. Continue dexamethasone. Patient receiving 4 mg 3 times daily. Tomorrow, will transition to 2 mg 3 times daily. Will continue to slowly taper this over 2 weeks. Cranial incision to be cleansed at least daily using mild shampoo. Rinse and cleanse incision gently using pads of fingers. Pat dry. Apply/change gauze dressing and head wrap daily. Keep site clean and dry at all times. PT/OT services following and recommending home health care PT/OT. ASTRO TECHNICIAN assisting and attempting to find an accepting [facility] agency. Left lobe liver lesion Hospitalist and oncology team following. MRI of the liver completed on 01/05/2024. Awaiting read by radiologist. 5S charge nurse did call down today requesting final read as her discharge and further disposition from the hospital depends on it. Per hospitalist team, once MRI has been read, imaging and report to be reviewed by oncology who will then make a decision whether or not patient needs a biopsy prior to discharge. From a medical standpoint, patient is optimized for discharge. Has history of melanoma on her leg in 2014. She also had skin cancer removed from her forehead recently, basal cell carcinoma. Please see Dr. Burch's addendum for further details regarding neurosurgical assessment/plan of care. Digitally Signed by SANTOS SALTER on 01/07/2024 01:31 PM Digitally Signed by CHIQUITA BURCH MD on 01/08/2024 12:42 PM [id number] Neurological surgery Progress note Date of Service 01/04/24 Chief Complaint Right frontal lobe brain mass with surrounding vasogenic edema-Hospital day #6 S/P craniotomy for resection of right frontal lobe [id number] day #1. This is a 63-year-old female who presented to the emergency department at [facility] after she had an episode of slurred speech and facial droop. She states this is a second episode she has had inthe last couple of weeks. She states the episodes last for about an hour. Her family noticed a leftfacial droop and then she had difficulty speaking. She states she noticed the facial droop in the id rror. She also states she has had headaches for the last couple of weeks, which she normally does not have. In addition, she states she has been off balance at times. She denies any decreased appetite or weight loss. She denies vision changes. She had a CT of the head at [facility] which demonstrated right frontal lobe edema. Due to these findings, she was transferred to [facility] for evaluation by neurosurgery. MRI of the brain was obtained, which demonstrated a 3 cm enhancing extra axial dural based mass overlying the lateral right frontal parietal junction. The mass caused mass effect and vasogenic edema with 3 mm of leftward midline shift. She is currently on dexamethasone 4 mg every 6 hours and Keppra [address] chest/abd/pelvis demonstrated 2 cm left lobe liver mass. Hospitalist have ordered MRI liver, butnot yet obtained. Yesterday underwent craniotomy for resection of a right frontal mass. She was little slow to wake up postoperatively, so a stat CT was obtained postop. CT demonstrated no acute hemorrhage, and expected postop changes. Post-op MRI obtained last night- Dr. Ahuja has reviewed-demonstrates the expected post-op changes. On exam, she is awake, alert, and oriented x 3. She is more awake this morning. She is able to moveall 4 extremities. She does seem to have just slightly weaker hand grasp on the left. She is able to move her lower extremities without difficulty. She has been nauseous this morning, but thinks it may be due to taking medications on an empty stomach. She did pass her swallow eval this morning, andshe will be started on a diet. She follows commands. Speech is clear. No episodes overnight of facial droop or slurred speech. Craniotomy is well-approximated. No drainage noted. Craniotomy dressing changed. Subgaleal drain 85 cc overnight; 117 cc on afternoon shift yesterday. Geiger catheter draining clear yellow urine. Objective Vitals and Measurements T: 36.8 C (Oral) TMIN: 36.5 C (Oral) TMAX: 36.8 C (Oral) HR: 96(Monitored) RR: 17 BP: 101/64 BP: 105/84(Line) SpO2: 95% Intake and Output 7AM Yesterday to 7AM Today Intake and Output (Last 24 hours) Intake Administration Information 3104.17 Oral Intake 760.00 Output Surgical Drain, Tube Output: 242.00 Urinary Catheter Output: 5000.00 Stool Count 0.00 Total Summary Total Intake 3864.17 Total Output 5242.00 Fluid Balance -1377.83 Physical Exam General Appearance: This patient is well-developed and well nourished, and appears stated age. No acute distress. Head: Normocephalic, Atraumatic- Craniotomy site-dry. No drainage. EENT: Mucous membranes dry. No vision or hearing changes Cardiac: S1 and S2 heard without murmur, rub, or gallop. Regular rate and rhythm. Lungs: Lungs clear. Respirations easy. No shortness of breath noted. Abdomen: BSP x 4. Abd soft, nontender, nondistended. Musculoskeletal: Moves all 4 ext. Extremities: Bilateral pedal pulses palpable. No edema noted Neurological: See HPI Skin: [place], warm, and dry. Psychiatric: Mood stable. Cooperative. Weight Dosing Weight: 86.7 kg (01/03/24) Medications Medications (30) Active Scheduled: (10) amLODIPine 10 mg tablet 10 mg 1 tab(s), Oral, qDay carvedilol 12.5 mg tablet 12.5 mg 1 tab(s), Oral, BIDM ceFAZolin syringe 1 gram(s) 10 mL, IV Push (INT), q6hr dexamethasone 4 mg/1 mL solution 4 mg 1 mL, IV Push, q6h ezetimibe 10 mg tablet 10 mg 1 tab(s), Oral, qDay lactulose 20 g/30 mL UD cup 10 gram(s) 15 mL, Oral, BID levETIRAcetam PMX bag 500 mg 100 mL, IV Piggyback, q12h lisinopril 20 mg tablet 20 mg 1 tab(s), Oral, BID pantoprazole 40 mg VIAL 40 mg, IV Push, qDayAC polyethylene glycol 3350 - UD packet 17 gram(s) 15 mL, Oral, qDay Continuous: (4) insulin regular 100 unit(s) + NS Premix Diluent 100 mL 100 mL, Intravenous nicardipine 25 mg [5 mg/hr] + Sodium Chloride 0.9% 240 mL 240 mL, Intravenous, 50 mL/hr NS (0.9% nacl) 1,000 mL 1,000 mL, Intravenous, 125 mL/hr NS (0.9% nacl) 1000 mL 1,000 mL, Intravenous, 100 mL/hr PRN: (16) acetaminophen 325 mg Tablet 650 mg 2 tab(s), Oral, q4h acetaminophen-HYDROcodone 325-5 mg tablet 1 tab(s), Oral, q4h Al hydrox/Mg hydrox/simethicone 200-200-20 mg/5 mL Susp UD 30 mL, Oral, q2h cyclobenzaprine 10 mg Tablet 10 mg 1 tab(s), Oral, BID dextrose 50% Solution Disp syringe 50 mL 25 g 50 mL, IV Push, AsDirected dextrose 50% Solution Disp syringe 50 mL 12.5 gram(s) 25 mL, IV Push, AsDirected diazepam 5 mg tablet 5 mg 1 tab(s), Oral, QID docusate sodium 100 mg Capsule 100 mg 1 cap(s), Oral, BID hydralazine 20 mg/mL (1mL) vial 10 mg 0.5 mL, IV Push, q2h HYDROmorphone 0.5 mg/0.5 mL PF syringe 0.5 mg 0.5 mL, IV Push, q3h insulin regular human recombinant 100 units/mL (3 mL) Soln sliding scale insulin, Subcutaneous, q4h magnesium hydroxide 8% Suspension 30 mL UD 30 mL, Oral, qHS melatonin 5 mg tablet 5 mg 1 tab(s), Oral, qHS ondansetron 2 mg/ 1 mL 2 mL INJ 4 mg 2 mL, IV Push, q4h polyethylene glycol 3350 - UD packet 17 gram(s) 15 mL, Oral, qDay prochlorperazine 10 mg/2 mL vial 10 mg 2 mL, IV Push, q6hr Lab Results 01/04 04:25 WBC: 10.6 Hgb: 13.7 Hct: 41.8 Platelet: 233 Neutrophil %: 88.0 H Glucose Level: 117 H Sodium Level: 138 Potassium Level: 4.3 BUN: 14.0 Creatinine Lvl (s): 0.58 01/03 15:13 WBC: 11.9 H Hgb: 13.8 Hct: 42.0 Platelet: 294 Neutrophil %: 85.5 H Glucose Level: 172 H Sodium Level: 139 Potassium Level: 4.1 BUN: 15.0 Creatinine Lvl (s): 0.65 EKG No qualifying data available. Assessment/Plan Right frontal lobe brain mass with surrounding vasogenic edema: Status post craniotomy for resection of right frontal lobe mass: -Patient is doing fairly well postoperatively. She has been a little bit slower waking up. She is complaining of a headache and nausea. -Stat CT obtained postoperatively due to slow awakening after surgery. CT demonstrated no acute hemorrhage and expected postoperative changes. -Compazine added for nausea. -Postop MRI obtained last night, and demonstrates expected postoperative changes. -Path is pending. -Subgaleal drain will remain in place today. -Ancef while drain remains in place. -Cardene at 2.5mg/hr. Titrate to keep SBP <140. -She will be continued on Keppra 500 mg twice daily. -She remains on Decadron 4 mg every [address] Ahuja would like her steroids to be tapered over the next 2 weeks. -Patient is currently neurologically intact. Continue to monitor neuro exams at least every 2hours and notify neurosurgery with any changes. -She will likely be ready for transfer to stepdown tomorrow. -Start PT/OT tomorrow. -Passed bedside swallow eval and is tolerating a diet. Advance diet tomorrow if no nausea. -CT chest, abdomen, and pelvis- demonstrated a 2cm left lobe liver lesion. Hospitalist has ordered MRI liver-pending. Oncology consulted per hospitalist. -Patient does have a history of melanoma on her leg in 2014. She also had skin cancer removed from her forehead recently, but is unsure of what type of skin cancer it was. Please see Dr. Ahuja's addendum tomorrow for further details and recommendations. Time Spent 15 min Digitally Signed by DAMIAN JACKSON on 01/04/2024 08:19 PM [id number] Note Date of Service January 06, 2024 Chief Complaint Right frontal lobe mass, liver mass Subjective A 63 years old female with past medical history significant for hypertension, hyperlipidemia, lumbar spinal stenosis on chronic opiates, history of basal cell cancer of the right eye, melanoma, coronary artery disease with PCI to LAD proximal RCA in 2020, past tobacco use initially presented to ER complaining of slurred speech and facial droop with aphasia. CT scan of brain showed right frontal lobe edema, she was transferred to [facility]. Started on Keppra and Decadron, MRI brain showed 3 cm enhancing extra-axial dural based mass overlying the lateral right frontoparietal junction causing mass effect and with genic edema with 3 mm of leftward midline shift. She underwent stereotactic craniotomy with resection of tumor with duraplasty on January 03, she had CT thorax and CT abdomen/pelvis done, CT abdomen/pelvis showed indeterminate 2 cm hypodensity in the left lobe of liver, diverticulosis of colon, CT thorax without contrast did not show any acute cardiopulmonary abnormality. Initially seen by hospitalist team however hospitalist team signed off after patient was transferred to SICU following surgery. Hospitalist team was reconsulted for discharge recommendation especially concerning left liver lobe mass. MRI of liver has been done awaiting report. Seen by oncology on January 02, their management is dependent on surgical pathology of brain mass and MRI liver findings. Vitally stable on evaluation with systolic of less than 140. Labs on my evaluation were not clinically significant. No complaints at the time of my evaluation. Objective Vitals and Measurements T: 36.7 C (Oral) TMIN: 36.4 C (Oral) TMAX: 37.4 C (Oral) HR: 82 RR: 16 BP: 123/73 SpO2: 96% HT: 144.8 cm WT: 86.7 kg BMI: 41.35 Intake and Output 7AM Yesterday to 7AM Today Intake and Output (Last 24 hours) Intake Administration Information 1200.00 Oral Intake 1120.00 Output Surgical Drain, Tube Output: 40.00 Stool Count 0.00 Urine Count 14.00 Emesis Count 0.00 Total Summary Total Intake 2320.00 Total Output 40.00 Fluid Balance 2280.00 Physical Exam General Appearance: Appears to be stable and in no acute distress Head: Dressing at craniotomy site around head EENT: EOMI, PERRLA, no oropharyngeal erythema, no tonsillar exudates, no conjunctival injection. sclera anicteric. Neck: No thyromegaly, no cervical lymphadenopathy, trachea midline Cardiac: S1 and S2 normal. RRR. No murmurs, rubs, or gallops. No JVD. No hepatojugular reflex. Lungs: Good air entry bilaterally. No increased work for breathing. No wheezes, rhonchi, or rales. Abdomen: Soft, nontender, nondistended. Normoactive bowel sounds. No rebound or guarding. Negative Prado's sign. No hepatosplenomegaly. Musculoskeletal: Full range of motion upper and lower extremities. No CVA tenderness. Extremities: No lower extremity pitting edema. 2+ radial and pedal pulses bilaterally. Neurological: No gross motor deficits Skin: No abrasions, scars, or hematomas on visible skin. No cyanosis. No purulent discharge. Psychiatric: Alert and oriented, well groomed, euthymic. cooperative Weight Dosing Weight: 86.7 kg (01/05/24) Dosing Weight: 86.7 kg (01/03/24) Medications Medications (26) Active Scheduled: (10) amLODIPine 10 mg tablet 10 mg 1 tab(s), Oral, qDay carvedilol 12.5 mg tablet 12.5 mg 1 tab(s), Oral, BIDM ceFAZolin syringe 1 gram(s) 10 mL, IV Push (INT), q6hr dexamethasone 4 mg/1 mL solution 4 mg 1 mL, IV Push, TID ezetimibe 10 mg tablet 10 mg 1 tab(s), Oral, qDay lactulose 20 g/30 mL UD cup 10 gram(s) 15 mL, Oral, BID levETIRAcetam 500 mg tablet 500 mg 1 tab(s), Oral, q12h lisinopril 20 mg tablet 20 mg 1 tab(s), Oral, BID pantoprazole 40 mg EC tablet 40 mg 1 tab(s), Oral, qDayAC polyethylene glycol 3350 - UD packet 17 gram(s) 15 mL, Oral, qDay Continuous: (1) NS (0.9% nacl) 1,000 mL 1,000 mL, Intravenous, 50 mL/hr PRN: (15) acetaminophen 325 mg Tablet 650 mg 2 tab(s), Oral, q4h acetaminophen-HYDROcodone 325-5 mg tablet 1 tab(s), Oral, q4h Al hydrox/Mg hydrox/simethicone 200-200-20 mg/5 mL Susp UD 30 mL, Oral, q2h cyclobenzaprine 10 mg Tablet 10 mg 1 tab(s), Oral, BID dextrose 50% Solution Disp syringe 50 mL 25 g 50 mL, IV Push, AsDirected dextrose 50% Solution Disp syringe 50 mL 12.5 gram(s) 25 mL, IV Push, AsDirected diazepam 5 mg tablet 5 mg 1 tab(s), Oral, QID docusate sodium 100 mg Capsule 100 mg 1 cap(s), Oral, BID hydralazine 20 mg/mL (1mL) vial 10 mg 0.5 mL, IV Push, q2h insulin regular human recombinant 100 units/mL (3 mL) Soln sliding scale insulin, Subcutaneous, q4h magnesium hydroxide 8% Suspension 30 mL UD 30 mL, Oral, qHS melatonin 5 mg tablet 5 mg 1 tab(s), Oral, qHS ondansetron 2 mg/ 1 mL 2 mL INJ 4 mg 2 mL, IV Push, q4h polyethylene glycol 3350 - UD packet 17 gram(s) 15 mL, Oral, qDay prochlorperazine 10 mg/2 mL vial 10 mg 2 mL, IV Push, q6hr Lab Results 01/06 05:21 WBC: 10.4 Hgb: 14.5 Hct: 43.5 Platelet: 189 Neutrophil %: 87.3 H Glucose Level: 130 H Sodium Level: 139 Potassium Level: 4.8 BUN: 20.0 Creatinine Lvl (s): 0.58 01/05 04:21 WBC: 8.1 Hgb: 13.2 Hct: 39.8 Platelet: 195 Neutrophil %: 88.7 H Glucose Level: 127 H Sodium Level: 142 Potassium Level: 4.3 BUN: 19.0 Creatinine Lvl (s): 0.58 Patient Location: [facility] (01/03/24 09:25:00) pH: 7.391 (01/03/24 14:56:00) pCO2: 36.9 mm Hg (01/03/24 14:56:00) pO2: 105.3 mm Hg (01/03/24 14:56:00) HCO3: 21.9 mmol/L (01/03/24 14:56:00) CO2 Totl: 23 mmol/L (01/03/24 14:56:00) Base Excess: -2.5 mmol/L (01/03/24 14:56:00) O2 Sat: 98.1 % High (01/03/24 14:56:00) Barometric Pressure: 714 mm Hg (01/03/24 14:56:00) Sodium OR: 139 mEq/L (01/03/24:25:) Potassium OR: 3.5 mEq/L (01/03/24:25:00) Calcium Ionized OR: 1.15 mmol/L (01/03/24::) Hemoglobin OR: 12.5 G/dL (01/03/24::) Hematocrit OR: 37 % (01/03/24::) Magnesium OR: 2 mg/dL (01/03/24::) Glucose OR: 132 mg/dL High (01/03/24:25:) WBC: 10.4 10^3/mcL (01/06/24 05:21:00) RBC: 4.82 10^6/mcL (01/06/24 05::00) Hgb: 14.5 G/dL (01/06/24 05:21:00) Hct: 43.5 % (01/06/24 05:21:00) MCV: 90.3 fL (01/06/24 05:21:00) MCH: 30 pg (01/06/24 05:21:00) MCHC: 33.2 G/dL (01/06/24 05:21:00) RDW: 15 % (01/06/24 05:21:00) Platelet: 189 10^3/mcL (01/06/24 05:21:00) MPV: 8.2 fL (01/06/24 05:21:00) Neutrophil %: 87.3 % High (01/06/24 05:21:00) Lymphocyte %: 9.2 % Low (01/06/24 05:21:00) Monocyte %: 3.1 % (01/06/24 05:21:00) Eosinophil %: 0.1 % (01/06/24 05:21:00) Basophil %: 0.3 % (01/06/24 05:21:00) Neutrophil, Absolute: 9.1 10^3/mcL High (01/06/24 05:21:00) Lymphocyte, Absolute: 1 10^3/mcL (01/06/24 05:21:00) Monocyte, Absolute: 0.3 10^3/mcL (01/06/24 05:21:00) Eosinophil, Absolute: 0 10^3/mcL (01/06/24 05:21:00) Basophil, Absolute: 0 10^3/mcL (01/06/24 05:21:00) Heparin dose (APTT): Unknown (01/01/24 18:39:00) APTT: 25.3 seconds (01/01/24 18:39:00) Protime: 10.5 seconds (01/01/24 18:39:00) PT International Ratio: 0.9 ratio (01/01/24 18:39:00) Fibrinogen: 408 mg/dL (01/01/24 18:39:00) Glucose Level: 130 mg/dL High (01/06/24 05:21:00) Sodium Level: 139 mEq/L (01/06/24 05:21:00) Potassium Level: 4.8 mEq/L (01/06/24 05:21:00) Chloride: 107 mEq/L (01/06/24 05:21:00) CO2: 22 mEq/L (01/06/24 05:21:00) Electrolyte Balance: 10 mEq/L (01/06/24 05:21:00) BUN: 20 mg/dL (01/06/24 05:21:00) Creatinine Lvl (s): 0.58 mg/dL (01/06/24 05:21:00) BUN/Creatinine Ratio: 34.5 ratio High (01/06/24 05:21:00) Calcium Lvl: 9.2 mg/dL (01/06/24 05:21:00) Magnesium Lvl: 2.4 mg/dL (01/04/24 04:25:00) Phosphorus: 4.1 mg/dL (01/04/24 04:25:00) Total Protein: 6.7 G/dL (12/29/23 18:20:00) Albumin Level: 3.8 G/dL (12/29/23 18:20:00) Globulin: 2.9 G/dL (12/29/23 18:20:00) A/G Ratio: 1.3 ratio (12/29/23 18:20:00) Bili Total: 0.3 mg/dL (12/29/23 18:20:00) Alk Phos: 120 U/L (12/29/23 18:20:00) AST/SGOT: 19 U/L (12/29/23 18:20:00) ALT/SGPT: 23 U/L (12/29/23 18:20:00) CPK: 96 U/L (01/03/24 15:13:00) GFR Non-: >60 (01/06/24 05:21:00) GFR : >60 (01/06/24 05:21:00) Calcium Ionized: 1.16 mmol/L (01/03/24 15:13:00) Troponin I High Sensitivity: <2.50 (01/03/24 15:13:00) AFP, Tumor Marker: <2.2 (01/02/24 14:43:00) CA 19-9: 1.6 U/mL (01/02/24 14:43:00) CEA: 0.5 ng/mL (01/02/24 14:43:00) Blood Glucose, Capillary: 101 mg/dL (01/06/24 11:34:00) Blood Glucose Testing Reason: Routine (01/06/24 11:34:00) Blood Glucose Interventions: Notify physician (01/03/24 23:56:00) Imaging Results and Diagnostics MRI Brain w/ + w/o Contrast Result Date: January 03, 2024 Verified By: RUDI MOSS MD CLINICAL STATEMENT: IMPRESSION: Interval resection of the dural based mass in the right frontoparietal region. Stable vasogenic edema in the right cerebral hemisphere. Stable 2-3 mm subfalcine shift of midline structures from right to left. CT Head or Brain w/o Contrast Result Date: January 03, 2024 Verified By: RICHARD CANALES MD CLINICAL STATEMENT: IMPRESSION: 1. Status post right craniotomy with pneumocephalus and trace extra- axialhemorrhage which could be postoperative. Continued mass effect upon the rightlateral ventricle and minimal nmgxx-pf-feca midline shift, similar inappearance to the prior.2. Hypodensity in the right mcdaniel radiata and centrum semiovalecorresponding to the areas of FLAIR hyperintensity on prior MRI, most likelyrepresenting edema.3. Monitoring line or drain projecting in the superficial soft tissuesoverlying the craniotomy site. MRI Brain w/ + w/o Contrast Result Date: January 02, 2024 Verified By: Contributor_system, Yards[employer]I CLINICAL STATEMENT: IMPRESSION: Redemonstration of 3.1 cm enhancing extra-axial mass overlying the rightfrontoparietal junction with mass effect, surrounding vasogenic edema,effacement of the right lateral ventricle andminimal leftward midline shift.Findings are stable since the examination performed 12/29/2023. Images forsurgical planning. CT Thorax w/ Contrast Result Date: January 01, 2024 Verified By: RUDI MOSS MD CLINICAL STATEMENT: IMPRESSION: No acute cardiopulmonary abnormality. Indeterminate 2 cm hypodensity in left lobe of liver. Differentialconsideration includes metastasis, benign or malignant neoplasm of liver, orpossibly a focal fatty infiltration of the liver. Further evaluation withMRI with and without IV contrast is recommended. Diverticulosis of the colon without signs of diverticulitis. Coronary artery calcification and/or stone stent. CT Abdomen/Pelvis w/Contrast Result Date: January 01, 2024 Verified By: RUDI MOSS MD CLINICAL STATEMENT: IMPRESSION: No acute cardiopulmonary abnormality. Indeterminate 2 cm hypodensity in left lobe of liver. Differentialconsideration includes metastasis, benign or malignant neoplasm of liver, orpossibly a focal fatty infiltration of the liver. Further evaluation withMRI with and without IV contrast is recommended. Diverticulosis of the colon without signs of diverticulitis. Coronary artery calcification and/or stone stent. MRI Brain w/ + w/o Contrast Result Date: December 29, 2023 Verified By: Contributor_system, [employer] CLINICAL STATEMENT: IMPRESSION: 3 cm avidly enhancing extra-axial dural-based mass overlying the lateralright frontal parietal junction. Meningioma is most likely. Definitivediagnosis would require tissue sampling. The lesion results in considerableunderlying mass effect resulting in vasogenic edema, effacement of therightlateral ventricle and 3 mm leftward midline shift. Neurosurgicalconsultation is recommended. EKG No qualifying data available. Assessment/Plan Assessment: Right frontal lobe brain mass s/p stereotactic craniotomy and resection of tumor with duraplasty Left liver lobe mass Hypertension Hyperlipidemia Constipation Anxiety Lumbar spinal stenosis History of basal cell cancer History of melanoma Constipation Sciatica Coronary artery disease Plan: -For right frontal lobe brain mass patient is on Keppra and Decadron, mass has been resected with stereotactic craniotomy with duraplasty, awaiting final pathology report. -Left liver lobe hypodensity, MRI of liver has been done awaiting report, 2 cm hypodensity in the left liver lobe seen on abdominal imaging. -Continue lisinopril, Coreg and amlodipine for hypertension, as needed hydralazine has been orderedfor systolic more than 140, keep systolic less than 140 mmHg. -Continue ezetimibe for hyperlipidemia -Patient on aggressive bowel regimen for constipation including MiraLAX scheduled and as needed docusate, milk of magnesia and MiraLAX for constipation. -Continue as needed diazepam for anxiety Oncology saw the patient on January 02, recommend holding off on discharge till MRI liver report isback, also reconsult oncology after MRI liver report is back, if oncology is planning on doing liver biopsy then she should stay till liver biopsy done, if oncology is not planning on doing any liverbiopsy then she can be discharged from medical standpoint. Other chronic medical conditions as described above, pain management per primary team. Note was written using [employer] branch store manager software. Some of the meaning of the words and sentences might have changed during branch store manager, if there was ever some confusion about the meaning of some sentences, please do not hesitate to contact me. Digitally Signed by REX DAMON MD on 01/06/2024 01:19 PM [facility] [id number] Note Date of Service 01/06/2024 Split/shared visit with Dr Burch who is covering for Dr. Ahuja Right frontal lobe brain mass with surrounding vasogenic edema-Hospital day #8 S/P craniotomy for resection of right frontal lobe dask-Gvnz-zb day #3 63-year-old female who initially presented to the emergency department at [facility] after she had an episode of slurred speech and facial droop. She was reportedly the second episode she has had in the last couple of weeks. Family noticed a left facial droop and that she had difficulty speaking. Has had headaches for the last couple of weeks, which she normally does not have. In addition, shestates she has been off balance at times. Indicates she does have an underlying hx of chronic low back pain due to degenerative changes in the spine with sciatica which she describes affects both herlegs. She denies any acute vision changes, decreased appetite or weight loss. Denies unilateral weak ness in extremities. CT of the head at [facility] which demonstrated right frontal lobe edema. Due to these findings, she was transferred to [facility] for evaluation by neurosurgery. MRI of the brain demonstrated a 3 cm enhancing extra axial dural based mass overlying the lateral right frontal parietal junction. The mass caused mass effect and vasogenic edema with 3 mm of leftward midline shift. On dexamethasone and Keppra. CT chest/abd/pelvis demonstrated 2 cm left lobe liver mass. Hospitalist ordered MRI liver, test performed yesterday; results pending. Underwent craniotomy 01/03/24 for resection of a right frontal mass. Was somewhat wake up postoperatively, so a stat CT was obtained postop. CT demonstrated no acute hemorrhage, and expected postop changes. Family provided patient with hx of slow wakening after anesthesia in the past. Post-op MRI obtained and reviewed by Dr. Ahuja who provided this demonstrated post-op changes. Subgaleal drain removed 01/05/2024; Ancef continued 24 hour post drain removal. This morning, patient is seen OOB, ambulating from bathroom to side of bed. She is fully awake, andalert. Attentive with examiner and participated in exam. Conversant. Oriented x4. Speech is clear and fluent. Follows commands accurately and briskly. Moves all 4 extremities well, only very slightlyweaker with left hand grasp. Nausea has improved over last 24 hours. Has intermittent Headaches. Craniotomy incision is well-approximated with pierre intact. There is no edema, bleeding, redness, drainage. Site was cleansed with Soap and water using pads of fingers to cleanse incision and surrounding tissue/skin. Patted dry with towel. Incision covered with 4x4 gauze dressing and head wrap re-placed. Objective Vitals and Measurements T: 36.8 C (Oral) TMIN: 36.4 C (Oral) TMAX: 37.4 C (Oral) HR: 63 RR: 17 BP: 138/88 SpO2: 95% HT: 144.8 cm WT: 86.7 kg BMI: 41.35 Intake and Output 7AM Yesterday to 7AM Today Intake and Output (Last 24 hours) Intake Administration Information 800.00 Output Surgical Drain, Tube Output: 40.00 Stool Count 0.00 Urine Count 3.00 Total Summary Total Intake 800.00 Total Output 40.00 Fluid Balance 760.00 Physical Exam See HPI. Abdomen is soft and obese. Bowel sounds present all 4 quadrants. No abdominal distention or tenderness. Per patient, voiding without difficulty. Denies dysuria or hematuria. Tolerating p.o. intake, nausea improved. Regular heart rate and rhythm. S1-S2 present. Lungs clear bilaterally. Respirations unlabored and even. Oxygen saturations adequate on room air. Weight Dosing Weight: 86.7 kg (01/05/24) Dosing Weight: 86.7 kg (01/03/24) Medications Medications (26) Active Scheduled: (10) amLODIPine 10 mg tablet 10 mg 1 tab(s), Oral, qDay carvedilol 12.5 mg tablet 12.5 mg 1 tab(s), Oral, BIDM ceFAZolin syringe 1 gram(s) 10 mL, IV Push (INT), q6hr dexamethasone 4 mg/1 mL solution 4 mg 1 mL, IV Push, TID ezetimibe 10 mg tablet 10 mg 1 tab(s), Oral, qDay lactulose 20 g/30 mL UD cup 10 gram(s) 15 mL, Oral, BID levETIRAcetam 500 mg tablet 500 mg 1 tab(s), Oral, q12h lisinopril 20 mg tablet 20 mg 1 tab(s), Oral, BID pantoprazole 40 mg EC tablet 40 mg 1 tab(s), Oral, qDayAC polyethylene glycol 3350 - UD packet 17 gram(s) 15 mL, Oral, qDay Continuous: (1) NS (0.9% nacl) 1,000 mL 1,000 mL, Intravenous, 50 mL/hr PRN: (15) acetaminophen 325 mg Tablet 650 mg 2 tab(s), Oral, q4h acetaminophen-HYDROcodone 325-5 mg tablet 1 tab(s), Oral, q4h Al hydrox/Mg hydrox/simethicone 200-200-20 mg/5 mL Susp UD 30 mL, Oral, q2h cyclobenzaprine 10 mg Tablet 10 mg 1 tab(s), Oral, BID dextrose 50% Solution Disp syringe 50 mL 25 g 50 mL, IV Push, AsDirected dextrose 50% Solution Disp syringe 50 mL 12.5 gram(s) 25 mL, IV Push, AsDirected diazepam 5 mg tablet 5 mg 1 tab(s), Oral, QID docusate sodium 100 mg Capsule 100 mg 1 cap(s), Oral, BID hydralazine 20 mg/mL (1mL) vial 10 mg 0.5 mL, IV Push, q2h insulin regular human recombinant 100 units/mL (3 mL) Soln sliding scale insulin, Subcutaneous, q4h magnesium hydroxide 8% Suspension 30 mL UD 30 mL, Oral, qHS melatonin 5 mg tablet 5 mg 1 tab(s), Oral, qHS ondansetron 2 mg/ 1 mL 2 mL INJ 4 mg 2 mL, IV Push, q4h polyethylene glycol 3350 - UD packet 17 gram(s) 15 mL, Oral, qDay prochlorperazine 10 mg/2 mL vial 10 mg 2 mL, IV Push, q6hr Lab Results 01/06 05:21 WBC: 10.4 Hgb: 14.5 Hct: 43.5 Platelet: 189 Neutrophil %: 87.3 H Glucose Level: 130 H Sodium Level: 139 Potassium Level: 4.8 BUN: 20.0 Creatinine Lvl (s): 0.58 01/05 04:21 WBC: 8.1 Hgb: 13.2 Hct: 39.8 Platelet: 195 Neutrophil %: 88.7 H Glucose Level: 127 H Sodium Level: 142 Potassium Level: 4.3 BUN: 19.0 Creatinine Lvl (s): 0.58 EKG No qualifying data available. Assessment/Plan Right frontal lobe brain mass with surrounding vasogenic edema; s/p craniotomy for resection of right frontal lobe mass -Overall, patient is doing well postoperatively. She has had intermittent headaches, which do respond to pain medication. Nausea improved. Neurologically stable. -Post op CT demonstrated no acute hemorrhage and expected postoperative changes. -Postop MRI demonstrates expected postoperative changes per Dr. Ahuja -Intra-op/Surgical tissue pathology is still pending. -Subgaleal drain discontinued 01/05/[address] Burch's instruction. Ancef continued x24 hrs post drain removal. -Transferred to stepdown unit 01/16/2024 -On Keppra 500 mg twice daily; has had no clinical signs of seizure activity postoperatively. Continue to monitor notify neurosurgery promptly with any acute changes or concerns. -Continues on Decadron, adjusted to 4 mg 3 times daily. Will continue to taper dose over the next 2weeks. -Patient evaluated by PT/OT, recommending home health care PT/OT. Discussed with social worker clinical ludwig who indicates patient has been declined by several referring agencies. Awaiting accepting [facility] agency. -Cranial incision to be cleansed at least daily using mild shampoo. Rinse and cleanse incision gently using pads of fingers. Pat dry. Apply/change gauze dressing and head wrap daily. Keep site clean and dry at all times. CT chest, abdomen, and pelvis- demonstrated a 2cm left lobe liver lesion. -Prior to surgery, Hospitalist had ordered MRI liver-testing was performed yesterday afternoon; official report pending. -Oncology consulted per hospitalist. -Has history of melanoma on her leg in 2014. She also had skin cancer removed from her forehead recently, basal cell carcinoma. -Will reconsult hospitalist to follow patient medically on the floor, and for management of liver lesion. Also requested medical optimization for discharge; working towards discharge once all arrangements have been made and patient medically cleared. Please refer to Dr. Burch's addendum for additional information. Digitally Signed by PARDEEP URIARTE on 01/06/2024 11:59 AM Digitally Signed by CHIQUITA BURCH MD on 01/08/2024 11:11 AM [facility] [id number] Note ORIGINAL EXAMINATION: MRI OF THE ABDOMEN LIMITED WITH CONTRAST, 01/05/2024 6:54 pm TECHNIQUE: Multiplanar multisequence MRI of the abdomen limited was performed with the administration of intravenous contrast. COMPARISON: Prior CT abdomen pelvis dated 01/01/2024. HISTORY: ORDERING SYSTEM PROVIDED HISTORY: Reason for Exam: evaluate liver lesion hx melanoma FINDINGS: Limited evaluation of the lung bases demonstrates no pleural or pericardial effusion. On chemical shift images there is no evidence of abnormal signal dropout. There is no evidence of restricted diffusion on diffusion-weighted images. The liver is nonenlarged. There is redemonstration of a lesion within the left hepatic lobe measuring 2.0 x 1.1 cm. This lesion demonstrates faint T2 hyperintensity and demonstrates delayed peripheral enhancement with incomplete filling most consistent with a hemangioma. No intrahepatic or extrahepatic biliary ductal dilatation is seen. The gallbladder is normal in appearance. The bilateral adrenal glands, spleen, and pancreas are normal in appearance. The kidneys enhance symmetrically bilaterally. There is a benign 1.0 cm left renal cyst noted. There is no hydronephrosis. The visualized gastrointestinal tract is nonobstructed. No free intra-fluid is seen. No pathologically enlarged lymphadenopathy is appreciated. The bony structures demonstrate degenerative change. No acute fracture or aggressive osseous lesion is appreciated. IMPRESSION: Left hepatic lobe lesion measuring 2.0 x 1.1 cm is most consistent with a hemangioma. Given incomplete enhancement on this exam consider ultrasound in 6-12 months to demonstrate stability out of an abundance of caution. Interpreted by: Ebony Guzman MD Preliminary Report By: Ebony Guzman MD Electronically signed By Ebony Guzman MD Dictated Date: 01/08/2024 8:48:25 AM Prelim Date: 01/08/2024 8:54:59 AM Sign Date: 01/08/2024 8:54:59 AM Ordering Provider: [facility]AA[facility] [id number] Note Date of Service 01/05/2024 Split/shared visit with Dr Burch who is covering for Dr. Ahuja Right frontal lobe brain mass with surrounding vasogenic edema-Hospital day #7 S/P craniotomy for resection of right frontal lobe oegz-Gpkd-wk day #2 63-year-old female who initially presented to the emergency department at [facility] after she had an episode of slurred speech and facial droop. She was reportedly the second episode she has had in the last couple of weeks. Family noticed a left facial droop and that she had difficulty speaking. Has had headaches for the last couple of weeks, which she normally does not have. In addition, shestates she has been off balance at times. Indicates she does have an underlying hx of chronic low back pain due to degenerative changes in the spine with sciatica which she describes affects both herlegs. She denies any acute vision changes, decreased appetite or weight loss. Denies unilateral weak ness in extremities. CT of the head at [facility] which demonstrated right frontal lobe edema. Due to these findings, she was transferred to [facility] for evaluation by neurosurgery. MRI of the brain demonstrated a 3 cm enhancing extra axial dural based mass overlying the lateral right frontal parietal junction. The mass caused mass effect and vasogenic edema with 3 mm of leftward midline shift. On dexamethasone and Keppra. CT chest/abd/pelvis demonstrated 2 cm left lobe liver mass. Hospitalist ordered MRI liver, but not yet obtained; scheduled for this afternoon. Underwent craniotomy 01/03/24 for resection of a right frontal mass. Was somewhat wake up postoperatively, so a stat CT was obtained postop. CT demonstrated no acute hemorrhage, and expected postop changes. Family provided patient with hx of slow wakening after anesthesia in the past. Post-op MRI obtained and reviewed by Dr. Ahuja who provided this demonstrated post-op changes. On exam, she is fully awake, and alert. She is oriented x4.Speech is clear and fluent. Follows commands well. She is moving all 4 extremities well, only very slightly weaker in the left hand grasp. Had some nausea overnight, but states much better this morning. Subgaleal drain output overnight = 30mL Craniotomy is well-approximated with pierre intact. No edema, no drainage. Craniotomy dressing/head wrap was changed. Objective Vitals and Measurements T: 36.5 C (Oral) TMIN: 36.5 C (Oral) TMAX: 36.8 C (Oral) HR: 81(Monitored) RR: 15 BP: 131/76 BP: 123/64(Line) SpO2: 98% Intake and Output 7AM Yesterday to 7AM Today Intake and Output (Last 24 hours) Intake Oral Intake 1960.00 Administration Information 2941.67 Output Surgical Drain, Tube Output: 195.00 Urinary Catheter Output: 2125.00 Stool Count 0.00 Urine Count 1.00 Total Summary Total Intake 4901.67 Total Output 2320.00 Fluid Balance 2581.67 Physical Exam Abdomen is soft. Nontender and nondistended. BS x4 Breath sounds are clear. Respirations unlabored, and even. Normal heart sounds. Indwelling Geiger catheter intact; clear yellow urine draining to gravity. Weight Dosing Weight: 86.7 kg (01/03/24) Medications Medications (28) Active Scheduled: (10) amLODIPine 10 mg tablet 10 mg 1 tab(s), Oral, qDay carvedilol 12.5 mg tablet 12.5 mg 1 tab(s), Oral, BIDM ceFAZolin syringe 1 gram(s) 10 mL, IV Push (INT), q6hr dexamethasone 4 mg/1 mL solution 4 mg 1 mL, IV Push, q6h ezetimibe 10 mg tablet 10 mg 1 tab(s), Oral, qDay lactulose 20 g/30 mL UD cup 10 gram(s) 15 mL, Oral, BID levETIRAcetam 500 mg tablet 500 mg 1 tab(s), Oral, q12h lisinopril 20 mg tablet 20 mg 1 tab(s), Oral, BID pantoprazole 40 mg EC tablet 40 mg 1 tab(s), Oral, qDayAC polyethylene glycol 3350 - UD packet 17 gram(s) 15 mL, Oral, qDay Continuous: (2) insulin regular 100 unit(s) + NS Premix Diluent 100 mL 100 mL, Intravenous NS (0.9% nacl) 1,000 mL 1,000 mL, Intravenous, 50 mL/hr PRN: (16) acetaminophen 325 mg Tablet 650 mg 2 tab(s), Oral, q4h acetaminophen-HYDROcodone 325-5 mg tablet 1 tab(s), Oral, q4h Al hydrox/Mg hydrox/simethicone 200-200-20 mg/5 mL Susp UD 30 mL, Oral, q2h cyclobenzaprine 10 mg Tablet 10 mg 1 tab(s), Oral, BID dextrose 50% Solution Disp syringe 50 mL 25 g 50 mL, IV Push, AsDirected dextrose 50% Solution Disp syringe 50 mL 12.5 gram(s) 25 mL, IV Push, AsDirected diazepam 5 mg tablet 5 mg 1 tab(s), Oral, QID docusate sodium 100 mg Capsule 100 mg 1 cap(s), Oral, BID hydralazine 20 mg/mL (1mL) vial 10 mg 0.5 mL, IV Push, q2h HYDROmorphone 0.5 mg/0.5 mL PF syringe 0.5 mg 0.5 mL, IV Push, q3h insulin regular human recombinant 100 units/mL (3 mL) Soln sliding scale insulin, Subcutaneous, q4h magnesium hydroxide 8% Suspension 30 mL UD 30 mL, Oral, qHS melatonin 5 mg tablet 5 mg 1 tab(s), Oral, qHS ondansetron 2 mg/ 1 mL 2 mL INJ 4 mg 2 mL, IV Push, q4h polyethylene glycol 3350 - UD packet 17 gram(s) 15 mL, Oral, qDay prochlorperazine 10 mg/2 mL vial 10 mg 2 mL, IV Push, q6hr Lab Results 01/05 04:21 WBC: 8.1 Hgb: 13.2 Hct: 39.8 Platelet: 195 Neutrophil %: 88.7 H Glucose Level: 127 H Sodium Level: 142 Potassium Level: 4.3 BUN: 19.0 Creatinine Lvl (s): 0.58 01/04 04:25 WBC: 10.6 Hgb: 13.7 Hct: 41.8 Platelet: 233 Neutrophil %: 88.0 H Glucose Level: 117 H Sodium Level: 138 Potassium Level: 4.3 BUN: 14.0 Creatinine Lvl (s): 0.58 EKG No qualifying data available. Right frontal lobe brain mass with surrounding vasogenic edema; s/p craniotomy for resection of right frontal lobe mass -Patient is doing well today. She is fully awake and alert. States nausea improved. Has mild SCHULTE this morning. -Post op CT obtained stat due to slow awakening after surgery. CT demonstrated no acute hemorrhage and expected postoperative changes. -Compazine available PRN, as well as Zofran for nausea. -Postop MRI demonstrates expected postoperative changes per Dr. Ahuja -Intra-op/Surgical Path is still pending. -Subgaleal drain will be discontinued today per Dr Burch. Continue Ancef for 24 hrs post drain removal. -Weaned off Cardene; Keep SBP <140. -Continue on Keppra 500 mg twice daily; monitor for seizure activity; no signs of seizures post-op. -On Decadron 4 mg every 6 hours. Will taper dose over the next 2 weeks. -Okay for transfer to stepdown today -PT/OT evals ordered to assess discharge therapy needs. CT chest, abdomen, and pelvis- demonstrated a 2cm left lobe liver lesion. -Prior to surgery, Hospitalist had ordered MRI liver-this is scheduled for later this afternoon. -Oncology consulted per hospitalist. -Has history of melanoma on her leg in 2014. She also had skin cancer removed from her forehead recently, basal cell carcinoma. Please refer to Dr. Burch's addendum for additional information and details regarding neurosurgical input and plan of care. Digitally Signed by PARDEEP URIARTE on 01/05/2024 06:40 PM [facility] [id number] Note Date of Service 01/05/2024 Split/shared visit with Dr Burch who is covering for Dr. Ahuja Right frontal lobe brain mass with surrounding vasogenic edema-Hospital day #7 S/P craniotomy for resection of right frontal lobe hfkg-Ugud-qr day #2 63-year-old female who initially presented to the emergency department at [facility] after she had an episode of slurred speech and facial droop. She was reportedly the second episode she has had in the last couple of weeks. Family noticed a left facial droop and that she had difficulty speaking. Has had headaches for the last couple of weeks, which she normally does not have. In addition, shestates she has been off balance at times. Indicates she does have an underlying hx of chronic low back pain due to degenerative changes in the spine with sciatica which she describes affects both herlegs. She denies any acute vision changes, decreased appetite or weight loss. Denies unilateral weak ness in extremities. CT of the head at [facility] which demonstrated right frontal lobe edema. Due to these findings, she was transferred to [facility] for evaluation by neurosurgery. MRI of the brain demonstrated a 3 cm enhancing extra axial dural based mass overlying the lateral right frontal parietal junction. The mass caused mass effect and vasogenic edema with 3 mm of leftward midline shift. On dexamethasone and Keppra. CT chest/abd/pelvis demonstrated 2 cm left lobe liver mass. Hospitalist ordered MRI liver, but not yet obtained; scheduled for this afternoon. Underwent craniotomy 01/03/24 for resection of a right frontal mass. Was somewhat wake up postoperatively, so a stat CT was obtained postop. CT demonstrated no acute hemorrhage, and expected postop changes. Family provided patient with hx of slow wakening after anesthesia in the past. Post-op MRI obtained and reviewed by Dr. Ahuja who provided this demonstrated post-op changes. On exam, she is fully awake, and alert. She is oriented x4.Speech is clear and fluent. Follows commands well. She is moving all 4 extremities well, only very slightly weaker in the left hand grasp. Had some nausea overnight, but states much better this morning. Subgaleal drain output overnight = 30mL Craniotomy is well-approximated with pierre intact. No edema, no drainage. Craniotomy dressing/head wrap was changed. Objective Vitals and Measurements T: 36.5 C (Oral) TMIN: 36.5 C (Oral) TMAX: 36.8 C (Oral) HR: 81(Monitored) RR: 15 BP: 131/76 BP: 123/64(Line) SpO2: 98% Intake and Output 7AM Yesterday to 7AM Today Intake and Output (Last 24 hours) Intake Oral Intake 1960.00 Administration Information 2941.67 Output Surgical Drain, Tube Output: 195.00 Urinary Catheter Output: 2125.00 Stool Count 0.00 Urine Count 1.00 Total Summary Total Intake 4901.67 Total Output 2320.00 Fluid Balance 2581.67 Physical Exam Abdomen is soft. Nontender and nondistended. BS x4 Breath sounds are clear. Respirations unlabored, and even. Normal heart sounds. Indwelling Geiger catheter intact; clear yellow urine draining to gravity. Weight Dosing Weight: 86.7 kg (01/03/24) Medications Medications (28) Active Scheduled: (10) amLODIPine 10 mg tablet 10 mg 1 tab(s), Oral, qDay carvedilol 12.5 mg tablet 12.5 mg 1 tab(s), Oral, BIDM ceFAZolin syringe 1 gram(s) 10 mL, IV Push (INT), q6hr dexamethasone 4 mg/1 mL solution 4 mg 1 mL, IV Push, q6h ezetimibe 10 mg tablet 10 mg 1 tab(s), Oral, qDay lactulose 20 g/30 mL UD cup 10 gram(s) 15 mL, Oral, BID levETIRAcetam 500 mg tablet 500 mg 1 tab(s), Oral, q12h lisinopril 20 mg tablet 20 mg 1 tab(s), Oral, BID pantoprazole 40 mg EC tablet 40 mg 1 tab(s), Oral, qDayAC polyethylene glycol 3350 - UD packet 17 gram(s) 15 mL, Oral, qDay Continuous: (2) insulin regular 100 unit(s) + NS Premix Diluent 100 mL 100 mL, Intravenous NS (0.9% nacl) 1,000 mL 1,000 mL, Intravenous, 50 mL/hr PRN: (16) acetaminophen 325 mg Tablet 650 mg 2 tab(s), Oral, q4h acetaminophen-HYDROcodone 325-5 mg tablet 1 tab(s), Oral, q4h Al hydrox/Mg hydrox/simethicone 200-200-20 mg/5 mL Susp UD 30 mL, Oral, q2h cyclobenzaprine 10 mg Tablet 10 mg 1 tab(s), Oral, BID dextrose 50% Solution Disp syringe 50 mL 25 g 50 mL, IV Push, AsDirected dextrose 50% Solution Disp syringe 50 mL 12.5 gram(s) 25 mL, IV Push, AsDirected diazepam 5 mg tablet 5 mg 1 tab(s), Oral, QID docusate sodium 100 mg Capsule 100 mg 1 cap(s), Oral, BID hydralazine 20 mg/mL (1mL) vial 10 mg 0.5 mL, IV Push, q2h HYDROmorphone 0.5 mg/0.5 mL PF syringe 0.5 mg 0.5 mL, IV Push, q3h insulin regular human recombinant 100 units/mL (3 mL) Soln sliding scale insulin, Subcutaneous, q4h magnesium hydroxide 8% Suspension 30 mL UD 30 mL, Oral, qHS melatonin 5 mg tablet 5 mg 1 tab(s), Oral, qHS ondansetron 2 mg/ 1 mL 2 mL INJ 4 mg 2 mL, IV Push, q4h polyethylene glycol 3350 - UD packet 17 gram(s) 15 mL, Oral, qDay prochlorperazine 10 mg/2 mL vial 10 mg 2 mL, IV Push, q6hr Lab Results 01/05 04:21 WBC: 8.1 Hgb: 13.2 Hct: 39.8 Platelet: 195 Neutrophil %: 88.7 H Glucose Level: 127 H Sodium Level: 142 Potassium Level: 4.3 BUN: 19.0 Creatinine Lvl (s): 0.58 01/04 04:25 WBC: 10.6 Hgb: 13.7 Hct: 41.8 Platelet: 233 Neutrophil %: 88.0 H Glucose Level: 117 H Sodium Level: 138 Potassium Level: 4.3 BUN: 14.0 Creatinine Lvl (s): 0.58 EKG No qualifying data available. Right frontal lobe brain mass with surrounding vasogenic edema; s/p craniotomy for resection of right frontal lobe mass -Patient is doing well today. She is fully awake and alert. States nausea improved. Has mild SCHULTE this morning. -Post op CT obtained stat due to slow awakening after surgery. CT demonstrated no acute hemorrhage and expected postoperative changes. -Compazine available PRN, as well as Zofran for nausea. -Postop MRI demonstrates expected postoperative changes per Dr. Ahuja -Intra-op/Surgical Path is still pending. -Subgaleal drain will be discontinued today per Dr Burch. Continue Ancef for 24 hrs post drain removal. -Weaned off Cardene; Keep SBP <140. -Continue on Keppra 500 mg twice daily; monitor for seizure activity; no signs of seizures post-op. -On Decadron 4 mg every 6 hours. Will taper dose over the next 2 weeks. -Okay for transfer to stepdown today -PT/OT evals ordered to assess discharge therapy needs. CT chest, abdomen, and pelvis- demonstrated a 2cm left lobe liver lesion. -Prior to surgery, Hospitalist had ordered MRI liver-this is scheduled for later this afternoon. -Oncology consulted per hospitalist. -Has history of melanoma on her leg in 2014. She also had skin cancer removed from her forehead recently, basal cell carcinoma. Please refer to Dr. Burch's addendum for additional information and details regarding neurosurgical input and plan of care. Digitally Signed by PARDEEP URIARTE on 01/05/2024 06:40 PM [id number] Note Date of Service 01/05/2024 Subjective 63-year-old female with a past medical history of hypertension, hyperlipidemia, lumbar stenosis on chronic opioids, history of basal cell cancer to the right eye, history of melanoma, CAD, SD with PCI to LAD plus RCA in 04/16, former tobacco user who presented to [facility] emergency department complaining of slurred speech and facial droop with aphasia. She also reportedly had headaches and balance issues. CT of the brain showed a positive right frontal lobe edema. She was given Keppra and Decadron and[facility]. MRI revealed 3 cm enhancing extra-axial dural mass overlying the right frontoparietal junction with vasogenic edema. The patient is now postoperative day 1 status post right frontal craniotomy with tumor resection and duraplasty. EBL was 25 mL. The patient was transferred to the SICU extubated on nicardipine. Over the last 24 hours, has been weaned off of nicardipine. Sitting up in the chair today. Drain remains in place. No new complaints. Today I rounded on the patient with the nursing staff, rounding critical care nurse, and the entirecritical care team available. I've reviewed the detailed handwritten notes as well as any dictations performed. In addition to this I would like to add the following: Objective Vitals and Measurements T: 36.5 C (Oral) TMIN: 36.5 C (Oral) TMAX: 36.8 C (Oral) HR: 105(Monitored) RR: 17 BP: 144/87 BP: 123/64(Line) SpO2: 94% Intake and Output 7AM Yesterday to 7AM Today Intake and Output (Last 24 hours) Intake Oral Intake 1960.00 Administration Information 2941.67 Output Surgical Drain, Tube Output: 245.00 Urinary Catheter Output: 2125.00 Stool Count 0.00 Total Summary Total Intake 4901.67 Total Output 2370.00 Fluid Balance 2531.67 Physical Exam General: in bed, NAD HEENT: PERRL, EOMI, MM moist Neck: supple Chest: lungs clear Heart: RRR nl s1 s2 Abdomen: + BS, soft, nontender Extremities: no CCE Neuro: Alert, some weakness in the left upper extremity Skin: warm, dry Psych: no anxiety Weight Dosing Weight: 86.7 kg (01/03/24) Medications Medications (30) Active Scheduled: (10) amLODIPine 10 mg tablet 10 mg 1 tab(s), Oral, qDay carvedilol 12.5 mg tablet 12.5 mg 1 tab(s), Oral, BIDM ceFAZolin syringe 1 gram(s) 10 mL, IV Push (INT), q6hr dexamethasone 4 mg/1 mL solution 4 mg 1 mL, IV Push, q6h ezetimibe 10 mg tablet 10 mg 1 tab(s), Oral, qDay lactulose 20 g/30 mL UD cup 10 gram(s) 15 mL, Oral, BID levETIRAcetam PMX bag 500 mg 100 mL, IV Piggyback, q12h lisinopril 20 mg tablet 20 mg 1 tab(s), Oral, BID pantoprazole 40 mg VIAL 40 mg, IV Push, qDayAC polyethylene glycol 3350 - UD packet 17 gram(s) 15 mL, Oral, qDay Continuous: (4) insulin regular 100 unit(s) + NS Premix Diluent 100 mL 100 mL, Intravenous nicardipine 25 mg [5 mg/hr] + Sodium Chloride 0.9% 240 mL 240 mL, Intravenous, 50 mL/hr NS (0.9% nacl) 1,000 mL 1,000 mL, Intravenous, 125 mL/hr NS (0.9% nacl) 1000 mL 1,000 mL, Intravenous, 100 mL/hr PRN: (16) acetaminophen 325 mg Tablet 650 mg 2 tab(s), Oral, q4h acetaminophen-HYDROcodone 325-5 mg tablet 1 tab(s), Oral, q4h Al hydrox/Mg hydrox/simethicone 200-200-20 mg/5 mL Susp UD 30 mL, Oral, q2h cyclobenzaprine 10 mg Tablet 10 mg 1 tab(s), Oral, BID dextrose 50% Solution Disp syringe 50 mL 25 g 50 mL, IV Push, AsDirected dextrose 50% Solution Disp syringe 50 mL 12.5 gram(s) 25 mL, IV Push, AsDirected diazepam 5 mg tablet 5 mg 1 tab(s), Oral, QID docusate sodium 100 mg Capsule 100 mg 1 cap(s), Oral, BID hydralazine 20 mg/mL (1mL) vial 10 mg 0.5 mL, IV Push, q2h HYDROmorphone 0.5 mg/0.5 mL PF syringe 0.5 mg 0.5 mL, IV Push, q3h insulin regular human recombinant 100 units/mL (3 mL) Soln sliding scale insulin, Subcutaneous, q4h magnesium hydroxide 8% Suspension 30 mL UD 30 mL, Oral, qHS melatonin 5 mg tablet 5 mg 1 tab(s), Oral, qHS ondansetron 2 mg/ 1 mL 2 mL INJ 4 mg 2 mL, IV Push, q4h polyethylene glycol 3350 - UD packet 17 gram(s) 15 mL, Oral, qDay prochlorperazine 10 mg/2 mL vial 10 mg 2 mL, IV Push, q6hr Lab Results 01/05 04:21 WBC: 8.1 Hgb: 13.2 Hct: 39.8 Platelet: 195 Neutrophil %: 88.7 H Glucose Level: 127 H Sodium Level: 142 Potassium Level: 4.3 BUN: 19.0 Creatinine Lvl (s): 0.58 01/04 04:25 WBC: 10.6 Hgb: 13.7 Hct: 41.8 Platelet: 233 Neutrophil %: 88.0 H Glucose Level: 117 H Sodium Level: 138 Potassium Level: 4.3 BUN: 14.0 Creatinine Lvl (s): 0.58 EKG No qualifying data available. Assessment/Plan Assessment: S/p stereotactic craniotomy and resection of tumor with duraplasty on 01/03/2024 Hypertension Right frontal lobe brain mass with surrounding vasogenic edema Repeat head CT postoperatively showing pneumocephalus with trace extra-axial hemorrhage postoperatively Comorbidities include: Hypertension, hyperlipidemia, lumbar stenosis on chronic opioids, chronic opioid related constipation, sciatica, history of multiple skin cancers, CAD with history of SD in 03/2021 Plan: Maintain blood pressure control oral antihypertensives dexamethasone 4 mg every 6 hours for vasogenic edema Keppra 500 twice a day for seizure prophylaxis Protonix daily Discussed with family at bedside Celeste Becker M.D., [facility] Digitally Signed by CELESTE BECKER MD on 01/05/2024 10:23 AM [facility] [id number] Neurological surgery Progress note Date of Service 01/04/24 Chief Complaint Right frontal lobe brain mass with surrounding vasogenic edema-Hospital day #6 S/P craniotomy for resection of right frontal lobe jafs-[id number] day #1. This is a 63-year-old female who presented to the emergency department at [facility] after she had an episode of slurred speech and facial droop. She states this is a second episode she has had inthe last couple of weeks. She states the episodes last for about an hour. Her family noticed a leftfacial droop and then she had difficulty speaking. She states she noticed the facial droop in the id rror. She also states she has had headaches for the last couple of weeks, which she normally does not have. In addition, she states she has been off balance at times. She denies any decreased appetite or weight loss. She denies vision changes. She had a CT of the head at [facility] which demonstrated right frontal lobe edema. Due to these findings, she was transferred to [facility] for evaluation by neurosurgery. MRI of the brain was obtained, which demonstrated a 3 cm enhancing extra axial dural based mass overlying the lateral right frontal parietal junction. The mass caused mass effect and vasogenic edema with 3 mm of leftward midline shift. She is currently on dexamethasone 4 mg every 6 hours and Keppra [address] chest/abd/pelvis demonstrated 2 cm left lobe liver mass. Hospitalist have ordered MRI liver, butnot yet obtained. Yesterday underwent craniotomy for resection of a right frontal mass. She was little slow to wake up postoperatively, so a stat CT was obtained postop. CT demonstrated no acute hemorrhage, and expected postop changes. Post-op MRI obtained last night- Dr. Ahuja has reviewed-demonstrates the expected post-op changes. On exam, she is awake, alert, and oriented x 3. She is more awake this morning. She is able to moveall 4 extremities. She does seem to have just slightly weaker hand grasp on the left. She is able to move her lower extremities without difficulty. She has been nauseous this morning, but thinks it may be due to taking medications on an empty stomach. She did pass her swallow eval this morning, andshe will be started on a diet. She follows commands. Speech is clear. No episodes overnight of facial droop or slurred speech. Craniotomy is well-approximated. No drainage noted. Craniotomy dressing changed. Subgaleal drain 85 cc overnight; 117 cc on afternoon shift yesterday. Geiger catheter draining clear yellow urine. Objective Vitals and Measurements T: 36.8 C (Oral) TMIN: 36.5 C (Oral) TMAX: 36.8 C (Oral) HR: 96(Monitored) RR: 17 BP: 101/64 BP: 105/84(Line) SpO2: 95% Intake and Output 7AM Yesterday to 7AM Today Intake and Output (Last 24 hours) Intake Administration Information 3104.17 Oral Intake 760.00 Output Surgical Drain, Tube Output: 242.00 Urinary Catheter Output: 5000.00 Stool Count 0.00 Total Summary Total Intake 3864.17 Total Output 5242.00 Fluid Balance -1377.83 Physical Exam General Appearance: This patient is well-developed and well nourished, and appears stated age. No acute distress. Head: Normocephalic, Atraumatic- Craniotomy site-dry. No drainage. EENT: Mucous membranes dry. No vision or hearing changes Cardiac: S1 and S2 heard without murmur, rub, or gallop. Regular rate and rhythm. Lungs: Lungs clear. Respirations easy. No shortness of breath noted. Abdomen: BSP x 4. Abd soft, nontender, nondistended. Musculoskeletal: Moves all 4 ext. Extremities: Bilateral pedal pulses palpable. No edema noted Neurological: See HPI Skin: [place], warm, and dry. Psychiatric: Mood stable. Cooperative. Weight Dosing Weight: 86.7 kg (01/03/24) Medications Medications (30) Active Scheduled: (10) amLODIPine 10 mg tablet 10 mg 1 tab(s), Oral, qDay carvedilol 12.5 mg tablet 12.5 mg 1 tab(s), Oral, BIDM ceFAZolin syringe 1 gram(s) 10 mL, IV Push (INT), q6hr dexamethasone 4 mg/1 mL solution 4 mg 1 mL, IV Push, q6h ezetimibe 10 mg tablet 10 mg 1 tab(s), Oral, qDay lactulose 20 g/30 mL UD cup 10 gram(s) 15 mL, Oral, BID levETIRAcetam PMX bag 500 mg 100 mL, IV Piggyback, q12h lisinopril 20 mg tablet 20 mg 1 tab(s), Oral, BID pantoprazole 40 mg VIAL 40 mg, IV Push, qDayAC polyethylene glycol 3350 - UD packet 17 gram(s) 15 mL, Oral, qDay Continuous: (4) insulin regular 100 unit(s) + NS Premix Diluent 100 mL 100 mL, Intravenous nicardipine 25 mg [5 mg/hr] + Sodium Chloride 0.9% 240 mL 240 mL, Intravenous, 50 mL/hr NS (0.9% nacl) 1,000 mL 1,000 mL, Intravenous, 125 mL/hr NS (0.9% nacl) 1000 mL 1,000 mL, Intravenous, 100 mL/hr PRN: (16) acetaminophen 325 mg Tablet 650 mg 2 tab(s), Oral, q4h acetaminophen-HYDROcodone 325-5 mg tablet 1 tab(s), Oral, q4h Al hydrox/Mg hydrox/simethicone 200-200-20 mg/5 mL Susp UD 30 mL, Oral, q2h cyclobenzaprine 10 mg Tablet 10 mg 1 tab(s), Oral, BID dextrose 50% Solution Disp syringe 50 mL 25 g 50 mL, IV Push, AsDirected dextrose 50% Solution Disp syringe 50 mL 12.5 gram(s) 25 mL, IV Push, AsDirected diazepam 5 mg tablet 5 mg 1 tab(s), Oral, QID docusate sodium 100 mg Capsule 100 mg 1 cap(s), Oral, BID hydralazine 20 mg/mL (1mL) vial 10 mg 0.5 mL, IV Push, q2h HYDROmorphone 0.5 mg/0.5 mL PF syringe 0.5 mg 0.5 mL, IV Push, q3h insulin regular human recombinant 100 units/mL (3 mL) Soln sliding scale insulin, Subcutaneous, q4h magnesium hydroxide 8% Suspension 30 mL UD 30 mL, Oral, qHS melatonin 5 mg tablet 5 mg 1 tab(s), Oral, qHS ondansetron 2 mg/ 1 mL 2 mL INJ 4 mg 2 mL, IV Push, q4h polyethylene glycol 3350 - UD packet 17 gram(s) 15 mL, Oral, qDay prochlorperazine 10 mg/2 mL vial 10 mg 2 mL, IV Push, q6hr Lab Results 01/04 04:25 WBC: 10.6 Hgb: 13.7 Hct: 41.8 Platelet: 233 Neutrophil %: 88.0 H Glucose Level: 117 H Sodium Level: 138 Potassium Level: 4.3 BUN: 14.0 Creatinine Lvl (s): 0.58 01/03 15:13 WBC: 11.9 H Hgb: 13.8 Hct: 42.0 Platelet: 294 Neutrophil %: 85.5 H Glucose Level: 172 H Sodium Level: 139 Potassium Level: 4.1 BUN: 15.0 Creatinine Lvl (s): 0.65 EKG No qualifying data available. Assessment/Plan Right frontal lobe brain mass with surrounding vasogenic edema: Status post craniotomy for resection of right frontal lobe mass: -Patient is doing fairly well postoperatively. She has been a little bit slower waking up. She is complaining of a headache and nausea. -Stat CT obtained postoperatively due to slow awakening after surgery. CT demonstrated no acute hemorrhage and expected postoperative changes. -Compazine added for nausea. -Postop MRI obtained last night, and demonstrates expected postoperative changes. -Path is pending. -Subgaleal drain will remain in place today. -Ancef while drain remains in place. -Cardene at 2.5mg/hr. Titrate to keep SBP <140. -She will be continued on Keppra 500 mg twice daily. -She remains on Decadron 4 mg every [address] Ahuja would like her steroids to be tapered over the next 2 weeks. -Patient is currently neurologically intact. Continue to monitor neuro exams at least every 2hours and notify neurosurgery with any changes. -She will likely be ready for transfer to stepdown tomorrow. -Start PT/OT tomorrow. -Passed bedside swallow eval and is tolerating a diet. Advance diet tomorrow if no nausea. -CT chest, abdomen, and pelvis- demonstrated a 2cm left lobe liver lesion. Hospitalist has ordered MRI liver-pending. Oncology consulted per hospitalist. -Patient does have a history of melanoma on her leg in 2014. She also had skin cancer removed from her forehead recently, but is unsure of what type of skin cancer it was. Please see Dr. Ahuja's addendum tomorrow for further details and recommendations. Time Spent 15 min Digitally Signed by DAMIAN JACKSON on 01/04/2024 08:19 PM [facility] [id number] Note Date of Service 01/04/2024 Subjective 63-year-old female with a past medical history of hypertension, hyperlipidemia, lumbar stenosis on chronic opioids, history of basal cell cancer to the right eye, history of melanoma, CAD, SD with PCI to LAD plus RCA in 04/16, former tobacco user who presented to [facility] emergency department complaining of slurred speech and facial droop with aphasia. She also reportedly had headaches and balance issues. CT of the brain showed a positive right frontal lobe edema. She was given Keppra and Decadron andtransferred to [facility]. MRI revealed 3 cm enhancing extra-axial dural mass overlying the right frontoparietal junction with vasogenic edema. The patient is now postoperative day 1 status post right frontal craniotomy with tumor resection and duraplasty. EBL was 25 mL. The patient was transferred to the SICU extubated on nicardipine. Over the last 24 hours, has remained on nicardipine between 2.5 mg and 5 mg/h. Complains of some headache as well as nausea. She has received some pain medications on an empty stomach which may have been contributing to the nausea as well. Denies any significant visual changes. Today I rounded on the patient with the nursing staff, rounding critical care nurse, and the entirecritical care team available. I've reviewed the detailed handwritten notes as well as any dictations performed. In addition to this I would like to add the following: Objective Vitals and Measurements T: 36.6 C (Oral) TMIN: 34.6 C TMAX: 36.6 C (Oral) HR: 91(Monitored) RR: 12 BP: 114/65 BP: 146/76(Line) SpO2: 97% HT: 144.8 cm WT: 86.7 kg BMI: 41.35 Intake and Output 7AM Yesterday to 7AM Today Intake and Output (Last 24 hours) Intake Administration Information 3497.16 Oral Intake 280.00 Output Surgical Drain, Tube Output: 252.00 Urinary Catheter Output: 3050.00 Intra-Op EBL 25.00 Intra-Op Urine Catheter 545.00 Stool Count 0.00 Total Summary Total Intake 3777.16 Total Output 3872.00 Fluid Balance -94.84 Physical Exam General: in bed, NAD HEENT: PERRL, EOMI, MM moist Neck: supple Chest: lungs clear Heart: RRR nl s1 s2 Abdomen: + BS, soft, nontender Extremities: no CCE Neuro: Alert, some weakness in the left upper extremity Skin: warm, dry Psych: no anxiety Weight Dosing Weight: 86.7 kg (01/03/24) Medications Medications (30) Active Scheduled: (10) amLODIPine 10 mg tablet 10 mg 1 tab(s), Oral, qDay carvedilol 12.5 mg tablet 12.5 mg 1 tab(s), Oral, BIDM ceFAZolin syringe 1 gram(s) 10 mL, IV Push (INT), q6hr dexamethasone 4 mg/1 mL solution 4 mg 1 mL, IV Push, q6h ezetimibe 10 mg tablet 10 mg 1 tab(s), Oral, qDay lactulose 20 g/30 mL UD cup 10 gram(s) 15 mL, Oral, BID levETIRAcetam PMX bag 500 mg 100 mL, IV Piggyback, q12h lisinopril 20 mg tablet 20 mg 1 tab(s), Oral, BID pantoprazole 40 mg VIAL 40 mg, IV Push, qDayAC polyethylene glycol 3350 - UD packet 17 gram(s) 15 mL, Oral, qDay Continuous: (4) insulin regular 100 unit(s) + NS Premix Diluent 100 mL 100 mL, Intravenous nicardipine 25 mg [5 mg/hr] + Sodium Chloride 0.9% 240 mL 240 mL, Intravenous, 50 mL/hr NS (0.9% nacl) 1,000 mL 1,000 mL, Intravenous, 125 mL/hr NS (0.9% nacl) 1000 mL 1,000 mL, Intravenous, 100 mL/hr PRN: (16) acetaminophen 325 mg Tablet 650 mg 2 tab(s), Oral, q4h acetaminophen-HYDROcodone 325-5 mg tablet 1 tab(s), Oral, q4h Al hydrox/Mg hydrox/simethicone 200-200-20 mg/5 mL Susp UD 30 mL, Oral, q2h cyclobenzaprine 10 mg Tablet 10 mg 1 tab(s), Oral, BID dextrose 50% Solution Disp syringe 50 mL 25 g 50 mL, IV Push, AsDirected dextrose 50% Solution Disp syringe 50 mL 12.5 gram(s) 25 mL, IV Push, AsDirected diazepam 5 mg tablet 5 mg 1 tab(s), Oral, QID docusate sodium 100 mg Capsule 100 mg 1 cap(s), Oral, BID hydralazine 20 mg/mL (1mL) vial 10 mg 0.5 mL, IV Push, q2h HYDROmorphone 0.5 mg/0.5 mL PF syringe 0.5 mg 0.5 mL, IV Push, q3h insulin regular human recombinant 100 units/mL (3 mL) Soln sliding scale insulin, Subcutaneous, q4h magnesium hydroxide 8% Suspension 30 mL UD 30 mL, Oral, qHS melatonin 5 mg tablet 5 mg 1 tab(s), Oral, qHS ondansetron 2 mg/ 1 mL 2 mL INJ 4 mg 2 mL, IV Push, q4h polyethylene glycol 3350 - UD packet 17 gram(s) 15 mL, Oral, qDay prochlorperazine 10 mg, IV Piggyback, q6h Lab Results 01/04 04:25 WBC: 10.6 Hgb: 13.7 Hct: 41.8 Platelet: 233 Neutrophil %: 88.0 H Glucose Level: 117 H Sodium Level: 138 Potassium Level: 4.3 BUN: 14.0 Creatinine Lvl (s): 0.58 01/03 15:13 WBC: 11.9 H Hgb: 13.8 Hct: 42.0 Platelet: 294 Neutrophil %: 85.5 H Glucose Level: 172 H Sodium Level: 139 Potassium Level: 4.1 BUN: 15.0 Creatinine Lvl (s): 0.65 EKG No qualifying data available. Assessment/Plan Assessment: S/p stereotactic craniotomy and resection of tumor with duraplasty on 01/03/2024 Hypertension Right frontal lobe brain mass with surrounding vasogenic edema Repeat head CT postoperatively showing pneumocephalus with trace extra-axial hemorrhage postoperatively Comorbidities include: Hypertension, hyperlipidemia, lumbar stenosis on chronic opioids, chronic opioid related constipation, sciatica, history of multiple skin cancers, CAD with history of SD in 03/2021 Plan: Nicardipine drip to continue to target systolic blood pressure per neurosurgery's recommendations Start oral antihypertensives dexamethasone 4 mg every 6 hours for vasogenic edema Keppra 500 twice a day for seizure prophylaxis Protonix daily Discussed with family at bedside Critical Care time 35 minutes Celeste Becker M.D., [facility] Digitally Signed by CELESTE BECKER MD on 01/04/2024 11:14 AM [facility] [id number] Note ORIGINAL EXAMINATION: MRI OF THE BRAIN WITHOUT AND WITH CONTRAST 01/03/2024 9:08 pm TECHNIQUE: Multiplanar multisequence MRI of the head/brain was performed without and with the administration of intravenous contrast. COMPARISON: MRI of the brain on 01/02/2024. 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 No residual mass is detected. Small postoperative pneumocephalus near site of tumor resection and also anteriorly on the right is noted. No significant hemorrhage is present. There is no extra-axial fluid collection. There is no acute infarct. Vasogenic edema of the right cerebral hemisphere is similar to preoperative examination. This creates mild mass effect on the right lateral ventricle. 2-3 mm subfalcine shift of midline structures from right to left is unchanged. ORBITS: The visualized portion of the orbits demonstrate no acute abnormality. SINUSES: The visualized paranasal sinuses and mastoid air cells demonstrate no acute abnormality. BONES/SOFT TISSUES: Right craniotomy findings and mild soft tissue swelling in right side of the scalp is present. IMPRESSION: Interval resection of the dural based mass in the right frontoparietal region. Stable vasogenic edema in the right cerebral hemisphere. Stable 2-3 mm subfalcine shift of midline structures from right to left. Interpreted by: Rudi Moss MD Preliminary Report By: Rudi Moss MD Electronically signed By Rudi Moss MD Dictated Date: 01/04/2024 2:53:10 AM Prelim Date: 01/04/2024 3:01:03 AM Sign Date: 01/04/2024 3:01:03 AM Ordering Provider: [facility]02-07-2024 Critical care medicine Consult note Date of Service 01/03/2024 Reason for Consultation Critical care management Referring Physician Dr. Ceferino Ahuja History of Present Illness This is a 63-year-old female with a past medical history of hypertension, hyperlipidemia, lumbar stenosis on chronic opioids, history of basal cell cancer to the right eye, history of melanoma, CAD, SD with PCI to LAD plus RCA in 04/16, former tobacco user who presented to [facility] emergency department complaining of slurred speech and facial droop with aphasia. She also reportedly had headaches and balance issues. CT of the brain showed a positive right frontal lobe edema. She was given Keppra and Decadron and transferred to [facility]. MRI revealed 3 cm enhancing extra-axial dural mass overlying the right frontoparietal junction with vasogenic edema. The patient is now postoperative day 0 status post right frontal craniotomy with tumor resection and duraplasty. EBL was 25 mL. The patient was transferred to the SICU extubated on Cardizem to keep systolic. Blood pressure 100 110s. Physical Exam Vitals and Measurements T: 36.4 C (Oral) TMIN: 34.6 C TMAX: 36.4 C (Oral) HR: 86(Monitored) RR: 12 BP: 112/65 BP: 137/73(Line) SpO2: 100% HT: 144.8 cm WT: 86.7 kg BMI: 41.35 Weight Dosing Weight: 86.7 kg (01/03/24) - GENERAL: No acute distress. Drowsy - HEENT: EOMI. moist mucous membranes. Head wrapped. Drain in place with serosanguineous output. - LUNGS: Bilateral breath sounds. - CARDIOVASCULAR: Regular rate and rhythm. - ABDOMEN: Soft, non-tender, mildly distended - EXTREMITIES: No edema. - SKIN: No rashes or lesions. Warm. - NEUROLOGIC: Alert to voice, interactive. Able to move all extremities. Left- sided upper and lowerextremities weaker than the right. Lab Results 01/03 15:13 WBC: 11.9 H Hgb: 13.8 Hct: 42.0 Platelet: 294 Neutrophil %: 85.5 H Glucose Level: 172 H Sodium Level: 139 Potassium Level: 4.1 BUN: 15.0 Creatinine Lvl (s): 0.65 Assessment/Plan Assessment: S/p stereotactic craniotomy and resection of tumor with duraplasty on 01/03/2024 Hypertension Right frontal lobe brain mass with surrounding vasogenic edema Repeat head CT postoperatively showing pneumocephalus with trace extra-axial hemorrhage postoperatively Comorbidities include: Hypertension, hyperlipidemia, lumbar stenosis on chronic opioids, chronic opioid related constipation, sciatica, history of multiple skin cancers, CAD with history of SD in 03/2021 Plan: Nicardipine drip to continue to target systolic blood pressure between 100 and 119 mmHg Swallow function pending. Resumption of oral antihypertensives pending swallow evaluation Patient is currently on dexamethasone 4 mg every 6 hours Patient is currently Keppra 500 twice a day Protonix daily Patient was seen in the discussed with Dr. Ahuja at the bedside Problem List/Past Medical History Ongoing CAD in [place] artery Dyslipidemia Dyspnea on exertion Hypertension Increased BMI STEMI (ST elevation myocardial infarction) Historical No qualifying data Procedure/Surgical History Arterial stent: 2019 Basal cell carcinoma: 2014 Bone spur: 2005 Degenerative disc disease: 1999 Medications Inpatient Apresoline, 10 mg= 0.5 mL, IV Push, q2h, PRN Colace, 100 mg= 1 cap(s), Oral, BID, PRN Coreg, 12.5 mg= 1 tab(s), Oral, BIDM cyclobenzaprine, 10 mg= 1 tab(s), Oral, BID, PRN dexAMETHasone, 4 mg= 1 mL, IV Push, q6h Dextrose, 25 gram(s)= 50 mL, IV Push, AsDirected, PRN Dextrose 50% IV Push, 12.5 gram(s)= 25 mL, IV Push, AsDirected, PRN HumuLIN R, sliding scale insulin, Subcutaneous, q4h, PRN Insulin Regular for IV 100 unit(s) + NS Premix Diluent 100 mL Keppra, 500 mg= 100 mL, IV Piggyback, q12h lactulose, 10 gram(s)= 15 mL, Oral, BID lisinopril, 20 mg= 1 tab(s), Oral, BID Maalox, 30 mL, Oral, q2h, PRN melatonin, 5 mg= 1 tab(s), Oral, qHS, PRN Milk of Magnesia, 30 mL, Oral, qHS, PRN Miralax Powder Packet, 17 gram(s)= 15 mL, Oral, qDay Miralax Powder Packet, 17 gram(s)= 15 mL, Oral, qDay, PRN niCARdipine for IV 25 mg [5 mg/hr] + Sodium Chloride 0.9% intravenous solution 240 mL [place] 325- 5 mg oral tablet, 1 tab(s), Oral, q4h, PRN Norvasc, 10 mg= 1 tab(s), Oral, qDay NS 1000 mL, 1000 mL, Intravenous Protonix, 40 mg, IV Push, qDayAC Tylenol, 650 mg= 2 tab(s), Oral, q4h, PRN Valium, 5 mg= 1 tab(s), Oral, QID, PRN Zetia, 10 mg= 1 tab(s), Oral, qDay Zofran, 4 mg= 2 mL, IV Push, q4h, PRN Home acetaminophen-hydrocodone 325 mg-5 mg oral tablet, 1 tab(s), Oral, Daily, PRN acetaminophen-hydrocodone 325 mg-5 mg oral tablet, 2 tab(s), Oral, Daily, PRN Coreg 12.5 mg oral tablet, 12.5 mg= 1 tab(s), Oral, BIDM, 3 refills cyclobenzaprine 10 mg oral tablet, 10 mg= 1 tab(s), Oral, qHS, PRN Ecotrin Adult Low Strength 81 mg oral delayed release tablet, 81 mg= 1 tab(s), Oral, qDayM, 3 refills folic acid 1 mg oral tablet, 2 mg= 2 tab(s), Oral, qDay lactulose 10 g/15 mL oral syrup, 10 gram(s)= 15 mL, Oral, BID lisinopril 20 mg oral tablet, 20 mg= 1 tab(s), Oral, BID methotrexate 2.5 mg oral tablet, 15 mg= 6 tab(s), Oral, Monday, Still taking, not as prescribed: takes every monday not monday Nitrostat 0.4 mg sublingual tablet, 0.4 mg= 1 tab(s), Sublingual, q5min, PRN, 3 refills Norvasc 10 mg oral tablet, 10 mg= 1 tab(s), Oral, qDay omeprazole 20 mg oral delayed release capsule, 20 mg= 1 cap(s), Oral, qDayAC Repatha SureClick 140 mg/mL subcutaneous solution, 140 mg, Subcutaneous, q2wk, 2 refills Repatha SureClick 140 mg/mL subcutaneous solution, 140 mg, Subcutaneous, every other week Repatha SureClick 140 mg/mL subcutaneous solution, See Instructions, 3 refills Zetia 10 mg oral tablet, 10 mg= 1 tab(s), Oral, qDay, 3 refills Allergies Metoprolol Succinate ER Plaquenil Tetanus Toxoid codeine sulfate lovastatin (muscle cramps) minocycline (Rash) pravastatin (Pain) rosuvastatin (pain) sulfa drug tetracycline Social History Alcohol Use: Current. Type: Wine. Frequency: 1-2 times per year. Has alcohol use interfered with work or home life: No. Do you ever drink more than intended: No. Has anyone been hurt or at risk by your drinking: No. Ready to change: No. Concerns about alcohol use in household: No., 01/09/2021 Home/Environment Domestic Concerns: None. Living situation: Home/Independent. Safe place to go: Yes. Lives In: Multilevel home. Current Home Treatments None. Professional Skilled Services or Special Community Resources None. Financial concerns: No. Spouse Name: Gurwinder Gupta. Marital Status: ., 01/09/2021 Nutrition/Health Type of diet: Low sodium. Appetite Excellent. Eating Difficulties None. Caffeine intake amount: 2 cups., 01/09/2021 Substance Abuse Use: Never., 01/09/2021 Tobacco Nicotine Use: Former smoker, quit more than 30 days ago. Exposure to Tobacco Smoke Lives with someone who smokes. Type: Cigarettes. Number of years: 46. Started at age: 14 Years. Ready to change: Yes. Smoking Cessation Information Requests additional information., 01/25/2021 Family History Diabetes mellitus: Mother. Heart attack: Mother, Father, Sister and Grandparent. High blood pressure: Mother, Father, Sister, Brother and Grandparent. Immunizations No qualifying data available. Digitally Signed by AFRICA ISLAS MD on 01/03/2024 05:57 PM [id number] Note ORIGINAL EXAMINATION: CT OF THE HEAD WITHOUT CONTRAST 01/03/2024 3:51 pm TECHNIQUE: CT of the head was performed without the administration of intravenous contrast. Automated exposure control, iterative reconstruction, and/or weight based adjustment of the mA/kV was utilized to reduce the radiation dose to as low as reasonably achievable. COMPARISON: MRI brain 01/02/2024 HISTORY: ORDERING SYSTEM PROVIDED HISTORY: Reason for Exam: per nurse f/u post sx craniotomy left sided weakness s/p crani FINDINGS: There is a right craniotomy with overlying surgical pierre and soft tissue swelling. A linear density projects in the soft tissues along the external aspect of the craniotomy flap. Pneumocephalus is present, presumably postoperative. There is subcortical hypodensity involving the right mcdaniel radiata and centrum semiovale corresponding to the areas of FLAIR hyperintensity on prior MRI, most likely representing edema. There is continued mass effect upon the right lateral ventricle and minimal [id number] midline shift, similar in appearance to the prior. There is sulcal effacement on the right which was also present previously. There is probably trace extra-axial hemorrhage on the right which could be postoperative. Atherosclerotic calcifications are present in the cavernous carotid arteries. Mucous retention cysts or polyps are seen in the left maxillary sinus. There is opacification of a right ethmoid air cell. Mastoid air cells appear clear. IMPRESSION: 1. Status post right craniotomy with pneumocephalus and trace extra-axial hemorrhage which could be postoperative. Continued mass effect upon the right lateral ventricle and minimal [id number] midline shift, similar in appearance to the prior. 2. Hypodensity in the right mcdaniel radiata and centrum semiovale corresponding to the areas of FLAIR hyperintensity on prior MRI, most likely representing edema. 3. Monitoring line or drain projecting in the superficial soft tissues overlying the craniotomy site. Interpreted by: Richard Canales MD Preliminary Report By: Richard Canales MD Electronically signed By Richard Canales MD Dictated Date: 01/03/2024 3:55:40 PM Prelim Date: 01/03/2024 4:05:04 PM Sign Date: 01/03/2024 4:05:04 PM Ordering Provider: [facility] [id number] Anesthesiology Consult note Patient: TAMMY GUPTA Age: 63 years Sex: Female : 1960 Associated Diagnoses: None Author: HECTOR BERMAN MD Postoperative Information Post Operative Info: Post op day: POD0 . Patient location: ICU. Assessment Postanesthesia assessment Vitals: Vital signs from flowsheet : Vital Signs 01/03/2024 14:50 EST Temperature Oral 36.1 DegC Heart Rate Monitored 84 bpm Respiratory Rate 12 br/min LOW Systolic Blood Pressure Invasive 119 mmHg Diastolic Blood Pressure Invasive 60 mmHg Mean Arterial Pressure (Line) 82 mmHg 01/03/2024 14:43 EST Heart Rate Monitored 88 bpm Systolic Blood Pressure Invasive 115 mmHg Diastolic Blood Pressure Invasive 60 mmHg Mean Arterial Pressure (Line) 82 mmHg 01/03/2024 14:34 EST Heart Rate Monitored 86 bpm Respiratory Rate 17 br/min Systolic Blood Pressure Invasive 117 mmHg Diastolic Blood Pressure Invasive 45 mmHg Mean Arterial Pressure (Line) 73 mmHg 01/03/2024 14:30 EST Heart Rate Monitored 86 bpm Systolic Blood Pressure Invasive 112 mmHg Diastolic Blood Pressure Invasive 54 mmHg LOW Mean Arterial Pressure (Line) 77 mmHg 01/03/2024 14:19 EST Heart Rate Monitored 87 bpm Respiratory Rate 16 br/min Systolic Blood Pressure Invasive 115 mmHg Diastolic Blood Pressure Invasive 58 mmHg LOW Mean Arterial Pressure (Line) 93 mmHg 01/03/2024 14:05 EST Respiratory Rate - Anes 17 br/min br/min 01/03/2024 14:00 EST Respiratory Rate - Anes 19 br/min br/min 01/03/2024 13:55 EST Respiratory Rate - Anes 25 br/min br/min 01/03/2024 13:50 EST Respiratory Rate - Anes 13 br/min br/min 01/03/2024 13:45 EST Temperature (Route Not Specified) 35.3 DegC DegC Heart Rate Monitored 82 bpm bpm Respiratory Rate - Anes 18 br/min br/min 01/03/2024 13:40 EST Heart Rate Monitored 80 bpm bpm Respiratory Rate - Anes 19 br/min br/min 01/03/2024 13:35 EST Heart Rate Monitored 78 bpm bpm Respiratory Rate - Anes 18 br/min br/min 01/03/2024 13:30 EST Heart Rate Monitored 70 bpm bpm Respiratory Rate - Anes 18 br/min br/min 01/03/2024 13:25 EST Heart Rate Monitored 65 bpm bpm Respiratory Rate - Anes 10 br/min br/min 01/03/2024 13:20 EST Temperature (Route Not Specified) 35.2 DegC DegC Heart Rate Monitored 65 bpm bpm Respiratory Rate - Anes 10 br/min br/min 01/03/2024 13:15 EST Heart Rate Monitored 61 bpm bpm Respiratory Rate - Anes 10 br/min br/min 01/03/2024 13:10 EST Temperature (Route Not Specified) 35.2 DegC DegC Heart Rate Monitored 60 bpm bpm Respiratory Rate - Anes 10 br/min br/min 01/03/2024 13:05 EST Heart Rate Monitored 55 bpm bpm Respiratory Rate - Anes 10 br/min br/min 01/03/2024 13:00 EST Temperature (Route Not Specified) 35.1 DegC DegC Heart Rate Monitored 52 bpm bpm Respiratory Rate - Anes 8 br/min br/min 01/03/2024 12:55 EST Heart Rate Monitored 51 bpm bpm Respiratory Rate - Anes 8 br/min br/min 01/03/2024 12:50 EST Temperature (Route Not Specified) 35.1 DegC DegC Heart Rate Monitored 51 bpm bpm (Modified) Respiratory Rate - Anes 8 br/min br/min 01/03/2024 12:45 EST Heart Rate Monitored 49 bpm bpm Respiratory Rate - Anes 8 br/min br/min 01/03/2024 12:40 EST Temperature (Route Not Specified) 35.1 DegC DegC Heart Rate Monitored 49 bpm bpm Respiratory Rate - Anes 8 br/min br/min 01/03/2024 12:35 EST Heart Rate Monitored 48 bpm bpm Respiratory Rate - Anes 8 br/min br/min 01/03/2024 12:30 EST Temperature (Route Not Specified) 35.1 DegC DegC Heart Rate Monitored 49 bpm bpm Respiratory Rate - Anes 8 br/min br/min 01/03/2024 12:25 EST Heart Rate Monitored 49 bpm bpm Respiratory Rate - Anes 8 br/min br/min 01/03/2024 12:20 EST Heart Rate Monitored 49 bpm bpm Respiratory Rate - Anes 8 br/min br/min 01/03/2024 12:15 EST Temperature (Route Not Specified) 35.1 DegC DegC Heart Rate Monitored 49 bpm bpm Respiratory Rate - Anes 8 br/min br/min 01/03/2024 12:10 EST Heart Rate Monitored 49 bpm bpm Respiratory Rate - Anes 9 br/min br/min 01/03/2024 12:05 EST Temperature (Route Not Specified) 35 DegC DegC Heart Rate Monitored 49 bpm bpm Respiratory Rate - Anes 10 br/min br/min 01/03/2024 12:00 EST Heart Rate Monitored 49 bpm bpm Respiratory Rate - Anes 10 br/min br/min 01/03/2024 11:55 EST Temperature (Route Not Specified) 34.9 DegC DegC Heart Rate Monitored 49 bpm bpm Respiratory Rate - Anes 10 br/min br/min 01/03/2024 11:50 EST Heart Rate Monitored 49 bpm bpm Respiratory Rate - Anes 10 br/min br/min 01/03/2024 11:45 EST Temperature (Route Not Specified) 34.9 DegC DegC Heart Rate Monitored 49 bpm bpm Respiratory Rate - Anes 10 br/min br/min 01/03/2024 11:40 EST Heart Rate Monitored 51 bpm bpm Respiratory Rate - Anes 10 br/min br/min 01/03/2024 11:39 EST Heart Rate Monitored 49 bpm bpm 01/03/2024 11:38 EST Heart Rate Monitored 49 bpm bpm 01/03/2024 11:35 EST Temperature (Route Not Specified) 37 DegC DegC (In Error) Heart Rate Monitored 48 bpm bpm (Modified) Respiratory Rate - Anes 10 br/min br/min (Modified) 01/03/2024 11:30 EST Temperature (Route Not Specified) 34.9 DegC DegC (Modified) Heart Rate Monitored 49 bpm bpm (Modified) Respiratory Rate - Anes 10 br/min br/min 01/03/2024 11:25 EST Temperature (Route Not Specified) 37 DegC DegC (In Error) Heart Rate Monitored 52 bpm bpm (Modified) Respiratory Rate - Anes 10 br/min br/min (Modified) 01/03/2024 11:20 EST Temperature (Route Not Specified) 37 DegC DegC (In Error) Heart Rate Monitored 51 bpm bpm (Modified) Respiratory Rate - Anes 10 br/min br/min (Modified) 01/03/2024 11:15 EST Temperature (Route Not Specified) 34.9 DegC DegC (Modified) Heart Rate Monitored 50 bpm bpm (Modified) Respiratory Rate - Anes 10 br/min br/min (Modified) 01/03/2024 11:10 EST Temperature (Route Not Specified) 37 DegC DegC (In Error) Heart Rate Monitored 50 bpm bpm (Modified) Respiratory Rate - Anes 10 br/min br/min (Modified) 01/03/2024 11:05 EST Temperature (Route Not Specified) 37 DegC DegC (In Error) Heart Rate Monitored 49 bpm bpm (Modified) Respiratory Rate - Anes 10 br/min br/min 01/03/2024 11:00 EST Temperature (Route Not Specified) 37 DegC DegC (In Error) Heart Rate Monitored 51 bpm bpm (Modified) Respiratory Rate - Anes 10 br/min br/min 01/03/2024 10:55 EST Heart Rate Monitored 50 bpm bpm Respiratory Rate - Anes 10 br/min br/min 01/03/2024 10:50 EST Heart Rate Monitored 52 bpm bpm Respiratory Rate - Anes 11 br/min br/min 01/03/2024 10:45 EST Temperature (Route Not Specified) 34.7 DegC DegC Heart Rate Monitored 58 bpm bpm Respiratory Rate - Anes 12 br/min br/min 01/03/2024 10:40 EST Respiratory Rate - Anes 12 br/min br/min 01/03/2024 10:35 EST Respiratory Rate - Anes 12 br/min br/min 01/03/2024 10:30 EST Temperature (Route Not Specified) 34.7 DegC DegC Respiratory Rate - Anes 12 br/min br/min 01/03/2024 10:25 EST Heart Rate Monitored 56 bpm bpm Respiratory Rate - Anes 12 br/min br/min 01/03/2024 10:20 EST Respiratory Rate - Anes 12 br/min br/min 01/03/2024 10:15 EST Temperature (Route Not Specified) 34.6 DegC DegC Heart Rate Monitored 53 bpm bpm Respiratory Rate - Anes 12 br/min br/min 01/03/2024 10:10 EST Respiratory Rate - Anes 11 br/min br/min 01/03/2024 10:05 EST Respiratory Rate - Anes 10 br/min br/min 01/03/2024 10:00 EST Temperature (Route Not Specified) 34.7 DegC DegC Heart Rate Monitored 48 bpm bpm Respiratory Rate - Anes 9 br/min br/min 01/03/2024 9:55 EST Respiratory Rate - Anes 9 br/min br/min 01/03/2024 9:50 EST Heart Rate Monitored 48 bpm bpm Respiratory Rate - Anes 9 br/min br/min 01/03/2024 9:45 EST Heart Rate Monitored 51 bpm bpm Respiratory Rate - Anes 9 br/min br/min 01/03/2024 9:40 EST Respiratory Rate - Anes 10 br/min br/min 01/03/2024 9:35 EST Respiratory Rate - Anes 8 br/min br/min 01/03/2024 9:30 EST Temperature (Route Not Specified) 35.1 DegC DegC Heart Rate Monitored 52 bpm bpm Respiratory Rate - Anes 8 br/min br/min 01/03/2024 9:25 EST Heart Rate Monitored 52 bpm bpm Respiratory Rate - Anes 10 br/min br/min 01/03/2024 9:20 EST Heart Rate Monitored 51 bpm bpm Respiratory Rate - Anes 10 br/min br/min 01/03/2024 9:15 EST Heart Rate Monitored 56 bpm bpm Respiratory Rate - Anes 10 br/min br/min 01/03/2024 9:10 EST Temperature (Route Not Specified) 35.5 DegC DegC Heart Rate Monitored 58 bpm bpm Respiratory Rate - Anes 10 br/min br/min 01/03/2024 9:05 EST Heart Rate Monitored 59 bpm bpm Respiratory Rate - Anes 10 br/min br/min 01/03/2024 9:00 EST Heart Rate Monitored 59 bpm bpm Respiratory Rate - Anes 10 br/min br/min Systolic Blood Pressure Non-Invasive 112 mmHg mmHg Diastolic Blood Pressure Non-Invasive 65 mmHg mmHg 01/03/2024 8:55 EST Heart Rate Monitored 59 bpm bpm Respiratory Rate - Anes 10 br/min br/min Systolic Blood Pressure Non-Invasive 109 mmHg mmHg Diastolic Blood Pressure Non-Invasive 61 mmHg mmHg 01/03/2024 8:50 EST Temperature (Route Not Specified) 29 DegC DegC (In Error) Heart Rate Monitored 58 bpm bpm Respiratory Rate - Anes 10 br/min br/min Systolic Blood Pressure Non-Invasive 115 mmHg mmHg Diastolic Blood Pressure Non-Invasive 62 mmHg mmHg 01/03/2024 8:45 EST Temperature (Route Not Specified) 28 DegC DegC (In Error) Heart Rate Monitored 58 bpm bpm Respiratory Rate - Anes 10 br/min br/min Systolic Blood Pressure Non-Invasive 83 mmHg mmHg Diastolic Blood Pressure Non-Invasive 52 mmHg mmHg 01/03/2024 8:40 EST Temperature (Route Not Specified) 29 DegC DegC (In Error) Heart Rate Monitored 65 bpm bpm Respiratory Rate - Anes 10 br/min br/min (Modified) Systolic Blood Pressure Non-Invasive 97 mmHg mmHg (Modified) Diastolic Blood Pressure Non-Invasive 60 mmHg mmHg (Modified) 01/03/2024 8:35 EST Temperature (Route Not Specified) 31 DegC DegC (In Error) Heart Rate Monitored 66 bpm bpm Respiratory Rate - Anes 10 br/min br/min (Modified) 01/03/2024 8:30 EST Temperature (Route Not Specified) 35 DegC DegC (In Error) Heart Rate Monitored 68 bpm bpm Respiratory Rate - Anes 10 br/min br/min (Modified) Systolic Blood Pressure Non-Invasive 165 mmHg mmHg (Modified) Diastolic Blood Pressure Non-Invasive 107 mmHg mmHg (Modified) 01/03/2024 8:27 EST Heart Rate Monitored 98 bpm bpm Systolic Blood Pressure Non-Invasive 152 mmHg mmHg Diastolic Blood Pressure Non-Invasive 92 mmHg mmHg 01/03/2024 8:25 EST Temperature (Route Not Specified) 42 DegC DegC (In Error) Heart Rate Monitored 65 bpm bpm Respiratory Rate - Anes 10 br/min br/min (Modified) Systolic Blood Pressure Non-Invasive 152 mmHg mmHg (Modified) Diastolic Blood Pressure Non-Invasive 90 mmHg mmHg 01/03/2024 7:14 EST Heart Rate Monitored 71 bpm 01/03/2024 4:42 EST Temperature Oral 36.2 DegC Peripheral Pulse Rate 72 bpm Respiratory Rate 18 br/min Systolic Blood Pressure Non-Invasive 130 mmHg Diastolic Blood Pressure Non-Invasive 87 mmHg Reason For Taking VItal Signs Routine 01/02/2024 23:11 EST Temperature Oral 36.3 DegC Apical Heart Rate 66 bpm Respiratory Rate 20 br/min Systolic Blood Pressure Non-Invasive 119 mmHg Diastolic Blood Pressure Non-Invasive 74 mmHg Reason For Taking VItal Signs Routine 01/02/2024 19:32 EST Temperature Axillary 36.3 DegC Peripheral Pulse Rate 73 bpm Respiratory Rate 20 br/min Systolic Blood Pressure Non-Invasive 121 mmHg Diastolic Blood Pressure Non-Invasive 65 mmHg Blood Pressure Method Automatic Blood Pressure Location Right arm Reason For Taking VItal Signs Routine 01/02/2024 16:10 EST Reason For Taking VItal Signs Routine 01/02/2024 16:06 EST Temperature Oral 36.8 DegC Peripheral Pulse Rate 98 bpm Respiratory Rate 20 br/min Systolic Blood Pressure Non-Invasive 115 mmHg Diastolic Blood Pressure Non-Invasive 87 mmHg Mean Arterial Pressure (NBP) 93 mmHg Blood Pressure Method Automatic Blood Pressure Location Right arm Blood Pressure Cuff Size Medium Reason For Taking VItal Signs Routine 01/02/2024 12:00 EST Reason For Taking VItal Signs Routine 01/02/2024 11:11 EST Temperature Oral 36.7 DegC Peripheral Pulse Rate 74 bpm Respiratory Rate 20 br/min Systolic Blood Pressure Non-Invasive 136 mmHg Diastolic Blood Pressure Non-Invasive 95 mmHg NE 01/02/2024 8:20 EST Reason For Taking VItal Signs Routine 01/02/2024 8:16 EST Temperature Oral 36.5 DegC Peripheral Pulse Rate 72 bpm Respiratory Rate 20 br/min Systolic Blood Pressure Non-Invasive 152 mmHg HI Diastolic Blood Pressure Non-Invasive 93 mmHg NE 01/02/2024 5:23 EST Temperature Oral 36.4 DegC Heart Rate Monitored 80 bpm Respiratory Rate 20 br/min Systolic Blood Pressure Non-Invasive 140 mmHg Diastolic Blood Pressure Non-Invasive 74 mmHg Mean Arterial Pressure (NBP) 86 mmHg Blood Pressure Method Automatic Blood Pressure Location Right arm Blood Pressure Cuff Size Medium Reason For Taking VItal Signs Routine . Mental status: at preoperative baseline. Respiratory function: respirations are non-labored, Stable. Respiratory support: none. CV function: Stable. Cardiovascular support: none. Pain: Satisfactory. Nausea status: Satisfactory. Postoperative hydration status: within normal limits. Notes: Patient is sufficiently recovered from anesthesia to participate in the evaluation. No follow-up care needed. No complications post-anesthesia.. Digitally Signed by HECTOR BERMAN MD on 01/03/2024 03:16 PM [facility] [id number] Anesthesiology Consult note Patient: TAMMY GUPTA Age: 63 years Sex: Female : 1960 Associated Diagnoses: None Author: HECTOR BERMAN MD Preoperative Information NPO >8 hours Anesthesia history Patient's history: nausea and vomiting with anesthesia. History of Present Illness 63yoF with PMH hypertension, CAD, tobacco use presenting for crani. Denies CP, SOB, fever, recent cough, cold or congestion; mets limited 2/2 chronic back pain, no GERD sx, N or V today. Neuro sx began this summer with dizziness, episodes of facial droop and headaches and she was found to have R frontal mass. She also is symptomatic from back causing numbness, tingling and weakness of BLE. Health Status Allergies: Allergic Reactions (Selected) Severity Not Documented Codeine sulfate- No reactions were documented. Lovastatin- Muscle cramps. Metoprolol Succinate ER- No reactions were documented. Minocycline- Rash. Plaquenil- No reactions were documented. Pravastatin- Pain. Rosuvastatin- Pain. Sulfa drug- No reactions were documented. Tetanus Toxoid- No reactions were documented. Tetracycline- No reactions were documented., Allergies (10) ActiveReaction codeine sulfateNone Documented lovastatinmuscle cramps Metoprolol Succinate ERNone Documented minocyclineRash PlaquenilNone Documented pravastatinPain rosuvastatinpain sulfa drugNone Documented Tetanus ToxoidNone Documented tetracyclineNone Documented Current medications: (Selected) Inpatient Medications Ordered Ancef: 1 gram(s), 10 mL, 120 mL/hr, IV Push (INT), PREOP pharm Apresoline: 10 mg, 0.5 mL, IV Push, q15min, PRN: Systolic BP: See order comments Colace: 100 mg, 1 cap(s), Oral, BID, PRN: Constipation Core.5 mg, 1 tab(s), Oral, BIDM Dextrose 50% IV Push: 12.5 gram(s), 25 mL, IV Push, AsDirected, PRN: Hypoglycemia Keppra: 500 mg, 100 mL, 400 mL/hr, IV Piggyback, q12h Maalox: 30 mL, Oral, q2h, PRN: Indigestion Milk of Magnesia: 30 mL, Oral, qHS, PRN: Constipation Miralax Powder Packet: 17 gram(s), 15 mL, Oral, qDay Miralax Powder Packet: 17 gram(s), 15 mL, Oral, qDay, PRN: Constipation NS 1,000 mL: 100 mL/hr, Intravenous NS 1,000 mL: 50 mL/hr, Intravenous [place] 325- 5 mg oral tablet: 1 tab(s), Oral, q4h, PRN: Pain, scale 4-10 Norvasc: 10 mg, 1 tab(s), Oral, qDay Tylenol: 650 mg, 2 tab(s), Oral, q4h, PRN: Pain, scale 1-3 Valium: 5 mg, 1 tab(s), Oral, QID, PRN: Anxiety Zetia: 10 mg, 1 tab(s), Oral, qDay Zofran: 4 mg, 2 mL, IV Push, q4h, PRN: Nausea/Vomiting cyclobenzaprine: 10 mg, 1 tab(s), Oral, BID, PRN: Muscle spasm dexAMETHasone: 4 mg, 1 mL, IV Push, q6h lactulose: 10 gram(s), 15 mL, Oral, BID lisinopril: 20 mg, 1 tab(s), Oral, BID melatonin: 5 mg, 1 tab(s), Oral, qHS, PRN: Sleep / Insomnia pantoprazole: 20 mg, 1 tab(s), Oral, qDayAC Prescriptions Prescribed Coreg 12.5 mg oral tablet: 12.5 mg, 1 tab(s), Oral, BIDM, 180 tab(s), 3 Refill(s) Ecotrin Adult Low Strength 81 mg oral delayed release tablet: 81 mg, 1 tab(s), Oral, qDayM, 90 tab(s), 3 Refill(s) Nitrostat 0.4 mg sublingual tablet: 0.4 mg, 1 tab(s), Sublingual, q5min, PRN: Chest pain, 100 tab(s), 3 Refill(s) Repatha SureClick 140 mg/mL subcutaneous solution: 140 mg, Subcutaneous, every other week, 6 mL, 0 Refill(s) Repatha SureClick 140 mg/mL subcutaneous solution: 140 mg, Subcutaneous, q2wk, 6 mL, 2 Refill(s) Repatha SureClick 140 mg/mL subcutaneous solution: See Instructions, INJECT 140 MG UNDER THE SKIN ONCE EVERY 2 WEEKS, 6 mL, 3 Refill(s) Zetia 10 mg oral tablet: 10 mg, 1 tab(s), Oral, qDay, 90 tab(s), 3 Refill(s) Documented Medications Documented Norvasc 10 mg oral tablet: 10 mg, 1 tab(s), Oral, qDay, 0 Refill(s) acetaminophen-hydrocodone 325 mg-5 mg oral tablet: 1 tab(s), Oral, Daily, PRN: Pain, scale 1-6, 0 Refill(s) acetaminophen-hydrocodone 325 mg-5 mg oral tablet: 2 tab(s), Oral, Daily, PRN: Pain, scale 7-10, 0 Refill(s) cyclobenzaprine 10 mg oral tablet: 10 mg, 1 tab(s), Oral, qHS, PRN: for spasm, 30 tab(s), 0 Refill(s) folic acid 1 mg oral tablet: 2 mg, 2 tab(s), Oral, qDay, 0 Refill(s) lactulose 10 g/15 mL oral syrup: 10 gram(s), 15 mL, Oral, BID, 480 mL, 0 Refill(s) lisinopril 20 mg oral tablet: 20 mg, 1 tab(s), Oral, BID, 0 Refill(s) methotrexate 2.5 mg oral tablet: 15 mg, 6 tab(s), Oral, Monday, 0 Refill(s) omeprazole 20 mg oral delayed release capsule: 20 mg, 1 cap(s), Oral, qDayAC, 0 Refill(s), Medications (24) Active Scheduled: (10) amLODIPine 10 mg tablet 10 mg 1 tab(s), Oral, qDay carvedilol 12.5 mg tablet 12.5 mg 1 tab(s), Oral, BIDM ceFAZolin syringe 1 gram(s) 10 mL, IV Push (INT), PREOP pharm dexamethasone 4 mg/1 mL solution 4 mg 1 mL, IV Push, q6h ezetimibe 10 mg tablet 10 mg 1 tab(s), Oral, qDay lactulose 20 g/30 mL UD cup 10 gram(s) 15 mL, Oral, BID levETIRAcetam PMX bag 500 mg 100 mL, IV Piggyback, q12h lisinopril 20 mg tablet 20 mg 1 tab(s), Oral, BID pantoprazole 20 mg EC tablet 20 mg 1 tab(s), Oral, qDayAC polyethylene glycol 3350 - UD packet 17 gram(s) 15 mL, Oral, qDay Continuous: (2) NS (0.9% nacl) 1,000 mL 1,000 mL, Intravenous, 50 mL/hr NS (0.9% nacl) 1,000 mL 1,000 mL, Intravenous, 100 mL/hr PRN: (12) acetaminophen 325 mg Tablet 650 mg 2 tab(s), Oral, q4h acetaminophen-HYDROcodone 325-5 mg tablet 1 tab(s), Oral, q4h Al hydrox/Mg hydrox/simethicone 200-200-20 mg/5 mL Susp UD 30 mL, Oral, q2h cyclobenzaprine 10 mg Tablet 10 mg 1 tab(s), Oral, BID dextrose 50% Solution Disp syringe 50 mL 12.5 gram(s) 25 mL, IV Push, AsDirected diazepam 5 mg tablet 5 mg 1 tab(s), Oral, QID docusate sodium 100 mg Capsule 100 mg 1 cap(s), Oral, BID hydralazine 20 mg/mL (1mL) vial 10 mg 0.5 mL, IV Push, q15min magnesium hydroxide 8% Suspension 30 mL UD 30 mL, Oral, qHS melatonin 5 mg tablet 5 mg 1 tab(s), Oral, qHS ondansetron 2 mg/ 1 mL 2 mL INJ 4 mg 2 mL, IV Push, q4h polyethylene glycol 3350 - UD packet 17 gram(s) 15 mL, Oral, qDay Problem list: Medical CAD in [place] artery / SNOMED CT 42196722 / Confirmed Dyslipidemia / SNOMED CT 5297831205 / Confirmed Dyspnea on exertion / SNOMED CT 311607341 / Confirmed Hypertension / SNOMED CT 4288326433 / Confirmed Increased BMI / SNOMED CT 01057385 / Confirmed STEMI (ST elevation myocardial infarction) / SNOMED CT 23260037 / Confirmed, Active Problems (7) CAD in [place] artery Dyslipidemia Dyspnea on exertion Hypertension Increased BMI STEMI (ST elevation myocardial infarction) Tobacco use Histories Past Medical History: No active or resolved past medical history items have been selected or recorded. Procedure history: Arterial stent ([id number]) in 2020 at 60 Years. Melanoma ([id number]) in 2018 at 58 Years. Comments: 01/09/2021 4:48 Dasha Graham RN left leg Basal cell carcinoma ([id number]) in 2014 at 55 Years. Comments: 01/09/2021 4:50 Dasha Graham RN right eye Bone spur ([id number]) in 2005 at 46 Years. Degenerative disc disease (732388018) in 1999 at 40 Years. Social History Social & Psychosocial Habits Alcohol 10/06/2023 Use: Current Type: Wine Frequency: 1-2 times per year Has alcohol use interfered with work or home life: No Do you ever drink more than intended: No Has anyone been hurt or at risk by your drinking: No Ready to change: No Concerns about alcohol use in household: No Substance Abuse 10/06/2023 Use: Never Tobacco 10/06/2023 Tobacco Use: Former smoker, quit more Exposure to Tobacco Smoke Lives with someone who sm Type: Cigarettes Number of years: 46 Started at age: 14 Years Ready to change: Yes Smoking Cessation Information Requests additional infor Home/Environment 10/06/2023 Domestic Concerns None Living situation: Home/Independent Safe place to go: Yes Lives In Multilevel home Current Home Treatments None Special Services and Community Resources None Financial concerns: No Spouse Name Gurwinder Gupta Marital Status of Patient if Patient Independent Adult: Nutrition/Health 10/06/2023 Type of diet: Low sodium Appetite Excellent Eating Difficulties None Caffeine intake amount: 2 cups . Physical Examination Vital Signs(last 24 hrs) Last Charted Temp Oral36.2 DegC (JAN 03 04:42) Heart Rate Bajeqapvy54 bpm (JAN 03 07:14) ZXH466 mmHg (JAN 03 04:42) DBP87 mmHg (JAN 03 04:42) General: Alert and oriented, No acute distress. Airway: Normal mouth, Normal neck range of motion. Mallampati classification: III (soft palate, base of uvula visible). Dentition Evaluation: Missing teeth. Neck: Supple. Respiratory: Lungs are clear to auscultation, Respirations are non-labored. Cardiovascular: Normal rate, Regular rhythm. Heart Sounds: Normal. Neurologic: Alert, Oriented. Review / Management Results review: Labs (Last four charted values) WBC H 11.0(JAN 01) Hgb 14.2(JAN 01) Hct 43.9(JAN 01) Plt 292(JAN 01) Na 140(DEC 29) K 3.7(DEC 29) CO2 L 20(DEC 29) Cl H 114(DEC 29) Cr 0.64(DEC 29) BUN 15.0(DEC 29) Glucose H 163(DEC 29) Ca 9.8(DEC 29) PT 10.5(JAN 01) INR 0.9(JAN 01) PTT 25.3(JAN 01) . Documentation reviewed: Current records. Assessment and Plan [place] [employer] (ASA) physical status classification: Class III. Anesthetic Preoperative Plan Anesthetic technique: General. Induction: intravenously. Maintenance airway: Oral endotracheal tube. Special Monitoring: Arterial line. Postoperative pain management: Per surgeon. Risks discussed: nausea, vomiting, headache, sore throat, dental injury, hypotension, allergic reaction, serious complications. Informed consent: signed by patient. Digitally Signed by HECTOR BERMAN MD on 01/03/2024 08:11 AM [facility] [id number] Note ORIGINAL EXAMINATION: MRI OF THE BRAIN WITHOUT AND WITH CONTRAST 01/02/2024 7:40 pm TECHNIQUE: Multiplanar multisequence MRI of the head/brain was performed without and with the administration of intravenous contrast. COMPARISON: MR brain 12/29/2023. HISTORY: ORDERING SYSTEM PROVIDED HISTORY: Reason for Exam: Intraoperative Navigation. Recently diagnosed 3 cm intracranial mass. FINDINGS: The study is performed for intraoperative navigation. Only localizer sequence, thin section axial T2 weighted images and multiplanar postcontrast images including thin section sequences were acquired. Again seen is the large avidly enhancing extra-axial dural-based mass overlying the lateral aspect of the frontal parietal junction. It is stable in size since the prior examination measuring 3.1 x 2.9 x 3.0 cm (craniocaudal by transverse by AP dimension). Enhancing dural tails are again noted. There is local mass effect and surrounding confluent T2 signal compatible with vasogenic edema. There is effacement of right lateral ventricle and stable 3 mm leftward midline shift. No hydrocephalus. Basilar cisterns patent. No additional abnormal enhancement throughout. Mild sinus inflammatory disease. IMPRESSION: Redemonstration of 3.1 cm enhancing extra-axial mass overlying the right frontoparietal junction with mass effect, surrounding vasogenic edema, effacement of the right lateral ventricle and minimal leftward midline shift. Findings are stable since the examination performed 12/29/2023. Images for surgical planning. Interpreted by: Toan Shirley Preliminary Report By: Toan Shirley Electronically signed By Toan Shirley Dictated Date: 01/03/2024 7:47:08 AM Prelim Date: 01/03/2024 7:52:50 AM Sign Date: 01/03/2024 7:52:50 AM Ordering Provider: [facility]YReg[facility] [id number] Oncology Consult note Date of Service 01/02/2024 Reason for Consultation brain/liver lesion, hx melanoma This is a split/shared visit between Dr. Chen and myself History of Present Illness Patient is a 63-year-old female with past medical history of HTN, CAD and melanoma. Patient presented to the hospital on 12/29 from [facility] for slurred speech, facial weakness and change in gait. CT of the brain showed right frontal lobe cerebral edema concerning for brain mass. Patient was admitted under neurosurgery. MRI of the brain was done and showed 3 cm dural based mass overlying the lateral right frontal parietal junction, vasogenic edema and effacement of the right lateral ventricle and 3 mm leftward midline shift. Patient on Decadron and Keppra. CT abdomen/pelvis/chest showed 2 cmhypodensity in the left lobe of the liver. Today patient is resting in bed, family bedside. Patient reports she came to the hospital with slurred speech, facial droop and seizure-like activity. Patient reports prior to that she is been feeling well at home but has been tired over the past year. She also reports she has been having issues with back pain and states she has long history and is managed by pain management. She does report thather balance when standing up has been off since the summer. Patient also reports blurred vision butstates she is seen by an eye doctor and did have to have prescription change. Patient denied any decreased appetite, weight loss, abdominal pain, shortness of breath, headaches, dizziness. He does report chronic constipation and episodes of vomiting. Patient reports she has history of melanoma of the left leg diagnosed in 2014 and had it removed. She reports she had skin cancer removed from her forehead last year but unsure of what kind. She does report extensive family history of cancer. She reports she had colonoscopy and EGD 7 months ago that showed improvement of her Conner's esophagus. Patient reports occasional alcohol use. She denies any current tobacco use and states she quit 3 years ago however prior to that she reports she smoked for most of her life. Patient does report history of rheumatoid arthritis and states she has been on methotrexate for many years and follows with bed spring maker in [place]. Lab Results Test Name Test Result Date/TimeWBC 11.0 10^3/mcL (High) 01/01/2024 18:39 EST Hgb 14.2 G/dL 01/01/2024 18:39 EST Platelet 292 10^3/mcL 01/01/2024 18:39 EST Review of Systems 14 system review is negative except as charted in the HPI Physical Exam Vitals and Measurements T: 36.5 C (Oral) TMIN: 36.4 C (Oral) TMAX: 36.6 C (Oral) HR: 72 RR: 20 BP: 152/93 SpO2: 93% General Appearance: no acute distress Eyes: PERRLA Nose: External nose normal Ears: External ears normal Throat: Trachea midline Neck: no mass Lymph nodes: Not palpable Cardiac: RRR S1 and S2 no murmur Lungs: clear bilaterally Abdomen: soft non-tender BSx4 Neurological: A&Ox3 follows commands Skin: warm dry and intact Musculoskeletal: strength intact Psychiatric: appropriate mood and affect Weight Dosing Weight: 86.7 kg (12/29/23) Lab Results 01/01 18:39 WBC: 11.0 H Hgb: 14.2 Hct: 43.9 Platelet: 292 Neutrophil %: 88.6 H Protime: 10.5 PT International Ratio: 0.9 Imaging Results and Diagnostics (12/29/2023 22:27 EST MRI Brain w/ + w/o Contrast) IMPRESSION: 3 cm avidly enhancing extra-axial dural-based mass overlying the lateral right frontal parietal junction. Meningioma is most likely. Definitive diagnosis would require tissue sampling. The lesion results in considerable underlying mass effect resulting in vasogenic edema, effacement of the right lateral ventricle and 3 mm leftward midline shift. Neurosurgical consultation is recommended. [1] (01/01/2024 20:[address] Thorax w/ Contrast) IMPRESSION: No acute cardiopulmonary abnormality. Indeterminate 2 cm hypodensity in left lobe of liver. Differential consideration includes metastasis, benign or malignant neoplasm of liver, or possibly a focal fatty infiltration of the liver. Further evaluation with MRI with and without IV contrast is recommended. Diverticulosis of the colon without signs of diverticulitis. Coronary artery calcification and/or stone stent. [2] (01/01/2024 20:[address] Abdomen/Pelvis w/Contrast) IMPRESSION: No acute cardiopulmonary abnormality. Indeterminate 2 cm hypodensity in left lobe of liver. Differential consideration includes metastasis, benign or malignant neoplasm of liver, or possibly a focal fatty infiltration of the liver. Further evaluation with MRI with and without IV contrast is recommended. Diverticulosis of the colon without signs of diverticulitis. Coronary artery calcification and/or stone stent. [3] Assessment/Plan Brain mass, MRI brain showed 3 cm right frontal lobe mass, neurosurgery following, patient on Decadron 4 mg every 6 hours and Jessica, neurosurgery planning craniotomy possibly tomorrow Liver lesion, CT abdomen/pelvis showed 2 cm hypodensity in the left lobe of the liver, MRI liver ordered CT of chest is negative for malignancy Will check tumor markers, AFP, CEA , [place] [address] Chen's addendum for further recommendations Problem List/Past Medical History Ongoing CAD in [place] artery Dyslipidemia Dyspnea on exertion Hypertension Increased BMI STEMI (ST elevation myocardial infarction) Historical No qualifying data Procedure/Surgical History Arterial stent: 2019 Basal cell carcinoma: 2014 Bone spur: 2006 Degenerative disc disease: 2000 Medications acetaminophen-hydrocodone 325 mg-5 mg oral tablet, 1 tab(s), Oral, Daily, PRN acetaminophen-hydrocodone 325 mg-5 mg oral tablet, 2 tab(s), Oral, Daily, PRN Apresoline, 10 mg= 0.5 mL, IV Push, q15min, PRN Colace, 100 mg= 1 cap(s), Oral, BID, PRN Coreg, 12.5 mg= 1 tab(s), Oral, BIDM Coreg 12.5 mg oral tablet, 12.5 mg= 1 tab(s), Oral, BIDM, 3 refills cyclobenzaprine, 10 mg= 1 tab(s), Oral, BID, PRN cyclobenzaprine 10 mg oral tablet, 10 mg= 1 tab(s), Oral, qHS, PRN dexAMETHasone, 4 mg= 1 mL, IV Push, q6h Dextrose 50% IV Push, 12.5 gram(s)= 25 mL, IV Push, AsDirected, PRN Ecotrin Adult Low Strength 81 mg oral delayed release tablet, 81 mg= 1 tab(s), Oral, qDayM, 3 refills folic acid 1 mg oral tablet, 2 mg= 2 tab(s), Oral, qDay hydrOXYzine pamoate, 25 mg= 1 cap(s), Oral, TID, PRN Keppra, 500 mg= 100 mL, IV Piggyback, q12h lactulose, 10 gram(s)= 15 mL, Oral, BID lactulose 10 g/15 mL oral syrup, 10 gram(s)= 15 mL, Oral, BID lisinopril, 20 mg= 1 tab(s), Oral, BID lisinopril 20 mg oral tablet, 20 mg= 1 tab(s), Oral, BID Maalox, 30 mL, Oral, q2h, PRN melatonin, 5 mg= 1 tab(s), Oral, qHS, PRN methotrexate 2.5 mg oral tablet, 15 mg= 6 tab(s), Oral, Monday, Still taking, not as prescribed: takes every monday not monday Milk of Magnesia, 30 mL, Oral, qHS, PRN Miralax Powder Packet, 17 gram(s)= 15 mL, Oral, qDay Miralax Powder Packet, 17 gram(s)= 15 mL, Oral, qDay, PRN Nitrostat 0.4 mg sublingual tablet, 0.4 mg= 1 tab(s), Sublingual, q5min, PRN, 3 refills [place] 325- 5 mg oral tablet, 1 tab(s), Oral, q4h, PRN Norvasc, 10 mg= 1 tab(s), Oral, qDay Norvasc 10 mg oral tablet, 10 mg= 1 tab(s), Oral, qDay NS 1,000 mL, 1000 mL, Intravenous omeprazole 20 mg oral delayed release capsule, 20 mg= 1 cap(s), Oral, qDayAC pantoprazole, 20 mg= 1 tab(s), Oral, qDayAC Repatha SureClick 140 mg/mL subcutaneous solution, 140 mg, Subcutaneous, q2wk, 2 refills Repatha SureClick 140 mg/mL subcutaneous solution, 140 mg, Subcutaneous, every other week Repatha SureClick 140 mg/mL subcutaneous solution, See Instructions, 3 refills Tylenol, 650 mg= 2 tab(s), Oral, q4h, PRN Valium, 5 mg= 1 tab(s), Oral, QID, PRN Zetia, 10 mg= 1 tab(s), Oral, qDay Zetia 10 mg oral tablet, 10 mg= 1 tab(s), Oral, qDay, 3 refills Zofran, 4 mg= 2 mL, IV Push, q4h, PRN Allergies Metoprolol Succinate ER Plaquenil Tetanus Toxoid codeine sulfate lovastatin (muscle cramps) minocycline (Rash) pravastatin (Pain) rosuvastatin (pain) sulfa drug tetracycline Family History Diabetes mellitus: Mother. Heart attack: Mother, Father, Sister and Grandparent. High blood pressure: Mother, Father, Sister, Brother and Grandparent. Social History Alcohol Use: Current. Type: Wine. Frequency: 1-2 times per year. Has alcohol use interfered with work or home life: No. Do you ever drink more than intended: No. Has anyone been hurt or at risk by your drinking: No. Ready to change: No. Concerns about alcohol use in household: No., 01/09/2021 Home/Environment Domestic Concerns: None. Living situation: Home/Independent. Safe place to go: Yes. Lives In: Multilevel home. Current Home Treatments None. Professional Skilled Services or Special Community Resources None. Financial concerns: No. Spouse Name: Gurwinder Gupta. Marital Status: ., 01/09/2021 Nutrition/Health Type of diet: Low sodium. Appetite Excellent. Eating Difficulties None. Caffeine intake amount: 2 cups., 01/09/2021 Substance Abuse Use: Never., 01/09/2021 Tobacco Nicotine Use: Former smoker, quit more than 30 days ago. Exposure to Tobacco Smoke Lives with someone who smokes. Type: Cigarettes. Number of years: 46. Started at age: 14 Years. Ready to change: Yes. Smoking Cessation Information Requests additional information., 01/25/2021 [1] MRI Brain w/ + w/o Contrast; Contributor_system, JERSON 12/29/2023 22:27 EST [2] CT Thorax w/ Contrast; RUDI MOSS MD 01/01/2024 20:12 EST [3] CT Abdomen/Pelvis w/Contrast; RUDI MOSS MD 01/01/2024 20:10 EST Digitally Signed by MANDI RODRIGUEZ on 01/02/2024 01:13 PM [facility] [id number] Neurological surgery Progress note Date of Service 01/02/2024 Chief Complaint Right frontal lobe brain mass with surrounding vasogenic edema-Hospital day #4. This is a 63-year-old female who presented to the emergency department at [facility] after she had an episode of slurred speech and facial droop. She states this is a second episode she has had inthe last couple of weeks. She states the episodes last for about an hour. Her family noticed a leftfacial droop and then she had difficulty speaking. She states she noticed the facial droop in the mi rror. She also states she has had headaches for the last couple of weeks, which she normally does not have. In addition, she states she has been off balance at times. She denies any decreased appetite or weight loss. She denies vision changes. She had a CT of the head at [facility] which demonstrated right frontal lobe edema. Due to these findings, she was transferred to [facility] for evaluation by neurosurgery. MRI of the brain was obtained, which demonstrated a 3 cm enhancing extra axial dural based mass overlying the lateral right frontal parietal junction. The mass is causing mass effect and vasogenic edema with 3 mm of leftward midline shift. She is currently on dexamethasone 4 mg every 6 hours and Keppra [address] chest/abd/pelvis demonstrated 2 cm left lobe liver mass. Hospitalist have ordered MRI liver. On exam, she is awake, alert, and oriented x 3. Has been up ambulating independently in her room. She is moving all 4 extremities without difficulty. Following commands. No lateralizing weakness is noted. No pronator drift. Her speech is clear. She has a very slight facial droop on the left, which has been the same since admission. She denies any numbness or tingling. She does complain of back and right leg pain. She states she has chronic back pain due to degenerative changes in the spine withsciatica. She mobilizes independently. She states around 3:00 in the morning she had another episode of facial droop and slurred speech. She states it did not last long. No other episodes since. Voids without difficulty. Tolerating a diet without nausea or vomiting. Objective Vitals and Measurements T: 36.7 C (Oral) TMIN: 36.4 C (Oral) TMAX: 36.7 C (Oral) HR: 74 RR: 20 BP: 136/95 SpO2: 100% Intake and Output 7AM Yesterday to 7AM Today Intake and Output (Last 24 hours) Intake Oral Intake 1400.00 Administration Information 400.00 Output Urine Voided 2400.00 Stool Count 1.00 Total Summary Total Intake 1800.00 Total Output 2400.00 Fluid Balance -600.00 Physical Exam Weight Dosing Weight: 86.7 kg (12/29/23) Medications Medications (22) Active Scheduled: (9) amLODIPine 10 mg tablet 10 mg 1 tab(s), Oral, qDay carvedilol 12.5 mg tablet 12.5 mg 1 tab(s), Oral, BIDM dexamethasone 4 mg/1 mL solution 4 mg 1 mL, IV Push, q6h ezetimibe 10 mg tablet 10 mg 1 tab(s), Oral, qDay lactulose 20 g/30 mL UD cup 10 gram(s) 15 mL, Oral, BID levETIRAcetam PMX bag 500 mg 100 mL, IV Piggyback, q12h lisinopril 20 mg tablet 20 mg 1 tab(s), Oral, BID pantoprazole 20 mg EC tablet 20 mg 1 tab(s), Oral, qDayAC polyethylene glycol 3350 - UD packet 17 gram(s) 15 mL, Oral, qDay Continuous: (1) NS (0.9% nacl) 1,000 mL 1,000 mL, Intravenous, 50 mL/hr PRN: (12) acetaminophen 325 mg Tablet 650 mg 2 tab(s), Oral, q4h acetaminophen-HYDROcodone 325-5 mg tablet 1 tab(s), Oral, q4h Al hydrox/Mg hydrox/simethicone 200-200-20 mg/5 mL Susp UD 30 mL, Oral, q2h cyclobenzaprine 10 mg Tablet 10 mg 1 tab(s), Oral, BID dextrose 50% Solution Disp syringe 50 mL 12.5 gram(s) 25 mL, IV Push, AsDirected diazepam 5 mg tablet 5 mg 1 tab(s), Oral, QID docusate sodium 100 mg Capsule 100 mg 1 cap(s), Oral, BID hydralazine 20 mg/mL (1mL) vial 10 mg 0.5 mL, IV Push, q15min magnesium hydroxide 8% Suspension 30 mL UD 30 mL, Oral, qHS melatonin 5 mg tablet 5 mg 1 tab(s), Oral, qHS ondansetron 2 mg/ 1 mL 2 mL INJ 4 mg 2 mL, IV Push, q4h polyethylene glycol 3350 - UD packet 17 gram(s) 15 mL, Oral, qDay Lab Results 01/01 18:39 WBC: 11.0 H Hgb: 14.2 Hct: 43.9 Platelet: 292 Neutrophil %: 88.6 H Protime: 10.5 PT International Ratio: 0.9 EKG No qualifying data available. Assessment/Plan Right frontal lobe brain mass with surrounding vasogenic edema: -An MRI of the brain demonstrates a 3 cm enhancing extra axial dural based mass overlying the lateral right frontal parietal junction. The mass is causing mass effect and vasogenic edema with 3 mm ofleftward midline shift. -CT chest, abdomen, and pelvis- demonstrated a 2cm left lobe liver lesion. Hospitalist has ordered MRI liver. Oncology consulted per hospitalist. -Patient does have a history of melanoma on her leg in 2014. She also had skin cancer removed from her forehead recently, but is unsure of what type of skin cancer it was. -She will be continued on Keppra 500 mg twice daily. -She remains on Decadron 4 mg every 6 hours. -Patient is currently neurologically intact. Continue to monitor neuro exams at least every 4 hoursand notify neurosurgery with any changes. -Patient is scheduled for surgery with Dr. Ahuja for resection of brain mass tomorrow. Surgery has been discussed with patient in detail by Dr. Ahuja. Questions answered. -[facility] for surgical planning. Please see Dr. Burch's addendum tomorrow for further details and recommendations. Time Spent 15 min Digitally Signed by DAMIAN JACKSON on 01/02/2024 03:35 PM Digitally Signed by CEFERINO AHUJA MDltman [id number] Oncology Consult note Date of Service 01/02/2024 Reason for Consultation brain/liver lesion, hx melanoma This is a split/shared visit between Dr. Chen and myself History of Present Illness Patient is a 63-year-old female with past medical history of HTN, CAD and melanoma. Patient presented to the hospital on 12/29 from [facility] for slurred speech, facial weakness and change in gait. CT of the brain showed right frontal lobe cerebral edema concerning for brain mass. Patient was admitted under neurosurgery. MRI of the brain was done and showed 3 cm dural based mass overlying the lateral right frontal parietal junction, vasogenic edema and effacement of the right lateral ventricle and 3 mm leftward midline shift. Patient on Decadron and Keppra. CT abdomen/pelvis/chest showed 2 cmhypodensity in the left lobe of the liver. Today patient is resting in bed, family bedside. Patient reports she came to the hospital with slurred speech, facial droop and seizure-like activity. Patient reports prior to that she is been feeling well at home but has been tired over the past year. She also reports she has been having issues with back pain and states she has long history and is managed by pain management. She does report thather balance when standing up has been off since the summer. Patient also reports blurred vision butstates she is seen by an eye doctor and did have to have prescription change. Patient denied any decreased appetite, weight loss, abdominal pain, shortness of breath, headaches, dizziness. He does report chronic constipation and episodes of vomiting. Patient reports she has history of melanoma of the left leg diagnosed in 2014 and had it removed. She reports she had skin cancer removed from her forehead last year but unsure of what kind. She does report extensive family history of cancer. She reports she had colonoscopy and EGD 7 months ago that showed improvement of her Conner's esophagus. Patient reports occasional alcohol use. She denies any current tobacco use and states she quit 3 years ago however prior to that she reports she smoked for most of her life. Patient does report history of rheumatoid arthritis and states she has been on methotrexate for many years and follows with bed spring maker in [place]. Lab Results Test Name Test Result Date/TimeWBC 11.0 10^3/mcL (High) 01/01/2024 18:39 EST Hgb 14.2 G/dL 01/01/2024 18:39 EST Platelet 292 10^3/mcL 01/01/2024 18:39 EST Review of Systems 14 system review is negative except as charted in the HPI Physical Exam Vitals and Measurements T: 36.5 C (Oral) TMIN: 36.4 C (Oral) TMAX: 36.6 C (Oral) HR: 72 RR: 20 BP: 152/93 SpO2: 93% General Appearance: no acute distress Eyes: PERRLA Nose: External nose normal Ears: External ears normal Throat: Trachea midline Neck: no mass Lymph nodes: Not palpable Cardiac: RRR S1 and S2 no murmur Lungs: clear bilaterally Abdomen: soft non-tender BSx4 Neurological: A&Ox3 follows commands Skin: warm dry and intact Musculoskeletal: strength intact Psychiatric: appropriate mood and affect Weight Dosing Weight: 86.7 kg (12/29/23) Lab Results 01/01 18:39 WBC: 11.0 H Hgb: 14.2 Hct: 43.9 Platelet: 292 Neutrophil %: 88.6 H Protime: 10.5 PT International Ratio: 0.9 Imaging Results and Diagnostics (12/29/2023 22:27 EST MRI Brain w/ + w/o Contrast) IMPRESSION: 3 cm avidly enhancing extra-axial dural-based mass overlying the lateral right frontal parietal junction. Meningioma is most likely. Definitive diagnosis would require tissue sampling. The lesion results in considerable underlying mass effect resulting in vasogenic edema, effacement of the right lateral ventricle and 3 mm leftward midline shift. Neurosurgical consultation is recommended. [1] (01/01/2024 20:[address] Thorax w/ Contrast) IMPRESSION: No acute cardiopulmonary abnormality. Indeterminate 2 cm hypodensity in left lobe of liver. Differential consideration includes metastasis, benign or malignant neoplasm of liver, or possibly a focal fatty infiltration of the liver. Further evaluation with MRI with and without IV contrast is recommended. Diverticulosis of the colon without signs of diverticulitis. Coronary artery calcification and/or stone stent. [2] (01/01/2024 20:[address] Abdomen/Pelvis w/Contrast) IMPRESSION: No acute cardiopulmonary abnormality. Indeterminate 2 cm hypodensity in left lobe of liver. Differential consideration includes metastasis, benign or malignant neoplasm of liver, or possibly a focal fatty infiltration of the liver. Further evaluation with MRI with and without IV contrast is recommended. Diverticulosis of the colon without signs of diverticulitis. Coronary artery calcification and/or stone stent. [3] Assessment/Plan Brain mass, MRI brain showed 3 cm right frontal lobe mass, neurosurgery following, patient on Decadron 4 mg every 6 hours and Keppra, neurosurgery planning craniotomy possibly tomorrow Liver lesion, CT abdomen/pelvis showed 2 cm hypodensity in the left lobe of the liver, MRI liver ordered CT of chest is negative for malignancy Will check tumor markers, AFP, CEA , [place] [address] Chen's addendum for further recommendations Problem List/Past Medical History Ongoing CAD in [place] artery Dyslipidemia Dyspnea on exertion Hypertension Increased BMI STEMI (ST elevation myocardial infarction) Historical No qualifying data Procedure/Surgical History Arterial stent: 2019 Basal cell carcinoma: 2014 Bone spur: 2005 Degenerative disc disease: 1999 Medications acetaminophen-hydrocodone 325 mg-5 mg oral tablet, 1 tab(s), Oral, Daily, PRN acetaminophen-hydrocodone 325 mg-5 mg oral tablet, 2 tab(s), Oral, Daily, PRN Apresoline, 10 mg= 0.5 mL, IV Push, q15min, PRN Colace, 100 mg= 1 cap(s), Oral, BID, PRN Coreg, 12.5 mg= 1 tab(s), Oral, BIDM Coreg 12.5 mg oral tablet, 12.5 mg= 1 tab(s), Oral, BIDM, 3 refills cyclobenzaprine, 10 mg= 1 tab(s), Oral, BID, PRN cyclobenzaprine 10 mg oral tablet, 10 mg= 1 tab(s), Oral, qHS, PRN dexAMETHasone, 4 mg= 1 mL, IV Push, q6h Dextrose 50% IV Push, 12.5 gram(s)= 25 mL, IV Push, AsDirected, PRN Ecotrin Adult Low Strength 81 mg oral delayed release tablet, 81 mg= 1 tab(s), Oral, qDayM, 3 refills folic acid 1 mg oral tablet, 2 mg= 2 tab(s), Oral, qDay hydrOXYzine pamoate, 25 mg= 1 cap(s), Oral, TID, PRN Keppra, 500 mg= 100 mL, IV Piggyback, q12h lactulose, 10 gram(s)= 15 mL, Oral, BID lactulose 10 g/15 mL oral syrup, 10 gram(s)= 15 mL, Oral, BID lisinopril, 20 mg= 1 tab(s), Oral, BID lisinopril 20 mg oral tablet, 20 mg= 1 tab(s), Oral, BID Maalox, 30 mL, Oral, q2h, PRN melatonin, 5 mg= 1 tab(s), Oral, qHS, PRN methotrexate 2.5 mg oral tablet, 15 mg= 6 tab(s), Oral, Monday, Still taking, not as prescribed: takes every monday not monday Milk of Magnesia, 30 mL, Oral, qHS, PRN Miralax Powder Packet, 17 gram(s)= 15 mL, Oral, qDay Miralax Powder Packet, 17 gram(s)= 15 mL, Oral, qDay, PRN Nitrostat 0.4 mg sublingual tablet, 0.4 mg= 1 tab(s), Sublingual, q5min, PRN, 3 refills [place] 325- 5 mg oral tablet, 1 tab(s), Oral, q4h, PRN Norvasc, 10 mg= 1 tab(s), Oral, qDay Norvasc 10 mg oral tablet, 10 mg= 1 tab(s), Oral, qDay NS 1,000 mL, 1000 mL, Intravenous omeprazole 20 mg oral delayed release capsule, 20 mg= 1 cap(s), Oral, qDayAC pantoprazole, 20 mg= 1 tab(s), Oral, qDayAC Repatha SureClick 140 mg/mL subcutaneous solution, 140 mg, Subcutaneous, q2wk, 2 refills Repatha SureClick 140 mg/mL subcutaneous solution, 140 mg, Subcutaneous, every other week Repatha SureClick 140 mg/mL subcutaneous solution, See Instructions, 3 refills Tylenol, 650 mg= 2 tab(s), Oral, q4h, PRN Valium, 5 mg= 1 tab(s), Oral, QID, PRN Zetia, 10 mg= 1 tab(s), Oral, qDay Zetia 10 mg oral tablet, 10 mg= 1 tab(s), Oral, qDay, 3 refills Zofran, 4 mg= 2 mL, IV Push, q4h, PRN Allergies Metoprolol Succinate ER Plaquenil Tetanus Toxoid codeine sulfate lovastatin (muscle cramps) minocycline (Rash) pravastatin (Pain) rosuvastatin (pain) sulfa drug tetracycline Family History Diabetes mellitus: Mother. Heart attack: Mother, Father, Sister and Grandparent. High blood pressure: Mother, Father, Sister, Brother and Grandparent. Social History Alcohol Use: Current. Type: Wine. Frequency: 1-2 times per year. Has alcohol use interfered with work or home life: No. Do you ever drink more than intended: No. Has anyone been hurt or at risk by your drinking: No. Ready to change: No. Concerns about alcohol use in household: No., 01/09/2021 Home/Environment Domestic Concerns: None. Living situation: Home/Independent. Safe place to go: Yes. Lives In: Merged With [facility] home. Current Home Treatments None. Professional Skilled Services or Special Community Resources None. Financial concerns: No. Spouse Name: Gurwinder Gupta. Marital Status: ., 01/09/2021 Nutrition/Health Type of diet: Low sodium. Appetite Excellent. Eating Difficulties None. Caffeine intake amount: 2 cups., 01/09/2021 Substance Abuse Use: Never., 01/09/2021 Tobacco Nicotine Use: Former smoker, quit more than 30 days ago. Exposure to Tobacco Smoke Lives with someone who smokes. Type: Cigarettes. Number of years: 46. Started at age: 14 Years. Ready to change: Yes. Smoking Cessation Information Requests additional information., 01/25/2021 [1] MRI Brain w/ + w/o Contrast; [facility] 22:27 EST [2] CT Thorax w/ Contrast; RUDI MOSS MD 01/01/2024 20:12 EST [3] CT Abdomen/Pelvis w/Contrast; RUDI MOSS MD 01/01/2024 20:10 EST Digitally Signed by MANDI RODRIGUEZ on 01/02/2024 01:13 PM [facility] [id number] Cardiology Consult note Date of Service 01/01/24 Reason for Consultation Surgical clearance History of Present Illness Patient is a 63-year-old female for whom cardiology's been consulted for clearance prior to neurosurgery. PMH:-Mentioned under assessment/plan section on the right-hand side Patient has been admitted under neurosurgery service after evaluation for headache/recurrent episodes of left facial droop, dysarthria revealed right frontal lobe mass lesion with vasogenic edema forwhich she is being planned for surgical intervention. She follows up with Dr. Fierro for cardiac issues with last visit being in September 2023. Patientdoes not have any cardiac complaints at present, endorses fair effort tolerance (can climb up to 1 flight of stairs at her own pace), limited by chronic low backache. Has been compliant with all hercardiac medications to date and denies exertional chest pain/SOB/orthopnea/PND/palpitations/syncopal episodes. Last echocardiogram (2020): EF 50-55%, ECG sinus tachycardia. Review of Systems CONSTITUTIONAL: Denies fevers, chills EYES: Denies any visual symptoms. EARS, NOSE, AND THROAT: No symptoms of rhinitis or sore throat. CARDIOVASCULAR: Mentioned above RESPIRATORY: No wheezing or cough GI: No nausea/vomiting, abdominal pain, hematochezia or melena. : No dysuria, urinary frequency MUSCULOSKELETAL: No new onset or worsening myalgias/arthralgias. NEUROLOGIC: Mentioned above DERMATOLOGIC: Denies new rashes Physical Exam Vitals and Measurements T: 36.4 C (Axillary) TMIN: 36.4 C (Axillary) TMAX: 36.8 C (Oral) HR: 79 RR: 20 BP: 149/85 SpO2: 96% Weight Dosing Weight: 86.7 kg (12/29/23) GENERAL APPEARANCE: Sitting on bed; _ SKIN: Warm EXTREMITIES: No cyanosis/clubbing. No significant pedal edema HEENT: PERRL, EOMI. JVD not elevated NECK: Supple. Trachea is midline. CHEST: Symmetric. Nontender to palpation. LUNGS: Mildly diminished breath sounds in the bases HEART: RRR, S1, S2 +. No murmurs, gallops, or rubs. ABDOMEN: Soft. No organomegaly. NEUROLOGIC: A&O, moving all four extremities. Lab Results 01/01 18:39 WBC: 11.0 H Hgb: 14.2 Hct: 43.9 Platelet: 292 Neutrophil %: 88.6 H Protime: 10.5 PT International Ratio: 0.9 Assessment/Plan Right frontal lobe mass lesion, pending surgical intervention CAD s/p JOSE to distal RCA (following STEMI in 2020), followed by staged intervention to mid LAD (2020) EF 50-55% (per echo in 2020) Essential hypertension Dyslipidemia Former tobacco user Obesity (BMI 39) Rheumatoid arthritis Plan: RCRI score 1. Given urgency of situation, patient can undergo neurosurgical intervention from a cardiac standpoint. No further cardiac workup is required at present. Aspirin can be resumed postoperatively per neurosurgery. Cardiology will sign off. Kindly call us for any further questions. Problem List/Past Medical History Ongoing CAD in [place] artery Dyslipidemia Dyspnea on exertion Hypertension Increased BMI STEMI (ST elevation myocardial infarction) Historical No qualifying data Procedure/Surgical History Arterial stent: 2019 Basal cell carcinoma: 2014 Bone spur: 2005 Degenerative disc disease: 1999 Medications Inpatient Apresoline, 10 mg= 0.5 mL, IV Push, q15min, PRN Colace, 100 mg= 1 cap(s), Oral, BID, PRN Coreg, 12.5 mg= 1 tab(s), Oral, BIDM cyclobenzaprine, 10 mg= 1 tab(s), Oral, BID, PRN dexAMETHasone, 4 mg= 1 mL, IV Push, q6h Dextrose 50% IV Push, 12.5 gram(s)= 25 mL, IV Push, AsDirected, PRN hydrOXYzine pamoate, 25 mg= 1 cap(s), Oral, TID, PRN Keppra, 500 mg= 100 mL, IV Piggyback, q12h lactulose, 10 gram(s)= 15 mL, Oral, BID lisinopril, 20 mg= 1 tab(s), Oral, BID Maalox, 30 mL, Oral, q2h, PRN melatonin, 5 mg= 1 tab(s), Oral, qHS, PRN Milk of Magnesia, 30 mL, Oral, qHS, PRN Miralax Powder Packet, 17 gram(s)= 15 mL, Oral, qDay Miralax Powder Packet, 17 gram(s)= 15 mL, Oral, qDay, PRN [place] 325- 5 mg oral tablet, 1 tab(s), Oral, q4h, PRN Norvasc, 10 mg= 1 tab(s), Oral, qDay NS 1,000 mL, 1000 mL, Intravenous pantoprazole, 20 mg= 1 tab(s), Oral, qDayAC Tylenol, 650 mg= 2 tab(s), Oral, q4h, PRN Valium, 5 mg= 1 tab(s), Oral, QID, PRN Zetia, 10 mg= 1 tab(s), Oral, qDay Zofran, 4 mg= 2 mL, IV Push, q4h, PRN Home acetaminophen-hydrocodone 325 mg-5 mg oral tablet, 1 tab(s), Oral, Daily, PRN acetaminophen-hydrocodone 325 mg-5 mg oral tablet, 2 tab(s), Oral, Daily, PRN Coreg 12.5 mg oral tablet, 12.5 mg= 1 tab(s), Oral, BIDM, 3 refills cyclobenzaprine 10 mg oral tablet, 10 mg= 1 tab(s), Oral, qHS, PRN Ecotrin Adult Low Strength 81 mg oral delayed release tablet, 81 mg= 1 tab(s), Oral, qDayM, 3 refills folic acid 1 mg oral tablet, 2 mg= 2 tab(s), Oral, qDay lactulose 10 g/15 mL oral syrup, 10 gram(s)= 15 mL, Oral, BID lisinopril 20 mg oral tablet, 20 mg= 1 tab(s), Oral, BID methotrexate 2.5 mg oral tablet, 15 mg= 6 tab(s), Oral, Monday, Still taking, not as prescribed: takes every monday not monday Nitrostat 0.4 mg sublingual tablet, 0.4 mg= 1 tab(s), Sublingual, q5min, PRN, 3 refills Norvasc 10 mg oral tablet, 10 mg= 1 tab(s), Oral, qDay omeprazole 20 mg oral delayed release capsule, 20 mg= 1 cap(s), Oral, qDayAC Repatha SureClick 140 mg/mL subcutaneous solution, 140 mg, Subcutaneous, q2wk, 2 refills Repatha SureClick 140 mg/mL subcutaneous solution, 140 mg, Subcutaneous, every other week Repatha SureClick 140 mg/mL subcutaneous solution, See Instructions, 3 refills Zetia 10 mg oral tablet, 10 mg= 1 tab(s), Oral, qDay, 3 refills Allergies Metoprolol Succinate ER Plaquenil Tetanus Toxoid codeine sulfate lovastatin (muscle cramps) minocycline (Rash) pravastatin (Pain) rosuvastatin (pain) sulfa drug tetracycline Social History Alcohol Use: Current. Type: Wine. Frequency: 1-2 times per year. Has alcohol use interfered with work or home life: No. Do you ever drink more than intended: No. Has anyone been hurt or at risk by your drinking: No. Ready to change: No. Concerns about alcohol use in household: No., 01/09/2021 Home/Environment Domestic Concerns: None. Living situation: Home/Independent. Safe place to go: Yes. Lives In: Multilevel home. Current Home Treatments None. Professional Skilled Services or Special Community Resources None. Financial concerns: No. Spouse Name: Gurwinder Gupta. Marital Status: ., 01/09/2021 Nutrition/Health Type of diet: Low sodium. Appetite Excellent. Eating Difficulties None. Caffeine intake amount: 2 cups., 01/09/2021 Substance Abuse Use: Never., 01/09/2021 Tobacco Nicotine Use: Former smoker, quit more than 30 days ago. Exposure to Tobacco Smoke Lives with someone who smokes. Type: Cigarettes. Number of years: 46. Started at age: 14 Years. Ready to change: Yes. Smoking Cessation Information Requests additional information., 01/25/2021 Family History Diabetes mellitus: Mother. Heart attack: Mother, Father, Sister and Grandparent. High blood pressure: Mother, Father, Sister, Brother and Grandparent. Immunizations No qualifying data available. Digitally Signed by REVA BAER MD on 01/01/2024 08:07 PM [facility] [id number] Note ORIGINAL EXAMINATION: CT OF THE ABDOMEN AND PELVIS WITH CONTRAST; CT OF THE CHEST WITH CONTRAST 01/01/2024 8:10 pm TECHNIQUE: CT of the abdomen and pelvis was performed with the administration of intravenous contrast. Multiplanar reformatted images are provided for review. Automated exposure control, iterative reconstruction, and/or weight based adjustment of the mA/kV was utilized to reduce the radiation dose to as low as reasonably achievable.; CT of the chest was performed with the administration of intravenous contrast. Multiplanar reformatted images are provided for review. Automated exposure control, iterative reconstruction, and/or weight based adjustment of the mA/kV was utilized to reduce the radiation dose to as low as reasonably achievable. COMPARISON: None. HISTORY: ORDERING SYSTEM PROVIDED HISTORY: Reason for Exam: Brain mass, hx melanoma FINDINGS: Mediastinum: There is no mediastinal mass or lymph node enlargement. The heart size is normal. There is atherosclerotic coronary artery calcification and/or coronary stent present. No pericardial fluid is present. Thoracic aorta is nonaneurysmal. Lungs: There is no lung infiltrate. No mass or lung nodule is detected. There is no pleural fluid or pleural thickening. Abdominal organs: The liver is normal in size. In the left lobe of the liver there is an ill-defined hypodensity that measures 2.0 x 1.5 x 1.1 cm in diameter. No other hepatic lesion is present. There is no biliary ductal dilatation. The pancreas, spleen, adrenal glands, and kidneys show no sign of acute abnormality. Subcentimeter left renal cyst appears benign. GI/Bowel: There is no intestinal obstruction or inflammation. Diverticulosis of the colon is present without signs of diverticulitis. There is no abdominal mass or lymph node enlargement present. Pelvis: Urinary bladder is normal in size and appearance. Uterus has been removed. There is no pelvic mass, lymph node enlargement, or abnormal fluid collection. Peritoneum/Retroperitoneum: Abdominal aorta is moderately atherosclerotic and nonaneurysmal. There is no retroperitoneal lymph node enlargement. Bones/Soft Tissues: Degenerative disc disease is greatest at the L3-L4 level. There is no spinal fracture or subluxation. No acute or aggressive osseous lesion is detected. No soft tissue mass or lymphadenopathy is detected in the chest or abdominal wall. IMPRESSION: No acute cardiopulmonary abnormality. Indeterminate 2 cm hypodensity in left lobe of liver. Differential consideration includes metastasis, benign or malignant neoplasm of liver, or possibly a focal fatty infiltration of the liver. Further evaluation with MRI with and without IV contrast is recommended. Diverticulosis of the colon without signs of diverticulitis. Coronary artery calcification and/or stone stent. Interpreted by: Rudi Moss MD Preliminary Report By: Rudi Moss MD Electronically signed By Rudi Moss MD Dictated Date: 01/02/2024 12:28:13 AM Prelim Date: 01/02/2024 12:38:46 AM Sign Date: 01/02/2024 12:38:46 AM Ordering Provider: PARDEEP URIARTEAdena Regional Medical [id number] Note ORIGINAL EXAMINATION: CT OF THE ABDOMEN AND PELVIS WITH CONTRAST; CT OF THE CHEST WITH CONTRAST 01/01/2024 8:10 pm TECHNIQUE: CT of the abdomen and pelvis was performed with the administration of intravenous contrast. Multiplanar reformatted images are provided for review. Automated exposure control, iterative reconstruction, and/or weight based adjustment of the mA/kV was utilized to reduce the radiation dose to as low as reasonably achievable.; CT of the chest was performed with the administration of intravenous contrast. Multiplanar reformatted images are provided for review. Automated exposure control, iterative reconstruction, and/or weight based adjustment of the mA/kV was utilized to reduce the radiation dose to as low as reasonably achievable. COMPARISON: None. HISTORY: ORDERING SYSTEM PROVIDED HISTORY: Reason for Exam: Brain mass, hx melanoma FINDINGS: Mediastinum: There is no mediastinal mass or lymph node enlargement. The heart size is normal. There is atherosclerotic coronary artery calcification and/or coronary stent present. No pericardial fluid is present. Thoracic aorta is nonaneurysmal. Lungs: There is no lung infiltrate. No mass or lung nodule is detected. There is no pleural fluid or pleural thickening. Abdominal organs: The liver is normal in size. In the left lobe of the liver there is an ill-defined hypodensity that measures 2.0 x 1.5 x 1.1 cm in diameter. No other hepatic lesion is present. There is no biliary ductal dilatation. The pancreas, spleen, adrenal glands, and kidneys show no sign of acute abnormality. Subcentimeter left renal cyst appears benign. GI/Bowel: There is no intestinal obstruction or inflammation. Diverticulosis of the colon is present without signs of diverticulitis. There is no abdominal mass or lymph node enlargement present. Pelvis: Urinary bladder is normal in size and appearance. Uterus has been removed. There is no pelvic mass, lymph node enlargement, or abnormal fluid collection. Peritoneum/Retroperitoneum: Abdominal aorta is moderately atherosclerotic and nonaneurysmal. There is no retroperitoneal lymph node enlargement. Bones/Soft Tissues: Degenerative disc disease is greatest at the L3-L4 level. There is no spinal fracture or subluxation. No acute or aggressive osseous lesion is detected. No soft tissue mass or lymphadenopathy is detected in the chest or abdominal wall. IMPRESSION: No acute cardiopulmonary abnormality. Indeterminate 2 cm hypodensity in left lobe of liver. Differential consideration includes metastasis, benign or malignant neoplasm of liver, or possibly a focal fatty infiltration of the liver. Further evaluation with MRI with and without IV contrast is recommended. Diverticulosis of the colon without signs of diverticulitis. Coronary artery calcification and/or stone stent. Interpreted by: Rudi Moss MD Preliminary Report By: Rudi Moss MD Electronically signed By Rudi Moss MD Dictated Date: 01/02/2024 12:28:13 AM Prelim Date: 01/02/2024 12:38:46 AM Sign Date: 01/02/2024 12:38:46 AM Ordering Provider: PAR[facility]EP [facility]02-05-2024 Cardiology Consult note Date of Service 01/01/24 Reason for Consultation Surgical clearance History of Present Illness Patient is a 63-year-old female for whom cardiology's been consulted for clearance prior to neurosurgery. PMH:-Mentioned under assessment/plan section on the right-hand side Patient has been admitted under neurosurgery service after evaluation for headache/recurrent episodes of left facial droop, dysarthria revealed right frontal lobe mass lesion with vasogenic edema forwhich she is being planned for surgical intervention. She follows up with Dr. Fierro for cardiac issues with last visit being in September 2023. Patientdoes not have any cardiac complaints at present, endorses fair effort tolerance (can climb up to 1 flight of stairs at her own pace), limited by chronic low backache. Has been compliant with all her cardiac medications to date and denies exertional chest pain/SOB/orthopnea/PND/palpitations/syncopalepisodes. Last echocardiogram (2020): EF 50-55%, ECG sinus tachycardia. Review of Systems CONSTITUTIONAL: Denies fevers, chills EYES: Denies any visual symptoms. EARS, NOSE, AND THROAT: No symptoms of rhinitis or sore throat. CARDIOVASCULAR: Mentioned above RESPIRATORY: No wheezing or cough GI: No nausea/vomiting, abdominal pain, hematochezia or melena. : No dysuria, urinary frequency MUSCULOSKELETAL: No new onset or worsening myalgias/arthralgias. NEUROLOGIC: Mentioned above DERMATOLOGIC: Denies new rashes Physical Exam Vitals and Measurements T: 36.4 C (Axillary) TMIN: 36.4 C (Axillary) TMAX: 36.8 C (Oral) HR: 79 RR: 20 BP: 149/85 SpO2: 96% Weight Dosing Weight: 86.7 kg (12/29/23) GENERAL APPEARANCE: Sitting on bed; _ SKIN: Warm EXTREMITIES: No cyanosis/clubbing. No significant pedal edema HEENT: PERRL, EOMI. JVD not elevated NECK: Supple. Trachea is midline. CHEST: Symmetric. Nontender to palpation. LUNGS: Mildly diminished breath sounds in the bases HEART: RRR, S1, S2 +. No murmurs, gallops, or rubs. ABDOMEN: Soft. No organomegaly. NEUROLOGIC: A&O, moving all four extremities. Lab Results 01/01 18:39 WBC: 11.0 H Hgb: 14.2 Hct: 43.9 Platelet: 292 Neutrophil %: 88.6 H Protime: 10.5 PT International Ratio: 0.9 Assessment/Plan Right frontal lobe mass lesion, pending surgical intervention CAD s/p JOSE to distal RCA (following STEMI in 2020), followed by staged intervention to mid LAD (2020) EF 50-55% (per echo in 2020) Essential hypertension Dyslipidemia Former tobacco user Obesity (BMI 39) Rheumatoid arthritis Plan: RCRI score 1. Given urgency of situation, patient can undergo neurosurgical intervention from a cardiac standpoint. No further cardiac workup is required at present. Aspirin can be resumed postoperatively per neurosurgery. Cardiology will sign off. Kindly call us for any further questions. Problem List/Past Medical History Ongoing CAD in [place] artery Dyslipidemia Dyspnea on exertion Hypertension Increased BMI STEMI (ST elevation myocardial infarction) Historical No qualifying data Procedure/Surgical History Arterial stent: 2019 Basal cell carcinoma: 2014 Bone spur: 2005 Degenerative disc disease: 1999 Medications Inpatient Apresoline, 10 mg= 0.5 mL, IV Push, q15min, PRN Colace, 100 mg= 1 cap(s), Oral, BID, PRN Coreg, 12.5 mg= 1 tab(s), Oral, BIDM cyclobenzaprine, 10 mg= 1 tab(s), Oral, BID, PRN dexAMETHasone, 4 mg= 1 mL, IV Push, q6h Dextrose 50% IV Push, 12.5 gram(s)= 25 mL, IV Push, AsDirected, PRN hydrOXYzine pamoate, 25 mg= 1 cap(s), Oral, TID, PRN Keppra, 500 mg= 100 mL, IV Piggyback, q12h lactulose, 10 gram(s)= 15 mL, Oral, BID lisinopril, 20 mg= 1 tab(s), Oral, BID Maalox, 30 mL, Oral, q2h, PRN melatonin, 5 mg= 1 tab(s), Oral, qHS, PRN Milk of Magnesia, 30 mL, Oral, qHS, PRN Miralax Powder Packet, 17 gram(s)= 15 mL, Oral, qDay Miralax Powder Packet, 17 gram(s)= 15 mL, Oral, qDay, PRN [place] 325- 5 mg oral tablet, 1 tab(s), Oral, q4h, PRN Norvasc, 10 mg= 1 tab(s), Oral, qDay NS 1,000 mL, 1000 mL, Intravenous pantoprazole, 20 mg= 1 tab(s), Oral, qDayAC Tylenol, 650 mg= 2 tab(s), Oral, q4h, PRN Valium, 5 mg= 1 tab(s), Oral, QID, PRN Zetia, 10 mg= 1 tab(s), Oral, qDay Zofran, 4 mg= 2 mL, IV Push, q4h, PRN Home acetaminophen-hydrocodone 325 mg-5 mg oral tablet, 1 tab(s), Oral, Daily, PRN acetaminophen-hydrocodone 325 mg-5 mg oral tablet, 2 tab(s), Oral, Daily, PRN Coreg 12.5 mg oral tablet, 12.5 mg= 1 tab(s), Oral, BIDM, 3 refills cyclobenzaprine 10 mg oral tablet, 10 mg= 1 tab(s), Oral, qHS, PRN Ecotrin Adult Low Strength 81 mg oral delayed release tablet, 81 mg= 1 tab(s), Oral, qDayM, 3 refills folic acid 1 mg oral tablet, 2 mg= 2 tab(s), Oral, qDay lactulose 10 g/15 mL oral syrup, 10 gram(s)= 15 mL, Oral, BID lisinopril 20 mg oral tablet, 20 mg= 1 tab(s), Oral, BID methotrexate 2.5 mg oral tablet, 15 mg= 6 tab(s), Oral, Monday, Still taking, not as prescribed: takes every monday not monday Nitrostat 0.4 mg sublingual tablet, 0.4 mg= 1 tab(s), Sublingual, q5min, PRN, 3 refills Norvasc 10 mg oral tablet, 10 mg= 1 tab(s), Oral, qDay omeprazole 20 mg oral delayed release capsule, 20 mg= 1 cap(s), Oral, qDayAC Repatha SureClick 140 mg/mL subcutaneous solution, 140 mg, Subcutaneous, q2wk, 2 refills Repatha SureClick 140 mg/mL subcutaneous solution, 140 mg, Subcutaneous, every other week Repatha SureClick 140 mg/mL subcutaneous solution, See Instructions, 3 refills Zetia 10 mg oral tablet, 10 mg= 1 tab(s), Oral, qDay, 3 refills Allergies Metoprolol Succinate ER Plaquenil Tetanus Toxoid codeine sulfate lovastatin (muscle cramps) minocycline (Rash) pravastatin (Pain) rosuvastatin (pain) sulfa drug tetracycline Social History Alcohol Use: Current. Type: Wine. Frequency: 1-2 times per year. Has alcohol use interfered with work or home life: No. Do you ever drink more than intended: No. Has anyone been hurt or at risk by your drinking: No. Ready to change: No. Concerns about alcohol use in household: No., 01/09/2021 Home/Environment Domestic Concerns: None. Living situation: Home/Independent. Safe place to go: Yes. Lives In: Merged With [facility] home. Current Home Treatments None. Professional Skilled Services or Special Community Resources None. Financial concerns: No. Spouse Name: Gurwinder Gupta. Marital Status: ., 01/09/2021 Nutrition/Health Type of diet: Low sodium. Appetite Excellent. Eating Difficulties None. Caffeine intake amount: 2 cups., 01/09/2021 Substance Abuse Use: Never., 01/09/2021 Tobacco Nicotine Use: Former smoker, quit more than 30 days ago. Exposure to Tobacco Smoke Lives with someone who smokes. Type: Cigarettes. Number of years: 46. Started at age: 14 Years. Ready to change: Yes. Smoking Cessation Information Requests additional information., 01/25/2021 Family History Diabetes mellitus: Mother. Heart attack: Mother, Father, Sister and Grandparent. High blood pressure: Mother, Father, Sister, Brother and Grandparent. Immunizations No qualifying data available. Digitally Signed by REVA BAER MD on 01/01/2024 08:07 PM [id number] Note Date of Service 01/01/2024 Split/shared visit with Dr. Ahuja Neurosurgery CC: Right frontal lobe brain mass with surrounding vasogenic edema- Hospital day #3 This is a 63-year-old female who initially presented to the emergency department at [facility] after she had an episode of slurred speech and facial droop. She was reportedly the second episode she has had in the last couple of weeks. She states the episodes last for about an hour. Her family noticed a left facial droop and that she had difficulty speaking. She also states she has had headaches for the last couple of weeks, which she normally does not have. In addition, she states she has been off balance at times. Indicates she does have an underlying hx of chronic low back pain due to degenerative changes in the spine with sciatica which she describes affects both her legs. She denies any decreased appetite or weight loss. Denies unilateral weakness in extremities. CT of the head at [facility] demonstrated right frontal lobe edema. Due to these findings, [facility] by [facility]. MRI of the brain with and without contrast was obtained, which demonstrated a 3 cm enhancing extra axial dural based mass overlying the lateral right frontal parietal junction. There is associated mass effect and vasogenic edema with 3 mm of leftward midline shift. On dexamethasone 4 mg every 6 hours for treatment of vasogenic edema and Keppra 500 mg twice daily for seizure prophylaxis; raised concern for episodes being related to seizures. This morning on exam, patient is seen out of bed sitting up in a chair. Her and niece/POA present at bedside. No acute events overnight. Patient remains neurologically intact. She is awake, alert and oriented appropriately. No dysarthria on my exam. She engages well in conversation, answersquestions appropriately, and follows commands briskly/accurately. Moves all 4 extremities well. Hasno lateralizing deficits, no pronator drift, and no ataxia or dysmetria with finger-nose testing. Mild left-sided facial droop noted. Reports she experienced headache last evening, but early this morning denied headache upon my exam; however on patient rounds with Dr. Ahuja patient reports hea dache. Objective Vitals and Measurements T: 36.6 C (Oral) TMIN: 36.4 C (Oral) TMAX: 36.8 C (Oral) HR: 77 RR: 18 BP: 137/89 SpO2: 96% Intake and Output 7AM Yesterday to 7AM Today Intake and Output (Last 24 hours) Intake Administration Information 800.00 Oral Intake 800.00 Output Stool Count 0.00 Urine Count 6.00 Total Summary Total Intake 1600.00 Total Output 0.00 Fluid Balance 1600.00 Physical Exam See above. Breath sounds clear bilaterally. Respirations unlabored and even. On RA Abdomen is soft, nontender and nondistended. +BS in all 4 quadrants. Denies N/V; tolerating PO intake. Regular HR and rhythm, S1 and S2 present. Per patient, ambulating steadily here and tells me she is urinating without dysuria or hematuria. Weight Dosing Weight: 86.7 kg (12/29/23) Medications Medications (23) Active Scheduled: (9) amLODIPine 10 mg tablet 10 mg 1 tab(s), Oral, qDay carvedilol 12.5 mg tablet 12.5 mg 1 tab(s), Oral, BIDM dexamethasone 4 mg/1 mL solution 4 mg 1 mL, IV Push, q6h ezetimibe 10 mg tablet 10 mg 1 tab(s), Oral, qDay lactulose 20 g/30 mL UD cup 10 gram(s) 15 mL, Oral, BID levETIRAcetam PMX bag 500 mg 100 mL, IV Piggyback, q12h lisinopril 20 mg tablet 20 mg 1 tab(s), Oral, BID pantoprazole 20 mg EC tablet 20 mg 1 tab(s), Oral, qDayAC polyethylene glycol 3350 - UD packet 17 gram(s) 15 mL, Oral, qDay Continuous: (1) NS (0.9% nacl) 1,000 mL 1,000 mL, Intravenous, 50 mL/hr PRN: (13) acetaminophen 325 mg Tablet 650 mg 2 tab(s), Oral, q4h acetaminophen-HYDROcodone 325-5 mg tablet 1 tab(s), Oral, q4h Al hydrox/Mg hydrox/simethicone 200-200-20 mg/5 mL Susp UD 30 mL, Oral, q2h cyclobenzaprine 10 mg Tablet 10 mg 1 tab(s), Oral, BID dextrose 50% Solution Disp syringe 50 mL 12.5 gram(s) 25 mL, IV Push, AsDirected diazepam 5 mg tablet 5 mg 1 tab(s), Oral, QID docusate sodium 100 mg Capsule 100 mg 1 cap(s), Oral, BID hydralazine 20 mg/mL (1mL) vial 10 mg 0.5 mL, IV Push, q15min hydroxyzine pamoate 25 mg capsule 25 mg 1 cap(s), Oral, TID magnesium hydroxide 8% Suspension 30 mL UD 30 mL, Oral, qHS melatonin 5 mg tablet 5 mg 1 tab(s), Oral, qHS ondansetron 2 mg/ 1 mL 2 mL INJ 4 mg 2 mL, IV Push, q4h polyethylene glycol 3350 - UD packet 17 gram(s) 15 mL, Oral, qDay Lab Results No 36 Hour Lab Data EKG EKG - Completed -- 12/30/23 8:03:00 EST Right frontal brain mass with surrounding vasogenic edema Brain MRI demonstrates a 3 cm enhancing extra axial dural based mass overlying the lateral right frontal parietal junction. The mass is causing mass effect and vasogenic edema with 3 mm of leftward midline shift. Brain MRI findings discussed with patient and family by Dr. Ahuja. Dr. Ahuja explained findings appear consistent with meningioma, however other pathology cannot be excluded without having a diagnostic biopsy. Dr. Ahuja recommends and advises removal of right frontal brain mass asit (or the associated edema) is causing patient to be symptomatic. Surgical date not yet determined, which may or may not be this admission. . Patient with known hx melanoma and basal cell skin carcinomas. Dr. Ahuja does recommend obtaining CT scans of chest, abdomen, and pelvis for thorough work-up; although did indicate to patient/family that findings may likely not change treatment plan; resecting mass would be of benefit to patient. Will follow body CT results. Concern episodes patient presented with ans has been described by her and family may be related to seizures, therefore continue Keppra 500 mg twice daily, and monitor closely for signs of seizure activity. Also continue Decadron 4 mg every 6 hours for treatment of vasogenic edema. On Protonix. Keep ASA on hold. Continue to monitor neuro exams closely, and notify neurosurgery with any acute concerns or changes. Please refer to Dr. Ahuja's addendum for additional information, and details regarding neurosurgical input and plan of care Digitally Signed by PARDEEP URIARTE on 01/01/2024 01:41 PM [facility] [id number] Note Date of Service 01/01/2024 Split/shared visit with Dr. Ahuja Neurosurgery CC: Right frontal lobe brain mass with surrounding vasogenic edema- Hospital day #3 This is a 63-year-old female who initially presented to the emergency department at [facility] after she had an episode of slurred speech and facial droop. She was reportedly the second episode she has had in the last couple of weeks. She states the episodes last for about an hour. Her family noticed a left facial droop and that she had difficulty speaking. She also states she has had headaches for the last couple of weeks, which she normally does not have. In addition, she states she has been off balance at times. Indicates she does have an underlying hx of chronic low back pain due to degenerative changes in the spine with sciatica which she describes affects both her legs. She denies any decreased appetite or weight loss. Denies unilateral weakness in extremities. CT of the head at [facility] demonstrated right frontal lobe edema. Due to these findings, she [facility]. MRI of the brain with and without contrast was obtained, which demonstrated a 3 cm enhancing extra axial dural based mass overlying the lateral right frontal parietal junction. There is associated mass effect and vasogenic edema with 3 mm of leftward midline shift. On dexamethasone 4 mg every 6 hours for treatment of vasogenic edema and Keppra 500 mg twice daily for seizure prophylaxis; raised concern for episodes being related to seizures. This morning on exam, patient is seen out of bed sitting up in a chair. Her and niece/POA present at bedside. No acute events overnight. Patient remains neurologically intact. She is awake, alert and oriented appropriately. No dysarthria on my exam. She engages well in conversation, answersquestions appropriately, and follows commands briskly/accurately. Moves all 4 extremities well. Hasno lateralizing deficits, no pronator drift, and no ataxia or dysmetria with finger-nose testing. Mild left-sided facial droop noted. Reports she experienced headache last evening, but early this morning denied headache upon my exam; however on patient rounds with Dr. Ahuja patient reports justyna berry. Objective Vitals and Measurements T: 36.6 C (Oral) TMIN: 36.4 C (Oral) TMAX: 36.8 C (Oral) HR: 77 RR: 18 BP: 137/89 SpO2: 96% Intake and Output 7AM Yesterday to 7AM Today Intake and Output (Last 24 hours) Intake Administration Information 800.00 Oral Intake 800.00 Output Stool Count 0.00 Urine Count 6.00 Total Summary Total Intake 1600.00 Total Output 0.00 Fluid Balance 1600.00 Physical Exam See above. Breath sounds clear bilaterally. Respirations unlabored and even. On RA Abdomen is soft, nontender and nondistended. +BS in all 4 quadrants. Denies N/V; tolerating PO intake. Regular HR and rhythm, S1 and S2 present. Per patient, ambulating steadily here and tells me she is urinating without dysuria or hematuria. Weight Dosing Weight: 86.7 kg (12/29/23) Medications Medications (23) Active Scheduled: (9) amLODIPine 10 mg tablet 10 mg 1 tab(s), Oral, qDay carvedilol 12.5 mg tablet 12.5 mg 1 tab(s), Oral, BIDM dexamethasone 4 mg/1 mL solution 4 mg 1 mL, IV Push, q6h ezetimibe 10 mg tablet 10 mg 1 tab(s), Oral, qDay lactulose 20 g/30 mL UD cup 10 gram(s) 15 mL, Oral, BID levETIRAcetam PMX bag 500 mg 100 mL, IV Piggyback, q12h lisinopril 20 mg tablet 20 mg 1 tab(s), Oral, BID pantoprazole 20 mg EC tablet 20 mg 1 tab(s), Oral, qDayAC polyethylene glycol 3350 - UD packet 17 gram(s) 15 mL, Oral, qDay Continuous: (1) NS (0.9% nacl) 1,000 mL 1,000 mL, Intravenous, 50 mL/hr PRN: (13) acetaminophen 325 mg Tablet 650 mg 2 tab(s), Oral, q4h acetaminophen-HYDROcodone 325-5 mg tablet 1 tab(s), Oral, q4h Al hydrox/Mg hydrox/simethicone 200-200-20 mg/5 mL Susp UD 30 mL, Oral, q2h cyclobenzaprine 10 mg Tablet 10 mg 1 tab(s), Oral, BID dextrose 50% Solution Disp syringe 50 mL 12.5 gram(s) 25 mL, IV Push, AsDirected diazepam 5 mg tablet 5 mg 1 tab(s), Oral, QID docusate sodium 100 mg Capsule 100 mg 1 cap(s), Oral, BID hydralazine 20 mg/mL (1mL) vial 10 mg 0.5 mL, IV Push, q15min hydroxyzine pamoate 25 mg capsule 25 mg 1 cap(s), Oral, TID magnesium hydroxide 8% Suspension 30 mL UD 30 mL, Oral, qHS melatonin 5 mg tablet 5 mg 1 tab(s), Oral, qHS ondansetron 2 mg/ 1 mL 2 mL INJ 4 mg 2 mL, IV Push, q4h polyethylene glycol 3350 - UD packet 17 gram(s) 15 mL, Oral, qDay Lab Results No 36 Hour Lab Data EKG EKG - Completed -- 12/30/23 8:03:00 EST Right frontal brain mass with surrounding vasogenic edema Brain MRI demonstrates a 3 cm enhancing extra axial dural based mass overlying the lateral right frontal parietal junction. The mass is causing mass effect and vasogenic edema with 3 mm of leftward midline shift. Brain MRI findings discussed with patient and family by Dr. Ahuja. Dr. Ahuja explained findings appear consistent with meningioma, however other pathology cannot be excluded without having a diagnostic biopsy. Dr. Ahuja recommends and advises removal of right frontal brain mass asit (or the associated edema) is causing patient to be symptomatic. Surgical date not yet determined, which may or may not be this admission. . Patient with known hx melanoma and basal cell skin carcinomas. Dr. Ahuja does recommend obtaining CT scans of chest, abdomen, and pelvis for thorough work-up; although did indicate to patient/family that findings may likely not change treatment plan; resecting mass would be of benefit to patient. Will follow body CT results. Concern episodes patient presented with ans has been described by her and family may be related to seizures, therefore continue Keppra 500 mg twice daily, and monitor closely for signs of seizure activity. Also continue Decadron 4 mg every 6 hours for treatment of vasogenic edema. On Protonix. Keep ASA on hold. Continue to monitor neuro exams closely, and notify neurosurgery with any acute concerns or changes. Please refer to Dr. Ahuja's addendum for additional information, and details regarding neurosurgical input and plan of care Digitally Signed by PARDEEP URIARTE on 01/01/2024 01:41 PM [facility] [id number] History and physical note Date of Service 12/29/2023 Chief Complaint Right frontal lobe swelling History of Present Illness This is a 63-year-old female with a past medical history of hypertension, hyperlipidemia, lumbar stenosis due to degenerative changes with sciatica, basal cell cancer to the right eye, melanoma skin cancer to the left leg 2014, just had skin cancer removed from her forehead-unsure what type of skincancer, CAD, [place] in 2020 with stent placement LAD/RCA, history of tobacco use quit smoking in 2020, who presented to the emergency department [facility] [place] after she had an episode of slurred speech and facial droop. She states this is a second episode she has had in the last couple of weeks. She states the episodes last for about an hour. Her family noticed a left facial droop and then she had difficulty speaking. She states she noticed the facial droop in the mirror. She also states she has had headaches for the last couple of weeks, which she normally does not have. In addition, she states she has been off balance at times. She denies any decreased appetite or weight loss. She denies vision changes. She had a CT of the head at [facility] which demonstrated right frontal lobe edema. Due to these findings, she was transferred to [facility] for evaluation by neurosurgery. On exam, she is awake, alert, and oriented x 3. She is moving all 4 extremities without difficulty.Following commands. No lateralizing weakness is noted. No pronator drift. She was able to perform the [id number] test without difficulty. Her speech is clear. She has a very slight facial droop on the left. She denies any numbness or tingling. She does complain of back and right leg pain. She states she has chronic back pain due to degenerative changes in the spine with sciatica. Patient be noted, the patient states her mother had a meningioma Review of Systems Constitutional: No fever, chills, wt loss, wt gain, fatigue, or night sweats HEENT: +headaches, No visual changes or hearing changes Cardiovascular: No chest pain, SOB, or or palpitations Respiratory: No cough, SOB, wheezing, or congestion. Gastrointestinal: No abd pain, nausea, vomiting, diarrhea, or loss of appetite. Genitourinary: No urinary frequency, burning, hematuria, or incontinence Musculoskeletal: No weakness, cramps, joint pain or swelling Skin: No rashes, lesions, or sores Neurological: +slurred speech and left facial droop. No incoordination, numbness, or tingling. No gait disturbance Psychiatric: No changes in mood Physical Exam Vitals and Measurements T: 36.3 C (Oral) HR: 87 RR: 18 BP: 125/80 SpO2: 98% HT: 144.8 cm WT: 86.7 kg BMI: 41.35 Weight Dosing Weight: 86.7 kg (12/29/23) General Appearance: This patient is well-developed and well nourished, and appears stated age. No acute distress. Head: Normocephalic, Atraumatic EENT: Mucous membranes moist. No vision or hearing changes Cardiac: S1 and S2 heard without murmur, rub, or gallop. Regular rate and rhythm. Lungs: Lungs clear. Respirations easy. No shortness of breath noted. Abdomen: BSP x 4. Abd soft, nontender, nondistended. Musculoskeletal: Moves all 4 ext without difficulty Extremities: Bilateral pedal pulses palpable. No edema noted Neurological: See HPI Skin: [place], warm, and dry. Psychiatric: Mood stable. Cooperative. Lab Results No 36 Hour Lab Data Assessment/Plan Right frontal lobe swelling: -CT of the head from [facility] has been reviewed by Dr. Burch. Patient has swelling in the right frontal lobe. -An MRI of the brain with and without contrast has been ordered. -Will hold off on ordering CT chest, abdomen, and pelvis, as if this is a meningioma she will not need a metastatic workup. -She received Keppra at . She will be continued on Keppra 500 mg twice daily. -She will also be started on Decadron 4 mg every 6 hours. -Patient is currently neurologically intact. Continue to monitor neuro exams at least every 4 hoursand notify neurosurgery with any changes. -As discussed with the patient, that at this time, we need to await the MRI of the brain to give further information and recommendations. Once the MRI has been obtained, further recommendations will follow. -All the above was discussed with the patient and her family who is at the bedside. They are in agreement with the plan. Please see Dr. Burch's addendum tomorrow for further details and recommendations. Problem List/Past Medical History Ongoing CAD in [place] artery Dyslipidemia Dyspnea on exertion Hypertension Increased BMI STEMI (ST elevation myocardial infarction) Historical No qualifying data Procedure/Surgical History Arterial stent: 2019 Basal cell carcinoma: 2014 Bone spur: 2005 Degenerative disc disease: 1999 Hysterectomy Melanoma to the left leg removed 2014 Medications Home Medications (16) Active acetaminophen-hydrocodone 325 mg-5 mg oral tablet 1 tab(s), PRN, Oral, Daily acetaminophen-hydrocodone 325 mg-5 mg oral tablet 2 tab(s), PRN, Oral, Daily Coreg 12.5 mg oral tablet 12.5 mg = 1 tab(s), Oral, BIDM cyclobenzaprine 10 mg oral tablet 10 mg = 1 tab(s), PRN, Oral, qHS Ecotrin Adult Low Strength 81 mg oral delayed release tablet 81 mg = 1 tab(s), Oral, qDayM folic acid 1 mg oral tablet 2 mg = 2 tab(s), Oral, qDay lactulose 10 g/15 mL oral syrup 10 gram(s) = 15 mL, Oral, BID lisinopril 20 mg oral tablet 20 mg = 1 tab(s), Oral, BID methotrexate 2.5 mg oral tablet 15 mg = 6 tab(s), Oral, Monday Nitrostat 0.4 mg sublingual tablet 0.4 mg = 1 tab(s), PRN, Sublingual, q5min Norvasc 10 mg oral tablet 10 mg = 1 tab(s), Oral, qDay omeprazole 20 mg oral delayed release capsule 20 mg = 1 cap(s), Oral, qDayAC Repatha SureClick 140 mg/mL subcutaneous solution 140 mg, Subcutaneous, every other week Repatha SureClick 140 mg/mL subcutaneous solution 140 mg, Subcutaneous, q2wk Repatha SureClick 140 mg/mL subcutaneous solution See Instructions Zetia 10 mg oral tablet 10 mg = 1 tab(s), Oral, qDay Allergies Metoprolol Succinate ER Plaquenil Tetanus Toxoid codeine sulfate lovastatin (muscle cramps) minocycline (Rash) pravastatin (Pain) rosuvastatin (pain) sulfa drug tetracycline Social History Alcohol Use: Current. Type: Wine. Frequency: 1-2 times per year. Has alcohol use interfered with work or home life: No. Do you ever drink more than intended: No. Has anyone been hurt or at risk by your drinking: No. Ready to change: No. Concerns about alcohol use in household: No., 01/09/2021 Home/Environment Domestic Concerns: None. Living situation: Home/Independent. Safe place to go: Yes. Lives In: Multilevel home. Current Home Treatments None. Professional Skilled Services or Special Community Resources None. Financial concerns: No. Spouse Name: Gurwinder Gupta. Marital Status: ., 01/09/2021 Nutrition/Health Type of diet: Low sodium. Appetite Excellent. Eating Difficulties None. Caffeine intake amount: 2 cups., 01/09/2021 Substance Abuse Use: Never., 01/09/2021 Tobacco Nicotine Use: Former smoker, quit more than 30 days ago. Exposure to Tobacco Smoke Lives with someone who smokes. Type: Cigarettes. Number of years: 46. Started at age: 14 Years. Ready to change: Yes. Smoking Cessation Information Requests additional information., 01/25/2021 Lives at home with her . Tobacco use stopped smoking in 2020 Alcohol use on occasion Illicit drug use none Family History Diabetes mellitus: Mother. Heart attack: Mother, Father, Sister and Grandparent. High blood pressure: Mother, Father, Sister, Brother and Grandparent. Meningioma: Mother Immunizations No qualifying data available. Code Status Code Status - Ordered -- 12/29/23 16:38:00 EST, Full Code, Constant Order Digitally Signed by DAMIAN JACKSON on 12/29/2023 05:27 PM [id number] NoteSINUS TACHYCARDIA LOW VOLTAGE, PRECORDIAL LEADS BORDERLINE T ABNORMALITIES, DIFFUSE LEADS Electronic Signature: CHRIS LIMON MD 12/31/2023 16:33:36[facility] 02-02-2024 Note ORIGINAL EXAMINATION: MRI OF THE BRAIN WITHOUT AND WITH CONTRAST 12/29/2023 10:42 pm TECHNIQUE: Multiplanar multisequence MRI of the head/brain was performed without and with the administration of intravenous contrast. COMPARISON: None currently available.. HISTORY: ORDERING SYSTEM PROVIDED HISTORY: Reason for Exam: Right frontal edema-eval for brain mass FINDINGS: There is a large avidly enhancing extra-axial dural-based mass overlying the lateral aspect of the right frontal parietal junction. This measures 3.1 x 2.9 x 3.0 cm open (craniocaudal by transverse by AP dimension). This demonstrates thick enhancing dural tails. The lesion demonstrates T1 isointensity and minimally heterogeneous T2 hyperintensity. It has a slightly lobulated contour or. It demonstrates considerable mass effect on the subjacent brain parenchyma. There is a large nearly 8 cm region of confluent T2 prolongation underlying this compatible with vasogenic edema. There is effacement of the right lateral ventricle and 3 mm leftward midline shift. No hydrocephalus. Basilar cisterns patent. No acute infarct or hemorrhage. No additional abnormal parenchymal signal or enhancement. Mild sinus inflammatory disease. Mastoids clear. IMPRESSION: 3 cm avidly enhancing extra-axial dural-based mass overlying the lateral right frontal parietal junction. Meningioma is most likely. Definitive diagnosis would require tissue sampling. The lesion results in considerable underlying mass effect resulting in vasogenic edema, effacement of the right lateral ventricle and 3 mm leftward midline shift. Neurosurgical consultation is recommended. Interpreted by: Toan Shirley Preliminary Report By: Toan Shirley Electronically signed By Toan Shirley Dictated Date: 12/30/2023 7:02:07 PM Prelim Date: 12/30/2023 7:10:44 PM Sign Date: 12/30/2023 7:10:44 PM Ordering Provider: DAMIAN [facility]acioAs[facility] [id number] History and physical note Date of Service 12/29/2023 Chief Complaint Right frontal lobe swelling History of Present Illness This is a 63-year-old female with a past medical history of hypertension, hyperlipidemia, lumbar stenosis due to degenerative changes with sciatica, basal cell cancer to the right eye, melanoma skin cancer to the left leg 2014, just had skin cancer removed from her forehead-unsure what type of skincancer, CAD, SD in 2020 with stent placement LAD/RCA, history of tobacco use quit smoking in 2020, who presented to the emergency department [place] after she had an episode of slurred speech and facial droop. She states this is a second episode she has had in the last couple of weeks. She states the episodes last for about an hour. Her family noticed a left facial droop and then she had difficulty speaking. She states she noticed the facial droop in the mirror. She also states she has had headaches for the last couple of weeks, which she normally does not have. In addition, she states she has been off balance at times. She denies any decreased appetite or weight loss. She denies vision changes. She had a CT of the head at [facility] which demonstrated right frontal lobe edema. Due to these findings, she was transferred to [facility] for evaluation by neurosurgery. On exam, she is awake, alert, and oriented x 3. She is moving all 4 extremities without difficulty.Following commands. No lateralizing weakness is noted. No pronator drift. She was able to perform the [id number] test without difficulty. Her speech is clear. She has a very slight facial droop on the left. She denies any numbness or tingling. She does complain of back and right leg pain. She states she has chronic back pain due to degenerative changes in the spine with sciatica. Patient be noted, the patient states her mother had a meningioma Review of Systems Constitutional: No fever, chills, wt loss, wt gain, fatigue, or night sweats HEENT: +headaches, No visual changes or hearing changes Cardiovascular: No chest pain, SOB, or or palpitations Respiratory: No cough, SOB, wheezing, or congestion. Gastrointestinal: No abd pain, nausea, vomiting, diarrhea, or loss of appetite. Genitourinary: No urinary frequency, burning, hematuria, or incontinence Musculoskeletal: No weakness, cramps, joint pain or swelling Skin: No rashes, lesions, or sores Neurological: +slurred speech and left facial droop. No incoordination, numbness, or tingling. No gait disturbance Psychiatric: No changes in mood Physical Exam Vitals and Measurements T: 36.3 C (Oral) HR: 87 RR: 18 BP: 125/80 SpO2: 98% HT: 144.8 cm WT: 86.7 kg BMI: 41.35 Weight Dosing Weight: 86.7 kg (12/29/23) General Appearance: This patient is well-developed and well nourished, and appears stated age. No acute distress. Head: Normocephalic, Atraumatic EENT: Mucous membranes moist. No vision or hearing changes Cardiac: S1 and S2 heard without murmur, rub, or gallop. Regular rate and rhythm. Lungs: Lungs clear. Respirations easy. No shortness of breath noted. Abdomen: BSP x 4. Abd soft, nontender, nondistended. Musculoskeletal: Moves all 4 ext without difficulty Extremities: Bilateral pedal pulses palpable. No edema noted Neurological: See HPI Skin: [place], warm, and dry. Psychiatric: Mood stable. Cooperative. Lab Results No 36 Hour Lab Data Assessment/Plan Right frontal lobe swelling: -CT of the head from [facility] has been reviewed by Dr. Burch. Patient has swelling in the right frontal lobe. -An MRI of the brain with and without contrast has been ordered. -Will hold off on ordering CT chest, abdomen, and pelvis, as if this is a meningioma she will not need a metastatic workup. -She received Keppra at . She will be continued on Keppra 500 mg twice daily. -She will also be started on Decadron 4 mg every 6 hours. -Patient is currently neurologically intact. Continue to monitor neuro exams at least every 4 hoursand notify neurosurgery with any changes. -As discussed with the patient, that at this time, we need to await the MRI of the brain to give further information and recommendations. Once the MRI has been obtained, further recommendations will follow. -All the above was discussed with the patient and her family who is at the bedside. They are in agreement with the plan. Please see Dr. Burch's addendum tomorrow for further details and recommendations. Problem List/Past Medical History Ongoing CAD in [place] artery Dyslipidemia Dyspnea on exertion Hypertension Increased BMI STEMI (ST elevation myocardial infarction) Historical No qualifying data Procedure/Surgical History Arterial stent: 2019 Basal cell carcinoma: 2015 Bone spur: 2006 Degenerative disc disease: 2000 Hysterectomy Melanoma to the left leg removed 2015 Medications Home Medications (16) Active acetaminophen-hydrocodone 325 mg-5 mg oral tablet 1 tab(s), PRN, Oral, Daily acetaminophen-hydrocodone 325 mg-5 mg oral tablet 2 tab(s), PRN, Oral, Daily Coreg 12.5 mg oral tablet 12.5 mg = 1 tab(s), Oral, BIDM cyclobenzaprine 10 mg oral tablet 10 mg = 1 tab(s), PRN, Oral, qHS Ecotrin Adult Low Strength 81 mg oral delayed release tablet 81 mg = 1 tab(s), Oral, qDayM folic acid 1 mg oral tablet 2 mg = 2 tab(s), Oral, qDay lactulose 10 g/15 mL oral syrup 10 gram(s) = 15 mL, Oral, BID lisinopril 20 mg oral tablet 20 mg = 1 tab(s), Oral, BID methotrexate 2.5 mg oral tablet 15 mg = 6 tab(s), Oral, Monday Nitrostat 0.4 mg sublingual tablet 0.4 mg = 1 tab(s), PRN, Sublingual, q5min Norvasc 10 mg oral tablet 10 mg = 1 tab(s), Oral, qDay omeprazole 20 mg oral delayed release capsule 20 mg = 1 cap(s), Oral, qDayAC Repatha SureClick 140 mg/mL subcutaneous solution 140 mg, Subcutaneous, every other week Repatha SureClick 140 mg/mL subcutaneous solution 140 mg, Subcutaneous, q2wk Repatha SureClick 140 mg/mL subcutaneous solution See Instructions Zetia 10 mg oral tablet 10 mg = 1 tab(s), Oral, qDay Allergies Metoprolol Succinate ER Plaquenil Tetanus Toxoid codeine sulfate lovastatin (muscle cramps) minocycline (Rash) pravastatin (Pain) rosuvastatin (pain) sulfa drug tetracycline Social History Alcohol Use: Current. Type: Wine. Frequency: 1-2 times per year. Has alcohol use interfered with work or home life: No. Do you ever drink more than intended: No. Has anyone been hurt or at risk by your drinking: No. Ready to change: No. Concerns about alcohol use in household: No., 01/09/2021 Home/Environment Domestic Concerns: None. Living situation: Home/Independent. Safe place to go: Yes. Lives In: Multilevel home. Current Home Treatments None. Professional Skilled Services or Special Community Resources None. Financial concerns: No. Spouse Name: Gurwinder Gupta. Marital Status: ., 01/09/2021 Nutrition/Health Type of diet: Low sodium. Appetite Excellent. Eating Difficulties None. Caffeine intake amount: 2 cups., 01/09/2021 Substance Abuse Use: Never., 01/09/2021 Tobacco Nicotine Use: Former smoker, quit more than 30 days ago. Exposure to Tobacco Smoke Lives with someone who smokes. Type: Cigarettes. Number of years: 46. Started at age: 14 Years. Ready to change: Yes. Smoking Cessation Information Requests additional information., 01/25/2021 Lives at home with her . Tobacco use stopped smoking in 2020 Alcohol use on occasion Illicit drug use none Family History Diabetes mellitus: Mother. Heart attack: Mother, Father, Sister and Grandparent. High blood pressure: Mother, Father, Sister, Brother and Grandparent. Meningioma: Mother Immunizations No qualifying data available. Code Status Code Status - Ordered -- 12/29/23 16:38:00 EST, Full Code, Constant Order Digitally Signed by DAMIAN JACKSON on 12/29/2023 05:27 PM [facility] [id number] Consult note Date of Service 12/29/23 Reason for Consultation Hypertension Referring Physician Dr Burch History of Present Illness 63-year-old lady past medical history of hypertension, coronary artery disease, tobacco abuse admitted to neurosurgery service given concern for brain mass. Been consulted for medical management of her hypertension. Patient mentioned that she went to hospital as she was having problems with her gait slurring her words and also some facial weakness. CT brain at the facility showed some right frontal lobe cerebral edema concerning for brain mass. Discussed MRI brain with and without contrast ordered by neurosurgery. Discussed Keppra and Decadron. Lab work GP was sodium 140, potassium 3.8, BUN 14, creatinine of 0.79, INR 1. EKG reviewed with sinus rhythm low voltage no ST changes possible old inferior infarct. Review of Systems 14 point review of system was discussed and reviewed as negative unless otherwise specified above Physical Exam Vitals and Measurements T: 36.3 C (Oral) HR: 87 RR: 18 BP: 125/80 SpO2: 98% HT: 144.8 cm WT: 86.7 kg BMI: 41.35 Weight Dosing Weight: 86.7 kg (12/29/23) General- in no acute distress, alert Cardiac- Normal S1 S2, with no murmur rubs or gallops HEENT- PERRLA, eyes- sclera nonicteric, oral mucosa moist Lungs- Clear to auscultation bilaterally Abdomen- Nontender to palpation, positive bowel sounds Neurology- follows command Skin- no rash Psychiatry- oriented x3 Lab Results No 36 Hour Lab Data Assessment/Plan Assessment 1. Hypertension 2. Hyperlipidemia 3. Coronary artery disease 4. Brain mass` Plan 1. Last blood pressure was 125/80 well-controlled. Continue home meds with Lisinopril 20 mg twice daily, amlodipine 10 mg and Coreg 12.5 mg twice daily. Continue seizure prophylaxis with Keppra per neurology. Continue Decadron per neurosurgery. Thank you for this consultation and allowing me to participate in the care of this patient. [facility] will continue to follow. This document was transcribed using a voice recognition software and may contain typographical errors. Problem List/Past Medical History Ongoing CAD in [place] artery Dyslipidemia Dyspnea on exertion Hypertension Increased BMI STEMI (ST elevation myocardial infarction) Historical No qualifying data Procedure/Surgical History Arterial stent: 2019 Basal cell carcinoma: 2014 Bone spur: 2005 Degenerative disc disease: 1999 Medications Inpatient Apresoline, 10 mg= 0.5 mL, IV Push, q15min, PRN Colace, 100 mg= 1 cap(s), Oral, BID, PRN Coreg, 12.5 mg= 1 tab(s), Oral, BIDM dexAMETHasone, 4 mg= 1 mL, IV Push, q6h Dextrose 50% IV Push, 12.5 gram(s)= 25 mL, IV Push, AsDirected, PRN Keppra, 500 mg= 100 mL, IV Piggyback, q12h lactulose, 10 gram(s)= 15 mL, Oral, BID lisinopril, 20 mg= 1 tab(s), Oral, BID Maalox, 30 mL, Oral, q2h, PRN Milk of Magnesia, 30 mL, Oral, qHS, PRN [place] 325- 5 mg oral tablet, 1 tab(s), Oral, q4h, PRN Norvasc, 10 mg= 1 tab(s), Oral, qDay NS 1,000 mL, 1000 mL, Intravenous pantoprazole, 20 mg= 1 tab(s), Oral, qDayAC Tylenol, 650 mg= 2 tab(s), Oral, q4h, PRN Zetia, 10 mg= 1 tab(s), Oral, qDay Zofran, 4 mg= 2 mL, IV Push, q4h, PRN Home acetaminophen-hydrocodone 325 mg-5 mg oral tablet, 1 tab(s), Oral, Daily, PRN acetaminophen-hydrocodone 325 mg-5 mg oral tablet, 2 tab(s), Oral, Daily, PRN Coreg 12.5 mg oral tablet, 12.5 mg= 1 tab(s), Oral, BIDM, 3 refills cyclobenzaprine 10 mg oral tablet, 10 mg= 1 tab(s), Oral, qHS, PRN Ecotrin Adult Low Strength 81 mg oral delayed release tablet, 81 mg= 1 tab(s), Oral, qDayM, 3 refills folic acid 1 mg oral tablet, 2 mg= 2 tab(s), Oral, qDay lactulose 10 g/15 mL oral syrup, 10 gram(s)= 15 mL, Oral, BID lisinopril 20 mg oral tablet, 20 mg= 1 tab(s), Oral, BID methotrexate 2.5 mg oral tablet, 15 mg= 6 tab(s), Oral, Monday, Still taking, not as prescribed: takes every monday not monday Nitrostat 0.4 mg sublingual tablet, 0.4 mg= 1 tab(s), Sublingual, q5min, PRN, 3 refills Norvasc 10 mg oral tablet, 10 mg= 1 tab(s), Oral, qDay omeprazole 20 mg oral delayed release capsule, 20 mg= 1 cap(s), Oral, qDayAC Repatha SureClick 140 mg/mL subcutaneous solution, 140 mg, Subcutaneous, q2wk, 2 refills Repatha SureClick 140 mg/mL subcutaneous solution, 140 mg, Subcutaneous, every other week Repatha SureClick 140 mg/mL subcutaneous solution, See Instructions, 3 refills Zetia 10 mg oral tablet, 10 mg= 1 tab(s), Oral, qDay, 3 refills Allergies Metoprolol Succinate ER Plaquenil Tetanus Toxoid codeine sulfate lovastatin (muscle cramps) minocycline (Rash) pravastatin (Pain) rosuvastatin (pain) sulfa drug tetracycline Social History Alcohol Use: Current. Type: Wine. Frequency: 1-2 times per year. Has alcohol use interfered with work or home life: No. Do you ever drink more than intended: No. Has anyone been hurt or at risk by your drinking: No. Ready to change: No. Concerns about alcohol use in household: No., 01/09/2021 Home/Environment Domestic Concerns: None. Living situation: Home/Independent. Safe place to go: Yes. Lives In: Multilevel home. Current Home Treatments None. Professional Skilled Services or Special Community Resources None. Financial concerns: No. Spouse Name: Gurwinder Gupta. Marital Status: ., 01/09/2021 Nutrition/Health Type of diet: Low sodium. Appetite Excellent. Eating Difficulties None. Caffeine intake amount: 2 cups., 01/09/2021 Substance Abuse Use: Never., 01/09/2021 Tobacco Nicotine Use: Former smoker, quit more than 30 days ago. Exposure to Tobacco Smoke Lives with someone who smokes. Type: Cigarettes. Number of years: 46. Started at age: 14 Years. Ready to change: Yes. Smoking Cessation Information Requests additional information., 01/25/2021 Family History Diabetes mellitus: Mother. Heart attack: Mother, Father, Sister and Grandparent. High blood pressure: Mother, Father, Sister, Brother and Grandparent. Immunizations No qualifying data available. Digitally Signed by MEGAN KRISHNAMURTHY MD on 12/29/2023 06:15 PM [facility] [id number] Evaluation + Plan noteExtracted from: Title:History and Physical Author:DAMIAN JACKSON APRN-CLERICAL OFFICE WORKER Date:12/29/23 Right frontal lobe swelling: -CT of the head from [facility] has been reviewed by Dr. Burch. Patient has swelling in the right frontal lobe. -An MRI of the brain with and without contrast has been ordered. -Will hold off on ordering CT chest, abdomen, and pelvis, as if this is a meningioma she will not need a metastatic workup. -She received Keppra at . She will be continued on Keppra 500 mg twice daily. -She will also be started on Decadron 4 mg every 6 hours. -Patient is currently neurologically intact. Continue to monitor neuro exams at least every 4 hours and notify neurosurgery with any changes. -As discussed with the patient, that at this time, we need to await the MRI of the brain to give further information and recommendations. Once the MRI has been obtained, further recommendations will follow. -All the above was discussed with the patient and her family who is at the bedside. They are in agreement with the plan. Please see Dr. Burch's addendum tomorrow for further details and recommendations. Addendum by CHIQUITA BURCH MD on December 31, 2023 07:59:27 EST This is a split shared note between myself and the nurse practitioner. This is a late entry note, the patient was seen yesterday on December 30, 2023. On examination she is awake she is alert she is oriented x 3 she is moving all extremities well. She has minimal headaches. No nausea vomiting or seizure activity. She has no numbness or tingling. MRI shows large homogeneous enhancing mass consistent with meningioma with surrounding vasogenic edema. Plan is for steroids, and Keppra. Likely surgical resection, patient will be staffed by my partner on Monday morning. Future Appointments Appointment Date:01/16/2024 10:00:00 AM Scheduled Provider:CEFERINO AHUJA MD Location:[facility] Appointment Type: Post Op Future Scheduled Tests Laboratory* Lipid Profile 04/05/23 [facility] 11-02-2023 Instructions* Patient Instructions* Nidia Rivero PA-C - 09/28/2023 10:23 AM EDT -Continue PPI and dietary modifications fdc, repeat EGD in 5 years for surveillance of Conner's The following instructions are important for you related to your office visit today with the [facility]. INSTRUCTIONS FOLLOWING A POLYP FOUND AT COLONOSCOPY You were found to have an adenomatous colon polyp. I recommend you undergo repeat endoscopy in 5 years. If you note bleeding, change in bowel habits, or other suspicious colon related symptoms beforethat time, those symptoms should be evaluated as necessary. If you have any difficulties or concerns, you should contact our office immediately. If you note any additional difficulties, questions, or concerns, you should contact our office immediately @ [phone] and ask to be transferred to the General Surgery department. [facility] NoteHNO ID: [id number] Author: Nidia Rivero PA-C Service: ? Author Type: Physician Visual And Stock Associate Type: Progress Notes Filed: 10/08/2023 12:34 PM Note Text: FOLLOW UP VISIT - ENDOSCOPY NAME: Tammy Gupta [facility] NO.: [id number] DATE OF SERVICE: 09/28/2023 : 1960 REFERRING PHYSICIAN: Geremias Vaughn MD Tammy is a patient I am following for Conner's esophagus as well as a history of lymphocytic colitis and chronic constipation. Dr. Olvera performed upper and lower endoscopy on 09/07/23. The patient was found to have no concerning findings on EGD. Colonoscopy showed a small polyp in the right colon which was removed. Pathology demonstrated: FINAL DIAGNOSIS A. Gastroesophageal junction, biopsy: - Fragments of squamous and gastric type glandular mucosa with mild chronic inflammation. See comment. B. Ascending colon, biopsy: - Tubular adenoma. Diagnosis Comment There is no evidence of intestinal metaplasia in the gastroesophageal junction biopsy. The patient notes no complaints since the procedure. VITALS: Blood pressure 132/80, pulse 91, temperature 36.4 ?C (97.5 ?F), weight 85.4 kg (188 lb 3.2 oz), SpO2 97 %. General: patient is alert, cooperative, pleasant and in no acute distress On examination, the abdomen is benign. Assessment IMPRESSION: Conner's esophagus without dysplasia, adenomatous colon polyp PLAN: The operative findings and pathology report were reviewed with the patient, and the patient has had the opportunity to ask questions and have questions answered. If the patient notes any problems or changes in bowel function, the patient should contact me immediately. Otherwise I recommend follow up upper and lower endoscopy in 5 years Patient verbalized understanding of all above and agreed with the plan Diagnoses: (D12.6) Tubular adenoma of colon (primary encounter diagnosis) I spent a total of 24 minutes on the date of the service which included preparing to see the patient, [id number] patient care, completing clinical documentation, obtaining and/or reviewing separately obtained history, counseling and educating the patient/family/caregiver, independently interpreting results (not separately reported), and communicating results to the patient/family/caregiver. [facility]11-02-2023 History of Present illness Narrative* Nidia Rivero PA-C - 09/28/2023 10:13 AM EDT FOLLOW UP VISIT - ENDOSCOPY NAME: Tammy Gupta [facility] NO.: [id number] DATE OF SERVICE: 09/28/2023 : 1960 REFERRING PHYSICIAN: Geremias Vaughn MD Tammy is a patient I am following for Conner's esophagus as well as a history of lymphocytic colitis and chronic constipation. Dr. Olvera performed upper and lower endoscopy on 09/07/23. The patient was found to have no concerning findings on EGD. Colonoscopy showed a small polyp in the right colon which was removed. Pathology demonstrated: FINAL DIAGNOSIS A. Gastroesophageal junction, biopsy: - Fragments of squamous and gastric type glandular mucosa with mild chronic inflammation. See comment. B. Ascending colon, biopsy: - Tubular adenoma. Diagnosis Comment There is no evidence of intestinal metaplasia in the gastroesophageal junction biopsy. The patient notes no complaints since the procedure. VITALS: Blood pressure 132/80, pulse 91, temperature 36.4 C (97.5 F), weight 85.4 kg (188 lb 3.2 oz), SpO2 97 %. General: patient is alert, cooperative, pleasant and in no acute distress On examination, the abdomen is benign. Assessment IMPRESSION: Conner's esophagus without dysplasia, adenomatous colon polyp PLAN: The operative findings and pathology report were reviewed with the patient, and the patient has hadthe opportunity to ask questions and have questions answered. If the patient notes any problems or changes in bowel function, the patient should contact me immediately. Otherwise I recommend follow up upper and lower endoscopy in 5 years Patient verbalized understanding of all above and agreed with the plan Diagnoses: (D12.6) Tubular adenoma of colon (primary encounter diagnosis) I spent a total of 24 minutes on the date of the service which included preparing to see the patient, [id number] patient care, completing clinical documentation, obtaining and/or reviewing separately obtained history, counseling and educating the patient/family/caregiver, independently interpretin g results (not separately reported), and communicating results to the patient/family/caregiver. Nidia Rivero PA-C [facility] NoteHNO ID: [id number] Author: Alix Garcia, RN Service: Nursing Author Type: Registered Nurse Type: Nursing Progress Note Filed: 09/07/2023 8:29 AM Note Text: Patient education given and completed with patient. Patient ready for procedure.[facility]09-20-2023 NoteHNO ID: [id number] Author: Nidia Rivero PA-C Service: ? Author Type: Physician Visual [employer] Associate Type: Progress Notes Filed: 08/16/2023 3:49 PM Note Text: HISTORY AND PHYSICAL Tammy Gupta 1960 REFERRING PHYSICIAN: Geremias Vaughn MD CHIEF COMPLAINT: Consult (Barretts esophagus/ lymphocytic colitis) HPI: The patient is a 63 year old female referred for endoscopy. Tammy notes chronic constipation. Patient denies any weight changes, blood in stools, or black tarry stools. Denies family history of colon issues. The patient NOTES a history of Conner's esophagus and is overdue for surveillance colonoscopy. Notes intermittent upper abdominal discomfort, worse with acidic foods. Tammy has undergone prior endoscopy, most recently in [address] Olvera in [place]. Findings included Conner's esophagus on upper endoscopy, and increased intraepithelial lymphocytes on random colon biopsies. Patient denies problems with sedation in the past. She is interested in trying a different bowel prep. PAST MEDICAL HISTORY Diagnosis Date Abnormal blood chemistry Allergic rhinitis Anxiety Conner's esophagus BCC (basal cell carcinoma) Rt eye Esophageal reflux Essential hypertension, benign Family history of diabetes mellitus Family history of high cholesterol Hemorrhoids Hypercalcemia Hyperlipidemia Impaired fasting glucose Interstitial cystitis Lumbar spinal stenosis Lymphocytic colitis Melanoma of thigh (HCC) left Polyarthritis of multiple sites Polycythemia Skin lesion of breast Uterine fibroid UTI (urinary tract infection) PAST SURGICAL HISTORY Procedure Laterality Date COLONOSCOPY FLX DX W/COLLJ SPEC WHEN PFRMD 04/03/2018 Colonoscopy ESOPHAGOGASTRODUODENOSCOPY TRANSORAL DIAGNOSTIC 04/03/2018 EGD HYSTERECTOMY HX abdominal/partial still has ovaries surgery done for fibroids LAPAROSCOPY DIAGNOSTIC Current Outpatient Medications Medication Sig omeprazole (PRILOSEC) 20 mg capsule Take 1 capsule by mouth twice daily. lisinopril (ZESTRIL, PRINIVIL) 20 mg tablet Take 20 mg by mouth once daily. AMLODIPINE BESYLATE (AMLODIPINE ORAL) Take by mouth once daily. 10mg daily omeprazole (PRILOSEC) 20 mg capsule Take 20 mg by mouth once daily. budesonide-formoterol (SYMBICORT) 160-4.5 mcg/actuation inhaler Inhale 2 Puffs as instructed as needed. ciprofloxacin HCl (CIPRO) 500 mg tablet Take 500 mg by mouth twice daily. On hand if needed for cystitis/UTI phenazopyridine (PYRIDIUM, GERIDIUM) 200 mg tablet Take 200 mg by mouth three times daily as needed. meloxicam (MOBIC) 15 mg tablet Take 15 mg by mouth once daily. methotrexate 2.5 mg tablet Take by mouth one time only. Seven tabs once a week folic acid 1 mg tablet Take 1 mg by mouth twice daily. predniSONE (DELTASONE) 5 mg tablet Take 5 mg by mouth once daily. One tab for 3-5 days for polyarthropathy flare ups HYDROcodone-acetaminophen (NORCO) 5-325 mg per tablet Take 1 tablet by mouth twice daily as needed. cyclobenzaprine (FLEXERIL) 10 mg tablet Take 10 mg by mouth once daily. POLYETHYLENE GLYCOL 3350 (MIRALAX ORAL) Take by mouth as needed. ASCORBIC ACID/ZINC (ZINC WITH VITAMIN C ORAL) Take by mouth once daily. omega-3 fatty [id number]-sxa 300 mg cap Take by mouth once daily. No current facility-administered medications for this visit. ALLERGIES: Codeine; Metoprolol; Minocycline; Plaquenil [Hydroxychloroquine]; Sulfa (Sulfonamide Antibiotics); Tetanus And Diphtheria Toxoids, Adsorbed, Adult; and Tetracycline PERSONAL HISTORY: Social History Tobacco Use Smoking status: Every Day Packs/day: 2 Types: Cigarettes Smokeless tobacco: Never Tobacco comments: Smokes 1/2 pack per day. Smoked since age of 12 Substance Use Topics Alcohol use: No Drug use: No FAMILY HISTORY: FAMILY HISTORY Problem Relation Age of Onset Diabetes Mother Alcohol/Drug Father REVIEW OF SYMPTOMS: The review of systems data was entered by the nurse and reviewed by ca Nursing Notes: Silvia Rubalcava LPN 08/16/2023 11:01 AM Signed REVIEW OF SYSTEMS: General: The patient denies fatigue, denies weight loss, denies weight gain, NOTES feeling hot, and denies feelings of cold. Eyes: The patient denies glaucoma, NOTES eye injury/surgery, wears glasses or contacts. Ear/Nose/Throat: The patient NOTES allergies, NOTES hayfever, denies ear infections, and denies bloody noses. Cardiovascular: The patient denies chest pain, denies heart disease, NOTES high blood pressure,NOTES cardiac stent, NOTES prior heart attack, denies irregular heart beat, NOTES high cholesterol, denies poor circulation, denies heart failure, other cardiac issues, denies claudication, denies cold feet, denies peripheral arterial stent. Respiratory: The patient denies tuberculosis, denies pneumonia, denies frequent cough, denies pulmonary embolism, denies shortness of breath, and denies coughing up blood. Gastrointestinal: The patient d (more content not included)...[facility]05-10-[facility] Evaluation + Plan note Future Scheduled Tests Laboratory* Lipid Profile 04/05/23 Radiology* MRI Brain w/ + w/o Contrast 04/14/24 [facility] Evaluation + Plan note Future Appointments Appointment Date:01/17/2024 03:30:00 PM Scheduled Provider:MARI CHEN MD Location:[facility] Appointment Type:[facility] Hospital Follow Up Appointment Date:02/13/2024 10:30:00 AM Scheduled Provider:CEFERINO AHUJA MD Location:NEUROS Appointment Type:NS Post Op Future Scheduled Tests Laboratory* Lipid Profile 04/05/23 [facility] Evaluation + Plan note Future Appointments Appointment Date:02/11/2025 10:00:00 AM Scheduled Provider:CEFERINO AHUJA MD Location:NEUROS Appointment Type:NS OV Future Scheduled Tests Laboratory* Lipid Profile 04/05/23 Radiology* MRI Brain w/ + w/o Contrast 01/10/25 * MRI Brain w/ + w/o Contrast 04/14/24 [facility] Evaluation noteNo assessment information available [facility] Work Phone: Evaluation note* Diagnosis Tubular adenoma of colon- Primary 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 Conner's esophagus documented in this encounter [facility] course Narrative No data available for this section [facility] Hospital Discharge instructions No data available for this section [facility] Progress note No data available for this section [facility] Summary Purpose Family History No Family History Records Found No data available for this section No data available for this section No data available for this section No data available for this section No Family History Records FoundNo Family History Records FoundNo Family History Records FoundNo Family History Records Found Advance Directives No Advanced Directives Records FoundDocuments on File Type Date Recorded Patient Price Accuracy Supervisor Expl anation Advance Directive(s) 09/07/2023 7:29 AM Advance Directive(s) 04/03/2018 9:16 AM Chief Complaint and Reason for Visit Chief Complaint Benign neoplasm of m eninges, unspecified Additional Source Comments Goals (unrecognized section and content) Goals may be documented in a n alternate sectionGoals may be documented in an alternate section No data available for this section No data available for this section No data available for this sectionGoals may be documented in an alternate section No data available for this section INFORMATION SOURCE (unrecogn ized section and content) DATE CREATED AUTHOR 09/11/2023 [facility] DATE CREATED AUTHOR AUTHOR'S ORGANIZ ATION 04/24/2024 [facility] DATE CREATED AUTHOR AUTHOR'S ORGANIZ ATION 05/30/2024 [facility] DATE CREATED AUTHOR AUTHOR'S ORGANIZ ATION 04/01/2025 [facility] DATE CREATED AUTHOR AUTHOR'S ORGANIZ ATION 06/07/2025 [facility] Source Comments (unrecognize d section and content) In the event this informatio n is protected by the Federal Confidentiality of Alcohol and Drug Abuse Patient Records regulations: The Federal rules restrict any use of the information to criminally investigate or prosecute any alcohol or drug abuse patient.[facility] Reason for Visit (unrecogniz ed section and content) Reason Comments Follow Up Review EGD and colon oscopy results. 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 [address] [place] [id number] PCP - General Internal Medicine 08/15/23 Team Status: Active Member Role Status Dates Dr. Nikia Christianson DO Family Provider Active Dr. Geremias Vaughn MD Primary Care Provider Active Team Status: Inactive Member Role Status Dates Dr. Geremias Vaughn MD Primary Care Provider Active ROSENDO DE LA [facility]GA Attending Provider, Referring Pr ovider Active FOR RECORDS PERTAINING TO PATIENTS WHO ARE OR HAVE BEEN ENROLLED IN A CHEMICAL DEPENDENCY/SUBSTANCEABUSE PROGRAM, SOME INFORMATION MAY BE OMITTED. This clinical summary was aggregated from multiple sources. Caution should be exercised in using it in the provision of clinical care. This summary normalizes information from multiple sources, and as a consequence, information in this document may materially change the coding, format and clinical context of patient data. In addition, data may be omitted in some cases. CLINICAL DECISIONS SHOULD BE BASED ON THE PRIMARY CLINICAL RECORDS. [facility] [employer] [facility]. provides no warranty or guarantee of the accuracy or completeness of information in this document.
== END | disposition home or self-care (01) ==
PROVIDERS: PCP Internal Medicine; Referring Provider Anesthesiology Pain Medicine; Visit Provider Anesthesiology Pain Medicine
DX: M54.16 Radiculopathy, lumbar region (principal)
CPT/HCPCS: 72070